=== PATIENT | female | born 1960 | race Caucasian/White ===

== ENCOUNTER → 2016-08-23 | Outpatient (CLI) | payer OTHER ==
[~2016-08-23] MED LIST: /CELE20CA OR; /LOR25TA OR; ACET65TA OR; ALPR0.25 OR; ASPI81TA83 OR; BUTR10DI2 TD; BUTR20DI2 TD; CALCTAB22 OR; CELE-19 PO; CLONI1TA PO; DULO30CA PO; EMLA2.5C TOP; FISH1000 OR; FLEXERIL PO; GLUCTAB6 PO; LIVALO PO; METO25TA2 OR; MULTIVIT PO; NORT10CA2 PO; OXYC1TAB23 PO; OXYC5CAP2 PO; PLAV75TA2 OR; PRAV40TA OR; PREG100CA OR; RANO5TAB PO; REQU0.5T PO; ST JOHN S WORT PO; ZOLO20CO PO; [UNRECOGNIZED DRUG - CODE] PO; [UNRECOGNIZED DRUG - OTHER] PO; [UNRECOGNIZED DRUG - OTHER] TOP; brilinta PO
--- NOTE | 2016-08-24 00:30 | ECWPNPC ---
PATIENT NAME: KYREE HUDSON : 1960 GENDER: FEMALE VISIT DATE: 08/23/2016 DISCHARGE DATE: 08/23/16 1011 VISIT LOCKED DATE TIME: PHYSICIAN: MIKKI RING RESOURCE: MIKKI RING REASON FOR APPOINTMENT 1. BACK HISTORY OF PRESENT ILLNESS HISTORY OF PRESENT ILLNESS: PAIN THE PATIENT DESCRIBES THE PAIN... THE PATIENT DESCRIBES THE PAIN... THE PATIENT DESCRIBES THE PAIN... THE PATIENT DESCRIBES THE PAIN... THE PATIENT DESCRIBES THE PAIN... THE PATIENT DESCRIBES THE PAIN... 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 CURRENTLY USING LYRICA 200MG DAILY,OXYCODONE 5/325 PRN,AND CELEBREX 200MG BID.FINDS CURRENT MEDICINE EFFECTIVE AT REDUCING PAIN.C/O USING AMITRIPTYLINE 25MG PRN AT HS FOR INCREASED PAIN .USES PERCOCET 5/325 PRN FOR SEVERE PAIN AND USES THIS SPARINGLY SINCE STARTED ON BUTRANS PATCH.DISCUSSED MEDICATION AND TREATMENT OPTIONS.RATING PAIN VAS 4/10.IT SHOULD BE NOTED THAT SHE ALSO USES FLEXERIL 5MG AND AMITRIPTYLINE PRN FOR SEVERE PAIN EPISODES. USING BUTRANS PATCH 10MCG AND REPORTS LESS DAYTIME FATIGUE AND LETHARGY AND IMPROVED PAIN CONTROL. FALL RISK SCREENING: SCREENING :NO FALLS IN THE PAST YEAR CURRENT MEDICATIONS TAKING NITROGLYCERIN 0.4 MG/SPRAY SOLUTION 1 SPRAY UNDER THE TONGUE TRANSLINGUAL NEEDED FOR CHEST PAIN (DR. MEYER) TAKING METOPROLOL TARTRATE 25 MG TABLET 1 TABLET ORALLY ONCE A DAY (DR. BUCK) TAKING ASPIRIN ADULT LOW STRENGTH 81 MG TABLET DELAYED RELEASE 1 TABLET ORALLY ONCE A DAY TAKING PRAVASTATIN SODIUM 40 MG TABLET 1 TABLET ORALLY ONCE A DAY TAKING FLEXERIL 5 MG TABLET 1-2 TABLETS ORALLY EVERY 8 HOURS PRN SPASM/PAIN TAKING ZOLOFT 50 MG TABLET 1 TABLET ORALLY ONCE A DAY TAKING BUTRANS 10 MCG/HR PATCH WEEKLY 1 PATCH TO SKIN TRANSDERMAL 1 PATCH Q7DAYS =MDD TAKING AMITRIPTYLINE HCL 25 MG TABLET 1 ORALLY QHS PRN TAKING LYRICA 200 MG CAPSULE 1 CAPSULE ORALLY ONCE A DAY TAKING CELEBREX 200 MG CAPSULE 1 CAPSULE ORALLY BID MDD2 TAKING PROAIR HFA 108 (90 BASE) MCG/ACT AEROSOL SOLUTION 2 PUFFS INHALATION EVERY 4-6 HRS TAKING PERCOCET 5-325 MG TABLET 1 TABLET NEEDED ORALLY EVERY 6 HRSMDD4 TAKING ZYRTEC 10 MG TABLET 1 TABLET NEEDED ORALLY ONCE A DAY TAKING MULTI VITAMIN DAILY - TABLET 1 TABLET ORALLY ONCE A DAY TAKING FISH OIL ULTRA NOT-TAKING BELSOMRA 10 MG TABLET 1 TABLET AT BEDTIME NEEDED ORALLY ONCE A DAY NOT-TAKING DOXYCYCLINE HYCLATE 100 MG CAPSULE 1 CAPSULE ORALLY BID NOT-TAKING DIFLUCAN 150 MG TABLET 1 TABLET ORALLY TAKE ONE AT ONSET OF SYMPTOMS, REPEAT IN 72 HOURS IF SYMPTOMS PERSIST NOT-TAKING OXYCODONE HCL 5 MG CAPSULE 1 TABLET NEEDED ORALLY EVERY 6 HRS NOT-TAKING CURCUMAX PRO 1 TABLET 1 TAB(S) ORALLY DAILY MEDICATION LIST REVIEWED AND RECONCILED WITH THE PATIENT PAST MEDICAL HISTORY HX OF SVT- S/P ABLATION 2005- DR MAHESH ANNE IN [facility]- Q YR- JAN CAD S/P- 2 STENT PLACED AT [facility] CHRONIC BACK PAIN- LUMBAR REGION ARTHRITIS- PAIN CLINIC- ARNULFO 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 NEW PATIENT PAIN DIARY TODAY'S VISITNOTES FROM 0-10, WHAT LEVEL IS YOUR PAIN TODAY?0 PAIN CLINIC PFS, CLERGY, PUBLIC HEALTH REFERRALS PFS REFERRAL NEEDED?NO CLERGY REFERRAL NEEDED?NO PUBLIC HEALTH REFERRAL NEEDED?NO WAS THE PROVIDER NOTIFIED OF ANY PERTINENT INFO?NO PFS REFERRAL NEEDED?NO CLERGY REFERRAL NEEDED?NO PUBLIC HEALTH REFERRAL NEEDED?NO WAS THE PROVIDER NOTIFIED OF ANY PERTINENT INFO?NO REVIEW OF SYSTEMS CONSTITUTIONAL: ANY CHANGE IN YOUR MEDICAL CONDITION? NO . RECENT ILLNESS DENIES . CHILLS NO . FEVER NO . WEIGHT LOSS DENIES . INFECTION: DO YOU HAVE NEW INFECTIONS? NO . DO YOU HAVE HISTORY OF MRSA? NO . MUSCULOSKELETAL: ANY NEW PATTERNS OF PAIN OR NUMBNESS? NO . GASTROENTEROLOGY: ANY NEW CHANGE IN BOWEL CONTROL? NO . GENITOURINARY: ANY NEW CHANGE IN BLADDER CONTROL? NO . IS THERE A CHANCE YOU COULD BE ? NO . HEMATOLOGY/LYMPH: DO YOU TAKE ANY BLOOD THINNERS? (FOR EXAMPLE- COUMADIN, PLAVIX, AGGRENOX, PLATEL, PRADAXA, OR XARELTO) NO . WHEN WAS YOUR LAST DOSE? DATE: TIME: . NEUROLOGY: HAVE YOU FALLEN IN THE PAST 6 MONTHS? NO . ANY NEW EXTREMITY NUMBNESS OR WEAKNESS? NO . CARDIOLOGY: DO YOU HAVE A PACEMAKER OR DEFIBRILLATOR? NO . CHEST PAIN DENIES . SHORTNESS OF BREATH DENIES . RESPIRATORY: HAVE YOU BEEN SICK IN THE PAST WEEK? NO . FEVER NO . FLU LIKE SYMPTOMS? NO . COUGH NO, DENIES . SHORTNESS OF BREATH DENIES . INTEGUMENTARY: DO YOU HAVE ANY RASHES OR OPEN SORES? NO . ALLERGIC/IMMUNO: ARE YOU ALLERGIC TO SHELLFISH OR IV DYE? NO . ANY NEW ALLERGIES? NO . PSYCHIATRIC: DO YOU HAVE THOUGHTS OF HURTING YOURSELF OR SOMEONE ELSE? NO . ARE YOU ABUSED, NEGLECTED, OR IN AN UNSAFE ENVIRONMENT? NO . ENDOCRINOLOGY: ARE YOU DIABETIC? NO . OTHER: DO YOU NEED ANY PRESCRIPTIONS? YES OXYCODONE . IF YES, PLEASE LIST: ____ . ANY NEW PROBLEMS WITH YOUR MEDICATIONS? NO . WHEN DID YOU LAST EAT? ____ . WHEN DID YOU LAST DRINK? ____ . WHAT DID YOU LAST DRINK? ____ . NAME OF PERSON DRIVING YOU HOME? ____ . DO YOU HAVE ANY OTHER QUESTIONS OR CONCERNS NO . REVIEWED BY: PROVIDER: MIKKI DOUGLAS . VITAL SIGNS WT 173.6 LBS, HT 68 IN, BMI 26.39 INDEX, BP 123/83 MM HG, HR 62 /MIN, RR 18 /MIN, TEMP 96.2 F, OXYGEN SAT % 95%, SAFE IN ENV? (Y/N) YES, NA INITIALS AL 09:05, REVIEWED BY: KG. EXAMINATION GENERAL EXAMINATION: LUNGS:LUNG SOUNDS ARE CLEAR. HEART:HEART RATE REGULAR. MUSCULOSKELETAL:*, MUSCLE STRENGTH TESTING 5/5 BILATERAL LOWER EXTREMITIES., PALPATION: NEGATIVE FOR PAIN OVER L/S SPINE. NEGATIVE FOR PAIN OVER L/S PARASPINALS. DIAGNOSTIC: . ASSESSMENTS CHRONIC BILATERAL LOW BACK PAIN WITHOUT SCIATICA - M54.5 (PRIMARY) CHRONIC PRESCRIPTION OPIATE USE - Z79.899 SACROILIAC DYSFUNCTION - M53.3 TREATMENT CHRONIC BILATERAL LOW BACK PAIN WITHOUT SCIATICA CONTINUE FLEXERIL TABLET, 5 MG, 1-2 TABLETS, ORALLY, EVERY 8 HOURS PRN SPASM/PAIN REFILL BUTRANS PATCH WEEKLY, 10 MCG/HR, 1 PATCH TO SKIN, TRANSDERMAL, 1 PATCH Q7DAYS =MDD, 30 DAY(S), 4, REFILLS 5 CONTINUE AMITRIPTYLINE HCL TABLET, 25 MG, 1, ORALLY, QHS PRN CONTINUE CELEBREX CAPSULE, 200 MG, 1 CAPSULE, ORALLY, BID MDD2, 30 DAY(S), 60, REFILLS 5 REFILL PERCOCET TABLET, 5-325 MG, 1 TABLET NEEDED, ORALLY, EVERY 6 HRSMDD4, 30 DAY(S), 60, REFILLS 0 NOTES: ISTOP REGISTRY REVIEWED AND DEMNOSTRATES COMPLLIANCE. BRINGS IN MEDICATIONS WHICH IS APPROPRIATE FOR WHAT WAS DISPENSED. RECENT URINE TOXICOLOGY REVIEWED. NO UNAUTHORIZED MEDICATIONS. NO ILLICIT SUBSTANCES AND PRESCRIBED MEDICATIONS WERE PRESENT. , RISKS AND BENEFITS OF NARCOTIC/OPIOD MEDICATIONS WERE REVIEWED WITH PATIENT - THIS INCLUDES BUT IS NOT LIMITED TO RISK OF DEPENDANCE/DEVELOPMENT OF ADDICTION, MOOD DISTURBANCE AND DEPRESSION, OSTEOPOROSIS, HORMONAL AND LABIDAL CHANGES, RESPIRATORY DEPRESSION AND . PATIENT IS ADVISED NOT TO DRIVE WHILE ON THESE MEDICATIONS.URINE TOX TODAY. PROCEDURES PN WORKMANS' COMP OPINION IN YOUR OPINION, WAS THE INCIDENT THAT THE PATIENT DESCRIBED THE COMPETENT MEDICAL CAUSE OF THIS INJURY/ILLNESS? YES ARE THE PATIENT'S COMPLAINTS CONSISTENT WITH HIS/HER HISTORY OF THE INJURY/ILLNESS? YES IS THE PATIENT'S HISTORY OF THE INJURY/ILLNESS CONSISTENT WITH YOUR OBJECTIVE FINDING? YES WHAT IS THE PERCENTAGE OF TEMPORARY IMPAIRMENT? MODERATE TO MARKED = 66.7% IS THE PATIENT WORKING? NO DOCTOR ON SITE: NAM BRADSHAW MD PROCEDURE CODES FA211 ESTABILISHED PATIENT [facility] CHARGE DISPOSITION & COMMUNICATION FOLLOW UP 2 MONTHS ELECTRONICALLY SIGNED BY STELLA SUNSHINE ON 08/23/2016 AT 10:25 AM EST DISCLAIMER : THIS IS A VISIT SUMMARY EXTRACTED FROM THE [employer] CHART. IT IS NOT A COPY OF THE [employer] PROGRESS NOTE. MTDD
== END ==
LOC: M PAIN 09:00
PROVIDERS: ATTEND Nurse Practitioner Family
DX: Z09 Encounter for follow-up examination after completed treatment for conditions other than malignant neoplasm (principal); G89.29 Other chronic pain; M54.5 Low back pain; M53.3 Sacrococcygeal disorders, not elsewhere classified; I25.10 Atherosclerotic heart disease of native coronary artery without angina pectoris; G90.50 Complex regional pain syndrome I, unspecified; F41.9 Anxiety disorder, unspecified; Z88.8 Allergy status to other drugs, medicaments and biological substances; Z79.82 Long term (current) use of aspirin; Z79.891 Long term (current) use of opiate analgesic; Z79.899 Other long term (current) drug therapy; Z86.79 Personal history of other diseases of the circulatory system; Z95.5 Presence of coronary angioplasty implant and graft; Z98.890 Other specified postprocedural states

== ENCOUNTER → 2016-09-10 | Outpatient (REF) | payer OTHER | LOC: M SFHCLERA 13:05 | PROVIDERS: ATTEND Physician Assistant | DX: J02.9 Acute pharyngitis, unspecified (principal) ==

== ENCOUNTER → 2016-09-20 | Outpatient (REF) | payer OTHER ==
[2016-09-20 12:46] LABS: MEAN CORPUSCULAR HEMOGLOBIN 28.2 pg (27.0-33.0); RED CELL DISTRIBUTION WIDTH 12.3 % (11.5-14.5); WHITE BLOOD COUNT 5.1 K/mm3 (4.0-10.0)
[2016-09-20 12:47] LABS: ALBUMIN 3.5 GM/DL (3.2-5.2); ALBUMIN/GLOBULIN RATIO 1.21 (1.00-1.93); ALKALINE PHOSPHATASE 82 U/L (45-117); ALT/SGPT 21 U/L (12-78); ANION GAP 6 MEQ/L (8-16); AST/SGOT 17 U/L (15-37); BILIRUBIN,TOTAL 0.4 MG/DL (0.2-1.0); BLOOD UREA NITROGEN 13 MG/DL (7-18); CALCIUM LEVEL 8.4 MG/DL (8.5-10.1); CARBON DIOXIDE LEVEL 30 MEQ/L (21-32); CHLORIDE LEVEL 105 MEQ/L (98-107); CHOLESTEROL LEVEL 162 MG/DL (<200); GLOMERULAR FILTRATION RATE > 60.0 (>51); GLUCOSE, FASTING 86 MG/DL (70-105); POTASSIUM SERUM 4.3 MEQ/L (3.5-5.1); SODIUM LEVEL 141 MEQ/L (136-145); TOTAL PROTEIN 6.4 GM/DL (6.4-8.2); TRIGLYCERIDES LEVEL 160 MG/DL (<150)
== END ==
LOC: M SFHCLERA 08:38
PROVIDERS: ATTEND Physician Assistant
DX: M25.50 Pain in unspecified joint (principal); E78.2 Mixed hyperlipidemia; R63.5 Abnormal weight gain

== ENCOUNTER → 2016-10-26 | Outpatient (CLI) | payer OTHER ==
--- NOTE | 2016-11-04 23:37 | ECWPNPC ---
PATIENT NAME: KYREE HUDSON : 1960 GENDER: FEMALE VISIT DATE: 10/26/2016 DISCHARGE DATE: 10/26/16 1136 VISIT LOCKED DATE TIME: PHYSICIAN: MIKKI RING RESOURCE: MIKKI RING REASON FOR APPOINTMENT 1. BACK HISTORY OF PRESENT ILLNESS HISTORY OF PRESENT ILLNESS: PAIN THE PATIENT DESCRIBES THE PAIN... THE PATIENT DESCRIBES THE PAIN... THE PATIENT DESCRIBES THE PAIN... THE PATIENT DESCRIBES THE PAIN... THE PATIENT DESCRIBES THE PAIN... THE PATIENT DESCRIBES THE PAIN... THE PATIENT DESCRIBES THE PAIN... 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 CURRENTLY USING LYRICA 200MG DAILY,OXYCODONE 5/325 PRN,AND CELEBREX 200MG BID.FINDS CURRENT MEDICINE EFFECTIVE AT REDUCING PAIN.C/O USING AMITRIPTYLINE 25MG PRN AT HS FOR INCREASED PAIN .USES PERCOCET 5/325 PRN FOR SEVERE PAIN AND USES THIS SPARINGLY SINCE STARTED ON BUTRANS PATCH.HAVING SEVERE INCREASE IN LOW BACK PAIN PAST THREE WEEKS.PAIN IS RADIATING DOWN RIGHT LEG WHICH IS NOT HER USUAL PAIN PATTERN.DISCUSSED MEDICATION AND TREATMENT OPTIONS.RATING PAIN VAS 4/10.IT SHOULD BE NOTED THAT SHE ALSO USES FLEXERIL 5MG AND AMITRIPTYLINE PRN FOR SEVERE PAIN EPISODES. USING BUTRANS PATCH 10MCG AND REPORTS LESS DAYTIME FATIGUE AND LETHARGY AND IMPROVED PAIN CONTROL. FALL RISK SCREENING: SCREENING :NO FALLS IN THE PAST YEAR CURRENT MEDICATIONS TAKING ZOLOFT 100 MG TABLET 1 TABLET ORALLY ONCE A DAY TAKING METOPROLOL TARTRATE 25 MG TABLET 1 TABLET ORALLY ONCE A DAY (DR. BUCK) TAKING ASPIRIN ADULT LOW STRENGTH 81 MG TABLET DELAYED RELEASE 1 TABLET ORALLY ONCE A DAY TAKING PRAVASTATIN SODIUM 40 MG TABLET 1 TABLET ORALLY ONCE A DAY TAKING ZYRTEC 10 MG TABLET 1 TABLET NEEDED ORALLY ONCE A DAY TAKING FISH OIL ULTRA TAKING BUTRANS 10 MCG/HR PATCH WEEKLY 1 PATCH TO SKIN TRANSDERMAL 1 PATCH Q7DAYS =MDD TAKING CELEBREX 200 MG CAPSULE 1 CAPSULE ORALLY BID MDD2 TAKING NITROGLYCERIN 0.4 MG/SPRAY SOLUTION 1 SPRAY UNDER THE TONGUE TRANSLINGUAL NEEDED FOR CHEST PAIN TAKING LYRICA 200 MG CAPSULE 1 CAPSULE ORALLY ONCE A DAY TAKING PERCOCET 5-325 MG TABLET 1 TABLET NEEDED ORALLY EVERY 6 HRSMDD4 NOT-TAKING PROAIR HFA 108 (90 BASE) MCG/ACT AEROSOL SOLUTION 2 PUFFS INHALATION EVERY 4-6 HRS NOT-TAKING DOXYCYCLINE 40 MG CAPSULE DELAYED RELEASE 5 CAPSULE ON AN EMPTY STOMACH IN THE MORNING ORALLY ONCE A DAY MEDICATION LIST REVIEWED AND RECONCILED WITH THE PATIENT PAST MEDICAL HISTORY HX OF SVT- S/P ABLATION 2005- DR MAHESH ANNE IN [facility]- Q YR- JAN CAD S/P- 2 STENT PLACED AT [facility] CHRONIC BACK PAIN- LUMBAR REGION ARTHRITIS- PAIN CLINIC- ARNULFO BURNHAM-WORK COMP MULTIPLE JOINT PAIN- WRIST/RIGHT HIP/RIGHT KNEE/LEFT BIG TOE ANXIETY- LEXAPRO-1 YR- STOPPED B/C FELT LIKE ENCLOSED 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 BUCK) 12/2011 COLONOSCOPY (DR. ESQUIVEL, 1 POLYP, DUE IN 2018) 08/2013 BUNION 05/2015 ARTHRITIS 07/2015 SOCIAL HISTORY GENERAL: TOBACCO USE ARE YOU A:NONSMOKER CAFFEINE CAFFEINE USE?YES HOW OFTEN AND HOW MUCH? 2-3 CUPS HIV / HEP-C SCREENING HIV TEST OFFERED TO PATIENT:YES DATE OFFERED:09/10/2016 TEST ACCEPTED:NO REASON:PATIENT DECLINED HEP-C TEST OFFERED TO PATIENT:YES DATE OFFERED:09/10/2016 TEST ACCEPTED:NO REASON:PATIENT DECLINED LEARNING BARRIERS / SPECIAL NEEDS BARRIERS TO LEARNING?NO HEARING IMPAIRED?NO VISION IMPAIRED?YES :CORRECTIVE LENSES COGNITIVELY IMPAIRED?NO READINESS TO LEARN?YES LEARNING PREFERENCES?NO LEARNING CAPABILITIES PRESENT?YES EMOTIONAL BARRIERS?NO NEW PATIENT PAIN DIARY TODAY'S VISITNOTES FROM 0-10, WHAT LEVEL IS YOUR PAIN TODAY?0 PAIN CLINIC PFS, CLERGY, PUBLIC HEALTH REFERRALS PFS REFERRAL NEEDED?NO CLERGY REFERRAL NEEDED?NO PUBLIC HEALTH REFERRAL NEEDED?NO WAS THE PROVIDER NOTIFIED OF ANY PERTINENT INFO?YES [facility]ED DIRECTIVES HEALTH CARE PROXY?YES NAME OF HCP MOHAMUD RYAN CONTACT # FOR HCP [phone] HOSPITALIZATION/MAJOR DIAGNOSTIC PROCEDURE CHILDBIRTH SEE SURGERIES REVIEW OF SYSTEMS CONSTITUTIONAL: ANY CHANGE IN YOUR MEDICAL CONDITION? NO . CHILLS NO . FEVER NO . INFECTION: DO YOU HAVE NEW INFECTIONS? NO . DO YOU HAVE HISTORY OF MRSA? NO . MUSCULOSKELETAL: ANY NEW PATTERNS OF PAIN OR NUMBNESS? NO . GASTROENTEROLOGY: ANY NEW CHANGE IN BOWEL CONTROL? NO . GENITOURINARY: ANY NEW CHANGE IN BLADDER CONTROL? NO . IS THERE A CHANCE YOU COULD BE ? NO . HEMATOLOGY/LYMPH: DO YOU TAKE ANY BLOOD THINNERS? (FOR EXAMPLE- COUMADIN, PLAVIX, AGGRENOX, PLATEL, PRADAXA, OR XARELTO) NO . WHEN WAS YOUR LAST DOSE? DATE: TIME: . NEUROLOGY: HAVE YOU FALLEN IN THE PAST 6 MONTHS? NO . ANY NEW EXTREMITY NUMBNESS OR WEAKNESS? NO . CARDIOLOGY: DO YOU HAVE A PACEMAKER OR DEFIBRILLATOR? NO . RESPIRATORY: HAVE YOU BEEN SICK IN THE PAST WEEK? NO . FEVER NO . FLU LIKE SYMPTOMS? NO . COUGH NO . INTEGUMENTARY: DO YOU HAVE ANY RASHES OR OPEN SORES? NO . ALLERGIC/IMMUNO: ARE YOU ALLERGIC TO SHELLFISH OR IV DYE? NO . ANY NEW ALLERGIES? NO . PSYCHIATRIC: DO YOU HAVE THOUGHTS OF HURTING YOURSELF OR SOMEONE ELSE? NO . ARE YOU ABUSED, NEGLECTED, OR IN AN UNSAFE ENVIRONMENT? NO . ENDOCRINOLOGY: ARE YOU DIABETIC? NO . OTHER: DO YOU NEED ANY PRESCRIPTIONS? CELEBREX, LYRICA, OXYCODONE, . IF YES, PLEASE LIST: ____ . ANY NEW PROBLEMS WITH YOUR MEDICATIONS? NO . WHEN DID YOU LAST EAT? ____ . WHEN DID YOU LAST DRINK? ____ . WHAT DID YOU LAST DRINK? ____ . NAME OF PERSON DRIVING YOU HOME? ____ . DO YOU HAVE ANY OTHER QUESTIONS OR CONCERNS PT WOULD LIKE AUTHORIZATION FOR ANOTHER INJECTION . REVIEWED BY: PROVIDER: MIKKI DOUGLAS . VITAL SIGNS WT 165 LBS, HT 68 IN, BMI 25.09 INDEX, BP 125/64 MM HG, HR 59 /MIN, RR 18 /MIN, TEMP 97.8 F, OXYGEN SAT % 96%, SAFE IN ENV? (Y/N) Y, NA INITIALS AW 1050, REVIEWED BY: NATY. EXAMINATION GENERAL EXAMINATION: LUNGS:LUNG SOUNDS ARE CLEAR. HEART:HEART RATE REGULAR. MUSCULOSKELETAL:*, MUSCLE STRENGTH TESTING 5/5 BILATERAL LOWER EXTREMITIES., PALPATION: NEGATIVE FOR PAIN OVER L/S SPINE. NEGATIVE FOR PAIN OVER L/S PARASPINALS. DIAGNOSTIC: . ASSESSMENTS CHRONIC BILATERAL LOW BACK PAIN WITHOUT SCIATICA - M54.5 (PRIMARY) CHRONIC PRESCRIPTION OPIATE USE - Z79.899 SACROILIAC DYSFUNCTION - M53.3 TREATMENT CHRONIC BILATERAL LOW BACK PAIN WITHOUT SCIATICA CONTINUE BUTRANS PATCH WEEKLY, 10 MCG/HR, 1 PATCH TO SKIN, TRANSDERMAL, 1 PATCH Q7DAYS =MDD REFILL CELEBREX CAPSULE, 200 MG, 1 CAPSULE, ORALLY, BID MDD2, 30 DAY(S), 60, REFILLS 5 REFILL LYRICA CAPSULE, 200 MG, 1 CAPSULE, ORALLY, ONCE A DAY, 30 DAY(S), 30 CAPSULE, REFILLS 2 REFILL PERCOCET TABLET, 5-325 MG, 1 TABLET NEEDED, ORALLY, EVERY 6 HRSMDD4, 30 DAY(S), 60, REFILLS 0 NOTES: ISTOP REGISTRY REVIEWED AND DEMNOSTRATES COMPLLIANCE. BRINGS IN MEDICATIONS WHICH IS APPROPRIATE FOR WHAT WAS DISPENSED. RECENT URINE TOXICOLOGY REVIEWED. NO UNAUTHORIZED MEDICATIONS. NO ILLICIT SUBSTANCES AND PRESCRIBED MEDICATIONS WERE PRESENT. , RISKS AND BENEFITS OF NARCOTIC/OPIOD MEDICATIONS WERE REVIEWED WITH PATIENT - THIS INCLUDES BUT IS NOT LIMITED TO RISK OF DEPENDANCE/DEVELOPMENT OF ADDICTION, MOOD DISTURBANCE AND DEPRESSION, OSTEOPOROSIS, HORMONAL AND LABIDAL CHANGES, RESPIRATORY DEPRESSION AND . PATIENT IS ADVISED NOT TO DRIVE WHILE ON THESE MEDICATIONS, URINE TOX TODAY. PROCEDURE CODES FA211 ESTABILISHED PATIENT [facility] CHARGE DISPOSITION & COMMUNICATION FOLLOW UP 4 WEEKS ELECTRONICALLY SIGNED BY STELLA SUNSHINE ON 11/04/2016 AT 05:45 PM EDT DISCLAIMER : THIS IS A VISIT SUMMARY EXTRACTED FROM THE [employer] CHART. IT IS NOT A COPY OF THE [employer] PROGRESS NOTE. MTDD
== END ==
LOC: M PAIN 10:20
PROVIDERS: ATTEND Nurse Practitioner Family
DX: G89.29 Other chronic pain (principal); M54.5 Low back pain; M53.3 Sacrococcygeal disorders, not elsewhere classified; F41.9 Anxiety disorder, unspecified; E78.2 Mixed hyperlipidemia; F34.1 Dysthymic disorder; Z88.8 Allergy status to other drugs, medicaments and biological substances; Z79.82 Long term (current) use of aspirin; Z79.891 Long term (current) use of opiate analgesic; Z79.899 Other long term (current) drug therapy

== ENCOUNTER → 2016-11-09 | Outpatient (REF) | payer OTHER | LOC: M SFHCWAGY 09:53 | PROVIDERS: ATTEND Nurse Practitioner Women's Health | DX: Z12.4 Encounter for screening for malignant neoplasm of cervix (principal); R87.610 Atypical squamous cells of undetermined significance on cytologic smear of cervix (ASC-US) ==

== ENCOUNTER → 2016-11-24 | Outpatient (CLI) | payer OTHER ==
--- NOTE | 2016-11-25 00:47 | ECWPNPC ---
PATIENT NAME: KYREE HUDSON : 1960 GENDER: FEMALE VISIT DATE: 11/24/2016 DISCHARGE DATE: 11/24/16 1024 VISIT LOCKED DATE TIME: PHYSICIAN: MIKKI RING RESOURCE: MIKKI RING REASON FOR APPOINTMENT 1. BACK HISTORY OF PRESENT ILLNESS HISTORY OF PRESENT ILLNESS: PAIN THE PATIENT DESCRIBES THE PAIN... THE PATIENT DESCRIBES THE PAIN... THE PATIENT DESCRIBES THE PAIN... THE PATIENT DESCRIBES THE PAIN... THE PATIENT DESCRIBES THE PAIN... THE PATIENT DESCRIBES THE PAIN... THE PATIENT DESCRIBES THE PAIN... THE PATIENT DESCRIBES THE PAIN... 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 CURRENTLY USING LYRICA 200MG DAILY,OXYCODONE 5/325 PRN,AND CELEBREX 200MG BID AND BUTRANS PATCH.FINDS CURRENT MEDICINE EFFECTIVE AT REDUCING PAIN. STOPPED BUTRANS PATCH 2 WEEKS AGO IT WAS CAUSING SEVERE RASH.HAVING SEVERE INCREASE IN LOW BACK PAIN PAST THREE WEEKS.PAIN IS RADIATING DOWN RIGHT LEG WHICH IS NOT HER USUAL PAIN PATTERN.DISCUSSED MEDICATION AND TREATMENT OPTIONS.WILL BE HAVING MRI L/S SPINE THAT WE REQUESTED IN THE NEXT FEW WEEKS. FALL RISK SCREENING: SCREENING :NO FALLS IN THE PAST YEAR CURRENT MEDICATIONS TAKING METOPROLOL TARTRATE 25 MG TABLET 1 TABLET ORALLY ONCE A DAY (DR. BUCK) TAKING ASPIRIN ADULT LOW STRENGTH 81 MG TABLET DELAYED RELEASE 1 TABLET ORALLY ONCE A DAY TAKING PRAVASTATIN SODIUM 40 MG TABLET 1 TABLET ORALLY ONCE A DAY TAKING FISH OIL ULTRA TAKING NITROGLYCERIN 0.4 MG/SPRAY SOLUTION 1 SPRAY UNDER THE TONGUE TRANSLINGUAL NEEDED FOR CHEST PAIN TAKING BUTRANS 10 MCG/HR PATCH WEEKLY 1 PATCH TO SKIN TRANSDERMAL 1 PATCH Q7DAYS =MDD TAKING CELEBREX 200 MG CAPSULE 1 CAPSULE ORALLY BID MDD2 TAKING LYRICA 200 MG CAPSULE 1 CAPSULE ORALLY ONCE A DAY TAKING PERCOCET 5-325 MG TABLET 1 TABLET NEEDED ORALLY EVERY 6 HRSMDD4 TAKING FISH OIL 1000 MG CAPSULE 1 CAPSULE ORALLY ONCE A DAY TAKING ZOLOFT 100 MG TABLET 1 TABLET ORALLY ONCE A DAY TAKING ZYRTEC 10 MG TABLET 1 TABLET NEEDED ORALLY ONCE A DAY NOT-TAKING PROAIR HFA 108 (90 BASE) MCG/ACT AEROSOL SOLUTION 2 PUFFS INHALATION EVERY 4-6 HRS NOT-TAKING DOXYCYCLINE 40 MG CAPSULE DELAYED RELEASE 5 CAPSULE ON AN EMPTY STOMACH IN THE MORNING ORALLY ONCE A DAY MEDICATION LIST REVIEWED AND RECONCILED WITH THE PATIENT PAST MEDICAL HISTORY HX OF SVT- S/P ABLATION 2006- DR MAHESH ANNE IN [facility]- Q YR- AUG CAD S/P- 2 STENT PLACED AT [facility] CHRONIC BACK PAIN- LUMBAR REGION ARTHRITIS- PAIN CLINIC- ARNULFO TEJ-WORK COMP MULTIPLE JOINT PAIN- WRIST/RIGHT HIP/RIGHT KNEE/LEFT BIG TOE ANXIETY- LEXAPRO-1 YR- STOPPED B/C FELT LIKE ENCLOSED ALLERGIES CRESTOR: MYALGIAS: SIDE EFFECTS SURGICAL HISTORY RT HAND SURGERY- ARTHRITIS- DR STANFORD- SOS TUBAL LIGATION RT LEG VARICOSE VEIN REMOVED ABLATION CARDIAC 2005 CORONARY STENTS X 2 ([facility] - DR. BUCK) 12/2011 COLONOSCOPY (DR. ESQUIVEL, 1 POLYP, DUE IN 2019) 08/2013 BUNION 05/2015 ARTHRITIS 07/2015 HOSPITALIZATION/MAJOR DIAGNOSTIC PROCEDURE CHILDBIRTH SEE SURGERIES REVIEW OF SYSTEMS CONSTITUTIONAL: ANY CHANGE IN YOUR MEDICAL CONDITION? NO . CHILLS NO . FEVER NO . INFECTION: DO YOU HAVE NEW INFECTIONS? NO . DO YOU HAVE HISTORY OF MRSA? NO . MUSCULOSKELETAL: ANY NEW PATTERNS OF PAIN OR NUMBNESS? 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 SO PT HAS STOPPED WEARING PATCH OVER PAST 2 WEEKS. PT STATES SHE NOTICES ARTHRITIC PAIN MORE NOW. . GASTROENTEROLOGY: ANY NEW CHANGE IN BOWEL CONTROL? NO . GENITOURINARY: ANY NEW CHANGE IN BLADDER CONTROL? NO . IS THERE A CHANCE YOU COULD BE ? NO . HEMATOLOGY/LYMPH: DO YOU TAKE ANY BLOOD THINNERS? (FOR EXAMPLE- COUMADIN, PLAVIX, AGGRENOX, PLATEL, PRADAXA, OR XARELTO) NO . WHEN WAS YOUR LAST DOSE? DATE: TIME: . NEUROLOGY: HAVE YOU FALLEN IN THE PAST 6 MONTHS? NO . ANY NEW EXTREMITY NUMBNESS OR WEAKNESS? NO . CARDIOLOGY: DO YOU HAVE A PACEMAKER OR DEFIBRILLATOR? NO . RESPIRATORY: HAVE YOU BEEN SICK IN THE PAST WEEK? NO . FEVER NO . FLU LIKE SYMPTOMS? NO . COUGH NO . INTEGUMENTARY: DO YOU HAVE ANY RASHES OR OPEN SORES? NO . ALLERGIC/IMMUNO: ARE YOU ALLERGIC TO SHELLFISH OR IV DYE? NO . ANY NEW ALLERGIES? NO . PSYCHIATRIC: DO YOU HAVE THOUGHTS OF HURTING YOURSELF OR SOMEONE ELSE? NO . ARE YOU ABUSED, NEGLECTED, OR IN AN UNSAFE ENVIRONMENT? NO . ENDOCRINOLOGY: ARE YOU DIABETIC? NO . OTHER: DO YOU NEED ANY PRESCRIPTIONS? YES, OXYCODONE. TO DISCUSS NEW REGIMEN SINCE NOT WEARING PATCH . IF YES, PLEASE LIST: ____ . ANY NEW PROBLEMS WITH YOUR MEDICATIONS? NO . WHEN DID YOU LAST EAT? ____ . WHEN DID YOU LAST DRINK? ____ . WHAT DID YOU LAST DRINK? ____ . NAME OF PERSON DRIVING YOU HOME? ____ . DO YOU HAVE ANY OTHER QUESTIONS OR CONCERNS NO . REVIEWED BY: PROVIDER: MIKKI DOUGLAS . VITAL SIGNS WT 168.2 LBS, HT 68 IN, BMI 25.57 INDEX, BP 115/90 MM HG, REPEAT BP 125/68 MM HG, HR 63 /MIN, RR 16 /MIN, TEMP 97.4 F, OXYGEN SAT % 99%, NA INITIALS SC 09:23, REVIEWED BY: EM. EXAMINATION GENERAL EXAMINATION: LUNGS:LUNG SOUNDS ARE CLEAR. HEART:HEART RATE REGULAR. MUSCULOSKELETAL:*, MUSCLE STRENGTH TESTING 5/5 BILATERAL LOWER EXTREMITIES., PALPATION: + FOR PAIN OVER L/S SPINE. + FOR PAIN OVER L/S PARASPINALS.SPECIFIC POINT TENDERNESS OVER BILATERAL SIJ. DIAGNOSTIC: . ASSESSMENTS CHRONIC BILATERAL LOW BACK PAIN WITHOUT SCIATICA - M54.5 (PRIMARY) CHRONIC PRESCRIPTION OPIATE USE - Z79.899 SACROILIAC DYSFUNCTION - M53.3 TREATMENT CHRONIC BILATERAL LOW BACK PAIN WITHOUT SCIATICA STOP BUTRANS PATCH WEEKLY, 10 MCG/HR, 1 PATCH TO SKIN, TRANSDERMAL, 1 PATCH Q7DAYS =MDD CONTINUE CELEBREX CAPSULE, 200 MG, 1 CAPSULE, ORALLY, BID MDD2 CONTINUE LYRICA CAPSULE, 200 MG, 1 CAPSULE, ORALLY, ONCE A DAY REFILL PERCOCET TABLET, 5-325 MG, 1 TABLET NEEDED, ORALLY, EVERY 6 HRSMDD4, 30 DAY(S), 60, REFILLS 0 START OXYCONTIN TABLET ER 12 HOUR ABUSE-DETERRENT, 10 MG, 1 TABLET, ORALLY, DAILY, 30 DAY(S), 30 TABLET, REFILLS 0 [facility] MRI SPINE, L.S. WITHOUT [id number] PROCEDURES PN WORKMANS' COMP OPINION IN YOUR OPINION, WAS THE INCIDENT THAT THE PATIENT DESCRIBED THE COMPETENT MEDICAL CAUSE OF THIS INJURY/ILLNESS? YES ARE THE PATIENT'S COMPLAINTS CONSISTENT WITH HIS/HER HISTORY OF THE INJURY/ILLNESS? YES IS THE PATIENT'S HISTORY OF THE INJURY/ILLNESS CONSISTENT WITH YOUR OBJECTIVE FINDING? YES WHAT IS THE PERCENTAGE OF TEMPORARY IMPAIRMENT? MODERATE TO MARKED = 66.7% IS THE PATIENT WORKING? YES DOCTOR ON SITE: NAM BRADSHAW MD PROCEDURE CODES FA211 ESTABILISHED PATIENT [facility] CHARGE DISPOSITION & COMMUNICATION FOLLOW UP 4 WEEKS (REASON: REVIEW MRI) ELECTRONICALLY SIGNED BY STELLA SUNSHINE ON 11/24/2016 AT 11:33 AM EDT DISCLAIMER : THIS IS A VISIT SUMMARY EXTRACTED FROM THE [facility] [employer] CHART. IT IS NOT A COPY OF THE [facility] PROGRESS NOTE. CHRISTINA
== END ==
LOC: M PAIN 09:00
PROVIDERS: ATTEND Nurse Practitioner Family
DX: M54.5 Low back pain (principal); M53.3 Sacrococcygeal disorders, not elsewhere classified; Z79.82 Long term (current) use of aspirin; Z79.891 Long term (current) use of opiate analgesic; Z79.899 Other long term (current) drug therapy; Z88.8 Allergy status to other drugs, medicaments and biological substances

== ENCOUNTER → 2016-12-22 | Outpatient (CLI) | payer OTHER ==
[~2016-12-22] MED LIST changes: -CELE-19 PO; +CELE1CAP4 PO; -REQU0.5T PO; +REQU1TAB15 PO; +ZOLO50TA PO
--- NOTE | 2017-01-03 01:47 | ECWPNPC ---
PATIENT NAME: KYREE HUDSON : 1960 GENDER: FEMALE VISIT DATE: 12/22/2016 DISCHARGE DATE: 12/22/16 0951 VISIT LOCKED DATE TIME: PHYSICIAN: MIKKI RING RESOURCE: MIKKI RING REASON FOR APPOINTMENT 1. WC, BACK HISTORY OF PRESENT ILLNESS HISTORY OF PRESENT ILLNESS: PAIN THE PATIENT DESCRIBES THE PAIN... THE PATIENT DESCRIBES THE PAIN... THE PATIENT DESCRIBES THE PAIN... THE PATIENT DESCRIBES THE PAIN... THE PATIENT DESCRIBES THE PAIN... THE PATIENT DESCRIBES THE PAIN... THE PATIENT DESCRIBES THE PAIN... THE PATIENT DESCRIBES THE PAIN... THE PATIENT DESCRIBES THE PAIN... 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 CURRENTLY USING LYRICA 200MG DAILY,OXYCODONE 5/325 PRN,AND CELEBREX 200MG BID AND BUTRANS PATCH.FINDS CURRENT MEDICINE EFFECTIVE AT REDUCING PAIN. 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 FALL RISK SCREENING: SCREENING :NO FALLS IN THE PAST YEAR CURRENT MEDICATIONS TAKING METOPROLOL TARTRATE 25 MG TABLET 1 TABLET ORALLY ONCE A DAY (DR. BUCK) TAKING ASPIRIN ADULT LOW STRENGTH 81 MG TABLET DELAYED RELEASE 1 TABLET ORALLY ONCE A DAY TAKING PRAVASTATIN SODIUM 40 MG TABLET 1 TABLET ORALLY ONCE A DAY TAKING FISH OIL ULTRA 1 TAB ORALLY 2 TIMES A DAY TAKING NITROGLYCERIN 0.4 MG/SPRAY SOLUTION 1 SPRAY UNDER THE TONGUE TRANSLINGUAL NEEDED FOR CHEST PAIN TAKING ZOLOFT 100 MG TABLET 1 TABLET ORALLY ONCE A DAY TAKING ZYRTEC 10 MG TABLET 1 TABLET NEEDED ORALLY ONCE A DAY TAKING CELEBREX 200 MG CAPSULE 1 CAPSULE ORALLY BID MDD2 TAKING LYRICA 200 MG CAPSULE 1 CAPSULE ORALLY ONCE A DAY TAKING PERCOCET 5-325 MG TABLET 1 TABLET NEEDED ORALLY EVERY 6 HRSMDD4 TAKING OXYCONTIN 10 MG TABLET ER 12 HOUR ABUSE-DETERRENT 1 TABLET ORALLY DAILY NOT-TAKING FISH OIL 1000 MG CAPSULE 1 CAPSULE ORALLY ONCE A DAY NOT-TAKING PROAIR HFA 108 (90 BASE) MCG/ACT AEROSOL SOLUTION 2 PUFFS INHALATION EVERY 4-6 HRS NOT-TAKING DOXYCYCLINE 40 MG CAPSULE DELAYED RELEASE 5 CAPSULE ON AN EMPTY STOMACH IN THE MORNING ORALLY ONCE A DAY MEDICATION LIST REVIEWED AND RECONCILED WITH THE PATIENT PAST MEDICAL HISTORY HX OF SVT- S/P ABLATION 2005- DR MAHESH ANNE IN [facility]- Q YR- JAN CAD S/P- 2 STENT PLACED AT [facility] CHRONIC BACK PAIN- LUMBAR REGION ARTHRITIS- PAIN CLINIC- ARNULFO BURNHAM-WORK COMP MULTIPLE JOINT PAIN- WRIST/RIGHT HIP/RIGHT KNEE/LEFT BIG TOE ANXIETY- LEXAPRO-1 YR- STOPPED B/C FELT LIKE ENCLOSED ALLERGIES CRESTOR: MYALGIAS: SIDE EFFECTS SOCIAL HISTORY GENERAL: TOBACCO USE ARE YOU A:NONSMOKER BMI CARE GOAL FOLLOW-UP ABOVE NORMAL BMI FOLLOW-UPDIETARY MANAGEMENT EDUCATION, GUIDANCE, AND COUNSELING, WEIGHT MONITORING CAFFEINE CAFFEINE USE?YES HOW OFTEN AND HOW MUCH? 2-3 CUPS CAFFEINE USE?YES HOW OFTEN AND HOW MUCH? 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 EXERCISE: ABS, RESISTANCE TRAINING. MARITAL STATUS: .. OTHERS AT HOME: BOYFRIEND. LANGUAGE LANGUAGES SPOKEN:INDONESIAN LEARNING BARRIERS / SPECIAL NEEDS BARRIERS TO LEARNING?NO HEARING IMPAIRED?NO VISION IMPAIRED?YES :CORRECTIVE LENSES COGNITIVELY IMPAIRED?NO READINESS TO LEARN?YES LEARNING PREFERENCES?NO LEARNING CAPABILITIES PRESENT?YES EMOTIONAL BARRIERS?NO SPECIAL DEVICES?NO WORKERS COMPENSATION CLAIMS SPECIALIST NEEDED?NO NEW PATIENT PAIN DIARY TODAY'S VISITNOTES FROM 0-10, WHAT LEVEL IS YOUR PAIN TODAY?0 PAIN CLINIC PFS, CLERGY, PUBLIC HEALTH REFERRALS PFS REFERRAL NEEDED?NO CLERGY REFERRAL NEEDED?NO PUBLIC HEALTH REFERRAL NEEDED?NO WAS THE PROVIDER NOTIFIED OF ANY PERTINENT INFO?YES HAS THE PATIENT BEEN EDUCATED REGARDING HIS/HER PLAN OF CARE?YES HAS THE PATIENT BEEN EDUCATED REGARDING PAIN, THE RISK FOR PAIN, THE IMPORTANCE OF EFFECTIVE PAIN MANAGEMENT, AND THE PAIN ASSESSMENT PROCESS?YES ADVANCE DIRECTIVES HEALTH CARE PROXY?YES NAME OF HCP MOHAMUD DAVIS CONTACT # FOR HCP [phone] HEALTH CARE PROXY?YES NAME OF HCP MOHAMUD DAVIS CONTACT # FOR HCP [phone] REVIEW OF SYSTEMS REVIEWED BY: PROVIDER: MIKKI DOUGLAS . CONSTITUTIONAL: ANY CHANGE IN YOUR MEDICAL CONDITION? NO . CHILLS NO . FEVER NO . INFECTION: DO YOU HAVE NEW INFECTIONS? NO . DO YOU HAVE HISTORY OF MRSA? NO . MUSCULOSKELETAL: ANY NEW PATTERNS OF PAIN OR NUMBNESS? YES, HANDS GOING NUMB . GASTROENTEROLOGY: ANY NEW CHANGE IN BOWEL CONTROL? NO . GENITOURINARY: ANY NEW CHANGE IN BLADDER CONTROL? NO . IS THERE A CHANCE YOU COULD BE ? NO . HEMATOLOGY/LYMPH: DO YOU TAKE ANY BLOOD THINNERS? (FOR EXAMPLE- COUMADIN, PLAVIX, AGGRENOX, PLATEL, PRADAXA, OR XARELTO) NO . WHEN WAS YOUR LAST DOSE? DATE: TIME: . NEUROLOGY: HAVE YOU FALLEN IN THE PAST 6 MONTHS? YES . ANY NEW EXTREMITY NUMBNESS OR WEAKNESS? NO . CARDIOLOGY: DO YOU HAVE A PACEMAKER OR DEFIBRILLATOR? NO . RESPIRATORY: HAVE YOU BEEN SICK IN THE PAST WEEK? NO . FEVER NO . FLU LIKE SYMPTOMS? NO . COUGH NO . INTEGUMENTARY: DO YOU HAVE ANY RASHES OR OPEN SORES? NO . ALLERGIC/IMMUNO: ARE YOU ALLERGIC TO SHELLFISH OR IV DYE? NO . ANY NEW ALLERGIES? NO . PSYCHIATRIC: DO YOU HAVE THOUGHTS OF HURTING YOURSELF OR SOMEONE ELSE? NO . ARE YOU ABUSED, NEGLECTED, OR IN AN UNSAFE ENVIRONMENT? NO . ENDOCRINOLOGY: ARE YOU DIABETIC? NO . OTHER: DO YOU NEED ANY PRESCRIPTIONS? YES . IF YES, PLEASE LIST: OXYCODONE . ANY NEW PROBLEMS WITH YOUR MEDICATIONS? NO . WHEN DID YOU LAST EAT? ____ . WHEN DID YOU LAST DRINK? ____ . WHAT DID YOU LAST DRINK? ____ . NAME OF PERSON DRIVING YOU HOME? ____ . DO YOU HAVE ANY OTHER QUESTIONS OR CONCERNS YES, MRI RESULTS . VITAL SIGNS WT 167 LBS, HT 68 IN, BMI 25.39 INDEX, BP 107/64 MM HG, HR 64 /MIN, RR 16 /MIN, TEMP 97.3 F, OXYGEN SAT % 97%, NA INITIALS SC 08:57, REVIEWED BY: CS. EXAMINATION GENERAL EXAMINATION: LUNGS:LUNG SOUNDS ARE CLEAR. HEART:HEART RATE REGULAR. MUSCULOSKELETAL:*, MUSCLE STRENGTH TESTING 5/5 BILATERAL LOWER EXTREMITIES., PALPATION: + FOR PAIN OVER L/S SPINE. + FOR PAIN OVER L/S PARASPINALS.SPECIFIC POINT TENDERNESS OVER BILATERAL SIJ AND LUMBAR FACETS.INCREASE IN PAIN WITH FACET LOADING.. DIAGNOSTIC: . 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 BRINGS IN MEDICATIONS WHICH IS APPROPRIATE FOR WHAT WAS DISPENSED. RECENT URINE TOXICOLOGY REVIEWED. NO UNAUTHORIZED MEDICATIONS. NO ILLICIT SUBSTANCES AND PRESCRIBED MEDICATIONS WERE PRESENT. , RISKS AND BENEFITS OF NARCOTIC/OPIOD MEDICATIONS WERE REVIEWED WITH PATIENT - THIS INCLUDES BUT IS NOT LIMITED TO RISK OF DEPENDANCE/DEVELOPMENT OF ADDICTION, MOOD DISTURBANCE AND DEPRESSION, OSTEOPOROSIS, HORMONAL AND LABIDAL CHANGES, RESPIRATORY DEPRESSION AND . PATIENT IS ADVISED NOT TO DRIVE WHILE ON THESE MEDICATIONS. PROCEDURES PN WORKMANS' COMP OPINION IN YOUR OPINION, WAS THE INCIDENT THAT THE PATIENT DESCRIBED THE COMPETENT MEDICAL CAUSE OF THIS INJURY/ILLNESS? YES ARE THE PATIENT'S COMPLAINTS CONSISTENT WITH HIS/HER HISTORY OF THE INJURY/ILLNESS? YES IS THE PATIENT'S HISTORY OF THE INJURY/ILLNESS CONSISTENT WITH YOUR OBJECTIVE FINDING? YES WHAT IS THE PERCENTAGE OF TEMPORARY IMPAIRMENT? MODERATE TO MARKED = 66.7% IS THE PATIENT WORKING? YES DOCTOR ON SITE: NAM BRADSHAW MD PREVENTIVE MEDICINE PAIN CLINIC TEACHING: PROCEDURE TEACHING PRE-PROCEDURE INSTRUCTIONS GIVEN. QUESTIONS ANSWERED AND PATIENT VERBALIZES UNDERSTANDING.. PROCEDURE CODES FA211 ESTABILISHED PATIENT [facility] CHARGE DISPOSITION & COMMUNICATION FOLLOW UP 2WK POST (REASON: BILATERAL L3/4-L4/5 LUMBAR THERAPEUTIC FACET-REQUEST FROM COMP) ELECTRONICALLY SIGNED BY STELLA SUNSHINE ON 01/02/2017 AT 06:54 PM EDT DISCLAIMER : THIS IS A VISIT SUMMARY EXTRACTED FROM THE [employer] CHART. IT IS NOT A COPY OF THE [email or web address] PROGRESS NOTE. CHRISTINA
== END ==
LOC: M PAIN 08:40
PROVIDERS: ATTEND Nurse Practitioner Family
DX: G89.29 Other chronic pain (principal); M12.88 Other specific arthropathies, not elsewhere classified, other specified site; M51.26 Other intervertebral disc displacement, lumbar region; Z88.8 Allergy status to other drugs, medicaments and biological substances; Z79.82 Long term (current) use of aspirin; Z79.891 Long term (current) use of opiate analgesic; Z79.899 Other long term (current) drug therapy

== ENCOUNTER → 2017-01-26 | Outpatient (CLI) | payer OTHER ==
[~2017-01-26] MED LIST changes: +BUPIVACAINE HCL 0.25% 30 ML VIAL As Ordered ONE; +ISOVUE-M 300 61% 15ML VIAL (Q9967) As Ordered ONE; +LIDOCAINE 1% SDV INJ 30 ML VIAL As Ordered ONE; +TRIAMCINOLONE ACETONIDE SUSP 40 MG/ML VIAL (J3301) As Ordered ONE; +diazePAM 5 MG TAB As Ordered ONE; +oxyCODONE 5MG TAB As Ordered ONE
--- NOTE | 2017-01-26 17:42 | REP ---
FACET BLOCK: The images were reviewed with Dr. Disla. The patient has a history of low back pain. The portable C-Arm was provided in the OR for Dr. Cade for fluoroscopic guidance. Two intraoperative fluoroscopic spot films were obtained using last image hold technology for needle placement verification for bilateral lumbar facet injection. The films are on the PACs system and are available for review. 39 seconds of fluoroscopy time was utilized for this procedure. Reviewed by YASHIRA Garvin 01/26/2017 05:47 PEdited and Signed by Kirt Disla MD 01/26/2017 06:50 P
--- NOTE | 2017-02-05 23:39 | ECWPNPC ---
PATIENT NAME: KYREE HUDSON : 1960 GENDER: FEMALE VISIT DATE: 01/26/2017 DISCHARGE DATE: 01/26/17 1200 VISIT LOCKED DATE TIME: PHYSICIAN: NAM ESCOBEDO RESOURCE: NAM ESCOBEDO REASON FOR APPOINTMENT 1. W/C LUMBAR THERAPEUTIC FACET- CURRENT MEDICATIONS TAKING METOPROLOL TARTRATE 25 MG TABLET 1 TABLET ORALLY ONCE A DAY (DR. BUCK), NOTES: 01/25/17@2200 TAKING ASPIRIN ADULT LOW STRENGTH 81 MG TABLET DELAYED RELEASE 1 TABLET ORALLY ONCE A DAY, NOTES: 0700 TAKING PRAVASTATIN SODIUM 40 MG TABLET 1 TABLET ORALLY ONCE A DAY, NOTES: 01/25/17@2200 TAKING FISH OIL ULTRA 1 TAB ORALLY 2 TIMES A DAY, NOTES: 01/25/17@0800 TAKING NITROGLYCERIN 0.4 MG/SPRAY SOLUTION 1 SPRAY UNDER THE TONGUE TRANSLINGUAL NEEDED FOR CHEST PAIN, NOTES: 2 WEEKS TAKING ZYRTEC 10 MG TABLET 1 TABLET NEEDED ORALLY ONCE A DAY, NOTES: 01/25/17@0800 TAKING CELEBREX 200 MG CAPSULE 1 CAPSULE ORALLY BID MDD2, NOTES: 0700 TAKING LYRICA 200 MG CAPSULE 1 CAPSULE ORALLY ONCE A DAY, NOTES: 01/25/17@2200 TAKING PERCOCET 5-325 MG TABLET 1 TABLET NEEDED ORALLY EVERY 6 HRSMDD4, NOTES: 01/25/17@1200 TAKING OXYCONTIN 10 MG TABLET ER 12 HOUR ABUSE-DETERRENT 1 TABLET ORALLY DAILY, NOTES: 01/25/17@1200 TAKING ZOLOFT 100 MG TABLET 1 TABLET ORALLY ONCE A DAY, NOTES: 0700 NOT-TAKING FISH OIL 1000 MG CAPSULE 1 CAPSULE ORALLY ONCE A DAY NOT-TAKING PROAIR HFA 108 (90 BASE) MCG/ACT AEROSOL SOLUTION 2 PUFFS INHALATION EVERY 4-6 HRS NOT-TAKING DOXYCYCLINE 40 MG CAPSULE DELAYED RELEASE 5 CAPSULE ON AN EMPTY STOMACH IN THE MORNING ORALLY ONCE A DAY MEDICATION LIST REVIEWED AND RECONCILED WITH THE PATIENT PAST MEDICAL HISTORY HX OF SVT- S/P ABLATION 2005- DR MAHESH ANNE IN [facility]- Q YR- JAN CAD S/P- 2 STENT PLACED AT [facility] CHRONIC BACK PAIN- LUMBAR REGION ARTHRITIS- PAIN CLINIC- ARNULFO BURNHAM-WORK COMP MULTIPLE JOINT PAIN- WRIST/RIGHT HIP/RIGHT KNEE/LEFT BIG TOE ANXIETY- LEXAPRO-1 YR- STOPPED B/C FELT LIKE ENCLOSED ALLERGIES CRESTOR: MYALGIAS: SIDE EFFECTS GARLIC: SEVERE STOMACH PAIN: ALLERGY VITAL SIGNS WT 167 LBS, HT 68 IN, BMI 25.39 INDEX, BP 115/65 MM HG, HR 59 /MIN, RR 18 /MIN, TEMP 98.4 F, OXYGEN SAT % 98, SAFE IN ENV? (Y/N) YES, NA INITIALS MP 9:11. ASSESSMENTS SPONDYLOSIS WITHOUT MYELOPATHY OR RADICULOPATHY, LUMBAR REGION - M47.816 (PRIMARY) SPONDYLOSIS WITHOUT MYELOPATHY OR RADICULOPATHY, LUMBOSACRAL REGION - M47.817 PROCEDURES PN LUMBAR FACET BLOCK THERAPEUTIC PRE PROCEDURE DIAGNOSIS LUMBAR SPONDYLOSIS, LUMBOSACRAL SPONDYLOSIS POST PROCEDURE DIAGNOSIS LUMBAR SPONDYLOSIS, LUMBOSACRAL SPONDYLOSIS PROCEDURE BILATERAL L4-L5 AND BILATERAL L5-S1 LUMBAR FACET THERAPEUTIC BLOCK SURGEON DR. NAM ESCOBEDO BRANCH OPERATIONS MANAGER NONE ANESTHESIA LOCAL PRE PROCEDURE NOTE THE PATIENT HAS A HISTORY OF CHRONIC LOW BACK PAIN. I EVALUATE THE PATIENT AND REVIEWED THE CHART. I WENT OVER THE RISKS, ALTERNATIVES, AND BENEFITS ASSOCIATED WITH THIS PROCEDURE. THE PATIENT WOULD LIKE TO PROCEED AND GIVE CONSENT TO PERFORMED THE PROCEDURE. THE PATIENT DENIES UNEXPLAINABLE WEIGHT LOSS, FEVER, CHILLS, OR NEW CHANGES IN URINARY OR BOWEL CONTROL DESCRIPTION OF PROCEDURE THE PATIENT WAS BROUGHT TO THE PROCEDURE ROOM AND PLACED IN THE PRONE POSITION. THE LUMBOSACRAL AREA WAS CLEANED WITH CHLORAPREP SOLUTION AND DRAPED ASEPTICALLY. THE PROCEDURE WAS DONE UNDER STERILE CONDITIONS. I CHECKED LATERALITY AND THE LEVEL WHERE THE PROCEDURE WAS GOING TO BE PERFORMED WITH THE PATIENT AND THE SUPPORTING STAFF AT THE MOMENT OF THE TIME OUT IN THE PROCEDURE ROOM. UNDER FLUOROSCOPIC GUIDANCE, THE TARGET POINT WAS SELECTED AT THE RIGHT AND LEFT L4-L5 AND RIGHT AND LEFT L5-S1 FACET JOINT. TARGET POINT WAS SELECTED AFTER LATERAL ROTATION AND TILT OF THE MAGNIFIER OF THE C-ARM. LIDOCAINE 0.5% WAS USED TO NUMB THE SKIN AND THE SUBCUTANEOUS TISSUE BELOW IT. SPINAL NEEDLES, 22-GAUGE, WERE ADVANCED UNDER FLUOROSCOPIC GUIDANCE AND FOLLOWING PATIENT FEEDBACK UNTIL THE TARGETS WERE TOUCHED. THE POSITION OF THE NEEDLES WAS VERIFIED WITH AP AND LATERAL VIEWS. AFTER PROPER POSITION OF THE NEEDLES WAS ACHIEVED, ISOVUE-M DYE 30% 0.1 ML WAS INJECTED SHOWING ADEQUATE SPREAD OF THE DYE. THEN A SOLUTION OF 1.9 ML OF BUPIVACAINE 0.125% OF KENALOG 10 MG WAS INJECTED AT EACH SITE. THERE WAS NO EVIDENCE OF BLOOD, PARESTHESIA OR CEREBROSPINAL FLUID DURING THE PROCEDURE. THE PATIENT WAS SENT TO THE RECOVERY ROOM. THE PATIENT WAS MOVING THE EXTREMITIES AND DOING WELL. THERE WAS NO COMPLICATION DURING THE PROCEDURE. FLUOROSCOPY TIME WAS 39 SECONDS POST PROCEDURE NOTE THE PATIENT WILL BE SEEN IN A FOLLOW UP IN THE NEXT FEW WEEKS. INSTRUCTIONS WERE GIVEN, QUESTIONS WERE ANSWERED, AND THE PATIENT EXPRESSED UNDERSTANDING AND AGREES WITH THE PLAN. I, AMANDA STEVENSON, DOCUMENTED THE ABOVE INFORMATION ACTING A SCRIBE FOR DR. ESCOBEDO. I HAVE REVIEWED THE ABOVE DOCUMENT, WRITTEN BY AMANDA OJEDAIBIvy AND I VERIFY THAT IT IS ACCURATE PN WORKMANS' COMP OPINION IN YOUR OPINION, WAS THE INCIDENT THAT THE PATIENT DESCRIBED THE COMPETENT MEDICAL CAUSE OF THIS INJURY/ILLNESS? YES ARE THE PATIENT'S COMPLAINTS CONSISTENT WITH HIS/HER HISTORY OF THE INJURY/ILLNESS? YES IS THE PATIENT'S HISTORY OF THE INJURY/ILLNESS CONSISTENT WITH YOUR OBJECTIVE FINDING? YES WHAT IS THE PERCENTAGE OF TEMPORARY IMPAIRMENT? MODERATE TO MARKED = 66.7% IS THE PATIENT WORKING? YES DOCTOR ON SITE: NAM BRADSHAW MD DOCTOR ON SITE: NAM BRADSHAW MD DOCTOR ON SITE: NAM BRADSHAW MD DIAGNOSTIC IMAGING [facility] FACET BLOCK (PAIN)[id number] PROCEDURE CODES 51336 INJ PARAVERT F JNT L/S 1 LEV 50616 INJ PARAVERT F JNT L/S 2 LEV 6045F RADXPS IN END [id number] PXD DISPOSITION & COMMUNICATION FOLLOW UP 3 WEEKS ELECTRONICALLY SIGNED BY NAM ESCOBEDO MD ON 02/05/2017 AT 07:40 AM EDT DISCLAIMER : THIS IS A VISIT SUMMARY EXTRACTED FROM THE [employer] CHART. IT IS NOT A COPY OF THE [employer] PROGRESS NOTE. MTDD
== END ==
LOC: M PAIN 09:00
PROVIDERS: ATTEND Anesthesiology
DX: G89.29 Other chronic pain (principal); M47.816 Spondylosis without myelopathy or radiculopathy, lumbar region; M47.817 Spondylosis without myelopathy or radiculopathy, lumbosacral region; E78.2 Mixed hyperlipidemia; J32.9 Chronic sinusitis, unspecified; Z91.018 Allergy to other foods; Z88.8 Allergy status to other drugs, medicaments and biological substances; Z79.82 Long term (current) use of aspirin; Z79.891 Long term (current) use of opiate analgesic; Z79.899 Other long term (current) drug therapy
CPT/HCPCS: 64493; 64494; J3301; Q9967

== ENCOUNTER 2017-02-22 17:47 | Emergency (ER) | payer OTHER ==
[~2017-02-22] VITALS: Ht 172.7 cm; Wt 70.7 kg
[~2017-02-22 17:47] MED LIST changes: -ZOLO50TA PO
[2017-02-22] MEDS ORDERED: CELE1CAP4 PO (18:01)
[2017-02-22] MEDS ORDERED: ZOLO50TA PO (18:01)
[2017-02-22] MEDS ORDERED: MORPHINE 4 MG/ML 1ML SYRINGE IV PRN (18:30)
[2017-02-22] MEDS ORDERED: ONDANSETRON 4MG/2ML VIAL (J2405) IV ONE (18:30)
[2017-02-22] MEDS ORDERED: NS 1,000 ML IV ONE (18:30)
[2017-02-22] MEDS ORDERED: GASTROGRAFIN SOLUTION 30ML PO ONE (18:45)
[2017-02-22 18:55] LABS: BASO % 0.4 % (0.0-1.0); EOS # 0.1 K/mm3 (0.0-0.50); EOS % 2.5 % (0.0-3.0); LARGE UNSTAINED CELL # 0.1 K/mm3 (0.0-0.4); LYMPH # 1.4 K/mm3 (1.5-4.5); LYMPH % 25.8 % (24.0-44.0); MEAN CORPUSCULAR HEMOGLOBIN 28.9 pg (27.0-33.0); MEAN CORPUSCULAR HGB CONC 33.7 g/dl (32.0-36.5); MEAN CORPUSCULAR VOLUME 85.7 fl (80.0-96.0); MONO # 0.3 K/mm3 (0.0-0.8); MONO % 5.1 % (0.0-5.0); NEUTROPHILS # 3.4 K/mm3 (1.8-7.7); NEUTROPHILS % 65.2 % (36.0-66.0); PLATELET COUNT, AUTOMATED 273 k/mm3 (150-450); RED CELL DISTRIBUTION WIDTH 13.2 % (11.5-14.5); WHITE BLOOD COUNT 5.2 K/mm3 (4.0-10.0)
[2017-02-22] MEDS ORDERED: GASTROGRAFIN SOLUTION 30ML (Q9963) PO ONE (19:15)
[2017-02-22 19:22] LABS: ALBUMIN/GLOBULIN RATIO 1.14 (1.00-1.93); ALKALINE PHOSPHATASE 66 U/L (45-117); ALT/SGPT 30 U/L (12-78); ANION GAP 8 MEQ/L (8-16); AST/SGOT 19 U/L (15-37); BILIRUBIN,DIRECT 0.1 MG/DL (0.0-0.2); BILIRUBIN,TOTAL 0.3 MG/DL (0.2-1.0); BLOOD UREA NITROGEN 21 MG/DL (7-18); CALCIUM LEVEL 8.7 MG/DL (8.5-10.1); CARBON DIOXIDE LEVEL 26 MEQ/L (21-32); CHLORIDE LEVEL 109 MEQ/L (98-107); CREATININE FOR GFR 0.88 MG/DL (0.55-1.02); GLOMERULAR FILTRATION RATE > 60.0 (>51); GLUCOSE, FASTING 82 MG/DL (70-105); POTASSIUM SERUM 3.9 MEQ/L (3.5-5.1); SODIUM LEVEL 143 MEQ/L (136-145); TOTAL PROTEIN 7.5 GM/DL (6.4-8.2)
[2017-02-22] MEDS ORDERED: ISOVUE-370 76% 100ML VIAL (Q9967) As Ordered ONE (19:51)
--- NOTE | 2017-02-22 20:38 | REP ---
Clinical: Right lower quadrant pain. Technique: Axial contrast enhanced images from the lung bases to the pubic symphysis using oral and 100 ml Isovue 370 intravenous contrast material with coronal and sagittal re-formations. Comparison: None. Findings: Lung bases demonstrate chronic-appearing mild fibroatelectatic changes. Visualized heart and pericardium are normal. Liver, spleen, pancreas, gallbladder, bilateral adrenal glands and kidneys are normal. There is no evidence for hydronephrosis, perinephric stranding or obstructing ureteral calculi. The enteric system is without obstruction or acute inflammatory process. Normal terminal ileum and appendix are identified in the right lower quadrant. Pelvis demonstrates normal bladder and age appropriate uterus / adnexa. Sigmoid diverticulosis noted without acute diverticulitis. No pelvic fluid or ascites. No free air. No adenopathy. Abdominal aorta and vasculature appears normal. Musculoskeletal structures demonstrate age-related degenerative changes primarily involving the thoracolumbar spine. Impression: No acute abdominopelvic pathology appreciated. Normal terminal ileum and appendix identified in the right lower quadrant. No free fluid. Signed by Roger Scherer MD 02/22/2017 08:29 P
[2017-02-22 20:56] VITALS: BP 137/77
[2017-02-25 00:06] LABS: Lyme Disease IgG/IgM Antibodie <0.91 ISR (0.00-0.90); Lyme Disease IgM Ab Quantitati <0.80 index (0.00-0.79)
== END 2017-02-22 21:13 | disposition home or self-care (01) ==
LOC: M ED 17:47
DX: R10.31 Right lower quadrant pain (principal); I25.10 Atherosclerotic heart disease of native coronary artery without angina pectoris; M51.9 Unspecified thoracic, thoracolumbar and lumbosacral intervertebral disc disorder; Z95.5 Presence of coronary angioplasty implant and graft; Z87.891 Personal history of nicotine dependence; Z79.82 Long term (current) use of aspirin; Z79.899 Other long term (current) drug therapy; Z88.5 Allergy status to narcotic agent
CPT/HCPCS: 36415; 74177; 80048; 80076; 83690; 84443; 85025; 86617; 96374; 96375; 99283; J2405; Q9963; Q9967

== ENCOUNTER → 2017-02-22 | Outpatient (REF) | payer OTHER ==
[~2017-02-22] MED LIST changes: -BUPIVACAINE HCL 0.25% 30 ML VIAL As Ordered ONE; -ISOVUE-M 300 61% 15ML VIAL (Q9967) As Ordered ONE; -LIDOCAINE 1% SDV INJ 30 ML VIAL As Ordered ONE; -TRIAMCINOLONE ACETONIDE SUSP 40 MG/ML VIAL (J3301) As Ordered ONE; -diazePAM 5 MG TAB As Ordered ONE; -oxyCODONE 5MG TAB As Ordered ONE
== END ==
LOC: M SFHCLERA 17:55
PROVIDERS: ATTEND Nurse Practitioner Family
DX: R68.89 Other general symptoms and signs (principal)

== ENCOUNTER → 2017-03-15 | Outpatient (CLI) | payer OTHER ==
[~2017-03-15] MED LIST changes: +ZOLO50TA PO
--- NOTE | 2017-03-15 23:36 | ECWPNPC ---
PATIENT NAME: KYREE HUDSON : 1960 GENDER: FEMALE VISIT DATE: 03/15/2017 DISCHARGE DATE: 03/15/17 1011 VISIT LOCKED DATE TIME: PHYSICIAN: MIKKI RING RESOURCE: MIKKI RING REASON FOR APPOINTMENT 1. W/C, POST PROCEDURE HISTORY OF PRESENT ILLNESS HISTORY OF PRESENT ILLNESS: HERE FOR POST PROCEDURE F/U .HAD BILAT. L4/5-L5/S1 LUMBAR FACET THERAPEUTIC BLOCK ON 01-26-17.REPORTS >50% IMPROVEMENT IN PAIN THAT CONTINUES TODAY.REPORTING CRAMPING IN CALVES SINCE INJECTIONS WHICH SEEMS TO HAPPEN AFTER PROCEDURES.RATING PAIN VAS 3/10.REPORTS INTERMITTENT LOW BACK PAIN WITH PROLONGED DRIVING OR INCRASE IN BENDING OR LIFTING. PAIN THE PATIENT DESCRIBES THE PAIN... FALL RISK SCREENING: SCREENING :NO FALLS IN THE PAST YEAR CURRENT MEDICATIONS TAKING METOPROLOL TARTRATE 25 MG TABLET 1 TABLET ORALLY ONCE A DAY (DR. BUCK) TAKING ASPIRIN ADULT LOW STRENGTH 81 MG TABLET DELAYED RELEASE 1 TABLET ORALLY ONCE A DAY TAKING PRAVASTATIN SODIUM 40 MG TABLET 1 TABLET ORALLY ONCE A DAY TAKING FISH OIL ULTRA 1 TAB ORALLY 2 TIMES A DAY TAKING NITROGLYCERIN 0.4 MG/SPRAY SOLUTION 1 SPRAY UNDER THE TONGUE TRANSLINGUAL NEEDED FOR CHEST PAIN TAKING CELEBREX 200 MG CAPSULE 1 CAPSULE ORALLY BID MDD2 TAKING ZOLOFT 100 MG TABLET 1 TABLET ORALLY ONCE A DAY TAKING ZYRTEC 10 MG TABLET 1 TABLET NEEDED ORALLY ONCE A DAY TAKING LYRICA 200 MG CAPSULE 1 CAPSULE ORALLY ONCE A DAY TAKING OXYCONTIN 10 MG TABLET ER 12 HOUR ABUSE-DETERRENT 1 TABLET ORALLY DAILY TAKING PERCOCET 5-325 MG TABLET 1 TABLET NEEDED ORALLY EVERY 6 HRSMDD4 TAKING MAGNESIUM 400 MG CAPSULE ORALLY DAILY NOT-TAKING FISH OIL 1000 MG CAPSULE 1 CAPSULE ORALLY ONCE A DAY NOT-TAKING PROAIR HFA 108 (90 BASE) MCG/ACT AEROSOL SOLUTION 2 PUFFS INHALATION EVERY 4-6 HRS NOT-TAKING DOXYCYCLINE 40 MG CAPSULE DELAYED RELEASE 5 CAPSULE ON AN EMPTY STOMACH IN THE MORNING ORALLY ONCE A DAY MEDICATION LIST REVIEWED AND RECONCILED WITH THE PATIENT PAST MEDICAL HISTORY HX OF SVT- S/P [facility]BLATION 2005- [facility]- JAN CAD S/P- 2 STENT PLACED AT [facility] CHRONIC BACK PAIN- LUMBAR REGION ARTHRITIS- PAIN CLINIC- 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 BMI CARE GOAL FOLLOW-UP ABOVE NORMAL BMI FOLLOW-UPDIETARY MANAGEMENT EDUCATION, GUIDANCE, AND COUNSELING, WEIGHT MONITORING CAFFEINE CAFFEINE USE?YES HOW OFTEN AND HOW MUCH? 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 EXERCISE: ABS, RESISTANCE TRAINING. MARITAL STATUS: .. OTHERS AT HOME: BOYFRIEND. [id number] LANGUAGE LANGUAGES SPOKEN:AFGHAN LEARNING BARRIERS / SPECIAL NEEDS BARRIERS TO LEARNING?NO HEARING IMPAIRED?NO VISION IMPAIRED?YES :CORRECTIVE LENSES COGNITIVELY IMPAIRED?NO READINESS TO LEARN?YES LEARNING PREFERENCES?NO LEARNING CAPABILITIES PRESENT?YES EMOTIONAL BARRIERS?NO SPECIAL DEVICES?NO FINISH PAINTER NEEDED?NO NEW PATIENT PAIN DIARY TODAY'S VISIT NOTES, FROM 0-10, WHAT LEVEL IS YOUR PAIN TODAY? 0. PAIN CLINIC PFS, CLERGY, PUBLIC HEALTH REFERRALS PFS REFERRAL NEEDED?NO CLERGY REFERRAL NEEDED?NO PUBLIC HEALTH REFERRAL NEEDED?NO WAS THE PROVIDER NOTIFIED OF ANY PERTINENT INFO?YES HAS THE PATIENT BEEN EDUCATED REGARDING HIS/HER PLAN OF CARE?YES HAS THE PATIENT BEEN EDUCATED REGARDING PAIN, THE RISK FOR PAIN, THE IMPORTANCE OF EFFECTIVE PAIN MANAGEMENT, AND THE PAIN ASSESSMENT PROCESS?YES ADVANCE DIRECTIVES HEALTH CARE PROXY?YES NAME OF HCP MOHAMUD DAVIS CONTACT # FOR HCP [phone] REVIEW OF SYSTEMS REVIEWED BY: PROVIDER: MIKKI DOUGLAS . CONSTITUTIONAL: ANY CHANGE IN YOUR MEDICAL CONDITION? NO . CHILLS NO . FEVER NO . INFECTION: DO YOU HAVE NEW INFECTIONS? NO . DO YOU HAVE HISTORY OF MRSA? NO . MUSCULOSKELETAL: ANY NEW PATTERNS OF PAIN OR NUMBNESS? NO . GASTROENTEROLOGY: ANY NEW CHANGE IN BOWEL CONTROL? NO . GENITOURINARY: ANY NEW CHANGE IN BLADDER CONTROL? NO . IS THERE A CHANCE YOU COULD BE ? NO . HEMATOLOGY/LYMPH: DO YOU TAKE ANY BLOOD THINNERS? (FOR EXAMPLE- COUMADIN, PLAVIX, AGGRENOX, PLATEL, PRADAXA, OR XARELTO) NO . WHEN WAS YOUR LAST DOSE? DATE: TIME: . NEUROLOGY: HAVE YOU FALLEN IN THE PAST 6 MONTHS? NO . ANY NEW EXTREMITY NUMBNESS OR WEAKNESS? NO . CARDIOLOGY: DO YOU HAVE A PACEMAKER OR DEFIBRILLATOR? NO . RESPIRATORY: HAVE YOU BEEN SICK IN THE PAST WEEK? NO . FEVER NO . FLU LIKE SYMPTOMS? NO . COUGH NO . INTEGUMENTARY: DO YOU HAVE ANY RASHES OR OPEN SORES? NO . ALLERGIC/IMMUNO: ARE YOU ALLERGIC TO SHELLFISH OR IV DYE? NO . ANY NEW ALLERGIES? NO . PSYCHIATRIC: DO YOU HAVE THOUGHTS OF HURTING YOURSELF OR SOMEONE ELSE? NO . ARE YOU ABUSED, NEGLECTED, OR IN AN UNSAFE ENVIRONMENT? NO . ENDOCRINOLOGY: ARE YOU DIABETIC? NO . OTHER: DO YOU NEED ANY PRESCRIPTIONS? YES . IF YES, PLEASE LIST: CELEBREX AND LYRICA . ANY NEW PROBLEMS WITH YOUR MEDICATIONS? NO . WHEN DID YOU LAST EAT? ____ . WHEN DID YOU LAST DRINK? ____ . WHAT DID YOU LAST DRINK? ____ . NAME OF PERSON DRIVING YOU HOME? ____ . DO YOU HAVE ANY OTHER QUESTIONS OR CONCERNS NO . VITAL SIGNS WT 156 LBS, HT 68 IN, BMI 23.72 INDEX, BP 111/65 MM HG, HR 59 /MIN, RR 18 /MIN, TEMP 97.7 F, OXYGEN SAT % 96%, NA INITIALS AW 0946, REVIEWED BY: CS. EXAMINATION GENERAL EXAMINATION: LUNGS:LUNG SOUNDS ARE CLEAR. HEART:HEART RATE REGULAR. MUSCULOSKELETAL:*, MUSCLE STRENGTH TESTING 5/5 BILATERAL LOWER EXTREMITIES., NEGATIVE FOR PAIN OVER L/S SPINE. NEGATIVE FOR PAIN OVER L/S PARASPINALS.. DIAGNOSTIC: . 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 BRINGS IN MEDICATIONS WHICH IS APPROPRIATE FOR WHAT WAS DISPENSED. RECENT URINE TOXICOLOGY REVIEWED. NO UNAUTHORIZED MEDICATIONS. NO ILLICIT SUBSTANCES AND PRESCRIBED MEDICATIONS WERE PRESENT. , RISKS AND BENEFITS OF NARCOTIC/OPIOD MEDICATIONS WERE REVIEWED WITH PATIENT - THIS INCLUDES BUT IS NOT LIMITED TO RISK OF DEPENDANCE/DEVELOPMENT OF ADDICTION, MOOD DISTURBANCE AND DEPRESSION, OSTEOPOROSIS, HORMONAL AND LABIDAL CHANGES, RESPIRATORY DEPRESSION AND . PATIENT IS ADVISED NOT TO DRIVE WHILE ON THESE MEDICATIONS. PROCEDURES PN WORKMANS' COMP OPINION IN YOUR OPINION, WAS THE INCIDENT THAT THE PATIENT DESCRIBED THE COMPETENT MEDICAL CAUSE OF THIS INJURY/ILLNESS? YES ARE THE PATIENT'S COMPLAINTS CONSISTENT WITH HIS/HER HISTORY OF THE INJURY/ILLNESS? YES IS THE PATIENT'S HISTORY OF THE INJURY/ILLNESS CONSISTENT WITH YOUR OBJECTIVE FINDING? YES WHAT IS THE PERCENTAGE OF TEMPORARY IMPAIRMENT? MODERATE TO MARKED = 66.7% IS THE PATIENT WORKING? YES DOCTOR ON SITE: NAM BRADSHAW MD PROCEDURE CODES FA211 ESTABILISHED PATIENT [facility] CHARGE DISPOSITION & COMMUNICATION FOLLOW UP 2 MONTHS ELECTRONICALLY SIGNED BY STELLA SUNSHINE ON 03/15/2017 AT 10:11 AM EDT DISCLAIMER : THIS IS A VISIT SUMMARY EXTRACTED FROM THE [employer] CHART. IT IS NOT A COPY OF THE [employer] PROGRESS NOTE. CHRISTINA
== END ==
LOC: M PAIN 09:30
PROVIDERS: ATTEND Nurse Practitioner Family
DX: G89.29 Other chronic pain (principal); M12.88 Other specific arthropathies, not elsewhere classified, other specified site; M51.26 Other intervertebral disc displacement, lumbar region; F41.9 Anxiety disorder, unspecified; E78.2 Mixed hyperlipidemia; Z88.8 Allergy status to other drugs, medicaments and biological substances; Z91.018 Allergy to other foods; Z79.82 Long term (current) use of aspirin; Z79.891 Long term (current) use of opiate analgesic; Z79.899 Other long term (current) drug therapy; Z86.79 Personal history of other diseases of the circulatory system

== ENCOUNTER → 2017-05-22 | Outpatient (CLI) | payer OTHER ==
--- NOTE | 2017-05-22 11:19 | REP ---
Clinical: Pain. Infection. Technique: AP, lateral, bilateral oblique views of the third digit. Findings: Arthritic degenerative changes are appreciated including subchondral sclerosis/heterogeneity, joint space narrowing, marginal spurring and small fractured osteophyte. Overlying soft tissue swelling is appreciated. No subcutaneous emphysema or destructive/erosive changes to the bony cortex. No acute fracture dislocation. Impression: Soft tissue swelling consistent with infection. No radiographic evidence to suggest acute osteomyelitis. Signed by Roger Scherer MD 05/22/2017 11:10 A
== END ==
LOC: M LRY 10:44
PROVIDERS: ATTEND Nurse Practitioner Family
DX: L08.9 Local infection of the skin and subcutaneous tissue, unspecified (principal)

== ENCOUNTER → 2017-05-30 | Outpatient (CLI) | payer OTHER | LOC: M PAIN 14:30 | PROVIDERS: ATTEND Nurse Practitioner Family | DX: M12.88 Other specific arthropathies, not elsewhere classified, other specified site (principal); M51.26 Other intervertebral disc displacement, lumbar region; G89.29 Other chronic pain; Z79.891 Long term (current) use of opiate analgesic; Z79.82 Long term (current) use of aspirin; Z79.899 Other long term (current) drug therapy; Z88.8 Allergy status to other drugs, medicaments and biological substances; Z91.018 Allergy to other foods ==

== ENCOUNTER → 2017-08-28 | Outpatient (CLI) | payer OTHER | LOC: M PAIN 10:00 | DX: Z53.29 Procedure and treatment not carried out because of patient's decision for other reasons (principal) ==

== ENCOUNTER → 2017-09-01 | Outpatient (CLI) | payer OTHER | LOC: M PAIN 10:00 | DX: M12.88 Other specific arthropathies, not elsewhere classified, other specified site (principal); F41.9 Anxiety disorder, unspecified; I25.9 Chronic ischemic heart disease, unspecified; E78.5 Hyperlipidemia, unspecified; M25.552 Pain in left hip; Z79.82 Long term (current) use of aspirin; Z79.891 Long term (current) use of opiate analgesic; Z79.899 Other long term (current) drug therapy; Z88.8 Allergy status to other drugs, medicaments and biological substances; Z91.018 Allergy to other foods; Z87.891 Personal history of nicotine dependence | CPT/HCPCS: G0463 ==

== ENCOUNTER → 2017-10-24 | Outpatient (CLI) | payer OTHER ==
[~2017-10-24] MED LIST changes: -/CELE20CA OR; -/LOR25TA OR; -ACET65TA OR; -ALPR0.25 OR; -ASPI81TA83 OR; +BUPIVACAINE HCL 0.25% 30 ML VIAL As Ordered; -BUTR10DI2 TD; -BUTR20DI2 TD; -CALCTAB22 OR; -CELE1CAP4 PO; -CLONI1TA PO; -DULO30CA PO; -EMLA2.5C TOP; -FISH1000 OR; -FLEXERIL PO; -GLUCTAB6 PO; +ISOVUE-M 300 61% 15ML VIAL (Q9967) As Ordered; +LIDOCAINE 1% SDV INJ 30 ML VIAL As Ordered; -LIVALO PO; -METO25TA2 OR; -MULTIVIT PO; -NORT10CA2 PO; -OXYC1TAB23 PO; -OXYC5CAP2 PO; -PLAV75TA2 OR; -PRAV40TA OR; -PREG100CA OR; -RANO5TAB PO; -REQU1TAB15 PO; -ST JOHN S WORT PO; +TRIAMCINOLONE ACETONIDE SUSP 40 MG/ML VIAL (J3301) As Ordered; -ZOLO20CO PO; -ZOLO50TA PO; -[UNRECOGNIZED DRUG - CODE] PO; -[UNRECOGNIZED DRUG - OTHER] PO; -[UNRECOGNIZED DRUG - OTHER] TOP; -brilinta PO; +diazePAM 5 MG TAB As Ordered; +oxyCODONE 5MG TAB As Ordered
== END ==
LOC: M PAIN 08:30
DX: G89.29 Other chronic pain (principal); M47.816 Spondylosis without myelopathy or radiculopathy, lumbar region; M47.817 Spondylosis without myelopathy or radiculopathy, lumbosacral region; I25.10 Atherosclerotic heart disease of native coronary artery without angina pectoris; M25.551 Pain in right hip; M25.561 Pain in right knee; F41.9 Anxiety disorder, unspecified; Z88.8 Allergy status to other drugs, medicaments and biological substances; Z91.018 Allergy to other foods; Z79.82 Long term (current) use of aspirin; Z95.5 Presence of coronary angioplasty implant and graft; Z79.891 Long term (current) use of opiate analgesic; Z79.899 Other long term (current) drug therapy
CPT/HCPCS: J3301

== ENCOUNTER → 2017-11-22 | Outpatient (CLI) | payer OTHER | LOC: M PAIN 08:30 | DX: G89.29 Other chronic pain (principal); M12.88 Other specific arthropathies, not elsewhere classified, other specified site; I25.10 Atherosclerotic heart disease of native coronary artery without angina pectoris; F41.9 Anxiety disorder, unspecified; M46.97 Unspecified inflammatory spondylopathy, lumbosacral region; Z79.82 Long term (current) use of aspirin; Z79.899 Other long term (current) drug therapy; Z79.891 Long term (current) use of opiate analgesic; Z88.8 Allergy status to other drugs, medicaments and biological substances; Z91.018 Allergy to other foods; Z95.5 Presence of coronary angioplasty implant and graft | CPT/HCPCS: G0463 ==

== ENCOUNTER → 2018-01-30 | Outpatient (CLI) | payer OTHER | LOC: M PAIN 11:00 | DX: M12.88 Other specific arthropathies, not elsewhere classified, other specified site (principal); I25.10 Atherosclerotic heart disease of native coronary artery without angina pectoris; F41.9 Anxiety disorder, unspecified; M46.96 Unspecified inflammatory spondylopathy, lumbar region; Z95.5 Presence of coronary angioplasty implant and graft; Z87.891 Personal history of nicotine dependence; Z79.82 Long term (current) use of aspirin; Z79.899 Other long term (current) drug therapy; Z79.891 Long term (current) use of opiate analgesic; Z88.8 Allergy status to other drugs, medicaments and biological substances; Z91.018 Allergy to other foods | CPT/HCPCS: G0463 ==

== ENCOUNTER → 2018-02-12 | Outpatient (CLI) | payer OTHER | LOC: M PAIN 08:45 | DX: M12.88 Other specific arthropathies, not elsewhere classified, other specified site (principal); F41.9 Anxiety disorder, unspecified; I25.10 Atherosclerotic heart disease of native coronary artery without angina pectoris; M25.50 Pain in unspecified joint; Z79.82 Long term (current) use of aspirin; Z79.899 Other long term (current) drug therapy; Z95.5 Presence of coronary angioplasty implant and graft; Z79.891 Long term (current) use of opiate analgesic; Z87.891 Personal history of nicotine dependence; Z88.8 Allergy status to other drugs, medicaments and biological substances; Z91.018 Allergy to other foods | CPT/HCPCS: G0463 ==

== ENCOUNTER → 2018-03-08 | Outpatient (CLI) | payer OTHER ==
[2018-03-08 17:42] LABS: ALT/SGPT 26 U/L (12-78); AST/SGOT 20 U/L (7-37); CHOLESTEROL LEVEL 253 MG/DL (<200); CHOLESTEROL RISK RATIO 3.666 (<5); CPK CREATINE PHOSPHOKINASE 100 U/L (26-192); HDL CHOLESTEROL 69 MG/DL (>40); LDL CHOLESTEROL 155 MG/DL (<100); NON-HDL-C 184 MG/DL; TRIGLYCERIDES LEVEL 147 MG/DL (<150)
== END ==
LOC: M LRY 10:39
DX: E78.00 Pure hypercholesterolemia, unspecified (principal)
CPT/HCPCS: 84460

== ENCOUNTER → 2018-03-08 | Outpatient (REF) | payer OTHER | LOC: M SFHCLERA 10:19 | DX: L23.7 Allergic contact dermatitis due to plants, except food (principal) ==

== ENCOUNTER → 2018-03-16 | Outpatient (REF) | payer OTHER ==
[2018-03-21 14:20] LABS: HPV HYBRID CAPTURE II Negative (Negative)
== END ==
LOC: M SFHCWAGY 08:25
DX: Z12.4 Encounter for screening for malignant neoplasm of cervix (principal)

== ENCOUNTER → 2018-06-14 | Outpatient (CLI) | payer OTHER ==
[~2018-06-14] MED LIST changes: +/CELE20CA OR; +/LOR25TA OR; +ACET65TA OR; +ALPR0.25 OR; +ASPI81TA83 OR; -BUPIVACAINE HCL 0.25% 30 ML VIAL As Ordered; +BUTR10DI2 TD; +BUTR20DI2 TD; +CALCTAB22 OR; +CELE1CAP4 PO; +CLONI1TA PO; +DULO30CA PO; +EMLA2.5C TOP; +FISH1000 OR; +FLEXERIL PO; +GLUCTAB6 PO; -ISOVUE-M 300 61% 15ML VIAL (Q9967) As Ordered; -LIDOCAINE 1% SDV INJ 30 ML VIAL As Ordered; +LIVALO PO; +METO25TA2 OR; +MULTIVIT PO; +NORT10CA2 PO; +OXYC1TAB23 PO; +OXYC5CAP2 PO; +PLAV75TA2 OR; +PRAV40TA OR; +PREG100CA OR; +RANO5TAB PO; +REQU0.5T PO; +ST JOHN S WORT PO; -TRIAMCINOLONE ACETONIDE SUSP 40 MG/ML VIAL (J3301) As Ordered; +ZOLO20CO PO; +ZOLO50TA PO; +[UNRECOGNIZED DRUG - CODE] PO; +[UNRECOGNIZED DRUG - OTHER] PO; +[UNRECOGNIZED DRUG - OTHER] TOP; +brilinta PO; -diazePAM 5 MG TAB As Ordered; -oxyCODONE 5MG TAB As Ordered
--- NOTE | 2018-06-28 01:04 | ECWPNPC ---
PATIENT NAME: KYREE HUDSON : 1960 GENDER: FEMALE VISIT DATE: 06/14/2018 DISCHARGE DATE: 06/14/18 1201 VISIT LOCKED DATE TIME: PHYSICIAN: MIKKI RING RESOURCE: MIKKI RING REASON FOR APPOINTMENT 1. W/C, MED MANAGEMENT HISTORY OF PRESENT ILLNESS HISTORY OF PRESENT ILLNESS: HERE FOR 2 WEEK MEDICAINE MANAGEMENT.DOES NOT LIKE LYRICA 200MG IT CAUSES TOO MUCH FATIGUE AND VISUAL CHANGES.SHE HAS BROUGHT THIS IN TODAY TO FORMALLY WASTE.REPORTING SEVERE INCREASE IN PAIN OVER THE PAST 2 WEEKS.HAVING DIFFICULTY SLEEPING AT NIGHT.HAS DIFFIULTY WITH MUSCLE RELAXANTS AND AMITRIPTYLINE.DUE TO AM FATIGUE.[place] CAUSES FATIGUE AT LOW DOSES.HAS RESPONDED WELL TO THERAPEUTIC FACET BLOCKS IN THE PAST.RATING PAIN VAS 5/10. PAIN THE PATIENT DESCRIBES THE PAIN... THE PATIENT DESCRIBES THE PAIN... FALL RISK SCREENING: SCREENING :NO FALLS IN THE PAST YEAR CURRENT MEDICATIONS TAKING METOPROLOL TARTRATE 25 MG TABLET 1 TABLET ORALLY ONCE A DAY (DR. BUCK) TAKING ASPIRIN ADULT LOW STRENGTH 81 MG TABLET DELAYED RELEASE 1 TABLET ORALLY ONCE A DAY TAKING FISH OIL ULTRA 1 TAB ORALLY 2 TIMES A DAY TAKING NITROGLYCERIN 0.4 MG/SPRAY SOLUTION 1 SPRAY UNDER THE TONGUE TRANSLINGUAL NEEDED FOR CHEST PAIN TAKING MAGNESIUM 400 MG CAPSULE ORALLY DAILY TAKING POTASSIUM 1 TAB ORAL TAKING CELEBREX 200 MG CAPSULE 1 CAPSULE ORALLY BID MDD2 TAKING GABAPENTIN 100 MG CAPSULE 1 CAPSULE ORALLY THREE TIMES A DAY TAKING ZOLOFT 100 MG TABLET 1 TABLET ORALLY ONCE A DAY, NOTES: DUPLICATE TAKING PERCOCET 5-325 MG TABLET 1 TABLET NEEDED ORALLY EVERY 6 HRSMDD4 TAKING OXYCONTIN 10 MG TABLET ER 12 HOUR ABUSE-DETERRENT 1 TABLET ORALLY DAILY TAKING PRALUENT 75 MG/ML SOLUTION PEN-INJECTOR SUBCUTANEOUS 2X/MONTH NOT-TAKING ZOLOFT 100 MG TABLET TAKE ONE TABLET BY MOUTH ONCE A DAY NOT-TAKING PREDNISONE 20 MG TABLET 1 ORALLY POISON NATHALIA 2 TABLETS BID X 7 DAYS THEN 1 TABLET BID X 7 DAYS THEN 1 TABLET DAILY X 7 DAYS NOT-TAKING ZYRTEC 10 MG TABLET 1 TABLET NEEDED ORALLY ONCE A DAY NOT-TAKING LIPITOR 40 MG TABLET 1 TABLET ORALLY ONCE A DAY NOT-TAKING PRAVASTATIN SODIUM 40 MG TABLET 1 TABLET ORALLY ONCE A DAY NOT-TAKING PROBIOTIC - CAPSULE ORALLY NOT-TAKING CLINDAMYCIN HCL 300 MG CAPSULE 1 CAPSULE ORALLY EVERY 6 HRS NOT-TAKING LYRICA 200 MG CAPSULE 1 CAPSULE ORALLY ONCE A DAY MEDICATION LIST REVIEWED AND RECONCILED WITH THE PATIENT PAST MEDICAL HISTORY HX OF SVT- S/P ABLATION 2005- DR MAHESH ANNE IN [facility]- Q YR- JAN CAD S/P- [address] [facility] CHRONIC BACK PAIN- LUMBAR REGION ARTHRITIS- PAIN CLINIC- ARNULFO BURNHAM-WORK COMP MULTIPLE JOINT PAIN- WRIST/RIGHT HIP/RIGHT KNEE/LEFT BIG TOE ANXIETY- LEXAPRO-1 YR- STOPPED B/C FELT LIKE ENCLOSED ALLERGIES CRESTOR: MYALGIAS: SIDE EFFECTS GARLIC: SEVERE STOMACH PAIN: ALLERGY LIPITOR: SEVERE MUSCLE ACHES: SIDE EFFECTS SURGICAL HISTORY RT HAND SURGERY- ARTHRITIS- DR STANFORD- SOS TUBAL LIGATION RT LEG VARICOSE VEIN REMOVED ABLATION CARDIAC 2005 CORONARY STENTS X 2 ([facility] - DR. BUCK) 12/2011 COLONOSCOPY (DR. ESQUIVEL, 1 POLYP, DUE IN 2019) 08/2013 BUNION 05/2015 ARTHRITIS 07/2015 SOCIAL HISTORY GENERAL: TOBACCO USE ARE YOU A:FORMER SMOKER HOW LONG HAS IT BEEN SINCE YOU LAST SMOKED?> 10 YEARS BMI CARE GOAL FOLLOW-UP ABOVE NORMAL BMI FOLLOW-UPDIETARY MANAGEMENT EDUCATION, GUIDANCE, AND COUNSELING, WEIGHT MONITORING CAFFEINE CAFFEINE USE?YES HOW OFTEN AND HOW MUCH? 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 EXERCISE: ABS, RESISTANCE TRAINING. MARITAL STATUS: .. OTHERS AT HOME: BOYFRIEND. NEW PATIENT PAIN DIARY TODAY'S VISIT NOTES, FROM 0-10, WHAT LEVEL IS YOUR PAIN TODAY? 0. PAIN CLINIC PFS, CLERGY, PUBLIC HEALTH REFERRALS PFS REFERRAL NEEDED?NO CLERGY REFERRAL NEEDED?NO PUBLIC HEALTH REFERRAL NEEDED?NO WAS THE PROVIDER NOTIFIED OF ANY PERTINENT INFO?YES HAS THE PATIENT BEEN EDUCATED REGARDING HIS/HER PLAN OF CARE?YES HAS THE PATIENT BEEN EDUCATED REGARDING PAIN, THE RISK FOR PAIN, THE IMPORTANCE OF EFFECTIVE PAIN MANAGEMENT, AND THE PAIN ASSESSMENT PROCESS?YES ADVANCE DIRECTIVE ADVANCE DIRECTIVE DISCUSSED WITH PATIENT:YES HCP DELROY DAVIS [phone] REVIEWED WITH PT 02/12/18 0915 LAS. HOSPITALIZATION/MAJOR DIAGNOSTIC PROCEDURE CHILDBIRTH SEE SURGERIES REVIEW OF SYSTEMS REVIEWED BY: PROVIDER: MIKKI DOUGLAS . CONSTITUTIONAL: ANY CHANGE IN YOUR MEDICAL CONDITION? NO . CHILLS NO . FEVER NO . INFECTION: DO YOU HAVE NEW INFECTIONS? NO . DO YOU HAVE HISTORY OF MRSA? NO . MUSCULOSKELETAL: ANY NEW PATTERNS OF PAIN OR NUMBNESS? NO . GASTROENTEROLOGY: ANY NEW CHANGE IN BOWEL CONTROL? NO . GENITOURINARY: ANY NEW CHANGE IN BLADDER CONTROL? NO . IS THERE A CHANCE YOU COULD BE ? NO . HEMATOLOGY/LYMPH: DO YOU TAKE ANY BLOOD THINNERS? (FOR EXAMPLE- COUMADIN, PLAVIX, AGGRENOX, PLATEL, PRADAXA, OR XARELTO) NO . WHEN WAS YOUR LAST DOSE? DATE: TIME: . NEUROLOGY: HAVE YOU FALLEN IN THE PAST 6 MONTHS? NO . ANY NEW EXTREMITY NUMBNESS OR WEAKNESS? NO . CARDIOLOGY: DO YOU HAVE A PACEMAKER OR DEFIBRILLATOR? NO . RESPIRATORY: HAVE YOU BEEN SICK IN THE PAST WEEK? NO . FEVER NO . FLU LIKE SYMPTOMS? NO . COUGH NO . INTEGUMENTARY: DO YOU HAVE ANY RASHES OR OPEN SORES? NO . ALLERGIC/IMMUNO: ARE YOU ALLERGIC TO SHELLFISH OR IV DYE? NO . ANY NEW ALLERGIES? NO . PSYCHIATRIC: DO YOU HAVE THOUGHTS OF HURTING YOURSELF OR SOMEONE ELSE? NO . ARE YOU ABUSED, NEGLECTED, OR IN AN UNSAFE ENVIRONMENT? NO . ENDOCRINOLOGY: ARE YOU DIABETIC? NO . OTHER: DO YOU NEED ANY PRESCRIPTIONS? YES, CELEBREX, OXY . IF YES, PLEASE LIST: ____ . ANY NEW PROBLEMS WITH YOUR MEDICATIONS? NO . WHEN DID YOU LAST EAT? ____ . WHEN DID YOU LAST DRINK? ____ . WHAT DID YOU LAST DRINK? ____ . NAME OF PERSON DRIVING YOU HOME? ____ . DO YOU HAVE ANY OTHER QUESTIONS OR CONCERNS NO . VITAL SIGNS WT 154 LBS, HT 68 IN, BMI 23.41 INDEX, BP 103/66 MM HG, HR 63 /MIN, RR 16 /MIN, TEMP 98.3 F, OXYGEN SAT % 100, REVIEWED BY: EDILBERTO. EXAMINATION GENERAL EXAMINATION: LUNGS:LUNG SOUNDS ARE CLEAR . HEART:HEART RATE REGULAR . MUSCULOSKELETAL:*, MUSCLE STRENGTH TESTING 5/5 BILATERAL LOWER EXTREMITIES., , PALPATION: POSITIVE FOR PAIN OVER L/S SPINE. POSITIVE FOR PAIN OVER L/S PARSPINALS.SPECIFIC POINT TENDERNESS OVER BILAT L4/5-L5/S1 LUMBR FACETS WITH FACET LOADING . DIAGNOSTIC:MRI L/S SPINE . ASSESSMENTS LUMBAR FACET ARTHROPATHY - M12.88 (PRIMARY) CHRONIC PRESCRIPTION OPIATE USE - Z79.891 TREATMENT LUMBAR FACET ARTHROPATHY REFILL CELEBREX CAPSULE, 200 MG, 1 CAPSULE, ORALLY, BID MDD2, 30 DAY(S), 60, REFILLS 2 INCREASE GABAPENTIN CAPSULE, 100 MG, 1 TO 2 CAP DIRECTED, ORALLY, 2 IN AM,1 MIDDAY,2 PM, 30 DAY(S), 150, REFILLS 2 REFILL PERCOCET TABLET, 5-325 MG, 1 TABLET NEEDED, ORALLY, EVERY 6 HRSMDD4, 30 DAY(S), 120, REFILLS 0 STOP OXYCONTIN TABLET ER 12 HOUR ABUSE-DETERRENT, 10 MG, 1 TABLET, ORALLY, DAILY NOTES: REQUEST BILAT THERAPEUTIC L4/5-L5/S1 BLOCK W/C, ISTOP REGISTRY REVIEWED AND DEMONSTRATES COMPLLIANCE. BRINGS IN MEDICATIONS WHICH IS APPROPRIATE FOR WHAT WAS DISPENSED. RECENT URINE TOXICOLOGY REVIEWED. NO UNAUTHORIZED MEDICATIONS. NO ILLICIT SUBSTANCES AND PRESCRIBED MEDICATIONS WERE PRESENT. , RISKS AND BENEFITS OF NARCOTIC/OPIOD MEDICATIONS WERE REVIEWED WITH PATIENT - THIS INCLUDES BUT IS NOT LIMITED TO RISK OF DEPENDANCE/DEVELOPMENT OF ADDICTION, MOOD DISTURBANCE AND DEPRESSION, OSTEOPOROSIS, HORMONAL AND LABIDAL CHANGES, RESPIRATORY DEPRESSION AND . PATIENT IS ADVISED NOT TO DRIVE OR DRINK ALCOHOL WHILE ON THESE MEDICATIONS. PROCEDURES PN WORKMANS' COMP OPINION IN YOUR OPINION, WAS THE INCIDENT THAT THE PATIENT DESCRIBED THE COMPETENT MEDICAL CAUSE OF THIS INJURY/ILLNESS? YES ARE THE PATIENT'S COMPLAINTS CONSISTENT WITH HIS/HER HISTORY OF THE INJURY/ILLNESS? YES IS THE PATIENT'S HISTORY OF THE INJURY/ILLNESS CONSISTENT WITH YOUR OBJECTIVE FINDING? YES WHAT IS THE PERCENTAGE OF TEMPORARY IMPAIRMENT? MODERATE TO MARKED = 66.7% IS THE PATIENT WORKING? NO DOCTOR ON SITE: NAM BRADSHAW MD PROCEDURE CODES FA211 ESTABILISHED PATIENT [facility] FACILITY CHARGE DISPOSITION & COMMUNICATION FOLLOW UP 4 MONTHS (REASON: REQUEST BILAT THERAPEUTIC L4/5-L5/S1 BLOCK W/C) ELECTRONICALLY SIGNED BY STELLA DASH ON 06/27/2018 AT 08:47 AM EST DISCLAIMER : THIS IS A VISIT SUMMARY EXTRACTED FROM THE [employer] CHART. IT IS NOT A COPY OF THE [employer] PROGRESS NOTE. HATTIED
== END ==
LOC: M PAIN 11:00
PROVIDERS: ATTEND Nurse Practitioner Family
DX: M12.88 Other specific arthropathies, not elsewhere classified, other specified site (principal); F41.9 Anxiety disorder, unspecified; Z79.891 Long term (current) use of opiate analgesic; Z79.82 Long term (current) use of aspirin; Z79.899 Other long term (current) drug therapy; Z88.8 Allergy status to other drugs, medicaments and biological substances; Z91.018 Allergy to other foods; Z86.79 Personal history of other diseases of the circulatory system; Z87.891 Personal history of nicotine dependence

== ENCOUNTER → 2018-08-29 | Outpatient (REF) | payer OTHER ==
[2018-08-29 12:15] LABS: CHOLESTEROL LEVEL 190 MG/DL (<200); CHOLESTEROL RISK RATIO 2.968 (<5); HDL CHOLESTEROL 64 MG/DL (>40); LDL CHOLESTEROL 89 MG/DL (<100); NON-HDL-C 126 MG/DL; RHEUMATOID FACTOR QUANT < 10.0 IU/ML (<15.0); TRIGLYCERIDES LEVEL 183 MG/DL (<150)
== END ==
LOC: M SFHCLERA 09:09
PROVIDERS: ATTEND Nurse Practitioner Family
DX: M15.1 Heberden's nodes (with arthropathy) (principal); E78.2 Mixed hyperlipidemia

== ENCOUNTER → 2018-09-26 | Outpatient (CLI) | payer OTHER ==
[~2018-09-26] MED LIST changes: -/CELE20CA OR; +BUPIVACAINE HCL 0.25% 30 ML VIAL As Ordered ONE; +CELE1CAP4 OR; -DULO30CA PO; +DULO30CA9 PO; +ISOVUE-M 300 61% 15ML VIAL (Q9967) As Ordered ONE; +LIDOCAINE 1% SDV INJ 30 ML VIAL As Ordered ONE; +TRIAMCINOLONE ACETONIDE SUSP 40 MG/ML VIAL (J3301) As Ordered ONE; +diazePAM 5 MG TAB As Ordered ONE; +oxyCODONE 5MG TAB As Ordered ONE
--- NOTE | 2018-09-26 14:57 | REP ---
Partial lumbar spine series: Two views . History: Injection procedure for pain. 19 seconds of fluoroscopy time is reported. Findings: A sequence of two fluoroscopically obtained last image hold procedural spot radiographs of the lumbar spine document needle position and contrast injection associated with injection procedure. Electronically Signed by Damir Cole MD 09/26/2018 02:49 P
--- NOTE | 2018-10-15 00:12 | ECWPNPC ---
PATIENT NAME: KYREE HUDSON : 1960 GENDER: FEMALE VISIT DATE: 09/26/2018 DISCHARGE DATE: 09/26/18 0000 VISIT LOCKED DATE TIME: PHYSICIAN: NAM ESCOBEDO MD RESOURCE: NAM ESCOBEDO MD REASON FOR APPOINTMENT 1. BILAT THERAPEUTIC L4/5-L5/S1 BLOCK W/C HISTORY OF PRESENT ILLNESS HISTORY OF PRESENT ILLNESS: PAIN THE PATIENT DESCRIBES THE PAIN... FALL RISK SCREENING: SCREENING :NO FALLS REPORTED IN THE LAST YEAR CURRENT MEDICATIONS TAKING METOPROLOL TARTRATE 25 MG TABLET 1 TABLET ORALLY ONCE A DAY (DR. BUCK), NOTES: 09/25 10PM TAKING FISH OIL ULTRA 1 TAB ORALLY 2 TIMES A DAY, NOTES: 09/25 10PM TAKING NITROGLYCERIN 0.4 MG/SPRAY SOLUTION 1 SPRAY UNDER THE TONGUE TRANSLINGUAL NEEDED FOR CHEST PAIN, NOTES: NONE LATELY TAKING POTASSIUM 1 TAB ORAL , NOTES: NONE LATELY TAKING PRALUENT 75 MG/ML SOLUTION PEN-INJECTOR SUBCUTANEOUS 2X/MONTH, NOTES: 1 WEEK AGO TAKING CELEBREX 200 MG CAPSULE 1 CAPSULE ORALLY BID MDD2, NOTES: 09/26 8AM TAKING GABAPENTIN 100 MG CAPSULE 1 TO 2 CAP DIRECTED ORALLY 2 IN AM,1 MIDDAY,2 PM, NOTES: 09/26 8AM TAKING PERCOCET 5-325 MG TABLET 1 TABLET NEEDED ORALLY EVERY 6 HRSMDD4, NOTES: 2 DAYS TAKING ZOLOFT 100 MG TABLET 1 TABLET ORALLY ONCE A DAY, NOTES: 3 8AM NOT-TAKING ASPIRIN ADULT LOW STRENGTH 81 MG TABLET DELAYED RELEASE 1 TABLET ORALLY ONCE A DAY NOT-TAKING MAGNESIUM 400 MG CAPSULE ORALLY DAILY NOT-TAKING AUGMENTIN 875-125 MG TABLET 1 TABLET ORALLY EVERY 12 HRS, NOTES: 2 WEEKS NOT-TAKING DIFLUCAN 150 MG TABLET 1 TABLET ORALLY DAILY NOT-TAKING ZOLOFT 100 MG TABLET TAKE ONE TABLET BY MOUTH ONCE A DAY NOT-TAKING PREDNISONE 20 MG TABLET 1 ORALLY POISON NATHALIA 2 TABLETS BID X 7 DAYS THEN 1 TABLET BID X 7 DAYS THEN 1 TABLET DAILY X 7 DAYS NOT-TAKING ZYRTEC 10 MG TABLET 1 TABLET NEEDED ORALLY ONCE A DAY NOT-TAKING LIPITOR 40 MG TABLET 1 TABLET ORALLY ONCE A DAY NOT-TAKING PRAVASTATIN SODIUM 40 MG TABLET 1 TABLET ORALLY ONCE A DAY NOT-TAKING PROBIOTIC - CAPSULE ORALLY NOT-TAKING CLINDAMYCIN HCL 300 MG CAPSULE 1 CAPSULE ORALLY EVERY 6 HRS NOT-TAKING LYRICA 200 MG CAPSULE 1 CAPSULE ORALLY ONCE A DAY MEDICATION LIST REVIEWED AND RECONCILED WITH THE PATIENT PAST MEDICAL HISTORY HX OF SVT- S/P ABLATION 2005- DR MAHESH ANNE IN [facility]- Q YR- JAN CAD S/P- 2 STENT PLACED AT [facility] CHRONIC BACK PAIN- LUMBAR REGION ARTHRITIS- PAIN CLINIC- ARNULFO BURNHAM-WORK COMP MULTIPLE JOINT PAIN- WRIST/RIGHT HIP/RIGHT KNEE/LEFT BIG TOE ANXIETY- LEXAPRO-1 YR- STOPPED B/C FELT LIKE ENCLOSED ALLERGIES CRESTOR: MYALGIAS - SIDE EFFECTS GARLIC: SEVERE STOMACH PAIN - ALLERGY LIPITOR: SEVERE MUSCLE ACHES - SIDE EFFECTS SURGICAL HISTORY RT HAND SURGERY- ARTHRITIS- DR STANFORD- SOS TUBAL LIGATION RT LEG VARICOSE VEIN REMOVED ABLATION CARDIAC 2005 CORONARY STENTS X 2 ([facility] - DR. BUCK) 12/2011 COLONOSCOPY (DR. ESQUIVEL, 1 POLYP, DUE IN 2019) 08/2013 BUNION 05/2015 ARTHRITIS 07/2015 FAMILY HISTORY FATHER: 56 YRS, DIAGNOSED WITH HEART DISEASE MOTHER: ALIVE 85 YRS, COLORECTAL CANCER AT AGE 65, HYPERTENSION, CANCER SIBLINGS: HEART DISEASE SOCIAL HISTORY GENERAL: TOBACCO USE ARE YOU A:FORMER SMOKER HOW LONG HAS IT BEEN SINCE YOU LAST SMOKED?> 10 YEARS LATEX QUESTIONNAIRE LATEX ALLERGY : HAVE YOU EVER DEVELOPED ANY TYPE OF REACTION AFTER HANDLING LATEX PRODUCTS SUCH RUBBER GLOVES, CONDOMS, DIAPHRAGMS, BALLOONS, SOCKS, OR UNDERWEAR?NO LATEX ALLERGY : HAVE YOU EVER DEVELOPED ANY TYPE OF REACTION DURING OR AFTER DENTAL APPOINTMENT, VAGINAL/RECTAL EXAMINATION, SURGICAL PROCEDURE, OR ANY OTHER EXPOSURE?NO LATEX RISK : HAVE YOU EVER HAD ANY DIFFICULTY BREATHING OR HIVES AFTER EATING OR HANDLING ANY FRUITS, OR VEGETABLES; SUCH KIWI, BANANAS, STONE FRUITS, OR CHESTNUTSNO LATEX RISK : DO YOU HAVE A PREVIOUS PERSONAL HISTORY OF MORE THAN NINE SURGERIES, SPINA BIFIDA, OR REPEATED CATHERTIZATIONS? NO LATEX RISK : ARE YOU FREQUENTLY EXPOSED TO LATEX PRODUCTS IN YOUR OCCUPATION?NO DATE ASKED : 09/26/2018 BMI CARE GOAL FOLLOW-UP ABOVE NORMAL BMI FOLLOW-UPDIETARY MANAGEMENT EDUCATION, GUIDANCE, AND COUNSELING, WEIGHT MONITORING CAFFEINE CAFFEINE USE?YES HOW OFTEN AND HOW MUCH? 2-3 CUPS SEXUAL HX HAD SEX IN THE LAST 12 MONTHS (VAGINAL, ORAL, OR ANAL)?YES WITHMEN ONLY USE PROTECTION?NO LMP:POST MENOPAUSE HAVE YOU EVER HAD AN STD?NO HIV / HEP-C SCREENING HIV TEST OFFERED TO PATIENT:YES DATE OFFERED:03/08/2018 TEST ACCEPTED:NO HEP-C TEST OFFERED TO PATIENT:YES DATE OFFERED:03/08/2018 REASON:PATIENT DECLINED TEST ACCEPTED:NO REASON:PATIENT DECLINED BROCHURE PROVIDED TO PATIENTNO RESTORATIONIST [id number] RASTAFARI LANGUAGE LANGUAGES SPOKEN:ROMANIAN LEARNING BARRIERS / SPECIAL NEEDS BARRIERS TO LEARNING?NO HEARING IMPAIRED?NO VISION IMPAIRED?YES COGNITIVELY IMPAIRED?NO :CORRECTIVE LENSES GLASSES READINESS TO LEARN?YES LEARNING PREFERENCES?NO LEARNING CAPABILITIES PRESENT?YES EMOTIONAL BARRIERS?NO SPECIAL DEVICES?NO PROCESS CONTROL SPECIALIST NEEDED?NO 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 EXERCISE: ABS, RESISTANCE TRAINING. MARITAL STATUS: .. OTHERS AT HOME: BOYFRIEND. NEW PATIENT PAIN DIARY TODAY'S VISIT NOTES, FROM 0-10, WHAT LEVEL IS YOUR PAIN TODAY? 0. PAIN CLINIC PFS, CLERGY, PUBLIC HEALTH REFERRALS PFS REFERRAL NEEDED?NO CLERGY REFERRAL NEEDED?NO PUBLIC HEALTH REFERRAL NEEDED?NO WAS THE PROVIDER NOTIFIED OF ANY PERTINENT INFO?YES HAS THE PATIENT BEEN EDUCATED REGARDING HIS/HER PLAN OF CARE?YES HAS THE PATIENT BEEN EDUCATED REGARDING PAIN, THE RISK FOR PAIN, THE IMPORTANCE OF EFFECTIVE PAIN MANAGEMENT, AND THE PAIN ASSESSMENT PROCESS?YES ADVANCE DIRECTIVE ADVANCE DIRECTIVE DISCUSSED WITH PATIENT:YES HCP DELROY DAVIS [phone] REVIEWED WITH PT 02/12/18 0915 DEVAN. HOSPITALIZATION/MAJOR DIAGNOSTIC PROCEDURE CHILDBIRTH SEE SURGERIES REVIEW OF SYSTEMS REVIEWED BY: PROVIDER: . CONSTITUTIONAL: ANY CHANGE IN YOUR MEDICAL CONDITION? NO . CHILLS NO . FEVER NO . INFECTION: DO YOU HAVE NEW INFECTIONS? NO . DO YOU HAVE HISTORY OF MRSA? NO . MUSCULOSKELETAL: ANY NEW PATTERNS OF PAIN OR NUMBNESS? YES, BILATERAL LEGS, MORE ON RIGHT, RIGHT TINGLING . GASTROENTEROLOGY: ANY NEW CHANGE IN BOWEL CONTROL? NO . GENITOURINARY: ANY NEW CHANGE IN BLADDER CONTROL? YES, INCONTINENT . IS THERE A CHANCE YOU COULD BE ? NO . HEMATOLOGY/LYMPH: DO YOU TAKE ANY BLOOD THINNERS? (FOR EXAMPLE- COUMADIN, PLAVIX, AGGRENOX, PLATEL, PRADAXA, OR XARELTO) NO . WHEN WAS YOUR LAST DOSE? DATE: TIME: . NEUROLOGY: HAVE YOU FALLEN IN THE PAST 12 MONTHS? YES, PT STATES THAT SHE FELL WHILE AT HOME, IN BATHROOM IN THE MIDDLE OF THE NIGHT, BRUISING, NO REPORT TO ED. . ANY NEW EXTREMITY NUMBNESS OR WEAKNESS? YES . CARDIOLOGY: DO YOU HAVE A PACEMAKER OR DEFIBRILLATOR? NO . RESPIRATORY: HAVE YOU BEEN SICK IN THE PAST WEEK? NO . FEVER NO . FLU LIKE SYMPTOMS? NO . COUGH NO . INTEGUMENTARY: DO YOU HAVE ANY RASHES OR OPEN SORES? NO . ALLERGIC/IMMUNO: ARE YOU ALLERGIC TO IV DYE? NO . ANY NEW ALLERGIES? NO . PSYCHIATRIC: DO YOU HAVE THOUGHTS OF HURTING YOURSELF OR SOMEONE ELSE? NO . ARE YOU ABUSED, NEGLECTED, OR IN AN UNSAFE ENVIRONMENT? NO . ENDOCRINOLOGY: ARE YOU DIABETIC? NO . OTHER: DO YOU NEED ANY PRESCRIPTIONS? YES, OXYCODONE, CELEBREX . IF YES, PLEASE LIST: ____ . ANY NEW PROBLEMS WITH YOUR MEDICATIONS? NO . WHEN DID YOU LAST EAT? 09/25 LAST NIGHT . WHEN DID YOU LAST DRINK? 09/26 9AM . WHAT DID YOU LAST DRINK? BLACK COFFEE . NAME OF PERSON DRIVING YOU HOME? ____ . DO YOU HAVE ANY OTHER QUESTIONS OR CONCERNS NO . VITAL SIGNS WT 156 LBS, HT 68 IN, BMI 23.72 INDEX, BP 113/70 MM HG, HR 92 /MIN, RR 18 /MIN, TEMP 96.9 F, OXYGEN SAT % 99%, SAFE IN ENV? (Y/N) Y, NA INITIALS AW 1244, REVIEWED BY: NATY. ASSESSMENTS SPONDYLOSIS OF LUMBAR REGION WITHOUT MYELOPATHY OR RADICULOPATHY - M47.816 (PRIMARY) SPONDYLOSIS OF LUMBOSACRAL REGION WITHOUT MYELOPATHY OR RADICULOPATHY - M47.817 PROCEDURES PN WORKMANS' COMP OPINION IN YOUR OPINION, WAS THE INCIDENT THAT THE PATIENT DESCRIBED THE COMPETENT MEDICAL CAUSE OF THIS INJURY/ILLNESS? YES ARE THE PATIENT'S COMPLAINTS CONSISTENT WITH HIS/HER HISTORY OF THE INJURY/ILLNESS? YES IS THE PATIENT'S HISTORY OF THE INJURY/ILLNESS CONSISTENT WITH YOUR OBJECTIVE FINDING? YES WHAT IS THE PERCENTAGE OF TEMPORARY IMPAIRMENT? MODERATE TO MARKED = 66.7% IS THE PATIENT WORKING? NO DOCTOR ON SITE: MD TANIA DONOVAN LUMBAR FACET BLOCK THERAPEUTIC PRE PROCEDURE DIAGNOSIS LUMBAR SPONDYLOSIS, LUMBOSACRAL SPONDYLOSIS POST PROCEDURE DIAGNOSIS LUMBAR SPONDYLOSIS, LUMBOSACRAL SPONDYLOSIS PROCEDURE BILATERAL L4-L5 AND BILATERAL L5-S1 LUMBAR FACET THERAPEUTIC BLOCK SURGEON DR. NAM ESCOBEDO OSTEOLOGIST NONE ANESTHESIA LOCAL PRE PROCEDURE NOTE THE PATIENT HAS A HISTORY OF CHRONIC LOW BACK PAIN. I EVALUATE THE PATIENT AND REVIEWED THE CHART. I WENT OVER THE RISKS, ALTERNATIVES, AND BENEFITS ASSOCIATED WITH THIS PROCEDURE. THE PATIENT WOULD LIKE TO PROCEED AND GIVE CONSENT TO PERFORMED THE PROCEDURE. THE PATIENT DENIES UNEXPLAINABLE WEIGHT LOSS, FEVER, CHILLS, OR NEW CHANGES IN URINARY OR BOWEL CONTROL DESCRIPTION OF PROCEDURE THE PATIENT WAS BROUGHT TO THE PROCEDURE ROOM AND PLACED IN THE PRONE POSITION. THE LUMBOSACRAL AREA WAS CLEANED WITH CHLORAPREP SOLUTION AND DRAPED ASEPTICALLY. THE PROCEDURE WAS DONE UNDER STERILE CONDITIONS. I CHECKED LATERALITY AND THE LEVEL WHERE THE PROCEDURE WAS GOING TO BE PERFORMED WITH THE PATIENT AND THE SUPPORTING STAFF AT THE MOMENT OF THE TIME OUT IN THE PROCEDURE ROOM. UNDER FLUOROSCOPIC GUIDANCE, THE TARGET POINT WAS SELECTED AT THE RIGHT AND LEFT L4-L5 AND RIGHT AND LEFT L5-S1 FACET JOINT. TARGET POINT WAS SELECTED AFTER LATERAL ROTATION AND TILT OF THE MAGNIFIER OF THE C-ARM. LIDOCAINE 0.5% WAS USED TO NUMB THE SKIN AND THE SUBCUTANEOUS TISSUE BELOW IT. SPINAL NEEDLES, 22-GAUGE, WERE ADVANCED UNDER FLUOROSCOPIC GUIDANCE AND FOLLOWING PATIENT FEEDBACK UNTIL THE TARGETS WERE TOUCHED. THE POSITION OF THE NEEDLES WAS VERIFIED WITH AP AND LATERAL VIEWS. AFTER PROPER POSITION OF THE NEEDLES WAS ACHIEVED, ISOVUE-M DYE 30% 0.1 ML WAS INJECTED SHOWING ADEQUATE SPREAD OF THE DYE. THEN A SOLUTION OF 1.9 ML OF BUPIVACAINE 0.125% OF KENALOG 10 MG WAS INJECTED AT EACH SITE. THERE WAS NO EVIDENCE OF BLOOD, PARESTHESIA OR CEREBROSPINAL FLUID DURING THE PROCEDURE. THE PATIENT WAS SENT TO THE RECOVERY ROOM. THE PATIENT WAS MOVING THE EXTREMITIES AND DOING WELL. THERE WAS NO COMPLICATION DURING THE PROCEDURE. FLUOROSCOPY TIME WAS 19 SECONDS POST PROCEDURE NOTE THE PATIENT WILL BE SEEN IN A FOLLOW UP IN THE NEXT FEW WEEKS. INSTRUCTIONS WERE GIVEN, QUESTIONS WERE ANSWERED, AND THE PATIENT EXPRESSED UNDERSTANDING AND AGREES WITH THE PLAN. I, JUAN GASCA, DOCUMENTED THE ABOVE INFORMATION ACTING A SCRIBE FOR DR. ESCOBEDO. I HAVE REVIEWED THE ABOVE DOCUMENT, WRITTEN BY JUAN GASCA SCRIBIvy AND I VERIFY THAT IT IS ACCURATE. DIAGNOSTIC IMAGING [facility] FACET BLOCK (PAIN)2028388 PROCEDURE CODES 6045F RADXPS IN END [id number] PXD 54138 INJ PARAVERT F JNT L/S 1 LEV, MODIFIERS: 50 09461 INJ PARAVERT F JNT L/S 2 LEV, MODIFIERS: 50 DISPOSITION & COMMUNICATION FOLLOW UP 3 WEEKS ELECTRONICALLY SIGNED BY NAM ESCOBEDO MD, ON 10/14/2018 AT 03:48 PM EDT DISCLAIMER : THIS IS A VISIT SUMMARY EXTRACTED FROM THE [employer] [facility] [facility] CHART. IT IS NOT A COPY OF THE [facility] PROGRESS NOTE. MTDD
== END ==
LOC: M PAIN 13:00
PROVIDERS: ATTEND Anesthesiology
DX: G89.29 Other chronic pain (principal); M47.816 Spondylosis without myelopathy or radiculopathy, lumbar region; M47.817 Spondylosis without myelopathy or radiculopathy, lumbosacral region; F41.9 Anxiety disorder, unspecified; Z79.899 Other long term (current) drug therapy; Z88.8 Allergy status to other drugs, medicaments and biological substances; Z91.018 Allergy to other foods; Z86.79 Personal history of other diseases of the circulatory system; Z87.891 Personal history of nicotine dependence
CPT/HCPCS: 64493; 64494; J3301; Q9967

== ENCOUNTER → 2018-10-22 | Outpatient (CLI) | payer OTHER ==
[~2018-10-22] MED LIST changes: -BUPIVACAINE HCL 0.25% 30 ML VIAL As Ordered ONE; -ISOVUE-M 300 61% 15ML VIAL (Q9967) As Ordered ONE; -LIDOCAINE 1% SDV INJ 30 ML VIAL As Ordered ONE; -TRIAMCINOLONE ACETONIDE SUSP 40 MG/ML VIAL (J3301) As Ordered ONE; -diazePAM 5 MG TAB As Ordered ONE; -oxyCODONE 5MG TAB As Ordered ONE
--- NOTE | 2018-11-07 01:29 | ECWPNPC ---
PATIENT NAME: KYREE HUDSON : 1960 GENDER: FEMALE VISIT DATE: 10/22/2018 DISCHARGE DATE: 10/22/18 1039 VISIT LOCKED DATE TIME: PHYSICIAN: MIKKI RING RESOURCE: MIKKI RING REASON FOR APPOINTMENT 1. POST BILAT THERAPEUTIC L4/5-L5/S1 BLOCK W/C HISTORY OF PRESENT ILLNESS HISTORY OF PRESENT ILLNESS: HERE FOR POST PROCEDURE F/U.HAD BILAT.L4/5-L5/S1 THERAPEUTIC BLOCK ON 09/26/18.REPORTING SIGNIFICANT IMPROVEMENT IN PAIN THAT CONTINUES TODAY.REPORTING RESOLUTION OF LEG PAIN R>L SINCE PROCEDURE.REPORTING IMPROVED ABILITY TO TOLERATE HER WORK ACTIVITIES SINCE PROCEDURE.RATING PAIN VAS 2/10. PAIN THE PATIENT DESCRIBES THE PAIN... FALL RISK SCREENING: SCREENING :NO FALLS REPORTED IN THE LAST YEAR CURRENT MEDICATIONS TAKING METOPROLOL TARTRATE 25 MG TABLET 1 TABLET ORALLY ONCE A DAY (DR. BUCK) TAKING FISH OIL ULTRA 1 TAB ORALLY 2 TIMES A DAY TAKING NITROGLYCERIN 0.4 MG/SPRAY SOLUTION 1 SPRAY UNDER THE TONGUE TRANSLINGUAL NEEDED FOR CHEST PAIN, NOTES: NONE LATELY TAKING POTASSIUM 1 TAB ORAL , NOTES: NONE LATELY TAKING PRALUENT 75 MG/ML SOLUTION PEN-INJECTOR SUBCUTANEOUS 2X/MONTH TAKING GABAPENTIN 100 MG CAPSULE 1 TO 2 CAP DIRECTED ORALLY 2 IN AM,1 MIDDAY,2 PM TAKING ZOLOFT 100 MG TABLET 1 TABLET ORALLY ONCE A DAY TAKING CELEBREX 200 MG CAPSULE 1 CAPSULE ORALLY BID MDD2 TAKING PERCOCET 5-325 MG TABLET 1 TABLET NEEDED ORALLY EVERY 6 HRSMDD4 NOT-TAKING ASPIRIN ADULT LOW STRENGTH 81 MG TABLET DELAYED RELEASE 1 TABLET ORALLY ONCE A DAY NOT-TAKING MAGNESIUM 400 MG CAPSULE ORALLY DAILY NOT-TAKING AUGMENTIN 875-125 MG TABLET 1 TABLET ORALLY EVERY 12 HRS, NOTES: 2 WEEKS NOT-TAKING DIFLUCAN 150 MG TABLET 1 TABLET ORALLY DAILY NOT-TAKING ZOLOFT 100 MG TABLET TAKE ONE TABLET BY MOUTH ONCE A DAY NOT-TAKING PREDNISONE 20 MG TABLET 1 ORALLY POISON NATHALIA 2 TABLETS BID X 7 DAYS THEN 1 TABLET BID X 7 DAYS THEN 1 TABLET DAILY X 7 DAYS NOT-TAKING ZYRTEC 10 MG TABLET 1 TABLET NEEDED ORALLY ONCE A DAY NOT-TAKING LIPITOR 40 MG TABLET 1 TABLET ORALLY ONCE A DAY NOT-TAKING PRAVASTATIN SODIUM 40 MG TABLET 1 TABLET ORALLY ONCE A DAY NOT-TAKING PROBIOTIC - CAPSULE ORALLY NOT-TAKING CLINDAMYCIN HCL 300 MG CAPSULE 1 CAPSULE ORALLY EVERY 6 HRS NOT-TAKING LYRICA 200 MG CAPSULE 1 CAPSULE ORALLY ONCE A DAY MEDICATION LIST REVIEWED AND RECONCILED WITH THE PATIENT PAST MEDICAL HISTORY HX OF SVT- S/P ABLATION 2005- DR MAHESH ANNE IN [facility]- Q YR- JAN CAD S/P- 2 STENT PLACED AT [facility] CHRONIC BACK PAIN- LUMBAR REGION ARTHRITIS- PAIN CLINIC- ARNULFO BURNHAM-WORK COMP MULTIPLE JOINT PAIN- WRIST/RIGHT HIP/RIGHT KNEE/LEFT BIG TOE ANXIETY- LEXAPRO-1 YR- STOPPED B/C FELT LIKE ENCLOSED ALLERGIES CRESTOR: MYALGIAS - SIDE EFFECTS GARLIC: SEVERE STOMACH PAIN - ALLERGY LIPITOR: SEVERE MUSCLE ACHES - SIDE EFFECTS SURGICAL HISTORY RT HAND SURGERY- ARTHRITIS- DR STANFORD- SOS TUBAL LIGATION RT LEG VARICOSE VEIN REMOVED ABLATION CARDIAC 2005 CORONARY STENTS X 2 ([facility] - DR. BUCK) 12/2011 COLONOSCOPY (DR. ESQUIVEL, 1 POLYP, DUE IN 2018) 08/2013 BUNION 05/2015 ARTHRITIS 07/2015 FAMILY HISTORY FATHER: 56 YRS, DIAGNOSED WITH HEART DISEASE MOTHER: ALIVE 85 YRS, COLORECTAL CANCER AT AGE 65, HYPERTENSION, CANCER SIBLINGS: HEART DISEASE SOCIAL HISTORY GENERAL: TOBACCO USE ARE YOU A:FORMER SMOKER HOW LONG HAS IT BEEN SINCE YOU LAST SMOKED?> 10 YEARS HIV / HEP-C SCREENING HIV TEST OFFERED TO PATIENT:YES DATE OFFERED:03/08/2018 TEST ACCEPTED:NO HEP-C TEST OFFERED TO PATIENT:YES DATE OFFERED:03/08/2018 REASON:PATIENT DECLINED TEST ACCEPTED:NO REASON:PATIENT DECLINED BROCHURE PROVIDED TO PATIENTNO OTHERS AT HOME: BOYFRIEND. 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 LANGUAGE LANGUAGES SPOKEN:BELARUSIAN NEW PATIENT PAIN DIARY TODAY'S VISIT NOTES, FROM 0-10, WHAT LEVEL IS YOUR PAIN TODAY? 0. BMI CARE GOAL FOLLOW-UP ABOVE NORMAL BMI FOLLOW-UPDIETARY MANAGEMENT EDUCATION, GUIDANCE, AND COUNSELING, WEIGHT MONITORING RECREATIONAL DRUG USE DRUG USE?NO EXERCISE: ABS, RESISTANCE TRAINING. LEARNING BARRIERS / SPECIAL NEEDS BARRIERS TO LEARNING?NO HEARING IMPAIRED?NO VISION IMPAIRED?YES COGNITIVELY IMPAIRED?NO :CORRECTIVE LENSES GLASSES READINESS TO LEARN?YES LEARNING PREFERENCES?NO LEARNING CAPABILITIES PRESENT?YES EMOTIONAL BARRIERS?NO SPECIAL DEVICES?NO UTILIZATION REVIEWER NEEDED?NO PAIN CLINIC PFS, CLERGY, PUBLIC HEALTH REFERRALS PFS REFERRAL NEEDED?NO CLERGY REFERRAL NEEDED?NO PUBLIC HEALTH REFERRAL NEEDED?NO WAS THE PROVIDER NOTIFIED OF ANY PERTINENT INFO?YES HAS THE PATIENT BEEN EDUCATED REGARDING HIS/HER PLAN OF CARE?YES HAS THE PATIENT BEEN EDUCATED REGARDING PAIN, THE RISK FOR PAIN, THE IMPORTANCE OF EFFECTIVE PAIN MANAGEMENT, AND THE PAIN ASSESSMENT PROCESS?YES LATEX QUESTIONNAIRE LATEX ALLERGY : HAVE YOU EVER DEVELOPED ANY TYPE OF REACTION AFTER HANDLING LATEX PRODUCTS SUCH RUBBER GLOVES, CONDOMS, DIAPHRAGMS, BALLOONS, SOCKS, OR UNDERWEAR?NO LATEX ALLERGY : HAVE YOU EVER DEVELOPED ANY TYPE OF REACTION DURING OR AFTER DENTAL APPOINTMENT, VAGINAL/RECTAL EXAMINATION, SURGICAL PROCEDURE, OR ANY OTHER EXPOSURE?NO DATE ASKED : 09/26/2018 LATEX RISK : HAVE YOU EVER HAD ANY DIFFICULTY BREATHING OR HIVES AFTER EATING OR HANDLING ANY FRUITS, OR VEGETABLES; SUCH KIWI, BANANAS, STONE FRUITS, OR CHESTNUTSNO LATEX RISK : DO YOU HAVE A PREVIOUS PERSONAL HISTORY OF MORE THAN NINE SURGERIES, SPINA BIFIDA, OR REPEATED CATHERTIZATIONS? NO LATEX RISK : ARE YOU FREQUENTLY EXPOSED TO LATEX PRODUCTS IN YOUR OCCUPATION?NO CAFFEINE CAFFEINE USE?YES HOW OFTEN AND HOW MUCH? 2-3 CUPS ADVANCE DIRECTIVE ADVANCE DIRECTIVE DISCUSSED WITH PATIENT:YES HCP DELROY DAVIS [phone] TAOIST [id number] SABIANISM MARITAL STATUS: .. 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 SEXUAL HX HAD SEX IN THE LAST 12 MONTHS (VAGINAL, ORAL, OR ANAL)?YES WITHMEN ONLY USE PROTECTION?NO LMP:POST MENOPAUSE HAVE YOU EVER HAD AN STD?NO REVIEWED WITH PT 02/12/18 0915 LASREVIEWED WITH PATIENT 10/22/18 0989 JS. HOSPITALIZATION/MAJOR DIAGNOSTIC PROCEDURE CHILDBIRTH SEE SURGERIES REVIEW OF SYSTEMS REVIEWED BY: PROVIDER: MIKKI DOUGLAS . CONSTITUTIONAL: ANY CHANGE IN YOUR MEDICAL CONDITION? NO . CHILLS NO . FEVER NO . INFECTION: DO YOU HAVE NEW INFECTIONS? NO . DO YOU HAVE HISTORY OF MRSA? NO . MUSCULOSKELETAL: ANY NEW PATTERNS OF PAIN OR NUMBNESS? YES, STATES NO NUMBNESS IN HER LEG ANYMORE SINCE THE INJECTION AT THE BEGINNING OF SEPTEMBER . GASTROENTEROLOGY: ANY NEW CHANGE IN BOWEL CONTROL? NO . GENITOURINARY: ANY NEW CHANGE IN BLADDER CONTROL? YES, STATES URINARY URGENCY AND SOME INCONTINENCE DUE TO THE URGENCY . IS THERE A CHANCE YOU COULD BE ? NO . HEMATOLOGY/LYMPH: DO YOU TAKE ANY BLOOD THINNERS? (FOR EXAMPLE- COUMADIN, PLAVIX, AGGRENOX, PLATEL, PRADAXA, OR XARELTO) NO . WHEN WAS YOUR LAST DOSE? DATE: TIME: . NEUROLOGY: HAVE YOU FALLEN IN THE PAST 12 MONTHS? YES, STATES PRIOR TO LAST VISIT, DISCUSSED AT PREVIOUS VISIT . ANY NEW EXTREMITY NUMBNESS OR WEAKNESS? NO . CARDIOLOGY: DO YOU HAVE A PACEMAKER OR DEFIBRILLATOR? NO . RESPIRATORY: HAVE YOU BEEN SICK IN THE PAST WEEK? YES, STATES A COLD FOR THE PASTWEEK, STATES SHE HAS BEEN TAKING MUCINEX . FEVER YES, STATES POSSIBLY LAST WEEK BUT DID NOT TAKE HER TEMPERATURE . FLU LIKE SYMPTOMS? NO . COUGH YES . INTEGUMENTARY: DO YOU HAVE ANY RASHES OR OPEN SORES? NO . ALLERGIC/IMMUNO: ARE YOU ALLERGIC TO IV DYE? NO . ANY NEW ALLERGIES? NO . PSYCHIATRIC: DO YOU HAVE THOUGHTS OF HURTING YOURSELF OR SOMEONE ELSE? NO . ARE YOU ABUSED, NEGLECTED, OR IN AN UNSAFE ENVIRONMENT? NO . ENDOCRINOLOGY: ARE YOU DIABETIC? NO . OTHER: DO YOU NEED ANY PRESCRIPTIONS? NO . IF YES, PLEASE LIST: ____ . ANY NEW PROBLEMS WITH YOUR MEDICATIONS? NO . WHEN DID YOU LAST EAT? ____ . WHEN DID YOU LAST DRINK? ____ . WHAT DID YOU LAST DRINK? ____ . NAME OF PERSON DRIVING YOU HOME? ____ . DO YOU HAVE ANY OTHER QUESTIONS OR CONCERNS NO . VITAL SIGNS WT 156.8 LBS, HT 68 IN, BMI 23.84 INDEX, BP 140/70 MM HG, HR 63 /MIN, RR 18 /MIN, TEMP 97.2 F, OXYGEN SAT % 99%, SAFE IN ENV? (Y/N) YES, NA INITIALS [place] 09:50, REVIEWED BY: GREGORY. EXAMINATION GENERAL EXAMINATION: GENERAL APPEARANCE:AWAKE,ALERT ,PLEAASANT . PSYCHAFFECT NORMAL . LUNGS:LUNG LOPES ARE CLEAR TO AUSCULTATION BILATERALLY. GOOD MOVEMENT OF AIR . HEART:S1, S2 IN A REGULAR RATE AND RHYTHM. NO SIGNIFICANT MURMURS, RUBS OR GALLOPS NOTED . ASSESSMENTS LUMBAR FACET ARTHROPATHY - M12.88 (PRIMARY) CHRONIC PRESCRIPTION OPIATE USE - Z79.891 TREATMENT LUMBAR FACET ARTHROPATHY CONTINUE GABAPENTIN CAPSULE, 100 MG, 1 TO 2 CAP DIRECTED, ORALLY, 2 IN AM,1 MIDDAY,2 PM CONTINUE CELEBREX CAPSULE, 200 MG, 1 CAPSULE, ORALLY, BID MDD2 CONTINUE PERCOCET TABLET, 5-325 MG, 1 TABLET NEEDED, ORALLY, EVERY 6 HRSMDD4 NOTES: ISTOP REGISTRY REVIEWED AND DEMONSTRATES COMPLLIANCE. (REF # [id number] IN MEDICATIONS WHICH IS APPROPRIATE FOR WHAT WAS DISPENSED. RECENT URINE TOXICOLOGY REVIEWED. NO UNAUTHORIZED MEDICATIONS. NO ILLICIT SUBSTANCES AND PRESCRIBED MEDICATIONS WERE PRESENT. , RISKS AND BENEFITS OF NARCOTIC/OPIOD MEDICATIONS WERE REVIEWED WITH PATIENT - THIS INCLUDES BUT IS NOT LIMITED TO RISK OF DEPENDANCE/DEVELOPMENT OF ADDICTION, MOOD DISTURBANCE AND DEPRESSION, OSTEOPOROSIS, HORMONAL AND LABIDAL CHANGES, RESPIRATORY DEPRESSION AND . PATIENT IS ADVISED NOT TO DRIVE OR DRINK ALCOHOL WHILE ON THESE MEDICATIONS. PROCEDURES PN WORKMANS' COMP OPINION IN YOUR OPINION, WAS THE INCIDENT THAT THE PATIENT DESCRIBED THE COMPETENT MEDICAL CAUSE OF THIS INJURY/ILLNESS? YES ARE THE PATIENT'S COMPLAINTS CONSISTENT WITH HIS/HER HISTORY OF THE INJURY/ILLNESS? YES IS THE PATIENT'S HISTORY OF THE INJURY/ILLNESS CONSISTENT WITH YOUR OBJECTIVE FINDING? YES WHAT IS THE PERCENTAGE OF TEMPORARY IMPAIRMENT? MODERATE TO MARKED = 66.7% IS THE PATIENT WORKING? YES DOCTOR ON SITE: NAM BRADSHAW MD PROCEDURE CODES FA211 ESTABILISHED PATIENT [facility] FACILITY CHARGE DISPOSITION & COMMUNICATION FOLLOW UP 2 MONTHS ELECTRONICALLY SIGNED BY STELLA DASH ON 11/05/2018 AT 06:10 PM EDT DISCLAIMER : THIS IS A VISIT SUMMARY EXTRACTED FROM THE [employer] CHART. IT IS NOT A COPY OF THE [employer] PROGRESS NOTE. CHRISTINA
== END ==
LOC: M PAIN 09:45
PROVIDERS: ATTEND Nurse Practitioner Family
DX: M12.88 Other specific arthropathies, not elsewhere classified, other specified site (principal); Z95.5 Presence of coronary angioplasty implant and graft; Z86.59 Personal history of other mental and behavioral disorders; Z87.891 Personal history of nicotine dependence; Z88.8 Allergy status to other drugs, medicaments and biological substances; Z91.09 Other allergy status, other than to drugs and biological substances; Z79.899 Other long term (current) drug therapy

== ENCOUNTER 2018-12-11 07:04 | Day surgery (SDC) | payer OTHER ==
[~2018-12-11] VITALS: Ht 172.7 cm; Wt 66.7 kg
[~2018-12-11 07:04] MED LIST changes: +ASPI81TA85 PO; +FISH1000 PO; +GABA-1171 PO; +METO1TAB32 PO; +PRAL1INJ SC
[2018-12-11] MEDS ORDERED: PROPOFOL 200 MG/20 ML VIAL As Ordered ONE (07:10)
[2018-12-11] MEDS ORDERED: LIDOCAINE 2% INJ 100 MG/5 ML SDV (FOR ANES.) As Ordered ONE (07:10)
[2018-12-11] MEDS ORDERED: NS 1,000 ML IV ONE (07:30)
[2018-12-11] MEDS ORDERED: ePHEDrine SULFATE 25 MG/5 ML(5MG/ML) SYRINGE As Ordered ONE (08:17)
--- NOTE | 2018-12-11 08:33 | ROOR ---
Patient Name: Abena Gonzalez Procedure Date: 12/11/2018 8:11 AM Date of : 1960 Age: 58 Room: [facility] Gender: Female Note Status: Finalized Procedure: Colonoscopy Indications: High risk colon cancer surveillance: Personal history of colonic polyps, Last colonoscopy: August 2013 Providers: Mendoza ESQUIVEL MD Referring MD: Michelle FAIRBANKS Requesting Provider: Medicines: Monitored Anesthesia Care Complications: No immediate complications. Procedure: Pre-Anesthesia Assessment: - The heart rate, respiratory rate, oxygen saturations, blood pressure, adequacy of pulmonary ventilation, and response to care were monitored throughout the procedure. The Colonoscope was introduced through the anus and advanced to the terminal ileum, with identification of the appendiceal orifice and IC valve. The colonoscopy was performed without difficulty. The patient tolerated the procedure well. The quality of the bowel preparation was fair. Findings: The perianal and digital rectal examinations were normal. (EXAM: Complete, PREP: Suboptimal) The entire examined colon appeared normal on direct and retroflexion views. Impression: - (EXAM: Complete, PREP: Suboptimal) - The entire examined colon is normal on direct and retroflexion views. - No specimens collected. Recommendation: - Repeat colonoscopy in 2 years because the bowel preparation was suboptimal. - (You will need alternate colon prep for next colonoscopy) Mendoza Esquivel MD Mendoza ESQUIVEL MD 12/11/2018 8:32:34 AM Electronically signed by Mendoza ESQUIVEL MD Number of Addenda: 0 Note Initiated On: 12/11/2018 8:11 AM Estimated Blood Loss: Estimated blood loss: none.
[2018-12-11 09:00] VITALS: BP 127/75
== END 2018-12-11 09:00 | disposition home or self-care (01) ==
LOC: M OPP 07:04
PROVIDERS: ATTEND Internal Medicine Gastroenterology
DX: Z86.010 Personal history of colon polyps (principal)

== ENCOUNTER → 2019-02-12 | Outpatient (CLI) | payer OTHER ==
[~2019-02-12] MED LIST changes: +RANO500T7 PO; -RANO5TAB PO
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
== END ==
LOC: M PAIN 09:30
PROVIDERS: ATTEND Nurse Practitioner Family
DX: M12.88 Other specific arthropathies, not elsewhere classified, other specified site (principal); G89.29 Other chronic pain; Z86.59 Personal history of other mental and behavioral disorders; Z95.5 Presence of coronary angioplasty implant and graft; Z87.891 Personal history of nicotine dependence; Z88.8 Allergy status to other drugs, medicaments and biological substances; Z91.018 Allergy to other foods; Z79.82 Long term (current) use of aspirin; Z79.899 Other long term (current) drug therapy

== ENCOUNTER → 2019-02-19 | Outpatient (REF) | payer OTHER ==
[2019-02-19 16:49] LABS: BASO % 0.7 % (0.0-1.0); EOS # 0.2 10^3/uL (0.0-0.50); EOS % 3.9 % (0.0-3.0); HEMOGLOBIN 13.3 g/dl (12.0-15.5); LYMPH # 1.6 10^3/uL (1.5-4.5); LYMPH % 29.6 % (24.0-44.0); MEAN CORPUSCULAR HEMOGLOBIN 29.7 pg (27.0-33.0); MEAN CORPUSCULAR HGB CONC 33.3 g/dl (32.0-36.5); MEAN CORPUSCULAR VOLUME 89.3 fl (80.0-96.0); MONO # 0.5 10^3/uL (0.0-0.8); MONO % 9.1 % (0.0-5.0); NEUTROPHILS % 56.5 % (36.0-66.0); PLATELET COUNT, AUTOMATED 305 10^3/uL (150-450); RED BLOOD COUNT 4.48 10^6/uL (4.00-5.40); WHITE BLOOD COUNT 5.4 10^3/uL (4.0-10.0)
[2019-02-19 17:04] LABS: ALBUMIN 3.7 GM/DL (3.2-5.2); ALT/SGPT 22 U/L (12-78); BILIRUBIN,TOTAL 0.5 MG/DL (0.2-1.0); BLOOD UREA NITROGEN 20 MG/DL (7-18); CALCIUM LEVEL 8.9 MG/DL (8.5-10.1); CARBON DIOXIDE LEVEL 29 MEQ/L (21-32); CHLORIDE LEVEL 108 MEQ/L (98-107); CHOLESTEROL LEVEL 168 MG/DL (<200); CREATININE FOR GFR 0.85 MG/DL (0.55-1.30); GLOMERULAR FILTRATION RATE > 60.0 (>51); GLUCOSE, FASTING 78 MG/DL (70-100); HDL CHOLESTEROL 70 MG/DL (>40); LDL CHOLESTEROL 82 MG/DL (<100); NON-HDL-C 98 MG/DL; POTASSIUM SERUM 4.3 MEQ/L (3.5-5.1); SODIUM LEVEL 141 MEQ/L (136-145); TOTAL PROTEIN 6.7 GM/DL (6.4-8.2); TRIGLYCERIDES LEVEL 78 MG/DL (<150)
== END ==
LOC: M SFHCLERA 10:54
PROVIDERS: ATTEND Nurse Practitioner Family
DX: R25.2 Cramp and spasm (principal); Z13.220 Encounter for screening for lipoid disorders; R23.8 Other skin changes

== ENCOUNTER → 2019-03-07 | Outpatient (CLI) | payer OTHER ==
--- NOTE | 2019-03-07 23:57 | ECWPNPC ---
PATIENT NAME: KYREE HUDSON : 1960 GENDER: FEMALE VISIT DATE: 03/07/2019 DISCHARGE DATE: 03/07/19 1056 VISIT LOCKED DATE TIME: PHYSICIAN: MIKKI RING RESOURCE: MIKKI RING REASON FOR APPOINTMENT 1. W/C LOW BACK HISTORY OF PRESENT ILLNESS HISTORY OF PRESENT ILLNESS: PAIN THE PATIENT DESCRIBES THE PAIN... THE PATIENT DESCRIBES THE PAIN... THE PATIENT DESCRIBES THE PAIN... THE PATIENT DESCRIBES THE PAIN... 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 THIS BEGAN 2 WEEKS AGO.CURRENTLY USING GABAPENTIN 200MG IN AM,100MG MIDDAY,200MG AT HS,OXYCODONE 5/325 PRN,AND CELEBREX 200MG BID.FINDS CURRENT MEDICINE EFFECTIVE AT REDUCING PAIN.LATELY HAS BEEN HAVING AN INCREASE IN LBP AND BILAT. FOOT PINS/NEEDLES PAIN.DENIES SIDE EFFECTS. BUTRANS PATCH CAUSED A RASH.RATING PAIN VAS 3/10. DISCUSSED TREATMENT OPTIONS. MRI L/S SPINE 11-28-16 REVIEWED.SHOWING MULTI LEVEL FACET ARTHROPATHY. FALL RISK SCREENING: SCREENING :NO FALLS REPORTED IN THE LAST YEAR CURRENT MEDICATIONS TAKING GABAPENTIN 300 MG CAPSULE 1 ORALLY Q8H TID TAKING CELEBREX 200 MG CAPSULE 1 CAPSULE ORALLY BID MDD2 TAKING PERCOCET 5-325 MG TABLET 1 TABLET NEEDED ORALLY EVERY 6 HRSMDD4 TAKING METOPROLOL TARTRATE 25 MG TABLET 1 TABLET ORALLY ONCE A DAY (DR. BUCK) TAKING FISH OIL ULTRA 1 TAB ORALLY 2 TIMES A DAY TAKING NITROGLYCERIN 0.4 MG/SPRAY SOLUTION 1 SPRAY UNDER THE TONGUE TRANSLINGUAL NEEDED FOR CHEST PAIN, NOTES: NONE LATELY TAKING PRALUENT 75 MG/ML SOLUTION PEN-INJECTOR SUBCUTANEOUS 2X/MONTH TAKING ASPIRIN ADULT LOW STRENGTH 81 MG TABLET DELAYED RELEASE 1 TABLET ORALLY ONCE A DAY TAKING ZOLOFT 100 MG TABLET TAKE ONE TABLET BY MOUTH ONCE A DAY ORALLY ONCE A DAY NOT-TAKING POTASSIUM 1 TAB ORAL NOT-TAKING TRIAMCINOLONE ACETONIDE 0.1 % CREAM 1 APPLICATION TO AFFECTED AREA EXTERNALLY TWICE A DAY NOT-TAKING ZOLOFT 100 MG TABLET 1 TABLET ORALLY ONCE A DAY, NOTES: DUPLICATE NOT-TAKING MAGNESIUM 400 MG CAPSULE ORALLY DAILY NOT-TAKING AUGMENTIN 875-125 MG TABLET 1 TABLET ORALLY EVERY 12 HRS, NOTES: 2 WEEKS NOT-TAKING DIFLUCAN 150 MG TABLET 1 TABLET ORALLY DAILY NOT-TAKING PREDNISONE 20 MG TABLET 1 ORALLY POISON NATHALIA 2 TABLETS BID X 7 DAYS THEN 1 TABLET BID X 7 DAYS THEN 1 TABLET DAILY X 7 DAYS NOT-TAKING ZYRTEC 10 MG TABLET 1 TABLET NEEDED ORALLY ONCE A DAY NOT-TAKING LIPITOR 40 MG TABLET 1 TABLET ORALLY ONCE A DAY NOT-TAKING PRAVASTATIN SODIUM 40 MG TABLET 1 TABLET ORALLY ONCE A DAY NOT-TAKING PROBIOTIC - CAPSULE ORALLY NOT-TAKING CLINDAMYCIN HCL 300 MG CAPSULE 1 CAPSULE ORALLY EVERY 6 HRS NOT-TAKING LYRICA 200 MG CAPSULE 1 CAPSULE ORALLY ONCE A DAY MEDICATION LIST REVIEWED AND RECONCILED WITH THE PATIENT PAST MEDICAL HISTORY HX OF SVT- S/P ABLATION 2005- [facility] MAHESH ANNE IN [facility]- Q YR- JAN CAD S/P- [address] [facility] CHRONIC BACK PAIN- LUMBAR REGION ARTHRITIS- PAIN CLINIC- ARNULFO BURNHAM-WORK COMP MULTIPLE JOINT PAIN- WRIST/RIGHT HIP/RIGHT KNEE/LEFT BIG TOE ANXIETY- LEXAPRO-1 YR- STOPPED B/C FELT LIKE ENCLOSED ALLERGIES CRESTOR: MYALGIAS - SIDE EFFECTS GARLIC: SEVERE STOMACH PAIN - ALLERGY LIPITOR: SEVERE MUSCLE ACHES - SIDE EFFECTS SURGICAL HISTORY RT HAND SURGERY- ARTHRITIS- DR STANFORD- SOS TUBAL LIGATION RT LEG VARICOSE VEIN REMOVED ABLATION CARDIAC 2005 CORONARY STENTS X 2 ([facility] - DR. BUCK) 12/2011 COLONOSCOPY (DR. ESQUIVEL, 1 POLYP, DUE IN 2019) 08/2013 BUNION 05/2015 ARTHRITIS 07/2015 FAMILY HISTORY FATHER: 56 YRS, DIAGNOSED WITH UNSPECIFIED HEART DISEASE MOTHER: ALIVE 85 YRS, COLORECTAL CANCER AT AGE 65, HYPERTENSION, OTHER MALIGNANT NEOPLASM OF UNSPECIFIED SITE SIBLINGS: UNSPECIFIED HEART DISEASE SOCIAL HISTORY GENERAL: TOBACCO USE ARE YOU A:FORMER SMOKER HOW LONG HAS IT BEEN SINCE YOU LAST SMOKED?> 10 YEARS HIV / HEP-C SCREENING HIV TEST OFFERED TO PATIENT:YES DATE OFFERED:03/08/2018 TEST ACCEPTED:NO HEP-C TEST OFFERED TO PATIENT:YES DATE OFFERED:03/08/2018 REASON:PATIENT DECLINED TEST ACCEPTED:NO REASON:PATIENT DECLINED BROCHURE PROVIDED TO PATIENTNO OTHERS AT HOME: BOYFRIEND. 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 LANGUAGE LANGUAGES SPOKEN:KAZAKH NEW PATIENT PAIN DIARY TODAY'S VISIT NOTES, FROM 0-10, WHAT LEVEL IS YOUR PAIN TODAY? 0. BMI CARE GOAL FOLLOW-UP ABOVE NORMAL BMI FOLLOW-UPDIETARY MANAGEMENT EDUCATION, GUIDANCE, AND COUNSELING, WEIGHT MONITORING RECREATIONAL DRUG USE DRUG USE?NO EXERCISE: ABS, RESISTANCE TRAINING. LEARNING BARRIERS / SPECIAL NEEDS BARRIERS TO LEARNING?NO HEARING IMPAIRED?NO VISION IMPAIRED?YES COGNITIVELY IMPAIRED?NO :CORRECTIVE LENSES GLASSES READINESS TO LEARN?YES LEARNING PREFERENCES?NO LEARNING CAPABILITIES PRESENT?YES EMOTIONAL BARRIERS?NO SPECIAL DEVICES?NO RACE CAR MECHANIC NEEDED?NO PAIN CLINIC PFS, CLERGY, PUBLIC HEALTH REFERRALS PFS REFERRAL NEEDED?NO CLERGY REFERRAL NEEDED?NO PUBLIC HEALTH REFERRAL NEEDED?NO WAS THE PROVIDER NOTIFIED OF ANY PERTINENT INFO?YES HAS THE PATIENT BEEN EDUCATED REGARDING HIS/HER PLAN OF CARE?YES HAS THE PATIENT BEEN EDUCATED REGARDING PAIN, THE RISK FOR PAIN, THE IMPORTANCE OF EFFECTIVE PAIN MANAGEMENT, AND THE PAIN ASSESSMENT PROCESS?YES LATEX QUESTIONNAIRE LATEX ALLERGY : HAVE YOU EVER DEVELOPED ANY TYPE OF REACTION AFTER HANDLING LATEX PRODUCTS SUCH RUBBER GLOVES, CONDOMS, DIAPHRAGMS, BALLOONS, SOCKS, OR UNDERWEAR?NO LATEX ALLERGY : HAVE YOU EVER DEVELOPED ANY TYPE OF REACTION DURING OR AFTER DENTAL APPOINTMENT, VAGINAL/RECTAL EXAMINATION, SURGICAL PROCEDURE, OR ANY OTHER EXPOSURE?NO DATE ASKED : 09/26/2018 LATEX RISK : HAVE YOU EVER HAD ANY DIFFICULTY BREATHING OR HIVES AFTER EATING OR HANDLING ANY FRUITS, OR VEGETABLES; SUCH KIWI, BANANAS, STONE FRUITS, OR CHESTNUTSNO LATEX RISK : DO YOU HAVE A PREVIOUS PERSONAL HISTORY OF MORE THAN NINE SURGERIES, SPINA BIFIDA, OR REPEATED CATHERIZATIONS? NO LATEX RISK : ARE YOU FREQUENTLY EXPOSED TO LATEX PRODUCTS IN YOUR OCCUPATION?NO CAFFEINE CAFFEINE USE?YES HOW OFTEN AND HOW MUCH? 2-3 CUPS ADVANCE DIRECTIVE ADVANCE DIRECTIVE DISCUSSED WITH PATIENT:YES HCP DELROY DAVIS [phone] MANDAEN [id number] SHINTO MARITAL STATUS: .. 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 SEXUAL HX HAD SEX IN THE LAST 12 MONTHS (VAGINAL, ORAL, OR ANAL)?YES WITHMEN ONLY USE PROTECTION?NO LMP:POST MENOPAUSE HAVE YOU EVER HAD AN STD?NO REVIEWED WITH PT 02/12/18 0915 LASREVIEWED WITH PATIENT 10/22/18 0959 JSREVIEWED WITH PATIENT 02/12/19 0956 NLJREVIEWED WITH PATIENT 03/07/19 1014 NLJ. HOSPITALIZATION/MAJOR DIAGNOSTIC PROCEDURE CHILDBIRTH SEE SURGERIES REVIEW OF SYSTEMS REVIEWED BY: PROVIDER: MIKKI DOUGLAS . CONSTITUTIONAL: ANY CHANGE IN YOUR MEDICAL CONDITION? NO . CHILLS NO . FEVER NO . INFECTION: DO YOU HAVE NEW INFECTIONS? NO . DO YOU HAVE HISTORY OF MRSA? NO . MUSCULOSKELETAL: ANY NEW PATTERNS OF PAIN OR NUMBNESS? YES-INCREASED LOWER BACK PAIN, STATES SHE HAS HAD TINGLING NAD/OR NUMBNESS IN BLE, STATES IT FEELS LIKE A SHOOTING PAIN OUT HER TOES . GASTROENTEROLOGY: ANY NEW CHANGE IN BOWEL CONTROL? NO . GENITOURINARY: ANY NEW CHANGE IN BLADDER CONTROL? YES- STATES SHE HAS URGENCY . IS THERE A CHANCE YOU COULD BE ? NO . HEMATOLOGY/LYMPH: DO YOU TAKE ANY BLOOD THINNERS? (FOR EXAMPLE- COUMADIN, PLAVIX, AGGRENOX, PLATEL, PRADAXA, OR XARELTO) NO . WHEN WAS YOUR LAST DOSE? DATE: TIME: . NEUROLOGY: HAVE YOU FALLEN IN THE PAST 12 MONTHS? YES- NO FALLS SINCE LAST VISIT . ANY NEW EXTREMITY NUMBNESS OR WEAKNESS? YES- STATES SHE HAS HAD INCREASED WEAKNESS IN BLE . CARDIOLOGY: DO YOU HAVE A PACEMAKER OR DEFIBRILLATOR? NO . RESPIRATORY: HAVE YOU BEEN SICK IN THE PAST WEEK? NO . FEVER NO . FLU LIKE SYMPTOMS? NO . COUGH NO . INTEGUMENTARY: DO YOU HAVE ANY RASHES OR OPEN SORES? NO . ALLERGIC/IMMUNO: ARE YOU ALLERGIC TO IV DYE? NO . ANY NEW ALLERGIES? NO . PSYCHIATRIC: DO YOU HAVE THOUGHTS OF HURTING YOURSELF OR SOMEONE ELSE? NO . ARE YOU ABUSED, NEGLECTED, OR IN AN UNSAFE ENVIRONMENT? NO . ENDOCRINOLOGY: ARE YOU DIABETIC? NO . OTHER: DO YOU NEED ANY PRESCRIPTIONS? NO . IF YES, PLEASE LIST: ____ . ANY NEW PROBLEMS WITH YOUR MEDICATIONS? NO . WHEN DID YOU LAST EAT? ____ . WHEN DID YOU LAST DRINK? ____ . WHAT DID YOU LAST DRINK? ____ . NAME OF PERSON DRIVING YOU HOME? ____ . DO YOU HAVE ANY OTHER QUESTIONS OR CONCERNS YES- NEED SOMETHING FOR PAIN RELIEF . VITAL SIGNS WT 151.2 LBS, HT 68 IN, BMI 22.99 INDEX, BP 109/74 MM HG, HR 52 /MIN, RR 18 /MIN, TEMP 97.3 F, OXYGEN SAT % 100, SAFE IN ENV? (Y/N) YES, NA INITIALS AW 1023, REVIEWED BY: FLO. EXAMINATION GENERAL EXAMINATION: LUNGS:LUNG SOUNDS ARE CLEAR . HEART:HEART RATE REGULAR . MUSCULOSKELETAL:*, MUSCLE STRENGTH TESTING 5/5 BILATERAL LOWER EXTREMITIES., , PALPATION: POSITIVE FOR PAIN OVER L/S SPINE. POSITIVE FOR PAIN OVER L/S PARSPINALS.SPECIFIC POINT TENDERNESS OVER BILAT L4/5-L5/S1 LUMBR FACETS WITH FACET LOADING . DIAGNOSTIC:MRI L/S SPINE . ASSESSMENTS SPONDYLOSIS OF LUMBAR REGION WITHOUT MYELOPATHY OR RADICULOPATHY - M47.816 (PRIMARY) TREATMENT SPONDYLOSIS OF LUMBAR REGION WITHOUT MYELOPATHY OR RADICULOPATHY NOTES: L4/5-L5/S1 LFB DX BILAT W/C. PREVENTIVE MEDICINE PAIN CLINIC TEACHING: PROCEDURE TEACHING DIAGNOSTIC FACET BLOCK TEACHING PRINTED AND REVIEWED WITH PATIENT 03/07/19 FLO. PROCEDURE CODES FA211 ESTABILISHED PATIENT [facility] FACILITY CHARGE DISPOSITION & COMMUNICATION FOLLOW UP POST (REASON: L4/5-L5/S1 LFB DX BILAT W/C) ELECTRONICALLY SIGNED BY STELLA DASH ON 03/07/2019 AT 02:31 PM EDT DISCLAIMER : THIS IS A VISIT SUMMARY EXTRACTED FROM THE [employer] CHART. IT IS NOT A COPY OF THE [employer] PROGRESS NOTE. CHRISTINA
== END ==
LOC: M PAIN 09:45
PROVIDERS: ATTEND Nurse Practitioner Family
DX: M47.816 Spondylosis without myelopathy or radiculopathy, lumbar region (principal); G89.29 Other chronic pain; Z86.59 Personal history of other mental and behavioral disorders; Z87.891 Personal history of nicotine dependence; Z88.8 Allergy status to other drugs, medicaments and biological substances; Z91.018 Allergy to other foods; Z79.82 Long term (current) use of aspirin; Z79.899 Other long term (current) drug therapy

== ENCOUNTER → 2019-03-18 | Outpatient (CLI) | payer OTHER ==
--- NOTE | 2019-03-18 11:24 | REPMRS ---
Patient History The patient states she had a clinical breast exam in 02/2019. Patient is postmenopausal. Family history of colorectal cancer at age 50 or over in mother. 3D TOMOSYNTHESIS WAS PERFORMED. [facility] lifetime risk for breast cancer is 7.6%. Digital Woman Screen Mammo: March 18, 2019 - Exam #: [id number] Bilateral CC and MLO view(s) were taken. Technologist: Cari Grossman, Technologist FINDINGS: The breast tissue is heterogeneously dense. This may lower the sensitivity of mammography. There has been no change in the appearance of the mammogram from the prior studies. There is a moderate amount of residual fibroglandular tissue which is fairly symmetric. There is no interval development of dominant mass, areas of architectural distortion, or clustered microcalcification typical of malignancy. Assessment: BI-RADS/ACR category 1 mammogram. Negative Mammogram. Recommendation Routine screening mammogram in 1 year (for women over age 40). This mammogram was interpreted with the aid of an FDA-approved computer-aided dectection system. Electronically Signed By: Lex Montoya MD 03/18/19 112
== END ==
LOC: M WHC 08:51
PROVIDERS: ATTEND Nurse Practitioner Women's Health
DX: Z12.31 Encounter for screening mammogram for malignant neoplasm of breast (principal)

== ENCOUNTER → 2019-04-05 | Outpatient (CLI) | payer OTHER ==
--- NOTE | 2019-04-05 11:24 | REP ---
Left elbow five views: There is soft tissue edema posterior to the olecranon. This may represent olecranon bursitis. Mineralization and joint spaces are normal. There is no fracture or dislocation. There are no calcifications or foreign bodies. Impression: Soft tissue swelling posteriorly, possibly olecranon bursitis. Electronically Signed by Lex Garcia MD 04/05/2019 11:15 A
== END ==
LOC: M LRY 10:48
PROVIDERS: ATTEND Nurse Practitioner Family
DX: M70.22 Olecranon bursitis, left elbow (principal); S59.902A Unspecified injury of left elbow, initial encounter; X58.XXXA Exposure to other specified factors, initial encounter; Y92.89 Other specified places as the place of occurrence of the external cause; Y93.9 Activity, unspecified

== ENCOUNTER → 2019-04-23 | Outpatient (CLI) | payer OTHER | LOC: M PAIN 10:30 | PROVIDERS: ATTEND Anesthesiology | DX: M47.816 Spondylosis without myelopathy or radiculopathy, lumbar region (principal); Z53.8 Procedure and treatment not carried out for other reasons ==

== ENCOUNTER → 2019-04-26 | Outpatient (REF) | payer OTHER | LOC: M SFHCLERA 09:55 | PROVIDERS: ATTEND Family Medicine | DX: Z53.9 Procedure and treatment not carried out, unspecified reason (principal) ==

== ENCOUNTER → 2019-06-05 | Outpatient (CLI) | payer OTHER ==
--- NOTE | 2019-06-21 03:22 | ECWPNPC ---
PATIENT NAME: KYREE HUDSON : 1960 GENDER: FEMALE VISIT DATE: 06/05/2019 DISCHARGE DATE: 06/05/19 1200 VISIT LOCKED DATE TIME: PHYSICIAN: MIKKI RING RESOURCE: MIKKI RING REASON FOR APPOINTMENT 1. W/C LBP HISTORY OF PRESENT ILLNESS HISTORY OF PRESENT ILLNESS: PAIN THE PATIENT DESCRIBES THE PAIN... 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 CURRENTLY USING GABAPENTIN 200MG IN AM,100MG MIDDAY,200MG AT HS,CELEBREX 200MG BID AND PERCOCET 5/325 PRN FOR SEVERE PAIN.FINDS CURRENT MEDICINE EFFECTIVE AT REDUCING PAIN.LATELY HAS BEEN HAVING AN INCREASE IN LBP AND BILAT. FOOT PINS/NEEDLES PAIN.DENIES SIDE EFFECTS. BUTRANS PATCH CAUSED A RASH.RATING PAIN VAS 3/10. DISCUSSED TREATMENT OPTIONS. MRI L/S SPINE 11-28-16 REVIEWED.SHOWING MULTI LEVEL FACET ARTHROPATHY. FALL RISK SCREENING: SCREENING :NO FALLS REPORTED IN THE LAST YEAR CURRENT MEDICATIONS TAKING GABAPENTIN 300 MG CAPSULE 1 ORALLY Q8H TID TAKING METOPROLOL TARTRATE 25 MG TABLET 1 TABLET ORALLY ONCE A DAY (DR. BUCK) TAKING FISH OIL ULTRA 1 TAB ORALLY 2 TIMES A DAY TAKING NITROGLYCERIN 0.4 MG/SPRAY SOLUTION 1 SPRAY UNDER THE TONGUE TRANSLINGUAL NEEDED FOR CHEST PAIN TAKING PRALUENT 75 MG/ML SOLUTION PEN-INJECTOR SUBCUTANEOUS 2X/MONTH TAKING ASPIRIN ADULT LOW STRENGTH 81 MG TABLET DELAYED RELEASE 1 TABLET ORALLY ONCE A DAY TAKING ZOLOFT 100 MG TABLET TAKE ONE TABLET BY MOUTH ONCE A DAY ORALLY ONCE A DAY TAKING GABAPENTIN 300 MG CAPSULE TAKE ONE CAPSULE BY MOUTH EVERY 8 HOURS THREE TIMES A DAY ORAL TAKING PERCOCET 5-325 MG TABLET 1 TABLET NEEDED ORALLY EVERY 6 HRSMDD4 TAKING CELEBREX 200 MG CAPSULE 1 CAPSULE ORALLY BID MDD2 MEDICATION LIST REVIEWED AND RECONCILED WITH THE PATIENT PAST MEDICAL HISTORY HX OF SVT- S/P ABLATION 2005- DR MAHESH ANNE IN [facility]- Q YR- JAN CAD S/P- 2 STENT PLACED AT [facility] CHRONIC BACK PAIN- LUMBAR REGION ARTHRITIS- PAIN CLINIC- ARNULFO 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 - DR. BUCK) 12/2011 COLONOSCOPY (DR. ESQUIVEL, 1 POLYP, DUE IN 2018) 08/2013 BUNION 05/2015 ARTHRITIS 07/2015 LEFT HAND BASAL JOINT REPAIR, CARPAL TUNNEL 04/29/19 FAMILY HISTORY FATHER: 56 YRS, DIAGNOSED WITH UNSPECIFIED HEART DISEASE MOTHER: ALIVE 85 YRS, COLORECTAL CANCER AT AGE 65, HYPERTENSION, OTHER MALIGNANT NEOPLASM OF UNSPECIFIED SITE SIBLINGS: UNSPECIFIED HEART DISEASE SOCIAL HISTORY GENERAL: TOBACCO USE ARE YOU A:FORMER SMOKER HOW LONG HAS IT BEEN SINCE YOU LAST SMOKED?> 10 YEARS HIV / HEP-C SCREENING HIV TEST OFFERED TO PATIENT:YES DATE OFFERED:03/18/2019 TEST ACCEPTED:NO HEP-C TEST OFFERED TO PATIENT:YES DATE OFFERED:03/08/2018 REASON:PATIENT DECLINED TEST ACCEPTED:NO REASON:PATIENT DECLINED BROCHURE PROVIDED TO PATIENTNO OTHERS AT HOME: SPOUSE. 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 LANGUAGE LANGUAGES SPOKEN:[place] NEW PATIENT PAIN DIARY TODAY'S VISIT NOTES, FROM 0-10, WHAT LEVEL IS YOUR PAIN TODAY? 0. BMI CARE GOAL FOLLOW-UP ABOVE NORMAL BMI FOLLOW-UPDIETARY MANAGEMENT EDUCATION, GUIDANCE, AND COUNSELING, WEIGHT MONITORING RECREATIONAL DRUG USE DRUG USE?NO EXERCISE: ABS, RESISTANCE TRAINING. LEARNING BARRIERS / SPECIAL NEEDS CHANGE FROM LAST VISIT?NO BARRIERS TO LEARNING?NO HEARING IMPAIRED?NO VISION IMPAIRED?YES COGNITIVELY IMPAIRED?NO :CORRECTIVE LENSES GLASSES READINESS TO LEARN?YES LEARNING PREFERENCES?NO LEARNING CAPABILITIES PRESENT?YES EMOTIONAL BARRIERS?NO SPECIAL DEVICES?NO JAVA DEVELOPER CONSULTANT NEEDED?NO PAIN CLINIC PFS, CLERGY, PUBLIC HEALTH REFERRALS PFS REFERRAL NEEDED?NO CLERGY REFERRAL NEEDED?NO PUBLIC HEALTH REFERRAL NEEDED?NO WAS THE PROVIDER NOTIFIED OF ANY PERTINENT INFO?YES HAS THE PATIENT BEEN EDUCATED REGARDING HIS/HER PLAN OF CARE?YES HAS THE PATIENT BEEN EDUCATED REGARDING PAIN, THE RISK FOR PAIN, THE IMPORTANCE OF EFFECTIVE PAIN MANAGEMENT, AND THE PAIN ASSESSMENT PROCESS?YES LATEX QUESTIONNAIRE LATEX ALLERGY : HAVE YOU EVER DEVELOPED ANY TYPE OF REACTION AFTER HANDLING LATEX PRODUCTS SUCH RUBBER GLOVES, CONDOMS, DIAPHRAGMS, BALLOONS, SOCKS, OR UNDERWEAR?NO LATEX ALLERGY : HAVE YOU EVER DEVELOPED ANY TYPE OF REACTION DURING OR AFTER DENTAL APPOINTMENT, VAGINAL/RECTAL EXAMINATION, SURGICAL PROCEDURE, OR ANY OTHER EXPOSURE?NO LATEX RISK : HAVE YOU EVER HAD ANY DIFFICULTY BREATHING OR HIVES AFTER EATING OR HANDLING ANY FRUITS, OR VEGETABLES; SUCH KIWI, BANANAS, STONE FRUITS, OR CHESTNUTSNO LATEX RISK : DO YOU HAVE A PREVIOUS PERSONAL HISTORY OF MORE THAN NINE SURGERIES, SPINA BIFIDA, OR REPEATED CATHERIZATIONS? NO LATEX RISK : ARE YOU FREQUENTLY EXPOSED TO LATEX PRODUCTS IN YOUR OCCUPATION?NO DATE ASKED : 06/05/2019 CAFFEINE CAFFEINE USE?YES HOW OFTEN AND HOW MUCH? 2-3 CUPS ADVANCE DIRECTIVE ADVANCE DIRECTIVE DISCUSSED WITH PATIENT:YES HCP DELROY DAVIS [phone] [employer] [employer] [id number] SPIRITISM MARITAL STATUS: . 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 SEXUAL HX HAD SEX IN THE LAST 12 MONTHS (VAGINAL, ORAL, OR ANAL)?YES WITHMEN ONLY USE PROTECTION?NO LMP:POST MENOPAUSE HAVE YOU EVER HAD AN STD?NO REVIEWED WITH PT 02/12/18 0915 LASREVIEWED WITH PATIENT 10/22/18 0959 JSREVIEWED WITH PATIENT 02/12/19 0956 NLJREVIEWED WITH PATIENT 03/07/19 1014 NLJREVIEWED WITH PATIENT 06-05-19 DS. HOSPITALIZATION/MAJOR DIAGNOSTIC PROCEDURE CHILDBIRTH SEE SURGERIES REVIEW OF SYSTEMS REVIEWED BY: PROVIDER: MIKKI DOUGLAS . CONSTITUTIONAL: ANY CHANGE IN YOUR MEDICAL CONDITION? NO . CHILLS NO . FEVER NO . INFECTION: DO YOU HAVE NEW INFECTIONS? NO . DO YOU HAVE HISTORY OF MRSA? NO . MUSCULOSKELETAL: ANY NEW PATTERNS OF PAIN OR NUMBNESS? NO . GASTROENTEROLOGY: ANY NEW CHANGE IN BOWEL CONTROL? NO . GENITOURINARY: ANY NEW CHANGE IN BLADDER CONTROL? YES, INTERMITTENTLY INCONTINENT, DOES NOT BELIEVE IT IS SPINAL RELATED . IS THERE A CHANCE YOU COULD BE ? NO . HEMATOLOGY/LYMPH: DO YOU TAKE ANY BLOOD THINNERS? (FOR EXAMPLE- COUMADIN, PLAVIX, AGGRENOX, PLATEL, PRADAXA, OR XARELTO) NO . WHEN WAS YOUR LAST DOSE? DATE: TIME: . NEUROLOGY: HAVE YOU FALLEN IN THE PAST 12 MONTHS? YES, PT STATES THAT SHE WAS AT WORK, SCRAPED UP, NO MEDICAL ATTENTION GIVEN. NO REPORT TO ED . ANY NEW EXTREMITY NUMBNESS OR WEAKNESS? YES, PT STATES THAT LEGS HAVE CHANGED IN SENSATION, SLIGHT WEAKNESS NOTED WHEN PT STANDS TO AMBULATE OR WALK, SENSATION RESOLVES IF PT SITS . CARDIOLOGY: DO YOU HAVE A PACEMAKER OR DEFIBRILLATOR? NO . RESPIRATORY: HAVE YOU BEEN SICK IN THE PAST WEEK? NO . FEVER NO . FLU LIKE SYMPTOMS? NO . COUGH NO . INTEGUMENTARY: DO YOU HAVE ANY RASHES OR OPEN SORES? NO . ALLERGIC/IMMUNO: ARE YOU ALLERGIC TO IV DYE? NO . ANY NEW ALLERGIES? NO . PSYCHIATRIC: DO YOU HAVE THOUGHTS OF HURTING YOURSELF OR SOMEONE ELSE? NO . ARE YOU ABUSED, NEGLECTED, OR IN AN UNSAFE ENVIRONMENT? NO . ENDOCRINOLOGY: ARE YOU DIABETIC? NO . OTHER: DO YOU NEED ANY PRESCRIPTIONS? YES, OXYCODONE . IF YES, PLEASE LIST: ____ . ANY NEW PROBLEMS WITH YOUR MEDICATIONS? NO . WHEN DID YOU LAST EAT? ____ . WHEN DID YOU LAST DRINK? ____ . WHAT DID YOU LAST DRINK? ____ . NAME OF PERSON DRIVING YOU HOME? ____ . DO YOU HAVE ANY OTHER QUESTIONS OR CONCERNS NO . VITAL SIGNS WT 155.8 LBS, HT 68 IN, BMI 23.69 INDEX, BP 132/65 MM HG, HR 71 /MIN, RR 18 /MIN, TEMP 97.8 F, OXYGEN SAT % 95%, SAFE IN ENV? (Y/N) Y, NA INITIALS AW 1116, REVIEWED BY: NATY. EXAMINATION GENERAL EXAMINATION: LUNGS:LUNG SOUNDS ARE CLEAR . HEART:HEART RATE REGULAR . MUSCULOSKELETAL:*, MUSCLE STRENGTH TESTING 5/5 BILATERAL LOWER EXTREMITIES., , PALPATION: POSITIVE FOR PAIN OVER L/S SPINE. POSITIVE FOR PAIN OVER L/S PARSPINALS.SPECIFIC POINT TENDERNESS OVER BILAT L4/5-L5/S1 LUMBR FACETS WITH FACET LOADING . DIAGNOSTIC:MRI L/S SPINE . ASSESSMENTS LUMBAR FACET ARTHROPATHY - M12.88 (PRIMARY) TREATMENT LUMBAR FACET ARTHROPATHY CONTINUE CELEBREX CAPSULE, 200 MG, 1 CAPSULE, ORALLY, BID MDD2 REFILL PERCOCET TABLET, 5-325 MG, 1 TABLET NEEDED, ORALLY, EVERY 6 HRSMDD4, 30 DAYS, 120, REFILLS 0 CONTINUE GABAPENTIN CAPSULE, 300 MG, TAKE ONE CAPSULE BY MOUTH EVERY 8 HOURS THREE TIMES A DAY, ORAL NOTES: ISTOP REGISTRY REVIEWED AND DEMONSTRATES COMPLLIANCE. BRINGS IN MEDICATIONS WHICH IS APPROPRIATE FOR WHAT WAS DISPENSED. PROCEDURES PN WORKMANS' COMP OPINION IN YOUR OPINION, WAS THE INCIDENT THAT THE PATIENT DESCRIBED THE COMPETENT MEDICAL CAUSE OF THIS INJURY/ILLNESS? YES ARE THE PATIENT'S COMPLAINTS CONSISTENT WITH HIS/HER HISTORY OF THE INJURY/ILLNESS? YES IS THE PATIENT'S HISTORY OF THE INJURY/ILLNESS CONSISTENT WITH YOUR OBJECTIVE FINDING? YES WHAT IS THE PERCENTAGE OF TEMPORARY IMPAIRMENT? MODERATE TO MARKED = 66.7% IS THE PATIENT WORKING? YES DOCTOR ON SITE: NAM BRADSHAW MD PROCEDURE CODES FA211 ESTABILISHED PATIENT [facility] CHARGE DISPOSITION & COMMUNICATION FOLLOW UP PT WILL CALL WHEN RETURNING FROM [place] ELECTRONICALLY SIGNED BY STELLA DASH ON 06/20/2019 AT 09:45 AM EST DISCLAIMER : THIS IS A VISIT SUMMARY EXTRACTED FROM THE [employer] CHART. IT IS NOT A COPY OF THE [employer] PROGRESS NOTE. CHRISTINA
== END ==
LOC: M PAIN 11:00
PROVIDERS: ATTEND Nurse Practitioner Family
DX: M12.88 Other specific arthropathies, not elsewhere classified, other specified site (principal); G89.29 Other chronic pain; Z86.59 Personal history of other mental and behavioral disorders; Z87.891 Personal history of nicotine dependence; Z88.8 Allergy status to other drugs, medicaments and biological substances; Z91.018 Allergy to other foods; Z79.82 Long term (current) use of aspirin; Z79.899 Other long term (current) drug therapy

== ENCOUNTER → 2019-08-26 | Outpatient (CLI) | payer BC, OTHER ==
[2019-08-26 12:21] LABS: CHOLESTEROL RISK RATIO 4.612 (<5)
== END ==
LOC: M LRY 08:23
PROVIDERS: ATTEND Nurse Practitioner Adult Health
DX: I25.10 Atherosclerotic heart disease of native coronary artery without angina pectoris (principal); E78.00 Pure hypercholesterolemia, unspecified

== ENCOUNTER → 2019-10-09 | Outpatient (CLI) | payer BC, OTHER ==
--- NOTE | 2019-10-10 03:36 | ECWPNPC ---
PATIENT NAME: KYREE DAVIS : 1960 GENDER: FEMALE VISIT DATE: 10/09/2019 DISCHARGE DATE: 10/09/19 1643 VISIT LOCKED DATE TIME: PHYSICIAN: MIKKI RING RESOURCE: MIKKI RING REASON FOR APPOINTMENT 1. W/C LBP- HISTORY OF PRESENT ILLNESS HISTORY OF PRESENT ILLNESS: PAIN THE PATIENT DESCRIBES THE PAIN... 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 LATELY HAS BEEN HAVING INTERMITTENT EPISODES OF SEVERE INSOMNIA. THIS HAS BEEN GOING ON FOR THE PAST 6 MONTHS. REPORTS LOW BACK PAIN AND RESTLESS LEG AWAKENS HER FROM SLEEP. PATIENT STOPPED GABAPENTIN SHE THOUGHT MAYBE THIS WAS CAUSING INSOMNIA. WILL BE STARTING MAGNESIUM 400 MG PER RECOMMENDATIONS OF NUTRITIONAL SPECIALIST. RATING PAIN LEVEL A 4/10 VAS. DISCUSSED MEDICATION AND TREATMENT OPTIONS. FALL RISK SCREENING: SCREENING :NO FALLS REPORTED IN THE LAST YEAR CURRENT MEDICATIONS TAKING METOPROLOL TARTRATE 25 MG TABLET 1 TABLET ORALLY ONCE A DAY (DR. BUCK) TAKING FISH OIL ULTRA 1 TAB ORALLY 2 TIMES A DAY TAKING NITROGLYCERIN 0.4 MG/SPRAY SOLUTION 1 SPRAY UNDER THE TONGUE TRANSLINGUAL NEEDED FOR CHEST PAIN TAKING ASPIRIN ADULT LOW STRENGTH 81 MG TABLET DELAYED RELEASE 1 TABLET ORALLY ONCE A DAY TAKING CELEBREX 200 MG CAPSULE 1 CAPSULE ORALLY BID MDD2 TAKING GABAPENTIN 300 MG CAPSULE TAKE ONE CAPSULE BY MOUTH EVERY 8 HOURS THREE TIMES A DAY ORAL TAKING ZOLOFT 100 MG TABLET TAKE ONE TABLET BY MOUTH ONCE A DAY ORALLY ONCE A DAY TAKING GABAPENTIN 300 MG CAPSULE 1 ORALLY Q8H TID, NOTES: STOPPED TAKING 1 WEEK AGO TAKING PERCOCET 5-325 MG TABLET 1 TABLET NEEDED ORALLY EVERY 6 HRSMDD4 TAKING MAGNESIUM 100 MG TABLET 2 TABLETS WITH A MEAL ORALLY BID TAKING MAY USE FO-TI 360 MG ORALLY BID NOT-TAKING PRALUENT 75 MG/ML SOLUTION PEN-INJECTOR SUBCUTANEOUS 2X/MONTH, NOTES: CURRENTLY NOT TAKING DUE TO INSURANCE MEDICATION LIST REVIEWED AND RECONCILED WITH THE PATIENT PAST MEDICAL HISTORY HX OF SVT- S/P ABLATION 2005- DR MAHESH ANNE IN [facility]- Q - JAN CAD S/P- [address] [facility] CHRONIC BACK PAIN- LUMBAR REGION ARTHRITIS- PAIN CLINIC- ARNULFO 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 - DR. BUCK) 12/2011 COLONOSCOPY (DR. ESQUIVEL, 1 POLYP, DUE IN 2019) 08/2013 BUNION 05/2015 ARTHRITIS 07/2015 LEFT HAND BASAL JOINT REPAIR, CARPAL TUNNEL 04/29/19 FAMILY HISTORY FATHER: 56 YRS, DIAGNOSED WITH UNSPECIFIED HEART DISEASE MOTHER: ALIVE 86 YRS, COLORECTAL CANCER AT AGE 65, HYPERTENSION, OTHER MALIGNANT NEOPLASM OF UNSPECIFIED SITE SIBLINGS: UNSPECIFIED HEART DISEASE SOCIAL HISTORY GENERAL: TOBACCO USE ARE YOU A:FORMER SMOKER HOW LONG HAS IT BEEN SINCE YOU LAST SMOKED?> 10 YEARS HIV / HEP-C SCREENING HIV TEST OFFERED TO PATIENT:YES DATE OFFERED:03/18/2019 TEST ACCEPTED:NO HEP-C TEST OFFERED TO PATIENT:YES DATE OFFERED:03/08/2018 REASON:PATIENT DECLINED TEST ACCEPTED:NO REASON:PATIENT DECLINED BROCHURE PROVIDED TO PATIENTNO OTHERS AT HOME: SPOUSE. 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 LANGUAGE LANGUAGES SPOKEN:[place] NEW PATIENT PAIN DIARY TODAY'S VISITNOTES 10/09/2019 PATIENT DESCRIBES PAIN :ACHING, IT COMES AND GOES, SHOOTING FROM 0-10, WHAT LEVEL IS YOUR PAIN TODAY?4 BMI CARE GOAL FOLLOW-UP ABOVE NORMAL BMI FOLLOW-UPDIETARY MANAGEMENT EDUCATION, GUIDANCE, AND COUNSELING, WEIGHT MONITORING RECREATIONAL DRUG USE DRUG USE?NO EXERCISE: ABS, RESISTANCE TRAINING. LEARNING BARRIERS / SPECIAL NEEDS CHANGE FROM LAST VISIT?NO BARRIERS TO LEARNING?NO HEARING IMPAIRED?NO VISION IMPAIRED?YES COGNITIVELY IMPAIRED?NO :CORRECTIVE LENSES GLASSES READINESS TO LEARN?YES LEARNING PREFERENCES?NO LEARNING CAPABILITIES PRESENT?YES EMOTIONAL BARRIERS?NO SPECIAL DEVICES?NO CIVIL RIGHTS INVESTIGATOR NEEDED?NO PAIN CLINIC PFS, CLERGY, PUBLIC HEALTH REFERRALS PFS REFERRAL NEEDED?NO CLERGY REFERRAL NEEDED?NO PUBLIC HEALTH REFERRAL NEEDED?NO WAS THE PROVIDER NOTIFIED OF ANY PERTINENT INFO?YES HAS THE PATIENT BEEN EDUCATED REGARDING HIS/HER PLAN OF CARE?YES HAS THE PATIENT BEEN EDUCATED REGARDING PAIN, THE RISK FOR PAIN, THE IMPORTANCE OF EFFECTIVE PAIN MANAGEMENT, AND THE PAIN ASSESSMENT PROCESS?YES LATEX QUESTIONNAIRE LATEX ALLERGY : HAVE YOU EVER DEVELOPED ANY TYPE OF REACTION AFTER HANDLING LATEX PRODUCTS SUCH RUBBER GLOVES, CONDOMS, DIAPHRAGMS, BALLOONS, SOCKS, OR UNDERWEAR?NO LATEX ALLERGY : HAVE YOU EVER DEVELOPED ANY TYPE OF REACTION DURING OR AFTER DENTAL APPOINTMENT, VAGINAL/RECTAL EXAMINATION, SURGICAL PROCEDURE, OR ANY OTHER EXPOSURE?NO LATEX RISK : HAVE YOU EVER HAD ANY DIFFICULTY BREATHING OR HIVES AFTER EATING OR HANDLING ANY FRUITS, OR VEGETABLES; SUCH KIWI, BANANAS, STONE FRUITS, OR CHESTNUTSNO LATEX RISK : DO YOU HAVE A PREVIOUS PERSONAL HISTORY OF MORE THAN NINE SURGERIES, SPINA BIFIDA, OR REPEATED CATHERIZATIONS? NO LATEX RISK : ARE YOU FREQUENTLY EXPOSED TO LATEX PRODUCTS IN YOUR OCCUPATION?NO DATE ASKED : 10/09/2019 CAFFEINE CAFFEINE USE?YES HOW OFTEN AND HOW MUCH? 2-3 CUPS ADVANCE DIRECTIVE ADVANCE DIRECTIVE DISCUSSED WITH PATIENT:YES HCP DELROY AGUIRREKAYLYN [phone] [employer] [id number] ORTHODOX MARITAL STATUS: . 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 SEXUAL HX HAD SEX IN THE LAST 12 MONTHS (VAGINAL, ORAL, OR ANAL)?YES WITHMEN ONLY USE PROTECTION?NO LMP:POST MENOPAUSE HAVE YOU EVER HAD AN STD?NO HOSPITALIZATION/MAJOR DIAGNOSTIC PROCEDURE CHILDBIRTH SEE SURGERIES REVIEW OF SYSTEMS REVIEWED BY: PROVIDER: MIKKI DOUGLAS . CONSTITUTIONAL: ANY CHANGE IN YOUR MEDICAL CONDITION? NO . CHILLS NO . FEVER NO . INFECTION: DO YOU HAVE NEW INFECTIONS? NO . DO YOU HAVE HISTORY OF MRSA? NO . MUSCULOSKELETAL: ANY NEW PATTERNS OF PAIN OR NUMBNESS? NO . GASTROENTEROLOGY: ANY NEW CHANGE IN BOWEL CONTROL? NO . GENITOURINARY: ANY NEW CHANGE IN BLADDER CONTROL? NO . IS THERE A CHANCE YOU COULD BE ? NO . HEMATOLOGY/LYMPH: DO YOU TAKE ANY BLOOD THINNERS? (FOR EXAMPLE- COUMADIN, PLAVIX, AGGRENOX, PLATEL, PRADAXA, OR XARELTO) NO . WHEN WAS YOUR LAST DOSE? DATE: TIME: . NEUROLOGY: HAVE YOU FALLEN IN THE PAST 12 MONTHS? YES, STATES PRIOR TO LAST VISIT, DISCUSSED AT PREVIOUS VISIT . ANY NEW EXTREMITY NUMBNESS OR WEAKNESS? NO . CARDIOLOGY: DO YOU HAVE A PACEMAKER OR DEFIBRILLATOR? NO . RESPIRATORY: HAVE YOU BEEN SICK IN THE PAST WEEK? NO . FEVER NO . FLU LIKE SYMPTOMS? NO . COUGH NO . INTEGUMENTARY: DO YOU HAVE ANY RASHES OR OPEN SORES? NO . ALLERGIC/IMMUNO: ARE YOU ALLERGIC TO IV DYE? NO . ANY NEW ALLERGIES? NO . PSYCHIATRIC: DO YOU HAVE THOUGHTS OF HURTING YOURSELF OR SOMEONE ELSE? NO . ARE YOU ABUSED, NEGLECTED, OR IN AN UNSAFE ENVIRONMENT? NO . ENDOCRINOLOGY: ARE YOU DIABETIC? NO . OTHER: DO YOU NEED ANY PRESCRIPTIONS? NO . IF YES, PLEASE LIST: ____ . ANY NEW PROBLEMS WITH YOUR MEDICATIONS? YES, STOPPED TAKING HER GABAPENTIN ABOUT 1 WEEK AGO DUE TO DIFFICULTY SLEEPING - WAS TRYING TO DETERMINE IF IT WAS CAUSED BY THE GABAPENTIN . WHEN DID YOU LAST EAT? ____ . WHEN DID YOU LAST DRINK? ____ . WHAT DID YOU LAST DRINK? ____ . NAME OF PERSON DRIVING YOU HOME? ____ . DO YOU HAVE ANY OTHER QUESTIONS OR CONCERNS YES, HAVING A VERY DIFFICULT TIME SLEEPING LATELY, HAS TRIED MULTIPLE THINGS TO HELP WITH NO SUCCESS YET. JUST STARTED MAGNESIUM RECENTLY TO SEE IF THAT WOULD HELP . EXAMINATION GENERAL EXAMINATION: GENERALNO ACUTE DISTRESS, WELL NOURISHED AND HYDRATED. PSYCHAPPROPRIATE MOOD AND AFFECT . FACE:UNREMARKABLE. ASSESSMENTS LUMBAR FACET ARTHROPATHY - M12.88 (PRIMARY) TREATMENT LUMBAR FACET ARTHROPATHY CONTINUE CELEBREX CAPSULE, 200 MG, 1 CAPSULE, ORALLY, BID MDD2 DECREASE GABAPENTIN CAPSULE, 300 MG, 2 CAP, ORAL, BEFORE BEDTIME, 30 DAYS, 60, REFILLS 2 CONTINUE PERCOCET TABLET, 5-325 MG, 1 TABLET NEEDED, ORALLY, EVERY 6 HRSMDD4 NOTES: ADVISED TO RESTART GABAPENTIN 300 MG WITH INSTRUCTIONS TO TAKE 2 CAPSULES AT NIGHTTIME. CONTINUE ALL OTHER CHRONIC PAIN MEDICATIONS DIRECTED. FOLLOW-UP IS SCHEDULED IN 6 WEEKS. URINE TOXICOLOGY AT FOLLOW-UP. OVERALL TIME SPENT DURING TELEMED ZOOM VISIT WAS APPROXIMATELY 11 MINUTES. OTHERS NOTES: NO VITALS OBTAINED DUE TO VIRTUAL VISIT. PROCEDURES PN WORKMANS' COMP OPINION IN YOUR OPINION, WAS THE INCIDENT THAT THE PATIENT DESCRIBED THE COMPETENT MEDICAL CAUSE OF THIS INJURY/ILLNESS? YES ARE THE PATIENT'S COMPLAINTS CONSISTENT WITH HIS/HER HISTORY OF THE INJURY/ILLNESS? YES IS THE PATIENT'S HISTORY OF THE INJURY/ILLNESS CONSISTENT WITH YOUR OBJECTIVE FINDING? YES WHAT IS THE PERCENTAGE OF TEMPORARY IMPAIRMENT? MODERATE TO MARKED = 66.7% IS THE PATIENT WORKING? YES DOCTOR ON SITE: NAM BRADSHAW MD DISPOSITION & COMMUNICATION FOLLOW UP 6 WEEKS (REASON: MED MGMNT/URINE TOX) ELECTRONICALLY SIGNED BY STELLA DASH ON 10/09/2019 AT 01:09 PM EDT DISCLAIMER : THIS IS A VISIT SUMMARY EXTRACTED FROM THE [employer] CHART. IT IS NOT A COPY OF THE [employer] PROGRESS NOTE. CHRISTINA
== END ==
LOC: M TMPAIN 11:00 → M PAIN 11:00
PROVIDERS: ATTEND Nurse Practitioner Family
DX: M12.88 Other specific arthropathies, not elsewhere classified, other specified site (principal); Z79.82 Long term (current) use of aspirin; Z79.891 Long term (current) use of opiate analgesic; Z79.899 Other long term (current) drug therapy; Z87.891 Personal history of nicotine dependence; Z88.8 Allergy status to other drugs, medicaments and biological substances; Z91.018 Allergy to other foods

== ENCOUNTER → 2019-10-24 | Outpatient (REF) | payer BC ==
[2019-10-24 15:35] LABS: APPEARANCE, URINE CLEAR (CLEAR); BACTERIA, URINE AUTO NEGATIVE (NEGATIVE); BILIRUBIN, URINE AUTO NEGATIVE (NEGATIVE); BLOOD, URINE BLOOD NEGATIVE (NEGATIVE); COLOR, URINE STRAW (YELLOW); GLUCOSE, URINE (UA) AUTO NEGATIVE (NEGATIVE); KETONE, URINE AUTO NEGATIVE (NEGATIVE); LEUKOCYTE ESTERASE, URINE AUTO NEGATIVE (NEGATIVE); NITRITE, URINE AUTO NEGATIVE (NEGATIVE); PROTEIN, URINE AUTO NEGATIVE (NEGATIVE); RBC, URINE AUTO 0 /HPF (0-3); SPECIFIC GRAVITY URINE AUTO 1.004 (1.002-1.035); SQUAMOUS EPITHELIAL CELL UR AU 0 /HPF (0-6); UROBILINOGEN, URINE AUTO 0.2 mg/dL (0.0-2.0); WBC, URINE AUTO 0 /HPF (0-3)
[2019-10-24 15:41] LABS: BASO % 0.6 % (0.0-1.0); EOS # 0.1 10^3/uL (0.0-0.5); EOS % 2.6 % (0.0-3.0); HEMATOCRIT 40.4 % (36.0-47.0); HEMOGLOBIN 13.1 g/dl (12.0-15.5); LYMPH # 2.1 10^3/uL (1.5-5.0); MEAN CORPUSCULAR HGB CONC 32.4 g/dl (32.0-36.5); MEAN CORPUSCULAR VOLUME 89.6 fl (80.0-96.0); MONO # 0.4 10^3/uL (0.0-0.8); NEUTROPHILS # 2.7 10^3/uL (1.5-8.5); NEUTROPHILS % 50.6 % (36.0-66.0); PLATELET COUNT, AUTOMATED 322 10^3/uL (150-450); RED BLOOD COUNT 4.51 10^6/uL (4.00-5.40); WHITE BLOOD COUNT 5.4 10^3/uL (4.0-10.0)
[2019-10-24 15:52] LABS: ALBUMIN 4.1 GM/DL (3.2-5.2); ALT/SGPT 29 U/L (12-78); BILIRUBIN,TOTAL 0.6 MG/DL (0.2-1.0); BLOOD UREA NITROGEN 11 MG/DL (7-18); CARBON DIOXIDE LEVEL 29 MEQ/L (21-32); CHLORIDE LEVEL 106 MEQ/L (98-107); CREATININE FOR GFR 0.84 MG/DL (0.55-1.30); GLOMERULAR FILTRATION RATE > 60.0 (>45); GLUCOSE, FASTING 87 MG/DL (70-100); POTASSIUM SERUM 4.7 MEQ/L (3.5-5.1); SODIUM LEVEL 141 MEQ/L (136-145); THYROID STIMULATING HORMONE 0.943 uIU/ML (0.358-3.740); TOTAL PROTEIN 7.4 GM/DL (6.4-8.2)
== END ==
LOC: M SFHCLERA 13:38
PROVIDERS: ATTEND Family Medicine
DX: R23.8 Other skin changes (principal)

== ENCOUNTER → 2019-11-26 | Outpatient (CLI) | payer OTHER ==
--- NOTE | 2019-11-27 23:55 | ECWPNPC ---
PATIENT NAME: KYREE DAVIS : 1960 GENDER: FEMALE VISIT DATE: 11/26/2019 DISCHARGE DATE: 11/26/19 0000 VISIT LOCKED DATE TIME: PHYSICIAN: MIKKI RING RESOURCE: MIKKI RING REASON FOR APPOINTMENT 1. NECK/LOW BACK PAIN/PAT COMPLETED-LATE D/T ACCIDENT HISTORY OF PRESENT ILLNESS GENERAL: -. PAIN SCREENING: PATIENT HAS A COMPLAINT OF ACUTE OR CHRONIC PAIN :YES LOCATION OF PAIN:LOW BACK INTENSITY OF PAIN (SCALE OF 1 TO 10):4 WHAT DOES YOUR PAIN FEEL LIKE:ACHING, SHARP, STABBING, TENDER, SORE, SHOOTING DURATION:ONLY WITH SPECIFIC ACTIVITIES, INTERMITTENT PAIN IS INCREASED BY:ACTIVITIES, PROLONGED STANDING PAIN IS DECREASED BY:USE OF PAIN MEDICATIONS STRETCHES AND EXERCISES PLAN/GOALS/TREATMENT/INTERVENTION/FOLLOW UP:SEE PLAN FALL RISK SCREENING: SCREENING :ONE FALL WITHOUT INJURY IN THE PAST YEAR DEPRESSION SCREENING: PHQ-2 (2015 EDITION) LITTLE INTEREST OR PLEASURE IN DOING THINGS?NOT AT ALL FEELING DOWN, DEPRESSED, OR HOPELESS?NOT AT ALL TOTAL SCORE0 PAIN CENTER INTAKE QUESTIONS: DO YOU HAVE A HISTORY OF MRSA? :NO DO YOU TAKE A BLOOD THINNERS? :NO DO YOU HAVE ANY BLEEDING DISORDERS? :NO ANY NEW NUMBNESS OR WEAKNESS IN YOUR LEGS OR ARMS? :NO ANY PACEMAKER,DEFIBRILLATOR, OR DORSAL COLUMN STIMULATOR? :NO DO YOU HAVE ANY RASHES OR OPEN SORES? :NO ARE YOU ALLERGIC TO IV DYE? :NO ARE YOU DIABETIC? :NO ANY NEW PROBLEMS WITH YOUR MEDICATIONS? :NO HAVE YOU RECEIVED A VACCINE IN THE PAST 30 DAYS? :NO DO YOU PLAN TO RECEIVE A VACCINE IN THE NEXT 21 DAYS? :NO DO YOU NEED ANY PRESCRIPTION? :YES CELEBREX, PERCOCET DO YOU TAKE ANY IMMUNOSUPPRESSIVE MEDICATIONS? :NO NURSING NOTE: PT. WANTS TO DISCUSS INCREASE DOSAGE OF PERCOCET-. HISTORY OF PRESENT ILLNESS: PAIN THE PATIENT DESCRIBES THE PAIN... HERE FOR F/U OF CHRONIC LBP DOI-JUL 1999.EMPLOYED AT [employer] Cued ANIAK.REPORTS SIGNIFICANT INCREASE IN LOW BACK PAIN OVER THE PAST 2 MONTHS. PAIN IS AGGRAVATED BY LIFTING AND BENDING. HAS RESPONDED WELL TO THERAPEUTIC LUMBAR FACET BLOCKS IN THE PAST. FINDING CURRENT CHRONIC PAIN MEDICATION EFFECTIVE AT REDUCING PAIN AND ALLOWING HER TO CONTINUE WORKING [employer]. DISCUSSED MEDICATION AND TREATMENT OPTIONS. CURRENT MEDICATIONS TAKING METOPROLOL TARTRATE 25 MG TABLET 1 TABLET ORALLY ONCE A DAY (DR. BUCK) TAKING FISH OIL ULTRA 1 TAB ORALLY 2 TIMES A DAY TAKING NITROGLYCERIN 0.4 MG/SPRAY SOLUTION 1 SPRAY UNDER THE TONGUE TRANSLINGUAL NEEDED FOR CHEST PAIN TAKING ASPIRIN ADULT LOW STRENGTH 81 MG TABLET DELAYED RELEASE 1 TABLET ORALLY ONCE A DAY TAKING GABAPENTIN 300 MG CAPSULE 1 ORALLY Q8H TID, NOTES: STOPPED TAKING 1 WEEK AGO TAKING MAGNESIUM 100 MG TABLET 2 TABLETS WITH A MEAL ORALLY BID TAKING MAY USE FO-TI 360 MG ORALLY BID TAKING CELEBREX 200 MG CAPSULE 1 CAPSULE ORALLY BID MDD2 TAKING GABAPENTIN 300 MG CAPSULE 2 CAP ORAL BEFORE BEDTIME TAKING PERCOCET 5-325 MG TABLET 1 TABLET NEEDED ORALLY EVERY 6 HRSMDD4 TAKING ZOLOFT 100 MG TABLET TAKE ONE TABLET BY MOUTH ONCE A DAY ORALLY ONCE A DAY NOT-TAKING PRALUENT 75 MG/ML SOLUTION PEN-INJECTOR SUBCUTANEOUS 2X/MONTH, NOTES: CURRENTLY NOT TAKING DUE TO INSURANCE MEDICATION LIST REVIEWED AND RECONCILED WITH THE PATIENT PAST MEDICAL HISTORY HX OF SVT- S/P ABLATION 2005- DR MAHESH ANNE IN [facility]- Q YR- JAN CAD S/P- 2 STENT PLACED AT [facility] CHRONIC BACK PAIN- LUMBAR REGION ARTHRITIS- PAIN CLINIC- ARNULFO BURNHAM-WORK COMP MULTIPLE JOINT PAIN- WRIST/RIGHT HIP/RIGHT KNEE/LEFT BIG TOE ANXIETY- LEXAPRO-1 YR- STOPPED B/C FELT LIKE ENCLOSED ALLERGIES CRESTOR: MYALGIAS - SIDE EFFECTS GARLIC: SEVERE STOMACH PAIN - ALLERGY LIPITOR: SEVERE MUSCLE ACHES - SIDE EFFECTS SURGICAL HISTORY RT HAND SURGERY- ARTHRITIS- DR STANFORD- SOS TUBAL LIGATION RT LEG VARICOSE VEIN REMOVED ABLATION CARDIAC 2005 CORONARY STENTS X 2 ([facility] - DR. BUCK) 12/2011 COLONOSCOPY (DR. ESQUIVEL, 1 POLYP, DUE IN 2019) 08/2013 BUNION 05/2015 ARTHRITIS 07/2015 LEFT HAND BASAL JOINT REPAIR, CARPAL TUNNEL 04/29/19 FAMILY HISTORY FATHER: 56 YRS, DIAGNOSED WITH UNSPECIFIED HEART DISEASE MOTHER: ALIVE 86 YRS, COLORECTAL CANCER AT AGE 65, HYPERTENSION, OTHER MALIGNANT NEOPLASM OF UNSPECIFIED SITE SIBLINGS: UNSPECIFIED HEART DISEASE SOCIAL HISTORY GENERAL: TOBACCO USE ARE YOU A:FORMER SMOKER HOW LONG HAS IT BEEN SINCE YOU LAST SMOKED?> 10 YEARS LATEX QUESTIONNAIRE LATEX ALLERGY : HAVE YOU EVER DEVELOPED ANY TYPE OF REACTION AFTER HANDLING LATEX PRODUCTS SUCH RUBBER GLOVES, CONDOMS, DIAPHRAGMS, BALLOONS, SOCKS, OR UNDERWEAR?NO LATEX ALLERGY : HAVE YOU EVER DEVELOPED ANY TYPE OF REACTION DURING OR AFTER DENTAL APPOINTMENT, VAGINAL/RECTAL EXAMINATION, SURGICAL PROCEDURE, OR ANY OTHER EXPOSURE?NO LATEX RISK : HAVE YOU EVER HAD ANY DIFFICULTY BREATHING OR HIVES AFTER EATING OR HANDLING ANY FRUITS, OR VEGETABLES; SUCH KIWI, BANANAS, STONE FRUITS, OR CHESTNUTSNO LATEX RISK : DO YOU HAVE A PREVIOUS PERSONAL HISTORY OF MORE THAN NINE SURGERIES, SPINA BIFIDA, OR REPEATED CATHERIZATIONS? NO LATEX RISK : ARE YOU FREQUENTLY EXPOSED TO LATEX PRODUCTS IN YOUR OCCUPATION?NO DATE ASKED : 11/26/2019 BMI CARE GOAL FOLLOW-UP ABOVE NORMAL BMI FOLLOW-UPDIETARY MANAGEMENT EDUCATION, GUIDANCE, AND COUNSELING, WEIGHT MONITORING RECREATIONAL DRUG USE DRUG USE?NO CAFFEINE CAFFEINE USE?YES HOW OFTEN AND HOW MUCH? 2-3 CUPS SEXUAL HX HAD SEX IN THE LAST 12 MONTHS (VAGINAL, ORAL, OR ANAL)?YES WITHMEN ONLY USE PROTECTION?NO LMP:POST MENOPAUSE HAVE YOU EVER HAD AN STD?NO HIV / HEP-C SCREENING HIV TEST OFFERED TO PATIENT:YES DATE OFFERED:03/18/2019 TEST ACCEPTED:NO HEP-C TEST OFFERED TO PATIENT:YES DATE OFFERED:03/08/2018 REASON:PATIENT DECLINED TEST ACCEPTED:NO REASON:PATIENT DECLINED BROCHURE PROVIDED TO PATIENTNO ISLAM [id number] SCIENTOLOGY LANGUAGE LANGUAGES SPOKEN:AZERI LEARNING BARRIERS / SPECIAL NEEDS CHANGE FROM LAST VISIT?NO BARRIERS TO LEARNING?NO HEARING IMPAIRED?NO VISION IMPAIRED?YES COGNITIVELY IMPAIRED?NO :CORRECTIVE LENSES GLASSES READINESS TO LEARN?YES LEARNING PREFERENCES?NO LEARNING CAPABILITIES PRESENT?YES EMOTIONAL BARRIERS?NO SPECIAL DEVICES?NO STUNT DOUBLE NEEDED?NO 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 EXERCISE: ABS, RESISTANCE TRAINING. MARITAL STATUS: . OTHERS AT HOME: SPOUSE. NEW PATIENT PAIN DIARY TODAY'S VISITNOTES PATIENT DESCRIBES PAIN :ACHING, IT COMES AND GOES, SHOOTING FROM 0-10, WHAT LEVEL IS YOUR PAIN TODAY?4 PAIN CLINIC PFS, CLERGY, PUBLIC HEALTH REFERRALS PFS REFERRAL NEEDED?NO CLERGY REFERRAL NEEDED?NO PUBLIC HEALTH REFERRAL NEEDED?NO WAS THE PROVIDER NOTIFIED OF ANY PERTINENT INFO?YES HAS THE PATIENT BEEN EDUCATED REGARDING HIS/HER PLAN OF CARE?YES HAS THE PATIENT BEEN EDUCATED REGARDING PAIN, THE RISK FOR PAIN, THE IMPORTANCE OF EFFECTIVE PAIN MANAGEMENT, AND THE PAIN ASSESSMENT PROCESS?YES ADVANCE DIRECTIVE ADVANCE DIRECTIVE DISCUSSED WITH PATIENT:YES HCP DELROY DAVIS [phone] HOSPITALIZATION/MAJOR DIAGNOSTIC PROCEDURE CHILDBIRTH SEE SURGERIES REVIEW OF SYSTEMS CONSTITUTIONAL: ANY RECENT FEVER OR ILLNESS NO . CHILLS NO . GASTROENTEROLOGY: BOWEL INCONTINENCE NO . ANY NEW CHANGE IN BOWEL CONTROL? NO . ABDOMINAL PAIN NO . CONSTIPATION NO . GENITOURINARY: ANY NEW CHANGE IN BLADDER CONTROL? NO . IS THERE A CHANCE YOU COULD BE ? NO . URINARY INCONTINENCE NO . CARDIOLOGY: CHEST PRESSURE NO . CHEST PAIN NO . RESPIRATORY: COUGH NO . SHORTNESS OF BREATH NO . VITAL SIGNS WT 199.6 LBS, HT 68 IN, BMI 30.35 INDEX, BP 132/63 MM HG, HR 64 /MIN, RR 18 /MIN, TEMP 97.8 F, OXYGEN SAT % 97%, NA INITIALS AW 0914. EXAMINATION GENERAL EXAMINATION: LUNGS:LUNG SOUNDS ARE CLEAR . HEART:HEART RATE REGULAR . MUSCULOSKELETAL:*, MUSCLE STRENGTH TESTING 5/5 BILATERAL LOWER EXTREMITIES., , PALPATION: POSITIVE FOR PAIN OVER L/S SPINE. POSITIVE FOR PAIN OVER L/S PARSPINALS.SPECIFIC POINT TENDERNESS OVER BILAT L4/5-L5/S1 LUMBR FACETS WITH FACET LOADING . DIAGNOSTIC:MRI L/S SPINE . ASSESSMENTS LUMBAR FACET ARTHROPATHY - M12.88 (PRIMARY) TREATMENT LUMBAR FACET ARTHROPATHY CONTINUE CELEBREX CAPSULE, 200 MG, 1 CAPSULE, ORALLY, BID MDD2 CONTINUE GABAPENTIN CAPSULE, 300 MG, 2 CAP, ORAL, BEFORE BEDTIME INCREASE PERCOCET TABLET, 10-325 MG, 1 TABLET NEEDED, ORALLY, Q8H PRN MDD3, 30 DAYS, 90, REFILLS 0 NOTES: WORKMEN'S COMP REQUEST BILATERAL L4-5, L5-S1 THERAPEUTIC LUMBAR FACET BLOCK DUE TO AGGRAVATION IN PAIN OVER THE PAST FEW MONTHS I WILL INCREASE OXYCODONE TO 10/325. SHE IS ADVISED TO USE THIS SPORADICALLY FOR SEVERE PAIN EPISODES. INSTRUCTED TO TAKE 1 TABLET EVERY 6 HOURS WHEN NECESSARY FOR SEVERE PAIN EPISODES WITH MAX DAILY DOSE OF 3 AND DISPENSED #90 TABLETS FOR 30 DAY SUPPLY. , ISTOP REGISTRY REVIEWED AND DEMONSTRATES COMPLLIANCE. URINE TOXICOLOGY AT FOLLOW-UP. PROCEDURES PN WORKMANS' COMP OPINION IN YOUR OPINION, WAS THE INCIDENT THAT THE PATIENT DESCRIBED THE COMPETENT MEDICAL CAUSE OF THIS INJURY/ILLNESS? YES ARE THE PATIENT'S COMPLAINTS CONSISTENT WITH HIS/HER HISTORY OF THE INJURY/ILLNESS? YES IS THE PATIENT'S HISTORY OF THE INJURY/ILLNESS CONSISTENT WITH YOUR OBJECTIVE FINDING? YES WHAT IS THE PERCENTAGE OF TEMPORARY IMPAIRMENT? MODERATE TO MARKED = 66.7% IS THE PATIENT WORKING? YES DOCTOR ON SITE: NAM BRADSHAW MD PROCEDURE CODES FA211 ESTABILISHED PATIENT [facility] CHARGE DISPOSITION & COMMUNICATION FOLLOW UP POSTPROCEDURE/URINE TOXICOLOGY (REASON: WORKMEN'S COMP REQUEST BILATERAL L4-5, L5-S1 THERAPEUTIC LUMBAR FACET BLOCK) ELECTRONICALLY SIGNED BY STELLA DASH ON 11/27/2019 AT 02:30 PM EDT DISCLAIMER : THIS IS A VISIT SUMMARY EXTRACTED FROM THE [employer] CHART. IT IS NOT A COPY OF THE [employer] PROGRESS NOTE. CHRISTINA
== END ==
LOC: M PAIN 09:00
PROVIDERS: ATTEND Nurse Practitioner Family
DX: M12.88 Other specific arthropathies, not elsewhere classified, other specified site (principal); Z79.82 Long term (current) use of aspirin; Z79.891 Long term (current) use of opiate analgesic; Z79.899 Other long term (current) drug therapy; Z87.891 Personal history of nicotine dependence; Z88.8 Allergy status to other drugs, medicaments and biological substances; Z91.018 Allergy to other foods

== ENCOUNTER → 2020-03-31 | Outpatient (REF) | payer SELFPAY ==
[~2020-03-31] MED LIST changes: -ASPI81TA85 PO; +ASPI81TA86 PO
== END ==
LOC: M SFHCLERA 11:15
PROVIDERS: ATTEND Nurse Practitioner Family
DX: R19.7 Diarrhea, unspecified (principal)

== ENCOUNTER → 2020-06-16 | Outpatient (CLI) | payer OTHER ==
[2020-06-16 11:21] LABS: CHOLESTEROL RISK RATIO 3.807 (<5)
== END ==
LOC: M LAB 10:09
PROVIDERS: ATTEND Internal Medicine Cardiovascular Disease
DX: E78.5 Hyperlipidemia, unspecified (principal); E78.00 Pure hypercholesterolemia, unspecified

== ENCOUNTER → 2020-06-24 | Outpatient (CLI) | payer OTHER, MEDICAID ==
--- NOTE | 2020-06-28 23:01 | ECWPNPC ---
PATIENT NAME: KYREE HUDSON : 1960 GENDER: FEMALE VISIT DATE: 06/24/2020 DISCHARGE DATE: 06/24/20 1249 VISIT LOCKED DATE TIME: PHYSICIAN: MIKKI RING PHYSICIAN PAGER NO: ACTIVE RESOURCE: MIKKI RING REASON FOR APPOINTMENT 1. MEDICATION MGMT HISTORY OF PRESENT ILLNESS DEPRESSION SCREENING: PHQ-9 LITTLE INTEREST OR PLEASURE IN DOING THINGSNOT AT ALL FEELING DOWN, DEPRESSED, OR HOPELESSMORE THAN HALF THE DAYS TROUBLE FALLING OR STAYING ASLEEP, OR SLEEPING TOO MUCHNOT AT ALL FEELING TIRED OR HAVING LITTLE ENERGYMORE THAN HALF THE DAYS POOR APPETITE OR OVEREATING NOT AT ALL FEELING BAD ABOUT YOURSELF-OR THAT YOU ARE A FAILURE OR HAVE LET YOURSELF OR YOUR FAMILY DOWN NOT AT ALL TROUBLE CONCENTRATING ON THINGS, SUCH READING THE NEWSPAPER OR WATCHING TELEVISION NOT AT ALL MOVING OR SPEAKING SO SLOWLY THAT OTHER PEOPLE COULD HAVE NOTICED. OR THE OPPOSITE- BEING SO FIDGETY OR RESTLESS THAT YOU HAVE BEEN MOVING AROUND A LOT MORE THAN USUALNOT AT ALL THOUGHTS THAT YOU WOULD BE BETTER OFF , OR OF HURTING YOURSELF IN SOME WAY?NOT AT ALL TOTAL SCORE:4 INTERPRETATIONMINIMAL DEPRESSION PHQ-2 (2015 EDITION) LITTLE INTEREST OR PLEASURE IN DOING THINGS?NOT AT ALL FEELING DOWN, DEPRESSED, OR HOPELESS?MORE THAN HALF THE DAYS TOTAL SCORE2 GENERAL: HERE FOR FOLLOW-UP OF CHRONIC LOW BACK PAIN. REPORTING NEW ONSET OF BILATERAL LOWER EXTREMITY NUMBNESS AND WEAKNESS WHEN ELEVATING ON A LADDER OR WITH PROLONGED STANDING. THIS IS INTERMITTENT. DENIES ONSET OF BOWEL OR BLADDER INCONTINENCE. REPORTING POOR SLEEP DUE TO PAIN. REVIEWED MEDICATIONS AND TREATMENT PLAN. THIS IS A WORK RELATED INJURY.REVIEWED URINE TOXICOLOGY AND PATIENT REPORTS THAT SHE USES MARIJUANA OCCASIONALLY AT NIGHT FOR SLEEP I WILL BE DISCONTINUING NARCOTIC PAIN MEDICATIONS. SHE WILL NEED AN MRI OF THE LS-SPINE TO EVALUATE NEW ONSET OF LOWER EXTREMITY RADICULAR VERSUS NEUROLOGIC PATHOLOGY. DISCUSSED NONNARCOTIC PAIN MEDICATIONS THAT MAY BE HELPFUL. - -. FALL RISK SCREENING: SCREENING :TWO OR MORE FALLS WITH INJURY IN THE PAST YEAR BRUISING NOT EVALUATED IN EMERGENCY ROOM. PAIN SCREENING: PATIENT HAS A COMPLAINT OF ACUTE OR CHRONIC PAIN :YES LOCATION OF PAIN:LOW BACK, LEFT HIP, RIGHT HIP PAIN IN EITHER RIGHT OR LEFT HIP AT DIFFERENT TIMES. INTENSITY OF PAIN (SCALE OF 1 TO 10):4 AVERAGE 4-6 WHAT DOES YOUR PAIN FEEL LIKE:ACHING, INTERMITTENT, SHARP, STABBING, SHOOTING, OTHER NUMBNESS AND FEELS LIKE ELECTRIC SHOCKS. DURATION:INTERMITTENT, AWAKENS FROM SLEEP PAIN IS INCREASED BY:ACTIVITIES, PROLONGED STANDING LIFTING, REACHING PAIN IS DECREASED BY:USE OF PAIN MEDICATIONS, OTHERS MACKENZI EXERCISES, ICE PACKS NURSING NOTE: - -. PAIN CENTER INTAKE QUESTIONS: DO YOU HAVE A HISTORY OF MRSA? :NO DO YOU TAKE A BLOOD THINNERS? :NO DO YOU HAVE ANY BLEEDING DISORDERS? :NO ANY NEW NUMBNESS OR WEAKNESS IN YOUR LEGS OR ARMS? :YES INCREASED IN NUMBNESS AND WEAKNESS IN LEGS OVER THE PAST MONTH. ANY PACEMAKER,DEFIBRILLATOR, OR DORSAL COLUMN STIMULATOR? :NO DO YOU HAVE ANY RASHES OR OPEN SORES? :NO ARE YOU ALLERGIC TO IV DYE? :NO ARE YOU DIABETIC? :NO ANY NEW PROBLEMS WITH YOUR MEDICATIONS? :NO HAVE YOU RECEIVED A VACCINE IN THE PAST 30 DAYS? :NO DO YOU PLAN TO RECEIVE A VACCINE IN THE NEXT 21 DAYS? :NO UNCERTAIN DO YOU NEED ANY PRESCRIPTION? :YES NEEDS REFILLS ON CELEBREX, GABAPENTIN, AND HYDROCODONE DO YOU TAKE ANY IMMUNOSUPPRESSIVE MEDICATIONS? :YES HYDROXYCHLOROQUINE STARTED IN NOVEMBER OR DECEMBER OF 2019. IS THERE A CHANCE YOU COULD BE ? :NO ARE YOU BREAST FEEDING? :NO CURRENT MEDICATIONS TAKING METOPROLOL TARTRATE 25 MG TABLET 1 TABLET ORALLY ONCE A DAY (DR. BUCK) TAKING FISH OIL ULTRA 1 TAB ORALLY 2 TIMES A DAY TAKING NITROGLYCERIN 0.4 MG/SPRAY SOLUTION 1 SPRAY UNDER THE TONGUE TRANSLINGUAL NEEDED FOR CHEST PAIN TAKING ASPIRIN ADULT LOW STRENGTH 81 MG TABLET DELAYED RELEASE 1 TABLET ORALLY ONCE A DAY TAKING PERCOCET 10-325 MG TABLET 1 TABLET NEEDED ORALLY Q8H PRN MDD3 TAKING ZOLOFT 100 MG TABLET TAKE ONE TABLET BY MOUTH ONCE A DAY ORALLY ONCE A DAY TAKING HYDROXYCHLOROQUINE SULFATE 200 MG TABLET TAKE ONE TABLET BY MOUTH TWICE A DAY ORAL TAKING CELEBREX 200 MG CAPSULE 1 CAPSULE ORALLY BID MDD2 TAKING GABAPENTIN 300 MG CAPSULE 2 CAP ORAL BEFORE BEDTIME TAKING VITAMIN C 500 MG TABLET CHEWABLE 1 TABLET ORALLY ONCE A DAY TAKING VITAMIN D-3 25 MCG (1000 UT) CAPSULE 1 CAPSULE ORALLY ONCE A DAY TAKING APPLE CIDER VINEGAR 500 MG TABLET DIRECTED ORALLY DAILY NOT-TAKING DICYCLOMINE HCL 20 MG TABLET 1 TABLET ORALLY THREE TIMES A DAY NOT-TAKING GABAPENTIN 300 MG CAPSULE 1 ORALLY Q8H TID, NOTES: STOPPED TAKING 1 WEEK AGO NOT-TAKING MAGNESIUM 100 MG TABLET 2 TABLETS WITH A MEAL ORALLY BID NOT-TAKING MAY USE FO-TI 360 MG ORALLY BID NOT-TAKING PRALUENT 75 MG/ML SOLUTION PEN-INJECTOR SUBCUTANEOUS 2X/MONTH, NOTES: CURRENTLY NOT TAKING DUE TO INSURANCE MEDICATION LIST REVIEWED AND RECONCILED WITH THE PATIENT PAST MEDICAL HISTORY HX OF SVT- S/P ABLATION 2005- DR MAHESH ANNE IN [facility]- Q YR- JAN CAD S/P- 2 STENT PLACED AT [facility] CHRONIC BACK PAIN- LUMBAR REGION ARTHRITIS- PAIN CLINIC- ARNULFO [facility]URNH[facility]-WORK COMP MULTIPLE JOINT PAIN- WRIST/RIGHT HIP/RIGHT KNEE/LEFT BIG TOE ANXIETY- LEXAPRO-1 YR- STOPPED B/C FELT LIKE ENCLOSED ARTHRITIS ALLERGIES CRESTOR: MYALGIAS,SWELLING - SIDE EFFECTS GARLIC: SEVERE STOMACH PAIN - ALLERGY LIPITOR: SEVERE MUSCLE ACHES - SIDE EFFECTS SURGICAL HISTORY RT HAND SURGERY- ARTHRITIS- DR STANFORD- SOS TUBAL LIGATION RT LEG VARICOSE VEIN REMOVED ABLATION CARDIAC 2005 [facility] 12/2011 COLONOSCOPY (DR. ESQUIVEL, 1 POLYP, DUE IN 2018) 08/2013 BUNION 05/2015 ARTHRITIS 07/2015 LEFT HAND BASAL JOINT REPAIR, CARPAL TUNNEL 04/29/19 FAMILY HISTORY FATHER: 56 YRS, DIAGNOSED WITH UNSPECIFIED HEART DISEASE MOTHER: ALIVE 86 YRS, COLORECTAL CANCER AT AGE 65, HYPERTENSION, OTHER MALIGNANT NEOPLASM OF UNSPECIFIED SITE SIBLINGS: UNSPECIFIED HEART DISEASE SOCIAL HISTORY GENERAL: TOBACCO USE ARE YOU A:FORMER SMOKER HOW LONG HAS IT BEEN SINCE YOU LAST SMOKED?> 10 YEARS LATEX QUESTIONNAIRE LATEX ALLERGY : HAVE YOU EVER DEVELOPED ANY TYPE OF REACTION AFTER HANDLING LATEX PRODUCTS SUCH RUBBER GLOVES, CONDOMS, DIAPHRAGMS, BALLOONS, SOCKS, OR UNDERWEAR?NO LATEX ALLERGY : HAVE YOU EVER DEVELOPED ANY TYPE OF REACTION DURING OR AFTER DENTAL APPOINTMENT, VAGINAL/RECTAL EXAMINATION, SURGICAL PROCEDURE, OR ANY OTHER EXPOSURE?NO LATEX RISK : HAVE YOU EVER HAD ANY DIFFICULTY BREATHING OR HIVES AFTER EATING OR HANDLING ANY FRUITS, OR VEGETABLES; SUCH KIWI, BANANAS, STONE FRUITS, OR CHESTNUTSNO LATEX RISK : DO YOU HAVE A PREVIOUS PERSONAL HISTORY OF MORE THAN NINE SURGERIES, SPINA BIFIDA, OR REPEATED CATHERIZATIONS? NO LATEX RISK : ARE YOU FREQUENTLY EXPOSED TO LATEX PRODUCTS IN YOUR OCCUPATION?NO DATE ASKED : 06/24/2020 LUNG CANCER SCREENING SMOKING STATUS:FORMER SMOKER BMI CARE GOAL FOLLOW-UP ABOVE NORMAL BMI FOLLOW-UPDIETARY MANAGEMENT EDUCATION, GUIDANCE, AND COUNSELING, WEIGHT MONITORING ALCOHOL SCREENING DID YOU HAVE A DRINK CONTAINING ALCOHOL IN THE PAST YEAR?YES HOW OFTEN DID YOU HAVE A DRINK CONTAINING ALCOHOL IN THE PAST YEAR?TWO TO THREE TIMES PER WEEK (3 POINTS) HOW MANY DRINKS DID YOU HAVE ON A TYPICAL DAY WHEN YOU WERE DRINKING IN THE PAST YEAR?1 OR 2 (0 POINTS) HOW OFTEN DID YOU HAVE SIX OR MORE DRINKS ON ONE OCCASION IN THE PAST YEAR?NEVER (0 POINTS) POINTS3 INTERPRETATIONPOSITIVE RECREATIONAL DRUG USE DRUG USE?YES SMOKES MARIJUANA FOR SLEEP ON OCCASION. HOW OFTEN AND HOW MUCH? STATES SHE USUALLY USES IT ON OCCASION TO HELP HER SLEEP. CAFFEINE CAFFEINE USE?YES SEXUAL HX HAD SEX IN THE LAST 12 MONTHS (VAGINAL, ORAL, OR ANAL)?YES WITHMEN ONLY USE PROTECTION?NO LMP:POST MENOPAUSE HAVE YOU EVER HAD AN STD?NO HIV / HEP-C SCREENING HIV TEST OFFERED TO PATIENT:YES DATE OFFERED:03/18/2019 TEST ACCEPTED:NO HEP-C TEST OFFERED TO PATIENT:YES DATE OFFERED:03/08/2018 REASON:PATIENT DECLINED TEST ACCEPTED:NO REASON:PATIENT DECLINED BROCHURE PROVIDED TO PATIENTNO GNOSTICISM [id number] TAOIST LANGUAGE LANGUAGES SPOKEN:WOLOF LEARNING BARRIERS / SPECIAL NEEDS CHANGE FROM LAST VISIT?NO BARRIERS TO LEARNING?NO HEARING IMPAIRED?NO VISION IMPAIRED?YES :CORRECTIVE LENSES GLASSES COGNITIVELY IMPAIRED?NO READINESS TO LEARN?YES LEARNING PREFERENCES?NO LEARNING CAPABILITIES PRESENT?YES EMOTIONAL BARRIERS?NO SPECIAL DEVICES?NO TRACK BROOM OPERATOR NEEDED?NO 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 EXERCISE: ABS, RESISTANCE TRAINING. MARITAL STATUS: . OTHERS AT HOME: SPOUSE. PAIN CLINIC PFS, CLERGY, PUBLIC HEALTH REFERRALS PFS REFERRAL NEEDED?NO CLERGY REFERRAL NEEDED?NO PUBLIC HEALTH REFERRAL NEEDED?NO HAS THE PATIENT BEEN EDUCATED REGARDING HIS/HER PLAN OF CARE?YES HAS THE PATIENT BEEN EDUCATED REGARDING PAIN, THE RISK FOR PAIN, THE IMPORTANCE OF EFFECTIVE PAIN MANAGEMENT, AND THE PAIN ASSESSMENT PROCESS?YES ADVANCE DIRECTIVE ADVANCE DIRECTIVE DISCUSSED WITH PATIENT:YES HCP DELROY DAVIS [phone] HOSPITALIZATION/MAJOR DIAGNOSTIC PROCEDURE CHILDBIRTH SEE SURGERIES REVIEW OF SYSTEMS CONSTITUTIONAL: ANY RECENT FEVER NO . CHILLS NO . WEIGHT CHANGE OF UNKNOWN REASONS NO . GASTROENTEROLOGY: NEW UNEXPLAINABLE CHANGES IN BOWEL CONTROL NO . CONSTIPATION NO . GENITOURINARY: ANY NEW CHANGE IN BLADDER CONTROL? NO . NEUROLOGY: NEW ONSET DIZZINESS OR NEUROLOGICAL CHANGES NOT MENTIONED NO . NEW NUMBNESS OR PAIN PATTERNS NOT MENTIONED AND PERTINENT TO TODAY'S VISIT NO . CARDIOLOGY: NEW CHEST PRESSURE NO . NEW CHEST PAIN NO . RESPIRATORY: UNEXPLAINABLE COUGH NO . NEW SHORTNESS OF BREATH NO . VITAL SIGNS WT 142 LBS, HT 68 IN, BMI 21.59 INDEX, BP 121/70 MM HG, HR 68 /MIN, RR 16 /MIN, TEMP 97.3 F, OXYGEN SAT % 97%, SAFE IN ENV? (Y/N) Y, NA INITIALS DE 11:24, REVIEWED BY: SUSANA AVILA. EXAMINATION GENERAL EXAMINATION: GENERALNO ACUTE DISTRESS, WELL NOURISHED AND HYDRATED. PSYCHAPPROPRIATE MOOD AND AFFECT . LUNGS:CLEAR TO AUSCULTATION BILATERALLY, NO WHEEZES, RHONCHI, RALES. HEART:NO MURMURS, REGULAR RATE AND RHYTHM. LUMBAR:TENDERNESS NOTED OVER BILATERAL SACROILIAC JOINT REGION LEFT GREATER THAN RIGHT . PATIENT DENIES SUICIDAL OR HOMICIDAL IDEATIONS. THESE QUESTIONS WERE ASKED AFTER REVIEWING PHQ2. ASSESSMENTS SACROILIITIS, NOT ELSEWHERE CLASSIFIED - M46.1 (PRIMARY) CHRONIC PRESCRIPTION OPIATE USE - Z79.891 TREATMENT SACROILIITIS, NOT ELSEWHERE CLASSIFIED STOP PERCOCET TABLET, 10-325 MG, 1 TABLET NEEDED, ORALLY, Q8H PRN MDD3 REFILL CELEBREX CAPSULE, 200 MG, 1 CAPSULE, ORALLY, BID MDD2, 30 DAYS, 60, REFILLS 2 REFILL GABAPENTIN CAPSULE, 300 MG, 2 CAP, ORAL, BEFORE BEDTIME, 30 DAYS, 60, REFILLS 2 START AMITRIPTYLINE HCL TABLET, 25 MG, 1 TABLET AT BEDTIME, ORALLY, ONCE A DAY, 30 DAY(S), 30, REFILLS 2 [facility] SPINE, L.S. WITHOUT [id number] NOTES: DUE TO NEW ONSET OF LOWER EXTREMITY RADICULOPATHY VERSUS NEUROPATHY I'M ORDERING AN MRI OF THE LUMBOSACRAL SPINE/WORKMEN'S COMP REQUEST. I WILL REVIEW THIS IN 2 MONTHS TO ESTABLISH TREATMENT PLAN. RECOMMEND TRIAL OF AMITRIPTYLINE 25 MG 1 TABLET AT NIGHTTIME FOR REPORTS OF NIGHTTIME AWAKENINGS DUE TO PAIN. OXYCODONE WILL BE DISCONTINUED TODAY. ADVISED PATIENT TO TALK TO PRIMARY CARE ABOUT MEDICAL MARIJUANA. CONTINUE GABAPENTIN AND CELEBREX. PATIENT IS ADVISED TO FOLLOW-UP ON A SCHEDULED BASIS EVERY 2 MONTHS IN ORDER TO CONTINUE TO RECEIVE SERVICES AT OUR CLINIC. CLINICAL NOTES: GAVE PT PRINTED MATERIAL ON AMITRIPTYLINE WELL PRINTED MATERIAL FOR PALLIATIVE CARE. PROCEDURES PN WORKMANS' COMP OPINION IN YOUR OPINION, WAS THE INCIDENT THAT THE PATIENT DESCRIBED THE COMPETENT MEDICAL CAUSE OF THIS INJURY/ILLNESS? YES ARE THE PATIENT'S COMPLAINTS CONSISTENT WITH HIS/HER HISTORY OF THE INJURY/ILLNESS? YES IS THE PATIENT'S HISTORY OF THE INJURY/ILLNESS CONSISTENT WITH YOUR OBJECTIVE FINDING? YES WHAT IS THE PERCENTAGE OF TEMPORARY IMPAIRMENT? MODERATE TO MARKED = 66.7% IS THE PATIENT WORKING? NO DOCTOR ON SITE: NAM BRADSHAW MD PREVENTIVE MEDICINE PAIN CLINIC TEACHING: MEDICATIONS PRINTED MATERIAL GIVEN TO PT ON NEW MEDICATION. PROCEDURE CODES FA211 ESTABILISHED PATIENT [facility] CHARGE DISPOSITION & COMMUNICATION FOLLOW UP 2 MONTHS (REASON: REVIEW MRI L/S SPINE/REVIEW AMITRIPTYLINE) ELECTRONICALLY SIGNED BY STELLA DASH ON 06/28/2020 AT 03:51 PM EST DISCLAIMER : THIS IS A VISIT SUMMARY EXTRACTED FROM THE Audience CHART. IT IS NOT A COPY OF THE [employer] PROGRESS NOTE. CHRISTINA
== END ==
LOC: M PAIN 11:15
PROVIDERS: ATTEND Nurse Practitioner Family
DX: M46.1 Sacroiliitis, not elsewhere classified (principal); G89.29 Other chronic pain; Z95.5 Presence of coronary angioplasty implant and graft; Z86.59 Personal history of other mental and behavioral disorders; Z87.891 Personal history of nicotine dependence; Z88.8 Allergy status to other drugs, medicaments and biological substances; Z91.018 Allergy to other foods; Z79.82 Long term (current) use of aspirin; Z79.899 Other long term (current) drug therapy

== ENCOUNTER → 2020-07-31 | Outpatient (REF) | payer OTHER, MEDICARE | LOC: M SFHCWAGY 13:34 | PROVIDERS: ATTEND Nurse Practitioner Women's Health | DX: Z12.4 Encounter for screening for malignant neoplasm of cervix (principal) ==

== ENCOUNTER → 2020-07-31 | Outpatient (CLI) | payer MEDICARE, OTHER ==
--- NOTE | 2020-07-31 14:10 | REPMRS ---
Patient History The patient states she had a clinical breast exam in 2020. Family history of colorectal cancer at age 50 or over in mother. Digital Woman Screen Mammo: July 31, 2020 - Exam #: [id number] Bilateral CC and MLO view(s) were taken. Technologist: Sidra Ashraf, Technologist Prior study comparison: March 18, 2019, bilateral digital woman screen mammo performed at [facility]. March 30, 2018, bilateral digital mammo screening bilat, performed at [facility]. October 11, 2016, bilateral digital mammo screening bilat, performed at [facility]. FINDINGS: There are scattered fibroglandular densities. The Volpara volumetric breast density category is: B. There are multiple stable nodular opacities again noted bilaterally. There is a moderate amount of residual fibroglandular tissue which is fairly symmetric. There is no interval development of dominant mass, architectural distortion, or grouped microcalcification typical of malignancy. There has been no change in the appearance of the mammogram from the prior studies. 3-D tomosynthesis shows no additional findings. Assessment: BI-RADS/ACR category 2 mammogram. Benign Findings. Recommendation Routine screening mammogram of both breasts in 1 year (for women over age 40). This patient's [facility] Lifetime Breast Cancer RIsk is estimated at 7.3 %. This mammogram was interpreted with the aid of an FDA-approved computer-aided dectection system. Electronically Signed By: Jackson Cole MD 07/31/20 [id number]
== END ==
LOC: M WHC 11:35
PROVIDERS: ATTEND Nurse Practitioner Women's Health
DX: Z12.31 Encounter for screening mammogram for malignant neoplasm of breast (principal); Z80.0 Family history of malignant neoplasm of digestive organs

== ENCOUNTER → 2020-08-21 | Outpatient (CLI) | payer OTHER ==
--- NOTE | 2020-08-29 04:47 | ECWPNPC ---
PATIENT NAME: KYREE HUDSON : 1960 GENDER: FEMALE VISIT DATE: 08/21/2020 DISCHARGE DATE: 08/21/20 0000 VISIT LOCKED DATE TIME: PHYSICIAN: MIKKI RING PHYSICIAN PAGER NO: ACTIVE RESOURCE: MIKKI RING REASON FOR APPOINTMENT 1. REVIEW MRI L/S SPINE/REVIEW AMITRIPTYLINE HISTORY OF PRESENT ILLNESS GENERAL: KYREE IS HERE TODAY TO FOLLOW-UP ON SIGNIFICANT INCREASE IN LOW BACK PAIN AND TO REVIEW MRI OF THE LUMBOSACRAL SPINE THAT WAS DONE PER OUR ORDER ON 07/24/2020. THIS IS REVIEWED WITH PATIENT. 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 DUE TO REPORTS OF SIGNIFICANT INCREASE IN HER CHRONIC LOW BACK PAIN AN MRI OF THE LUMBOSACRAL SPINE WAS ORDERED. CONTINUES WITH RADICULOPATHY AND WEAKNESS IN THE LOWER EXTREMITIES. ALSO REPORTS BOWEL INCONTINENCE AND WEIGHT LOSS ASSOCIATED WITH DIARRHEA FOR 3 MONTHS THIS PAST FALL. THIS HAS SINCE DISSIPATED AND SHE HAS REGAINED SOME WEIGHT. DENIES SADDLE PARESTHESIAS. MRI OF THE LUMBOSACRAL SPINE IS SHOWING SEVERAL SACRAL CYSTS OF UNCERTAIN CLINICAL SIGNIFICANCE. SHOWING MULTILEVEL DEGENERATIVE CHANGES SHOWING VARIABLE DEGREES OF SPINAL CANAL AND NEURAL FORAMINAL NARROWING. STATES AMITRIPTYLINE THAT WE STARTED AT HER LAST VISIT IS HELPFUL AT NIGHT TIME ALTHOUGH SHE REPORTS 2 EPISODES OF SEVERE PAIN AT NIGHT AFTER WORKING DURING THE DAY. STATES AMITRIPTYLINE WAS NOT EFFECTIVE ON THOSE EPISODES. TODAY WE DISCUSSED INCREASING AMITRIPTYLINE 25 MG TAB TO 1-3 TABLETS AT NIGHTTIME FOR SEVERE PAIN EPISODES.-. FALL RISK SCREENING: SCREENING :NO FALLS REPORTED IN THE LAST YEAR PAIN SCREENING: PATIENT HAS A COMPLAINT OF ACUTE OR CHRONIC PAIN :YES LOCATION OF PAIN:LOW BACK INTENSITY OF PAIN (SCALE OF 1 TO 10):3 WHAT DOES YOUR PAIN FEEL LIKE:SHARP DURATION:INTERMITTENT PAIN IS INCREASED BY:ACTIVITIES, PROLONGED STANDING PAIN IS DECREASED BY:OTHERS ICE NURSING NOTE: -. PAIN CENTER INTAKE QUESTIONS: DO YOU HAVE A HISTORY OF MRSA? :NO DO YOU TAKE A BLOOD THINNERS? :NO DO YOU HAVE ANY BLEEDING DISORDERS? :NO ANY NEW NUMBNESS OR WEAKNESS IN YOUR LEGS OR ARMS? :NO ANY PACEMAKER,DEFIBRILLATOR, OR DORSAL COLUMN STIMULATOR? :NO DO YOU HAVE ANY RASHES OR OPEN SORES? :NO ARE YOU ALLERGIC TO IV DYE? :NO ARE YOU DIABETIC? :NO ANY NEW PROBLEMS WITH YOUR MEDICATIONS? :NO HAVE YOU RECEIVED A VACCINE IN THE PAST 30 DAYS? :NO DO YOU PLAN TO RECEIVE A VACCINE IN THE NEXT 21 DAYS? :NO DO YOU NEED ANY PRESCRIPTION? :YES NEEDS REFILLS ON CELEBREX, GABAPENTIN, AND HYDROCODONE DO YOU TAKE ANY IMMUNOSUPPRESSIVE MEDICATIONS? :YES HYDROXYCHLOROQUINE STARTED IN NOVEMBER OR DECEMBER OF 2019. IS THERE A CHANCE YOU COULD BE ? :NO ARE YOU BREAST FEEDING? :NO CURRENT MEDICATIONS TAKING METOPROLOL TARTRATE 25 MG TABLET 1 TABLET ORALLY ONCE A DAY (DR. BUCK) TAKING FISH OIL ULTRA 1 TAB ORALLY 2 TIMES A DAY TAKING NITROGLYCERIN 0.4 MG/SPRAY SOLUTION 1 SPRAY UNDER THE TONGUE TRANSLINGUAL NEEDED FOR CHEST PAIN TAKING ASPIRIN ADULT LOW STRENGTH 81 MG TABLET DELAYED RELEASE 1 TABLET ORALLY ONCE A DAY TAKING HYDROXYCHLOROQUINE SULFATE 200 MG TABLET TAKE ONE TABLET BY MOUTH TWICE A DAY ORAL TAKING VITAMIN C 500 MG TABLET CHEWABLE 1 TABLET ORALLY ONCE A DAY TAKING VITAMIN D-3 25 MCG (1000 UT) CAPSULE 1 CAPSULE ORALLY ONCE A DAY TAKING APPLE CIDER VINEGAR 500 MG TABLET DIRECTED ORALLY DAILY TAKING CELEBREX 200 MG CAPSULE 1 CAPSULE ORALLY BID MDD2 TAKING GABAPENTIN 300 MG CAPSULE 2 CAP ORAL BEFORE BEDTIME TAKING AMITRIPTYLINE HCL 25 MG TABLET 1 TABLET AT BEDTIME ORALLY ONCE A DAY TAKING ZOLOFT 100 MG TABLET 1 TABLET ORALLY ONCE A DAY NOT-TAKING DICYCLOMINE HCL 20 MG TABLET 1 TABLET ORALLY THREE TIMES A DAY NOT-TAKING GABAPENTIN 300 MG CAPSULE 1 ORALLY Q8H TID, NOTES: STOPPED TAKING 1 WEEK AGO NOT-TAKING MAGNESIUM 100 MG TABLET 2 TABLETS WITH A MEAL ORALLY BID NOT-TAKING MAY USE FO-TI 360 MG ORALLY BID NOT-TAKING PRALUENT 75 MG/ML SOLUTION PEN-INJECTOR SUBCUTANEOUS 2X/MONTH, NOTES: CURRENTLY NOT TAKING DUE TO INSURANCE MEDICATION LIST REVIEWED AND RECONCILED WITH THE PATIENT PAST MEDICAL HISTORY HX OF SVT- S/P ABLATION 2005- DR MAHESH ANNE IN [facility]- Q YR- JAN CAD S/P- 2 STENT PLACED AT [facility] CHRONIC BACK PAIN- LUMBAR REGION ARTHRITIS- PAIN CLINIC- [facility]-WORK COMP MULTIPLE JOINT PAIN- WRIST/RIGHT HIP/RIGHT KNEE/LEFT BIG TOE ANXIETY- LEXAPRO-1 YR- STOPPED B/C FELT LIKE ENCLOSED ARTHRITIS ALLERGIES CRESTOR: MYALGIAS,SWELLING - SIDE EFFECTS GARLIC: SEVERE STOMACH PAIN - ALLERGY LIPITOR: SEVERE MUSCLE ACHES - SIDE EFFECTS SOCIAL HISTORY GENERAL: TOBACCO USE ARE YOU A:FORMER SMOKER HOW LONG HAS IT BEEN SINCE YOU LAST SMOKED?> 10 YEARS LATEX QUESTIONNAIRE LATEX ALLERGY : HAVE YOU EVER DEVELOPED ANY TYPE OF REACTION AFTER HANDLING LATEX PRODUCTS SUCH RUBBER GLOVES, CONDOMS, DIAPHRAGMS, BALLOONS, SOCKS, OR UNDERWEAR?NO LATEX ALLERGY : HAVE YOU EVER DEVELOPED ANY TYPE OF REACTION DURING OR AFTER DENTAL APPOINTMENT, VAGINAL/RECTAL EXAMINATION, SURGICAL PROCEDURE, OR ANY OTHER EXPOSURE?NO LATEX RISK : HAVE YOU EVER HAD ANY DIFFICULTY BREATHING OR HIVES AFTER EATING OR HANDLING ANY FRUITS, OR VEGETABLES; SUCH KIWI, BANANAS, STONE FRUITS, OR CHESTNUTSNO LATEX RISK : DO YOU HAVE A PREVIOUS PERSONAL HISTORY OF MORE THAN NINE SURGERIES, SPINA BIFIDA, OR REPEATED CATHERIZATIONS? NO LATEX RISK : ARE YOU FREQUENTLY EXPOSED TO LATEX PRODUCTS IN YOUR OCCUPATION?NO DATE ASKED : 08/21/2020 ALCOHOL USE: YES. LUNG CANCER SCREENING SMOKING STATUS:FORMER SMOKER BMI CARE GOAL FOLLOW-UP ABOVE NORMAL BMI FOLLOW-UPDIETARY MANAGEMENT EDUCATION, GUIDANCE, AND COUNSELING, WEIGHT MONITORING ALCOHOL SCREENING DID YOU HAVE A DRINK CONTAINING ALCOHOL IN THE PAST YEAR?YES HOW OFTEN DID YOU HAVE SIX OR MORE DRINKS ON ONE OCCASION IN THE PAST YEAR?NEVER (0 POINTS) HOW MANY DRINKS DID YOU HAVE ON A TYPICAL DAY WHEN YOU WERE DRINKING IN THE PAST YEAR?1 OR 2 (0 POINTS) HOW OFTEN DID YOU HAVE A DRINK CONTAINING ALCOHOL IN THE PAST YEAR?TWO TO THREE TIMES PER WEEK (3 POINTS) POINTS3 INTERPRETATIONPOSITIVE RECREATIONAL DRUG USE DRUG USE?YES SMOKES MARIJUANA FOR SLEEP ON OCCASION. HOW OFTEN AND HOW MUCH? STATES SHE USUALLY USES IT ON OCCASION TO HELP HER SLEEP. CAFFEINE CAFFEINE USE?YES SEXUAL HX HAD SEX IN THE LAST 12 MONTHS (VAGINAL, ORAL, OR ANAL)?YES WITHMEN ONLY USE PROTECTION?NO LMP:POST MENOPAUSE HAVE YOU EVER HAD AN STD?NO HIV / HEP-C SCREENING HIV TEST OFFERED TO PATIENT:YES DATE OFFERED:03/18/2019 TEST ACCEPTED:NO HEP-C TEST OFFERED TO PATIENT:YES DATE OFFERED:03/08/2018 REASON:PATIENT DECLINED TEST ACCEPTED:NO REASON:PATIENT DECLINED BROCHURE PROVIDED TO PATIENTNO MORAVIAN [id number] VOODOO LANGUAGE LANGUAGES SPOKEN:FRISIAN LEARNING BARRIERS / SPECIAL NEEDS CHANGE FROM LAST VISIT?NO BARRIERS TO LEARNING?NO HEARING IMPAIRED?NO VISION IMPAIRED?YES :CORRECTIVE LENSES GLASSES COGNITIVELY IMPAIRED?NO READINESS TO LEARN?YES LEARNING PREFERENCES?NO LEARNING CAPABILITIES PRESENT?YES EMOTIONAL BARRIERS?NO SPECIAL DEVICES?NO FAN INSTALLER NEEDED?NO 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 EXERCISE: ABS, RESISTANCE TRAINING. MARITAL STATUS: . OTHERS AT HOME: SPOUSE. - PFS REFERRAL NEEDED?NO CLERGY REFERRAL NEEDED?NO PUBLIC HEALTH REFERRAL NEEDED?NO HAS THE PATIENT BEEN EDUCATED REGARDING HIS/HER PLAN OF CARE?YES HAS THE PATIENT BEEN EDUCATED REGARDING PAIN, THE RISK FOR PAIN, THE IMPORTANCE OF EFFECTIVE PAIN MANAGEMENT, AND THE PAIN ASSESSMENT PROCESS?YES ADVANCE DIRECTIVE ADVANCE DIRECTIVE DISCUSSED WITH PATIENT:YES HCP DELROY DAVIS [phone] REVIEW OF SYSTEMS CONSTITUTIONAL: ANY RECENT FEVER NO . CHILLS NO . WEIGHT CHANGE OF UNKNOWN REASONS NO . GASTROENTEROLOGY: NEW UNEXPLAINABLE CHANGES IN BOWEL CONTROL NO . CONSTIPATION NO . GENITOURINARY: ANY NEW CHANGE IN BLADDER CONTROL? NO . NEUROLOGY: NEW ONSET DIZZINESS OR NEUROLOGICAL CHANGES NOT MENTIONED NO . NEW NUMBNESS OR PAIN PATTERNS NOT MENTIONED AND PERTINENT TO TODAY'S VISIT NO . CARDIOLOGY: NEW CHEST PRESSURE NO . PATIENT DENIES NO . RESPIRATORY: UNEXPLAINABLE COUGH NO . NEW SHORTNESS OF BREATH NO . VITAL SIGNS WT 154 LBS, HT 68 IN, BMI 23.41 INDEX, BP 127/59 MM HG, HR 62 /MIN, RR 16 /MIN, TEMP 96.8 F, OXYGEN SAT % 100%, SAFE IN ENV? (Y/N) YEST.DAVIS MEZA. EXAMINATION GENERAL EXAMINATION: GENERALNO ACUTE DISTRESS, WELL NOURISHED AND HYDRATED. PSYCHAPPROPRIATE MOOD AND AFFECT . NECK:NO LYMPHADENOPATHY, SUPPLE. LUNGS:CLEAR TO AUSCULTATION BILATERALLY, NO WHEEZES, RHONCHI, RALES. HEART:NO MURMURS, REGULAR RATE AND RHYTHM. MUSCULOSKELETAL: MUSCLE STRENGTH TESTING 5/5 BILATERAL LOWER EXTREMITIES. NEUROLOGIC EXAM: DTRS 1-2+ IN ALL 4 EXTREMITIES. DIAGNOSTIC TESTS REVIEWEDMRI L/S SPINE 07/24/2020. ASSESSMENTS LUMBAR FACET ARTHROPATHY - M12.88 (PRIMARY) TREATMENT LUMBAR FACET ARTHROPATHY INCREASE AMITRIPTYLINE HCL TABLET, 25 MG, 1 TO 3 TAB, ORALLY, ONCE A DAY, 30 DAY(S), 90, REFILLS 2 REFERRAL TO[facility] REASON:REVIEW ABNORMAL MRI ATTN:SEVERAL SACRAL CYSTS.RECENT HISTORY OF INCREASED LBP/EPISODES OF BOWEL INCONTINENCE/WEIGHT LOSS 01/2021 X 3 MONTHS.OK NOW/WEIGHT HAS RETURNED TO BASELINE PROCEDURES PN WORKMANS' COMP OPINION IN YOUR OPINION, WAS THE INCIDENT THAT THE PATIENT DESCRIBED THE COMPETENT MEDICAL CAUSE OF THIS INJURY/ILLNESS? YES ARE THE PATIENT'S COMPLAINTS CONSISTENT WITH HIS/HER HISTORY OF THE INJURY/ILLNESS? YES IS THE PATIENT'S HISTORY OF THE INJURY/ILLNESS CONSISTENT WITH YOUR OBJECTIVE FINDING? YES WHAT IS THE PERCENTAGE OF TEMPORARY IMPAIRMENT? MODERATE TO MARKED = 66.7% IS THE PATIENT WORKING? YES DOCTOR ON SITE: NAM BRADSHAW MD PROCEDURE CODES FA211 ESTABILISHED PATIENT [facility] CHARGE DISPOSITION & COMMUNICATION FOLLOW UP 2 MONTHS (REASON: W/C F/U AFTER SHE SEE'S MICHELLE JENNINGS) ELECTRONICALLY SIGNED BY STELLA DASH ON 08/28/2020 AT 09:24 AM EST DISCLAIMER : THIS IS A VISIT SUMMARY EXTRACTED FROM THE [employer] CHART. IT IS NOT A COPY OF THE [employer] PROGRESS NOTE. CHRISTINA
== END ==
LOC: M PAIN 10:00
PROVIDERS: ATTEND Nurse Practitioner Family
DX: M12.88 Other specific arthropathies, not elsewhere classified, other specified site (principal); Z86.59 Personal history of other mental and behavioral disorders; Z87.891 Personal history of nicotine dependence; Z88.8 Allergy status to other drugs, medicaments and biological substances; Z91.018 Allergy to other foods; Z79.82 Long term (current) use of aspirin; Z79.899 Other long term (current) drug therapy

== ENCOUNTER → 2020-09-30 | Outpatient (CLI) | payer OTHER ==
--- NOTE | 2020-10-01 00:06 | ECWPNPC ---
PATIENT NAME: KYREE HUDSON : 1960 GENDER: FEMALE VISIT DATE: 09/30/2020 DISCHARGE DATE: 09/30/20 1010 VISIT LOCKED DATE TIME: PHYSICIAN: MIKKI RING PHYSICIAN PAGER NO: ACTIVE RESOURCE: MIKKI RING REASON FOR APPOINTMENT 1. W/C F/U AFTER SHE SEE'S MICHELLE JENNINGS HISTORY OF PRESENT ILLNESS GENERAL: HERE FOR FOLLOW-UP OF CHRONIC LOW BACK PAIN. SHE DID SEE JOSE DICKERSON DUE TO MY CONCERNS WITH ABNORMAL MRI OF THE LUMBAR SPINE. HE HAS REQUESTED LUMBAR IMAGING WITH [facility]. SHE IS WAITING TO HEAR ON APPROVAL FOR THIS. PATIENT IS DOING MUCH BETTER IN REGARDS TO WEIGHT LOSS. SHE HAS GAINED 10 POUNDS SINCE HER LAST VISIT. SHE HAS NOT HAD EPISODES OF BOWEL INCONTINENCE. CONTINUES WITH SIGNIFICANT INCREASE IN LOW BACK PAIN OVER THE PAST FEW MONTHS. REVIEWED MRI OF THE LS SPINE AND DISCUSSED TREATMENT PLAN TO INCLUDE DIAGNOSTIC VERSUS THERAPEUTIC LUMBAR BLOCK. THIS IS A FOLLOW-UP FOR CHRONIC LOW BACK PAIN SECONDARY TO A WORK RELATED INJURY. SHE CONTINUES TO WORK. -. FALL RISK SCREENING: SCREENING : NO FALLS REPORTED IN THE LAST YEAR. PAIN SCREENING: PATIENT HAS A COMPLAINT OF ACUTE OR CHRONIC PAIN :YES LOCATION OF PAIN:LOW BACK INTENSITY OF PAIN (SCALE OF 1 TO 10):7 WHAT DOES YOUR PAIN FEEL LIKE:ACHING, BURNING, SHARP, STABBING, TENDER, THROBBING, SORE, SHOOTING DURATION:CONTINOUS, CONSTANT, ALL DAY PAIN IS INCREASED BY:ACTIVITIES PAIN IS DECREASED BY:OTHERS ICE PACK NURSING NOTE: -. PAIN CENTER INTAKE QUESTIONS: DO YOU HAVE A HISTORY OF MRSA? :NO DO YOU TAKE A BLOOD THINNERS? :NO DO YOU HAVE ANY BLEEDING DISORDERS? :NO ANY NEW NUMBNESS OR WEAKNESS IN YOUR LEGS OR ARMS? :NO ANY PACEMAKER,DEFIBRILLATOR, OR DORSAL COLUMN STIMULATOR? :NO DO YOU HAVE ANY RASHES OR OPEN SORES? :NO ARE YOU ALLERGIC TO IV DYE? :NO ARE YOU DIABETIC? :NO ANY NEW PROBLEMS WITH YOUR MEDICATIONS? :NO HAVE YOU RECEIVED A VACCINE IN THE PAST 30 DAYS? :YES 1ST COVID 09/14/2020 DO YOU PLAN TO RECEIVE A VACCINE IN THE NEXT 21 DAYS? :YES IF SO WHAT VACCINE AND WHEN? 2ND COVID 10/05/2020 DO YOU NEED ANY PRESCRIPTION? :YES NEEDS REFILLS ON CELEBREX, GABAPENTIN DO YOU TAKE ANY IMMUNOSUPPRESSIVE MEDICATIONS? :YES HYDROXYCHLOROQUINE STARTED IN NOVEMBER OR DECEMBER OF 2019. IS THERE A CHANCE YOU COULD BE ? :NO ARE YOU BREAST FEEDING? :NO CURRENT MEDICATIONS TAKING METOPROLOL TARTRATE 25 MG TABLET 1 TABLET ORALLY ONCE A DAY (DR. BUCK) TAKING FISH OIL ULTRA 1 TAB ORALLY 2 TIMES A DAY TAKING NITROGLYCERIN 0.4 MG/SPRAY SOLUTION 1 SPRAY UNDER THE TONGUE TRANSLINGUAL NEEDED FOR CHEST PAIN TAKING ASPIRIN ADULT LOW STRENGTH 81 MG TABLET DELAYED RELEASE 1 TABLET ORALLY ONCE A DAY TAKING HYDROXYCHLOROQUINE SULFATE 200 MG TABLET TAKE ONE TABLET BY MOUTH TWICE A DAY ORAL TAKING VITAMIN C 500 MG TABLET CHEWABLE 1 TABLET ORALLY ONCE A DAY TAKING VITAMIN D-3 25 MCG (1000 UT) CAPSULE 1 CAPSULE ORALLY ONCE A DAY TAKING APPLE CIDER VINEGAR 500 MG TABLET DIRECTED ORALLY DAILY TAKING CELEBREX 200 MG CAPSULE 1 CAPSULE ORALLY BID MDD2 TAKING GABAPENTIN 300 MG CAPSULE 2 CAP ORAL BEFORE BEDTIME TAKING ZOLOFT 100 MG TABLET 1 TABLET ORALLY ONCE A DAY TAKING AMITRIPTYLINE HCL 25 MG TABLET 1 TO 3 TAB ORALLY ONCE A DAY TAKING REPATHA 140MG/ML INJECTION TWICE A MONTH NOT-TAKING DICYCLOMINE HCL 20 MG TABLET 1 TABLET ORALLY THREE TIMES A DAY NOT-TAKING GABAPENTIN 300 MG CAPSULE 1 ORALLY Q8H TID, NOTES: STOPPED TAKING 1 WEEK AGO NOT-TAKING MAGNESIUM 100 MG TABLET 2 TABLETS WITH A MEAL ORALLY BID NOT-TAKING MAY USE FO-TI 360 MG ORALLY BID NOT-TAKING PRALUENT 75 MG/ML SOLUTION PEN-INJECTOR SUBCUTANEOUS 2X/MONTH, NOTES: CURRENTLY NOT TAKING DUE TO INSURANCE MEDICATION LIST REVIEWED AND RECONCILED WITH THE PATIENT PAST MEDICAL HISTORY HX OF SVT- S/P ABLATION 2005- DR MAHESH ANNE IN [facility]- Q YR- JAN CAD S/P- [address] [facility] CHRONIC BACK PAIN- LUMBAR REGION ARTHRITIS- PAIN CLINIC- ARNULFO [facility]-WORK COMP MULTIPLE JOINT PAIN- WRIST/RIGHT HIP/RIGHT KNEE/LEFT BIG TOE ANXIETY- LEXAPRO-1 YR- STOPPED B/C FELT LIKE ENCLOSED ARTHRITIS ALLERGIES CRESTOR: MYALGIAS,SWELLING - SIDE EFFECTS GARLIC: SEVERE STOMACH PAIN - ALLERGY LIPITOR: SEVERE MUSCLE ACHES - SIDE EFFECTS SOCIAL HISTORY GENERAL: TOBACCO USE ARE YOU A:FORMER SMOKER HOW LONG HAS IT BEEN SINCE YOU LAST SMOKED?> 10 YEARS LATEX QUESTIONNAIRE LATEX ALLERGY : HAVE YOU EVER DEVELOPED ANY TYPE OF REACTION AFTER HANDLING LATEX PRODUCTS SUCH RUBBER GLOVES, CONDOMS, DIAPHRAGMS, BALLOONS, SOCKS, OR UNDERWEAR?NO LATEX ALLERGY : HAVE YOU EVER DEVELOPED ANY TYPE OF REACTION DURING OR AFTER DENTAL APPOINTMENT, VAGINAL/RECTAL EXAMINATION, SURGICAL PROCEDURE, OR ANY OTHER EXPOSURE?NO LATEX RISK : HAVE YOU EVER HAD ANY DIFFICULTY BREATHING OR HIVES AFTER EATING OR HANDLING ANY FRUITS, OR VEGETABLES; SUCH KIWI, BANANAS, STONE FRUITS, OR CHESTNUTSNO LATEX RISK : DO YOU HAVE A PREVIOUS PERSONAL HISTORY OF MORE THAN NINE SURGERIES, SPINA BIFIDA, OR REPEATED CATHERIZATIONS? NO LATEX RISK : ARE YOU FREQUENTLY EXPOSED TO LATEX PRODUCTS IN YOUR OCCUPATION?NO DATE ASKED : 09/30/2020 ALCOHOL USE: YES. LUNG CANCER SCREENING SMOKING STATUS:FORMER SMOKER BMI CARE GOAL FOLLOW-UP ABOVE NORMAL BMI FOLLOW-UPDIETARY MANAGEMENT EDUCATION, GUIDANCE, AND COUNSELING, WEIGHT MONITORING ALCOHOL SCREENING DID YOU HAVE A DRINK CONTAINING ALCOHOL IN THE PAST YEAR?YES HOW OFTEN DID YOU HAVE SIX OR MORE DRINKS ON ONE OCCASION IN THE PAST YEAR?NEVER (0 POINTS) HOW MANY DRINKS DID YOU HAVE ON A TYPICAL DAY WHEN YOU WERE DRINKING IN THE PAST YEAR?1 OR 2 (0 POINTS) HOW OFTEN DID YOU HAVE A DRINK CONTAINING ALCOHOL IN THE PAST YEAR?TWO TO THREE TIMES PER WEEK (3 POINTS) POINTS3 INTERPRETATIONPOSITIVE RECREATIONAL DRUG USE DRUG USE?YES SMOKES MARIJUANA FOR SLEEP ON OCCASION. HOW OFTEN AND HOW MUCH? STATES SHE USUALLY USES IT ON OCCASION TO HELP HER SLEEP. CAFFEINE CAFFEINE USE?YES SEXUAL HX HAD SEX IN THE LAST 12 MONTHS (VAGINAL, ORAL, OR ANAL)?YES WITHMEN ONLY USE PROTECTION?NO LMP:POST MENOPAUSE HAVE YOU EVER HAD AN STD?NO HIV / HEP-C SCREENING HIV TEST OFFERED TO PATIENT:YES DATE OFFERED:03/18/2019 TEST ACCEPTED:NO HEP-C TEST OFFERED TO PATIENT:YES DATE OFFERED:03/08/2018 REASON:PATIENT DECLINED TEST ACCEPTED:NO REASON:PATIENT DECLINED BROCHURE PROVIDED TO PATIENTNO CONGREGATIONAL [id number] BAHAI LANGUAGE LANGUAGES SPOKEN:FILIPINO LEARNING BARRIERS / SPECIAL NEEDS CHANGE FROM LAST VISIT?NO BARRIERS TO LEARNING?NO HEARING IMPAIRED?NO VISION IMPAIRED?YES :CORRECTIVE LENSES GLASSES COGNITIVELY IMPAIRED?NO READINESS TO LEARN?YES LEARNING PREFERENCES?NO LEARNING CAPABILITIES PRESENT?YES EMOTIONAL BARRIERS?NO SPECIAL DEVICES?NO COMMUNITY EDUCATOR NEEDED?NO 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 EXERCISE: ABS, RESISTANCE TRAINING. MARITAL STATUS: . OTHERS AT HOME: SPOUSE. - PFS REFERRAL NEEDED?NO CLERGY REFERRAL NEEDED?NO PUBLIC HEALTH REFERRAL NEEDED?NO HAS THE PATIENT BEEN EDUCATED REGARDING HIS/HER PLAN OF CARE?YES HAS THE PATIENT BEEN EDUCATED REGARDING PAIN, THE RISK FOR PAIN, THE IMPORTANCE OF EFFECTIVE PAIN MANAGEMENT, AND THE PAIN ASSESSMENT PROCESS?YES ADVANCE DIRECTIVE ADVANCE DIRECTIVE DISCUSSED WITH PATIENT:YES HCP DELORY DAVIS [phone] REVIEW OF SYSTEMS CONSTITUTIONAL: ANY RECENT FEVER NO . CHILLS NO . WEIGHT CHANGE OF UNKNOWN REASONS NO . GASTROENTEROLOGY: NEW UNEXPLAINABLE CHANGES IN BOWEL CONTROL NO . CONSTIPATION NO . GENITOURINARY: ANY NEW CHANGE IN BLADDER CONTROL? NO . NEUROLOGY: NEW ONSET DIZZINESS OR NEUROLOGICAL CHANGES NOT MENTIONED NO . NEW NUMBNESS OR PAIN PATTERNS NOT MENTIONED AND PERTINENT TO TODAY'S VISIT NO . CARDIOLOGY: NEW CHEST PRESSURE NO . PATIENT DENIES NO . RESPIRATORY: UNEXPLAINABLE COUGH NO . NEW SHORTNESS OF BREATH NO . VITAL SIGNS WT 156.8 LBS, HT 68 IN, BMI 23.84 INDEX, BP 108/57 MM HG, HR 70 /MIN, RR 16 /MIN, TEMP 97.6 F, OXYGEN SAT % 99%, SAFE IN ENV? (Y/N) YES, NA INITIALS MN 09:31T.DAVIS MEZA. EXAMINATION GENERAL EXAMINATION: LUNGS:LUNG SOUNDS ARE CLEAR . HEART:HEART RATE REGULAR . MUSCULOSKELETAL:*, MUSCLE STRENGTH TESTING 5/5 BILATERAL LOWER EXTREMITIES., , PALPATION: POSITIVE FOR PAIN OVER L/S SPINE. POSITIVE FOR PAIN OVER L/S PARSPINALS.SPECIFIC POINT TENDERNESS OVER BILAT L4/5-L5/S1 LUMBAR FACETS WITH FACET LOADING . DIAGNOSTIC:MRI L/S SPINE . ASSESSMENTS LUMBAR FACET ARTHROPATHY - M12.88 (PRIMARY) TREATMENT LUMBAR FACET ARTHROPATHY REFILL CELEBREX CAPSULE, 200 MG, 1 CAPSULE, ORALLY, BID MDD2, 30 DAYS, 60, REFILLS 2 REFILL GABAPENTIN CAPSULE, 300 MG, 2 CAP, ORAL, BEFORE BEDTIME, 30 DAYS, 60, REFILLS 2 REFILL AMITRIPTYLINE HCL TABLET, 25 MG, 1 TO 3 TAB, ORALLY, ONCE A DAY, 30 DAY(S), 90, REFILLS 2 NOTES: BILATERAL DIAGNOSTIC LUMBAR FACET BLOCK L4-5,L5-S1. PROCEDURES PN WORKMANS' COMP OPINION IN YOUR OPINION, WAS THE INCIDENT THAT THE PATIENT DESCRIBED THE COMPETENT MEDICAL CAUSE OF THIS INJURY/ILLNESS? YES ARE THE PATIENT'S COMPLAINTS CONSISTENT WITH HIS/HER HISTORY OF THE INJURY/ILLNESS? YES IS THE PATIENT'S HISTORY OF THE INJURY/ILLNESS CONSISTENT WITH YOUR OBJECTIVE FINDING? YES WHAT IS THE PERCENTAGE OF TEMPORARY IMPAIRMENT? MODERATE TO MARKED = 66.7% IS THE PATIENT WORKING? YES DOCTOR ON SITE: NAM BRADSHAW MD PROCEDURE CODES FA211 ESTABILISHED PATIENT [facility] CHARGE DISPOSITION & COMMUNICATION FOLLOW UP POST PROCEDURE (REASON: BILATERAL LUMBAR DIAGNOSTIC FACT BLOCK L4-5/L5-S1/WORKMANS COMP REQUEST) ELECTRONICALLY SIGNED BY STELLA DASH ON 09/30/2020 AT 02:02 PM EDT DISCLAIMER : THIS IS A VISIT SUMMARY EXTRACTED FROM THE [employer] CHART. IT IS NOT A COPY OF THE [employer] PROGRESS NOTE. CHRISTINA
== END ==
LOC: M PAIN 09:15
PROVIDERS: ATTEND Nurse Practitioner Family
DX: M12.88 Other specific arthropathies, not elsewhere classified, other specified site (principal); G89.29 Other chronic pain; Z86.59 Personal history of other mental and behavioral disorders; Z87.891 Personal history of nicotine dependence; Z88.8 Allergy status to other drugs, medicaments and biological substances; Z91.018 Allergy to other foods; Z79.82 Long term (current) use of aspirin; Z79.899 Other long term (current) drug therapy

== ENCOUNTER → 2020-10-24 | Outpatient (CLI) | payer OTHER | LOC: M LABSMTC 10:37 | PROVIDERS: ATTEND Anesthesiology | DX: Z01.812 Encounter for preprocedural laboratory examination (principal); Z11.52 Encounter for screening for COVID-19 ==

== ENCOUNTER → 2020-10-28 | Outpatient (CLI) | payer OTHER ==
[~2020-10-28] MED LIST changes: +AMIT25TA17; +HYDR200T3; +REPA140I2
--- NOTE | 2020-10-29 06:28 | REP ---
INDICATION: PAIN COMPARISON: CT dated 03/12/2015 TECHNIQUE: AP, lateral, flexion/extension, bilateral oblique, and open-mouth views. FINDINGS: A linear heart is onto all lucency runs through the C5 vertebral body best identified on lateral radiographs and is concerning for nondisplaced vertebral body fracture. Advanced degenerative change at C5-6 includes endplate sclerosis with osteophytosis. Moderate degenerative changes noted throughout the remainder of the examination. IMPRESSION: Findings suspicious for nondisplaced transverse fracture through the C5 vertebral body. <Electronically signed by Roger Scherer > 10/29/20 0613
== END ==
LOC: M WUC 14:00
PROVIDERS: ATTEND Nurse Practitioner Family
DX: S19.9XXA Unspecified injury of neck, initial encounter (principal); X58.XXXA Exposure to other specified factors, initial encounter; Y92.9 Unspecified place or not applicable

== ENCOUNTER 2020-10-29 10:55 | Emergency (ER) | payer OTHER ==
[~2020-10-29] VITALS: Ht 172.7 cm; Wt 70.5 kg
[2020-10-29 10:55] VITALS: BP 160/66
[~2020-10-29 10:55] MED LIST changes: -AMIT25TA17; -HYDR200T3; -REPA140I2
[2020-10-29] MEDS ORDERED: AMIT25TA17 (11:07)
[2020-10-29] MEDS ORDERED: REPA140I2 (11:07)
[2020-10-29] MEDS ORDERED: HYDR200T3 (11:07)
--- NOTE | 2020-10-29 11:33 | REP ---
INDICATION: trauma COMPARISON: None. TECHNIQUE: Axial noncontrast images from the skull base to the thoracic inlet with coronal and sagittal re-formations This CT examination was performed using the following dose reduction techniques: Automated exposure control, adjustment of mA and/or kv according to the patient's size, and use of iterative reconstruction technique. FINDINGS: Normal alignment and lordosis is maintained. The suspicious lucency running through the C5 vertebral body on recent x-rays does not correspond to fracture. There is no evidence for acute fracture/compression injury or subluxation. Moderate/early advanced multilevel degenerative changes include endplate sclerosis, osteophytosis, disc space narrowing centered at C5-6 and to a lesser extent involving C4-5 and C6-7. Posterior elements and spinous processes are intact. Surrounding soft tissues are unremarkable. IMPRESSION: 1. No evidence for C5 fracture as suggested by recent x-rays. 2. No acute fracture/compression injury or subluxation. 3. Degenerative spondylosis involving C4-5 through C6-7. <Electronically signed by Roger Scherer > 10/29/20 1127
== END 2020-10-29 11:57 | disposition home or self-care (01) ==
LOC: M ED 10:55
DX: S10.93XA Contusion of unspecified part of neck, initial encounter (principal); W22.8XXA Striking against or struck by other objects, initial encounter; Y92.094 Garage of other non-institutional residence as the place of occurrence of the external cause; Y93.89 Activity, other specified; Y99.8 Other external cause status; I51.9 Heart disease, unspecified; Z95.5 Presence of coronary angioplasty implant and graft; Z98.890 Other specified postprocedural states; Z88.8 Allergy status to other drugs, medicaments and biological substances; Z88.5 Allergy status to narcotic agent; Z91.018 Allergy to other foods; Z79.899 Other long term (current) drug therapy; Z79.82 Long term (current) use of aspirin

== ENCOUNTER → 2020-10-29 | Outpatient (CLI) | payer OTHER ==
--- NOTE | 2020-11-04 01:45 | ECWPNPC ---
PATIENT NAME: KYREE HUDSON : 1960 GENDER: FEMALE VISIT DATE: 10/29/2020 DISCHARGE DATE: 10/29/20 1043 VISIT LOCKED DATE TIME: PHYSICIAN: NAM ESCOBEDO MD PHYSICIAN PAGER NO: ACTIVE RESOURCE: NAM ESCOBEDO MD REASON FOR APPOINTMENT 1. BILATERAL LUMBAR DIAGNOSTIC FACET BLOCK L4-L5, L5-S1 HISTORY OF PRESENT ILLNESS GENERAL: -. 60-YEAR-OLD FEMALE PATIENT WITH A HISTORY OF CHRONIC LOW BACK PAIN. THE PATIENT DESCRIBES THE PAIN ACHING, BURNING AND SHARP WITH A PAIN SCORE RANGING FROM 4-10/10. THE PAIN INCREASING WITH ACTIVITIES. SHE HAS BEEN USING MEDICATIONS BUT THE PAIN PERSIST. THE PATIENT EXPLAINED THAT SHE HAD A TRAUMA OVER HER NECK A FEW DAYS AGO WHEN A GARAGE DOOR FELL ONTO HER NECK. SHE DID SOME X-RAYS AFTER THE ACCIDENT THAT WERE ORDERED BY HER PRIMARY CARE PHYSICIAN. FALL RISK SCREENING: SCREENING : NO FALLS REPORTED IN THE LAST YEAR. PAIN SCREENING: PATIENT HAS A COMPLAINT OF ACUTE OR CHRONIC PAIN :YES LOCATION OF PAIN:LOW BACK INTENSITY OF PAIN (SCALE OF 1 TO 10):5 WHAT DOES YOUR PAIN FEEL LIKE:ACHING, BURNING, SHARP, STABBING, TENDER, SORE, SHOOTING, OTHER "JOLT" "I FEEL LIKE I'M GOING TO JUMP OUT OF MY SKIN." DURATION:INTERMITTENT, AWAKENS FROM SLEEP "I HAVE GOOD DAYS AND I HAVE BAD DAYS." PAIN IS INCREASED BY:ACTIVITIES, PROLONGED STANDING PAIN IS DECREASED BY:OTHERS COLD COMPRESS, HOME EXERCISES PLAN/GOALS/TREATMENT/INTERVENTION/FOLLOW UP:SEE PLAN NURSING NOTE: -. PAIN CENTER INTAKE QUESTIONS: DO YOU HAVE A HISTORY OF MRSA? :NO DO YOU TAKE A BLOOD THINNERS? :NO DO YOU HAVE ANY BLEEDING DISORDERS? :NO ANY NEW NUMBNESS OR WEAKNESS IN YOUR LEGS OR ARMS? :NO ANY PACEMAKER,DEFIBRILLATOR, OR DORSAL COLUMN STIMULATOR? :NO DO YOU HAVE ANY RASHES OR OPEN SORES? :NO ARE YOU ALLERGIC TO IV DYE? :NO ARE YOU DIABETIC? :NO ANY NEW PROBLEMS WITH YOUR MEDICATIONS? :NO HAVE YOU RECEIVED A VACCINE IN THE PAST 30 DAYS? :YES IF SO WHAT VACCINE AND WHEN? 2ND COVID 10/05/2020 DO YOU PLAN TO RECEIVE A VACCINE IN THE NEXT 21 DAYS? :NO DO YOU TAKE ANY IMMUNOSUPPRESSIVE MEDICATIONS? :YES HYDROXYCHLOROQUINE (LAST DOSE 5/3/21). ANY HISTORY OF SEIZURES? :NO ANY HISTORY OF CARDIAC ISSUES OR EVENTS? :YES SVT S/P ABLATION 2005, CAD WITH 2 STENTS (2016). DO YOU HAVE ANY KIDNEY OR LIVER DISEASE? :NO DO YOU HAVE SLEEP APNEA? :NO ANY RECENT HEAD INJURY? :YES GARAGE DOOR FELL ACROSS NECK (10/26/20). LOWER PART OF NECK. ONLY REPORTS, SORENESS. PATIENT ENCOURAGED TO CONTACT PCP AND MAKE SURE EVERYTHING IS OKAY. PATIENT ASKED TO CALL US IF ANY POSITIVE FINDINGS. DO YOU HAVE ANY NEW INFECTIONS? :NO IS THERE A CHANCE YOU COULD BE ? :N/A ARE YOU BREAST FEEDING? :N/A WHEN DID YOU LAST EAT? : --- WHEN DID YOU LAST DRINK? : ---- WHAT DID YOU LAST DRINK? : ----- NAME OF PERSON DRIVING YOU HOME? : (DELROY) DO YOU HAVE ANY OTHER QUESTIONS OR CONCERNS? : NO CURRENT MEDICATIONS TAKING METOPROLOL TARTRATE 25 MG TABLET 1 TABLET ORALLY ONCE A DAY (DR. BUCK) TAKING FISH OIL ULTRA 1 TAB ORALLY 2 TIMES A DAY TAKING NITROGLYCERIN 0.4 MG/SPRAY SOLUTION 1 SPRAY UNDER THE TONGUE TRANSLINGUAL NEEDED FOR CHEST PAIN, NOTES: NOT RECENTLY TAKING ASPIRIN ADULT LOW STRENGTH 81 MG TABLET DELAYED RELEASE 1 TABLET ORALLY ONCE A DAY TAKING HYDROXYCHLOROQUINE SULFATE 200 MG TABLET TAKE ONE TABLET BY MOUTH TWICE A DAY ORAL TAKING VITAMIN C 500 MG TABLET CHEWABLE 1 TABLET ORALLY ONCE A DAY TAKING VITAMIN D-3 25 MCG (1000 UT) CAPSULE 1 CAPSULE ORALLY ONCE A DAY TAKING APPLE CIDER VINEGAR 500 MG TABLET DIRECTED ORALLY DAILY TAKING ZOLOFT 100 MG TABLET 1 TABLET ORALLY ONCE A DAY TAKING REPATHA 140MG/ML INJECTION TWICE A MONTH, NOTES: 10/18/20 TAKING CELEBREX 200 MG CAPSULE 1 CAPSULE ORALLY BID MDD2 TAKING GABAPENTIN 300 MG CAPSULE 2 CAP ORAL BEFORE BEDTIME TAKING AMITRIPTYLINE HCL 25 MG TABLET 1 TO 3 TAB ORALLY ONCE A DAY NOT-TAKING DICYCLOMINE HCL 20 MG TABLET 1 TABLET ORALLY THREE TIMES A DAY NOT-TAKING GABAPENTIN 300 MG CAPSULE 1 ORALLY Q8H TID, NOTES: STOPPED TAKING 1 WEEK AGO NOT-TAKING MAGNESIUM 100 MG TABLET 2 TABLETS WITH A MEAL ORALLY BID NOT-TAKING MAY USE FO-TI 360 MG ORALLY BID NOT-TAKING PRALUENT 75 MG/ML SOLUTION PEN-INJECTOR SUBCUTANEOUS 2X/MONTH, NOTES: CURRENTLY NOT TAKING DUE TO INSURANCE PAST MEDICAL HISTORY HX OF SVT- S/P ABLATION 2005- DR MAHESH ANNE IN [facility]- Q YR- JAN CAD S/P- 2 STENT PLACED AT [facility] (2015) CHRONIC BACK PAIN- LUMBAR REGION ARTHRITIS- PAIN CLINIC- ARNULFO TEJ-WORK COMP MULTIPLE JOINT PAIN- WRIST/RIGHT HIP/RIGHT KNEE/LEFT BIG TOE ANXIETY- LEXAPRO-1 YR- STOPPED B/C FELT LIKE ENCLOSED ARTHRITIS ALLERGIES CRESTOR: MYALGIAS,SWELLING - SIDE EFFECTS GARLIC: SEVERE STOMACH PAIN - ALLERGY LIPITOR: SEVERE MUSCLE ACHES - SIDE EFFECTS SOCIAL HISTORY GENERAL: TOBACCO USE ARE YOU A:FORMER SMOKER HOW LONG HAS IT BEEN SINCE YOU LAST SMOKED?> 10 YEARS LATEX QUESTIONNAIRE LATEX ALLERGY : HAVE YOU EVER DEVELOPED ANY TYPE OF REACTION AFTER HANDLING LATEX PRODUCTS SUCH RUBBER GLOVES, CONDOMS, DIAPHRAGMS, BALLOONS, SOCKS, OR UNDERWEAR?NO LATEX ALLERGY : HAVE YOU EVER DEVELOPED ANY TYPE OF REACTION DURING OR AFTER DENTAL APPOINTMENT, VAGINAL/RECTAL EXAMINATION, SURGICAL PROCEDURE, OR ANY OTHER EXPOSURE?NO LATEX RISK : HAVE YOU EVER HAD ANY DIFFICULTY BREATHING OR HIVES AFTER EATING OR HANDLING ANY FRUITS, OR VEGETABLES; SUCH KIWI, BANANAS, STONE FRUITS, OR CHESTNUTSNO LATEX RISK : DO YOU HAVE A PREVIOUS PERSONAL HISTORY OF MORE THAN NINE SURGERIES, SPINA BIFIDA, OR REPEATED CATHERIZATIONS? NO LATEX RISK : ARE YOU FREQUENTLY EXPOSED TO LATEX PRODUCTS IN YOUR OCCUPATION?NO DATE ASKED : 10/27/2020 ALCOHOL USE: YES. LUNG CANCER SCREENING SMOKING STATUS:FORMER SMOKER BMI CARE GOAL FOLLOW-UP ABOVE NORMAL BMI FOLLOW-UPDIETARY MANAGEMENT EDUCATION, GUIDANCE, AND COUNSELING, WEIGHT MONITORING ALCOHOL SCREENING DID YOU HAVE A DRINK CONTAINING ALCOHOL IN THE PAST YEAR?YES HOW OFTEN DID YOU HAVE SIX OR MORE DRINKS ON ONE OCCASION IN THE PAST YEAR?NEVER (0 POINTS) HOW MANY DRINKS DID YOU HAVE ON A TYPICAL DAY WHEN YOU WERE DRINKING IN THE PAST YEAR?1 OR 2 (0 POINTS) HOW OFTEN DID YOU HAVE A DRINK CONTAINING ALCOHOL IN THE PAST YEAR?TWO TO THREE TIMES PER WEEK (3 POINTS) POINTS3 INTERPRETATIONPOSITIVE RECREATIONAL DRUG USE DRUG USE?YES SMOKES MARIJUANA FOR SLEEP ON OCCASION. HOW OFTEN AND HOW MUCH? STATES SHE USUALLY USES IT ON OCCASION TO HELP HER SLEEP. CAFFEINE CAFFEINE USE?YES SEXUAL HX HAD SEX IN THE LAST 12 MONTHS (VAGINAL, ORAL, OR ANAL)?YES WITHMEN ONLY USE PROTECTION?NO LMP:POST MENOPAUSE HAVE YOU EVER HAD AN STD?NO HIV / HEP-C SCREENING HIV TEST OFFERED TO PATIENT:YES DATE OFFERED:03/18/2019 TEST ACCEPTED:NO HEP-C TEST OFFERED TO PATIENT:YES DATE OFFERED:03/08/2018 REASON:PATIENT DECLINED TEST ACCEPTED:NO REASON:PATIENT DECLINED BROCHURE PROVIDED TO PATIENTNO SABIANISM [id number] LUTHERAN LANGUAGE LANGUAGES SPOKEN:NIGERIEN LEARNING BARRIERS / SPECIAL NEEDS CHANGE FROM LAST VISIT?NO BARRIERS TO LEARNING?NO HEARING IMPAIRED?NO VISION IMPAIRED?YES :CORRECTIVE LENSES GLASSES COGNITIVELY IMPAIRED?NO READINESS TO LEARN?YES LEARNING PREFERENCES?NO LEARNING CAPABILITIES PRESENT?YES EMOTIONAL BARRIERS?NO SPECIAL DEVICES?NO DIESEL POWERPLANT MECHANIC NEEDED?NO 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 EXERCISE: ABS, RESISTANCE TRAINING. MARITAL STATUS: . OTHERS AT HOME: SPOUSE. - PFS REFERRAL NEEDED?NO CLERGY REFERRAL NEEDED?NO PUBLIC HEALTH REFERRAL NEEDED?NO HAS THE PATIENT BEEN EDUCATED REGARDING HIS/HER PLAN OF CARE?YES HAS THE PATIENT BEEN EDUCATED REGARDING PAIN, THE RISK FOR PAIN, THE IMPORTANCE OF EFFECTIVE PAIN MANAGEMENT, AND THE PAIN ASSESSMENT PROCESS?YES ADVANCE DIRECTIVE ADVANCE DIRECTIVE DISCUSSED WITH PATIENT:YES HCP DELROY DAVIS [phone] REVIEW OF SYSTEMS CONSTITUTIONAL: ANY RECENT FEVER NO . CHILLS NO . WEIGHT CHANGE OF UNKNOWN REASONS NO . GASTROENTEROLOGY: NEW UNEXPLAINABLE CHANGES IN BOWEL CONTROL NO . CONSTIPATION NO . GENITOURINARY: ANY NEW CHANGE IN BLADDER CONTROL? NO . NEUROLOGY: NEW ONSET DIZZINESS OR NEUROLOGICAL CHANGES NOT MENTIONED NO . NEW NUMBNESS OR PAIN PATTERNS NOT MENTIONED AND PERTINENT TO TODAY'S VISIT NO . CARDIOLOGY: NEW CHEST PRESSURE NO . PATIENT DENIES NO . RESPIRATORY: UNEXPLAINABLE COUGH NO . NEW SHORTNESS OF BREATH NO . VITAL SIGNS WT 156.0 LBS, HT 68 IN, BMI 23.72 INDEX, BP 139/71 MM HG, HR 74 /MIN, RR 18 /MIN, TEMP 97.4 F, OXYGEN SAT % 99%, NA INITIALS AW 0844SIZE MEDIUM RIGID CERVICAL COLLAR APPLIED AND PT TRANSPORTED TO ED VIA WHEELCHAIR BY Kim MCBRIDE FOR EVALUATION AT APPROXIMATELY 1010. Yesenia DOHERTY EN 10/29/20 1051. EXAMINATION GENERAL: THE PATIENT IS ALERT, ORIENTED TIMES THREE AND COOPERATIVE. LUNGS ARE CLEAR TO AUSCULTATION. HEART SHOWS REGULAR RHYTHM, NO MURMURS AND NO GALLOPS. CERVICAL X-RAY DATED 10/28/2020 SHOWS A SUSPICIOUS NONDISPLACED TRANSVERSE FRACTURE THROUGH THE C5 VERTEBRAL BODY. ASSESSMENTS SPONDYLOSIS WITHOUT MYELOPATHY OR RADICULOPATHY, LUMBAR REGION - M47.816 (PRIMARY) SPONDYLOSIS WITHOUT MYELOPATHY OR RADICULOPATHY, LUMBOSACRAL REGION - M47.817 LUMBAR FACET ARTHROPATHY - M47.816 RECENT CERVICAL TRAUMA. TREATMENT SPONDYLOSIS WITHOUT MYELOPATHY OR RADICULOPATHY, LUMBAR REGION START CERVICAL COLLAR MISCELLANEOUS, -, DIRECTED CLINICAL NOTES: I CALLED MS. HUDSON'S PRIMARY CARE PROVIDE MS. CARMELLA FAIRBANKS AND ALSO DISCUSSED ALTERNATIVES WITH MS. HUDSON. MS. FAIRBANKS IS GOING TO TRY TO REACH DR. BLAND TODAY TO SEE IF THE PATIENT CAN BE EVALUATED. SHE ADVISED NOT TO MOVE FORWARD WITH THE INTERVENTION UNTIL WE KNOW WHAT IS GOING ON WITH THE NECK. I THINK SHE WILL NEED A CT TO FURTHER ASSESS HER CONDITION. I DISCUSSED WITH MS. HUDSON ABOUT SENDING HER HOME OR TRANSFERRING HER TO THE EMERGENCY ROOM. WE DECIDED TO TRANSFER HER TO THE EMERGENCY ROOM. AFTER THIS ISSUE IS ASSESSED, THE PATIENT WILL CONTACT OUR OFFICE FOR THE PROCEDURE. THE PATIENT REPORTS UNDERSTANDING AND AGREES WITH THE PLAN. I, MARTIN FUENTES, DOCUMENTED THE ABOVE INFORMATION ACTING A SCRIBE FOR DR. ESCOBEDO. I HAVE REVIEWED THE ABOVE DOCUMENT, WRITTEN BY MARTIN FUENTES, GLUE REEL OPERATOR, AND I VERIFY THAT IT IS ACCURATE. PROCEDURES PN WORKMANS' COMP OPINION IN YOUR OPINION, WAS THE INCIDENT THAT THE PATIENT DESCRIBED THE COMPETENT MEDICAL CAUSE OF THIS INJURY/ILLNESS? YES ARE THE PATIENT'S COMPLAINTS CONSISTENT WITH HIS/HER HISTORY OF THE INJURY/ILLNESS? YES IS THE PATIENT'S HISTORY OF THE INJURY/ILLNESS CONSISTENT WITH YOUR OBJECTIVE FINDING? YES WHAT IS THE PERCENTAGE OF TEMPORARY IMPAIRMENT? MODERATE TO MARKED = 66.7% IS THE PATIENT WORKING? YES DOCTOR ON SITE: NAM BRADSHAW MD PROCEDURE CODES 55927 OFFICE/OUTPATIENT VISIT EST FA211 ESTABILISHED PATIENT [facility] FACILITY CHARGE DISPOSITION & COMMUNICATION FOLLOW UP PATIENT WILL CALL TO RESCHEDULE (REASON: BILATERAL DIAGNOSTIC FACET BLOCK L4-L5, L5-S1) ELECTRONICALLY SIGNED BY NAM ESCOBEDO MD, MD ON 11/03/2020 AT 01:26 PM EDT DISCLAIMER : THIS IS A VISIT SUMMARY EXTRACTED FROM THE [facility] CHART. IT IS NOT A COPY OF THE [facility] PROGRESS NOTE. CHRISTINA
== END ==
LOC: M PAIN 08:30
PROVIDERS: ATTEND Anesthesiology
DX: M47.816 Spondylosis without myelopathy or radiculopathy, lumbar region (principal); M47.817 Spondylosis without myelopathy or radiculopathy, lumbosacral region; G89.29 Other chronic pain; Z86.59 Personal history of other mental and behavioral disorders; Z87.891 Personal history of nicotine dependence; Z88.8 Allergy status to other drugs, medicaments and biological substances; Z91.018 Allergy to other foods; Z79.82 Long term (current) use of aspirin; Z79.899 Other long term (current) drug therapy

== ENCOUNTER → 2020-11-04 | Outpatient (CLI) | payer OTHER ==
[~2020-11-04] MED LIST changes: +AMIT25TA17; +HYDR200T3; +REPA140I2
== END ==
LOC: M LABSMTC 09:41
PROVIDERS: ATTEND Anesthesiology
DX: Z20.828 Contact with and (suspected) exposure to other viral communicable diseases (principal); Z11.59 Encounter for screening for other viral diseases

== ENCOUNTER → 2020-11-18 | Outpatient (CLI) | payer OTHER ==
--- NOTE | 2020-11-18 23:13 | ECWPNPC ---
PATIENT NAME: KYREE HUDSON : 1960 GENDER: FEMALE VISIT DATE: 11/18/2020 DISCHARGE DATE: 11/18/20 1107 VISIT LOCKED DATE TIME: PHYSICIAN: MIKKI RING PHYSICIAN PAGER NO: ACTIVE RESOURCE: MIKKI RING REASON FOR APPOINTMENT 1. DISCUSS MEDICATIONS HISTORY OF PRESENT ILLNESS DEPRESSION SCREENING: PHQ-2 (2015 EDITION) LITTLE INTEREST OR PLEASURE IN DOING THINGS?NOT AT ALL FEELING DOWN, DEPRESSED, OR HOPELESS?NOT AT ALL TOTAL SCORE0 GENERAL: HERE FOR FOLLOW-UP OF CHRONIC LOW BACK PAIN. SHE DID SEE JOSE DICKERSON DUE TO MY CONCERNS WITH ABNORMAL MRI OF THE LUMBAR SPINE. CONTINUES WITH SIGNIFICANT INCREASE IN LOW BACK PAIN OVER THE PAST FEW MONTHS. REVIEWED MRI OF THE LS SPINE AND DISCUSSED TREATMENT PLAN TO INCLUDE DIAGNOSTIC VERSUS THERAPEUTIC LUMBAR BLOCK. THIS IS A FOLLOW-UP FOR CHRONIC LOW BACK PAIN SECONDARY TO A WORK RELATED INJURY. SHE CONTINUES TO WORK. - -. FALL RISK SCREENING: SCREENING : NO FALLS REPORTED IN THE LAST YEAR. PAIN SCREENING: PATIENT HAS A COMPLAINT OF ACUTE OR CHRONIC PAIN :YES LOCATION OF PAIN:MID BACK, LOW BACK INTENSITY OF PAIN (SCALE OF 1 TO 10):4 WHAT DOES YOUR PAIN FEEL LIKE:SHARP, STABBING, SORE, SHOOTING DURATION:CONTINOUS, CONSTANT, ALL DAY PAIN IS INCREASED BY:ACTIVITIES, PROLONGED STANDING PAIN IS DECREASED BY:OTHERS HEAT AND ICE NURSING NOTE: -. PAIN CENTER INTAKE QUESTIONS: DO YOU HAVE A HISTORY OF MRSA? :NO DO YOU TAKE A BLOOD THINNERS? :NO DO YOU HAVE ANY BLEEDING DISORDERS? :NO ANY NEW NUMBNESS OR WEAKNESS IN YOUR LEGS OR ARMS? :YES PAIN IN LEFT FOOT, BIG TOE IS GOING NUMB ANY PACEMAKER,DEFIBRILLATOR, OR DORSAL COLUMN STIMULATOR? :NO DO YOU HAVE ANY RASHES OR OPEN SORES? :NO ARE YOU ALLERGIC TO IV DYE? :NO ARE YOU DIABETIC? :NO ANY NEW PROBLEMS WITH YOUR MEDICATIONS? :NO HAVE YOU RECEIVED A VACCINE IN THE PAST 30 DAYS? :YES 1ST COVID 09/14/2020 DO YOU PLAN TO RECEIVE A VACCINE IN THE NEXT 21 DAYS? :YES IF SO WHAT VACCINE AND WHEN? 2ND COVID 10/05/2020 DO YOU NEED ANY PRESCRIPTION? :NO NEEDS REFILLS ON CELEBREX, GABAPENTIN DO YOU TAKE ANY IMMUNOSUPPRESSIVE MEDICATIONS? :YES HYDROXYCHLOROQUINE STARTED IN NOVEMBER OR DECEMBER OF 2019. IS THERE A CHANCE YOU COULD BE ? :NO ARE YOU BREAST FEEDING? :NO CURRENT MEDICATIONS TAKING METOPROLOL TARTRATE 25 MG TABLET 1 TABLET ORALLY ONCE A DAY (DR. BUCK) TAKING FISH OIL ULTRA 1 TAB ORALLY 2 TIMES A DAY TAKING NITROGLYCERIN 0.4 MG/SPRAY SOLUTION 1 SPRAY UNDER THE TONGUE TRANSLINGUAL NEEDED FOR CHEST PAIN, NOTES: NOT RECENTLY TAKING ASPIRIN ADULT LOW STRENGTH 81 MG TABLET DELAYED RELEASE 1 TABLET ORALLY ONCE A DAY TAKING HYDROXYCHLOROQUINE SULFATE 200 MG TABLET TAKE ONE TABLET BY MOUTH TWICE A DAY ORAL TAKING VITAMIN C 500 MG TABLET CHEWABLE 1 TABLET ORALLY ONCE A DAY TAKING VITAMIN D-3 25 MCG (1000 UT) CAPSULE 1 CAPSULE ORALLY ONCE A DAY TAKING APPLE CIDER VINEGAR 500 MG TABLET DIRECTED ORALLY DAILY TAKING REPATHA 140MG/ML INJECTION TWICE A MONTH TAKING GABAPENTIN 300 MG CAPSULE 2 CAP ORAL BEFORE BEDTIME TAKING AMITRIPTYLINE HCL 25 MG TABLET 1 TO 3 TAB ORALLY ONCE A DAY TAKING CERVICAL COLLAR - MISCELLANEOUS DIRECTED TAKING ZOLOFT 100 MG TABLET 1 TABLET ORALLY ONCE A DAY TAKING CELEBREX 200 MG CAPSULE 1 CAPSULE ORALLY BID MDD2 NOT-TAKING DOXYCYCLINE MONOHYDRATE 100 MG CAPSULE 1 CAPSULE ORALLY TWICE A DAY NOT-TAKING DIFLUCAN 150 MG TABLET 1 TABLET ORALLY 1 DOSE, REPEAT IN 72 HOURS IF NEEDED NOT-TAKING DICYCLOMINE HCL 20 MG TABLET 1 TABLET ORALLY THREE TIMES A DAY NOT-TAKING GABAPENTIN 300 MG CAPSULE 1 ORALLY Q8H TID, NOTES: STOPPED TAKING 1 WEEK AGO NOT-TAKING MAGNESIUM 100 MG TABLET 2 TABLETS WITH A MEAL ORALLY BID NOT-TAKING MAY USE FO-TI 360 MG ORALLY BID NOT-TAKING PRALUENT 75 MG/ML SOLUTION PEN-INJECTOR SUBCUTANEOUS 2X/MONTH, NOTES: CURRENTLY NOT TAKING DUE TO INSURANCE MEDICATION LIST REVIEWED AND RECONCILED WITH THE PATIENT PAST MEDICAL HISTORY HX OF SVT- S/P ABLATION 2005- DR MAHESH ANNE IN [facility]- Q YR- JAN CAD S/P- [address] [facility]' (2015) CHRONIC BACK PAIN- LUMBAR REGION ARTHRITIS- PAIN CLINIC- ARNULFO BURNHAM-WORK COMP MULTIPLE JOINT PAIN- WRIST/RIGHT HIP/RIGHT KNEE/LEFT BIG TOE ANXIETY- LEXAPRO-1 YR- STOPPED B/C FELT LIKE ENCLOSED ARTHRITIS ALLERGIES CRESTOR: MYALGIAS,SWELLING - SIDE EFFECTS GARLIC: SEVERE STOMACH PAIN - ALLERGY LIPITOR: SEVERE MUSCLE ACHES - SIDE EFFECTS SOCIAL HISTORY GENERAL: TOBACCO USE ARE YOU A:FORMER SMOKER HOW LONG HAS IT BEEN SINCE YOU LAST SMOKED?> 10 YEARS LATEX QUESTIONNAIRE LATEX ALLERGY : HAVE YOU EVER DEVELOPED ANY TYPE OF REACTION AFTER HANDLING LATEX PRODUCTS SUCH RUBBER GLOVES, CONDOMS, DIAPHRAGMS, BALLOONS, SOCKS, OR UNDERWEAR?NO LATEX ALLERGY : HAVE YOU EVER DEVELOPED ANY TYPE OF REACTION DURING OR AFTER DENTAL APPOINTMENT, VAGINAL/RECTAL EXAMINATION, SURGICAL PROCEDURE, OR ANY OTHER EXPOSURE?NO LATEX RISK : HAVE YOU EVER HAD ANY DIFFICULTY BREATHING OR HIVES AFTER EATING OR HANDLING ANY FRUITS, OR VEGETABLES; SUCH KIWI, BANANAS, STONE FRUITS, OR CHESTNUTSNO LATEX RISK : DO YOU HAVE A PREVIOUS PERSONAL HISTORY OF MORE THAN NINE SURGERIES, SPINA BIFIDA, OR REPEATED CATHERIZATIONS? NO LATEX RISK : ARE YOU FREQUENTLY EXPOSED TO LATEX PRODUCTS IN YOUR OCCUPATION?NO DATE ASKED : 11/18/2020 ALCOHOL USE: YES. LUNG CANCER SCREENING SMOKING STATUS:FORMER SMOKER BMI CARE GOAL FOLLOW-UP ABOVE NORMAL BMI FOLLOW-UPDIETARY MANAGEMENT EDUCATION, GUIDANCE, AND COUNSELING, WEIGHT MONITORING ALCOHOL SCREENING DID YOU HAVE A DRINK CONTAINING ALCOHOL IN THE PAST YEAR?YES HOW OFTEN DID YOU HAVE SIX OR MORE DRINKS ON ONE OCCASION IN THE PAST YEAR?NEVER (0 POINTS) HOW MANY DRINKS DID YOU HAVE ON A TYPICAL DAY WHEN YOU WERE DRINKING IN THE PAST YEAR?1 OR 2 (0 POINTS) HOW OFTEN DID YOU HAVE A DRINK CONTAINING ALCOHOL IN THE PAST YEAR?TWO TO THREE TIMES PER WEEK (3 POINTS) POINTS3 INTERPRETATIONPOSITIVE RECREATIONAL DRUG USE DRUG USE?YES SMOKES MARIJUANA FOR SLEEP ON OCCASION. HOW OFTEN AND HOW MUCH? STATES SHE USUALLY USES IT ON OCCASION TO HELP HER SLEEP. CAFFEINE CAFFEINE USE?YES SEXUAL HX HAD SEX IN THE LAST 12 MONTHS (VAGINAL, ORAL, OR ANAL)?YES WITHMEN ONLY USE PROTECTION?NO LMP:POST MENOPAUSE HAVE YOU EVER HAD AN STD?NO HIV / HEP-C SCREENING HIV TEST OFFERED TO PATIENT:YES DATE OFFERED:11/03/2020 TEST ACCEPTED:NO HEP-C TEST OFFERED TO PATIENT:YES DATE OFFERED:11/03/2020 REASON:PATIENT DECLINED TEST ACCEPTED:NO REASON:PATIENT DECLINED BROCHURE PROVIDED TO PATIENTNO ZOROASTRIANISM [id number] CATHOLIC LANGUAGE LANGUAGES SPOKEN:BARBADIAN LEARNING BARRIERS / SPECIAL NEEDS CHANGE FROM LAST VISIT?NO BARRIERS TO LEARNING?NO HEARING IMPAIRED?NO VISION IMPAIRED?YES :CORRECTIVE LENSES COGNITIVELY IMPAIRED?NO READINESS TO LEARN?YES LEARNING PREFERENCES?NO LEARNING CAPABILITIES PRESENT?YES EMOTIONAL BARRIERS?NO SPECIAL DEVICES?YES :CANE NEEDED ADMINISTRATIVE LIBRARY ASSISTANT NEEDED?NO 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 EXERCISE: ABS, RESISTANCE TRAINING. MARITAL STATUS: . OTHERS AT HOME: SPOUSE. - PFS REFERRAL NEEDED?NO CLERGY REFERRAL NEEDED?NO PUBLIC HEALTH REFERRAL NEEDED?NO HAS THE PATIENT BEEN EDUCATED REGARDING HIS/HER PLAN OF CARE?YES HAS THE PATIENT BEEN EDUCATED REGARDING PAIN, THE RISK FOR PAIN, THE IMPORTANCE OF EFFECTIVE PAIN MANAGEMENT, AND THE PAIN ASSESSMENT PROCESS?YES ADVANCE DIRECTIVE ADVANCE DIRECTIVE DISCUSSED WITH PATIENT:YES HCP DELROY AGUIRRENAYLA [phone] REVIEW OF SYSTEMS CONSTITUTIONAL: ANY RECENT FEVER NO . CHILLS NO . WEIGHT CHANGE OF UNKNOWN REASONS NO . GASTROENTEROLOGY: NEW UNEXPLAINABLE CHANGES IN BOWEL CONTROL NO . CONSTIPATION NO . GENITOURINARY: ANY NEW CHANGE IN BLADDER CONTROL? NO . NEUROLOGY: NEW ONSET DIZZINESS OR NEUROLOGICAL CHANGES NOT MENTIONED NO . NEW NUMBNESS OR PAIN PATTERNS NOT MENTIONED AND PERTINENT TO TODAY'S VISIT NO . CARDIOLOGY: NEW CHEST PRESSURE NO . PATIENT DENIES NO . RESPIRATORY: UNEXPLAINABLE COUGH NO . NEW SHORTNESS OF BREATH NO . VITAL SIGNS WT 151.2 LBS, HT 68 IN, BMI 22.99 INDEX, BP 122/68 MM HG, HR 80 /MIN, RR 18 /MIN, TEMP 96.5 F, OXYGEN SAT % 99%, SAFE IN ENV? (Y/N) YES, NA INITIALS SC 10:30T.DAVIS MEZA. EXAMINATION GENERAL EXAMINATION: LUNGS:LUNG SOUNDS ARE CLEAR . HEART:HEART RATE REGULAR . MUSCULOSKELETAL:*, MUSCLE STRENGTH TESTING 5/5 BILATERAL LOWER EXTREMITIES., , PALPATION: POSITIVE FOR PAIN OVER L/S SPINE. POSITIVE FOR PAIN OVER L/S PARSPINALS.SPECIFIC POINT TENDERNESS OVER BILAT L4/5-L5/S1 LUMBAR FACETS WITH FACET LOADING . DIAGNOSTIC:MRI L/S SPINE . ASSESSMENTS LUMBAR FACET ARTHROPATHY - M12.88 (PRIMARY) TREATMENT LUMBAR FACET ARTHROPATHY START OXYCODONE HCL TABLET, 5 MG, 1 TABLET NEEDED, ORALLY, Q8H PRN MDD3 #45 TAB SHOULD LAST 30 DAYS, 30 DAYS, 45, REFILLS 0 REFILL GABAPENTIN CAPSULE, 300 MG, 2 CAP, ORAL, BEFORE BEDTIME, 30 DAYS, 60, REFILLS 2 NOTES: BILATERAL DIAGNOSTIC LUMBAR FACET BLOCK L4-5,L5-S1/HAS APPROVAL DONE IN September REVIEWED PRE PROCEDURE INFORMATION, PATIENT VERBALIZED UNDERSTADING, ALSO PATIENT IS TAKING PLAQUENIL WHICH DOES NOT NEED A MED HOLD FROM DR KARRIE ALCAZAR MA. PROCEDURES PN WORKMANS' COMP OPINION IN YOUR OPINION, WAS THE INCIDENT THAT THE PATIENT DESCRIBED THE COMPETENT MEDICAL CAUSE OF THIS INJURY/ILLNESS? YES ARE THE PATIENT'S COMPLAINTS CONSISTENT WITH HIS/HER HISTORY OF THE INJURY/ILLNESS? YES IS THE PATIENT'S HISTORY OF THE INJURY/ILLNESS CONSISTENT WITH YOUR OBJECTIVE FINDING? YES WHAT IS THE PERCENTAGE OF TEMPORARY IMPAIRMENT? MODERATE TO MARKED = 66.7% IS THE PATIENT WORKING? YES DOCTOR ON SITE: NAM BRADSHAW MD PROCEDURE CODES FA211 ESTABILISHED PATIENT [facility] FACILITY CHARGE DISPOSITION & COMMUNICATION FOLLOW UP POST (REASON: BILATERAL DIAGNOSTIC LUMBAR FACET BLOCK L4-5,L5-S1/HAS APPROVAL DONE IN September/) ELECTRONICALLY SIGNED BY STELLA DASH ON 11/18/2020 AT 04:03 PM EDT DISCLAIMER : THIS IS A VISIT SUMMARY EXTRACTED FROM THE [employer] [facility] [employer] CHART. IT IS NOT A COPY OF THE [employer] PROGRESS NOTE. CHRISTINA
== END ==
LOC: M PAIN 10:30
PROVIDERS: ATTEND Nurse Practitioner Family
DX: M12.88 Other specific arthropathies, not elsewhere classified, other specified site (principal); G89.29 Other chronic pain; Z86.59 Personal history of other mental and behavioral disorders; Z87.891 Personal history of nicotine dependence; Z88.8 Allergy status to other drugs, medicaments and biological substances; Z91.018 Allergy to other foods; Z79.82 Long term (current) use of aspirin; Z79.899 Other long term (current) drug therapy

== ENCOUNTER → 2020-12-16 | Outpatient (CLI) | payer OTHER | LOC: M LABSMTC 09:59 | PROVIDERS: ATTEND Anesthesiology | DX: Z01.812 Encounter for preprocedural laboratory examination (principal) ==

== ENCOUNTER → 2020-12-21 | Outpatient (CLI) | payer OTHER ==
[~2020-12-21] MED LIST changes: +BUPIVACAINE HCL 0.25% 30ML VIAL As Ordered ONE; +ISOVUE-M 300 61% 15ML VIAL As Ordered ONE; +LIDOCAINE 1% SDV 30ML VIAL As Ordered ONE
--- NOTE | 2020-12-21 10:24 | REP ---
INDICATION: BILATERAL DIAGNOSTIC LUMBAR FACET. COMPARISON: None. TECHNIQUE: Eight views. Forty-one seconds of fluoroscopy time is reported. FINDINGS: A sequence of 8 last image hold fluoroscopically obtained spot radiograph(s) of the lumbar spine document(s) needle position(s) and contrast injection associated with injection procedure. IMPRESSION: Procedural imaging. <Electronically signed by Jackson Cole > 12/21/20 5067
--- NOTE | 2020-12-22 02:28 | ECWPNPC ---
PATIENT NAME: KYREE HUDSON : 1960 GENDER: FEMALE VISIT DATE: 12/21/2020 DISCHARGE DATE: 12/21/20 1017 VISIT LOCKED DATE TIME: PHYSICIAN: NAM ESCOBEDO MD PHYSICIAN PAGER NO: ACTIVE RESOURCE: NAM ESCOBEDO MD REASON FOR APPOINTMENT 1. BILATERAL DIAGNOSTIC LUMBAR FACET BLOCK L4-L5, L5-S1 HISTORY OF PRESENT ILLNESS GENERAL: -. FALL RISK SCREENING: SCREENING : ONE FALL REPORTED IN THE LAST YEAR WITH INJURY, CT SCAN DONE @ ER. PAIN SCREENING: PATIENT HAS A COMPLAINT OF ACUTE OR CHRONIC PAIN :YES LOCATION OF PAIN:LOW BACK, LEG(S) INTENSITY OF PAIN (SCALE OF 1 TO 10):4 WHAT DOES YOUR PAIN FEEL LIKE:ACHING, STABBING DURATION:INTERMITTENT PAIN IS INCREASED BY:ACTIVITIES PAIN IS DECREASED BY:USE OF PAIN MEDICATIONS HEAT/COLD, SALINAS EXCERCISE NURSING NOTE: -. PAIN CENTER INTAKE QUESTIONS: DO YOU HAVE A HISTORY OF MRSA? :NO DO YOU TAKE A BLOOD THINNERS? :NO DO YOU HAVE ANY BLEEDING DISORDERS? :NO ANY NEW NUMBNESS OR WEAKNESS IN YOUR LEGS OR ARMS? :NO ANY PACEMAKER,DEFIBRILLATOR, OR DORSAL COLUMN STIMULATOR? :NO DO YOU HAVE ANY RASHES OR OPEN SORES? :NO ARE YOU ALLERGIC TO IV DYE? :NO ARE YOU DIABETIC? :NO ANY NEW PROBLEMS WITH YOUR MEDICATIONS? :NO HAVE YOU RECEIVED A VACCINE IN THE PAST 30 DAYS? :NO DO YOU PLAN TO RECEIVE A VACCINE IN THE NEXT 21 DAYS? :NO DO YOU TAKE ANY IMMUNOSUPPRESSIVE MEDICATIONS? :NO ANY HISTORY OF SEIZURES? :NO ANY HISTORY OF CARDIAC ISSUES OR EVENTS? :YES HEART DISEASE, 2 STENTS PLACED AND HAD AN ABLATION DO YOU HAVE ANY KIDNEY OR LIVER DISEASE? :NO DO YOU HAVE SLEEP APNEA? :NO ANY RECENT HEAD INJURY? :NO DO YOU HAVE ANY NEW INFECTIONS? :NO IS THERE A CHANCE YOU COULD BE ? :NO ARE YOU BREAST FEEDING? :NO WHEN DID YOU LAST EAT? : -LAST NIGHT AT 8 PM WHEN DID YOU LAST DRINK? : -LAST NIGHT WHAT DID YOU LAST DRINK? : - NAME OF PERSON DRIVING YOU HOME? : DELROY DO YOU HAVE ANY OTHER QUESTIONS OR CONCERNS? : - CURRENT MEDICATIONS TAKING METOPROLOL TARTRATE 25 MG TABLET 1 TABLET ORALLY ONCE A DAY (DR. BUCK), NOTES: 12-20-2020 TAKING FISH OIL ULTRA 1 TAB ORALLY 2 TIMES A DAY TAKING NITROGLYCERIN 0.4 MG/SPRAY SOLUTION 1 SPRAY UNDER THE TONGUE TRANSLINGUAL NEEDED FOR CHEST PAIN, NOTES: NOT RECENTLY TAKING ASPIRIN ADULT LOW STRENGTH 81 MG TABLET DELAYED RELEASE 1 TABLET ORALLY ONCE A DAY TAKING HYDROXYCHLOROQUINE SULFATE 200 MG TABLET TAKE ONE TABLET BY MOUTH TWICE A DAY ORAL TAKING VITAMIN C 500 MG TABLET CHEWABLE 1 TABLET ORALLY ONCE A DAY TAKING VITAMIN D-3 25 MCG (1000 UT) CAPSULE 1 CAPSULE ORALLY ONCE A DAY TAKING APPLE CIDER VINEGAR 500 MG TABLET DIRECTED ORALLY DAILY TAKING REPATHA 140MG/ML INJECTION TWICE A MONTH TAKING AMITRIPTYLINE HCL 25 MG TABLET 1 TO 3 TAB ORALLY ONCE A DAY TAKING CERVICAL COLLAR - MISCELLANEOUS DIRECTED TAKING ZOLOFT 100 MG TABLET 1 TABLET ORALLY ONCE A DAY TAKING CELEBREX 200 MG CAPSULE 1 CAPSULE ORALLY BID MDD2 TAKING GABAPENTIN 300 MG CAPSULE 2 CAP ORAL BEFORE BEDTIME, NOTES: 12-20-2020 TAKING OXYCODONE HCL 5 MG TABLET 1 TABLET NEEDED ORALLY Q8H PRN MDD3 #45 TAB SHOULD LAST 30 DAYS, NOTES: NOT-TAKING DOXYCYCLINE MONOHYDRATE 100 MG CAPSULE 1 CAPSULE ORALLY TWICE A DAY NOT-TAKING DIFLUCAN 150 MG TABLET 1 TABLET ORALLY 1 DOSE, REPEAT IN 72 HOURS IF NEEDED NOT-TAKING DICYCLOMINE HCL 20 MG TABLET 1 TABLET ORALLY THREE TIMES A DAY NOT-TAKING GABAPENTIN 300 MG CAPSULE 1 ORALLY Q8H TID, NOTES: STOPPED TAKING 1 WEEK AGO NOT-TAKING MAGNESIUM 100 MG TABLET 2 TABLETS WITH A MEAL ORALLY BID NOT-TAKING MAY USE FO-TI 360 MG ORALLY BID NOT-TAKING PRALUENT 75 MG/ML SOLUTION PEN-INJECTOR SUBCUTANEOUS 2X/MONTH, NOTES: CURRENTLY NOT TAKING DUE TO INSURANCE MEDICATION LIST REVIEWED AND RECONCILED WITH THE PATIENT PAST MEDICAL HISTORY HX OF SVT- S/P ABLATION 2005- DR MAHESH ANNE IN [facility]- Q YR- JAN CAD S/P- 2 STENT PLACED AT [facility]' (2015) CHRONIC BACK PAIN- LUMBAR REGION ARTHRITIS- PAIN CLINIC- ARNULFO BURNHAM-WORK COMP MULTIPLE JOINT PAIN- WRIST/RIGHT HIP/RIGHT KNEE/LEFT BIG TOE ANXIETY- LEXAPRO-1 YR- STOPPED B/C FELT LIKE ENCLOSED ARTHRITIS ONE FALL REPORTED IN THE LAST YEAR WITH INJURY, CT SCAN DONE @ ER ALLERGIES CRESTOR: MYALGIAS,SWELLING - SIDE EFFECTS GARLIC: SEVERE STOMACH PAIN - ALLERGY LIPITOR: SEVERE MUSCLE ACHES - SIDE EFFECTS SOCIAL HISTORY GENERAL: TOBACCO USE ARE YOU A:FORMER SMOKER HOW LONG HAS IT BEEN SINCE YOU LAST SMOKED?> 10 YEARS LATEX QUESTIONNAIRE LATEX ALLERGY : HAVE YOU EVER DEVELOPED ANY TYPE OF REACTION AFTER HANDLING LATEX PRODUCTS SUCH RUBBER GLOVES, CONDOMS, DIAPHRAGMS, BALLOONS, SOCKS, OR UNDERWEAR?NO LATEX ALLERGY : HAVE YOU EVER DEVELOPED ANY TYPE OF REACTION DURING OR AFTER DENTAL APPOINTMENT, VAGINAL/RECTAL EXAMINATION, SURGICAL PROCEDURE, OR ANY OTHER EXPOSURE?NO DATE ASKED : 11/18/2020 LATEX RISK : HAVE YOU EVER HAD ANY DIFFICULTY BREATHING OR HIVES AFTER EATING OR HANDLING ANY FRUITS, OR VEGETABLES; SUCH KIWI, BANANAS, STONE FRUITS, OR CHESTNUTSNO LATEX RISK : DO YOU HAVE A PREVIOUS PERSONAL HISTORY OF MORE THAN NINE SURGERIES, SPINA BIFIDA, OR REPEATED CATHERIZATIONS? NO LATEX RISK : ARE YOU FREQUENTLY EXPOSED TO LATEX PRODUCTS IN YOUR OCCUPATION?NO ALCOHOL USE: YES. LUNG CANCER SCREENING SMOKING STATUS:FORMER SMOKER BMI CARE GOAL FOLLOW-UP ABOVE NORMAL BMI FOLLOW-UPDIETARY MANAGEMENT EDUCATION, GUIDANCE, AND COUNSELING, WEIGHT MONITORING ALCOHOL SCREENING DID YOU HAVE A DRINK CONTAINING ALCOHOL IN THE PAST YEAR?YES HOW OFTEN DID YOU HAVE SIX OR MORE DRINKS ON ONE OCCASION IN THE PAST YEAR?NEVER (0 POINTS) HOW MANY DRINKS DID YOU HAVE ON A TYPICAL DAY WHEN YOU WERE DRINKING IN THE PAST YEAR?1 OR 2 (0 POINTS) HOW OFTEN DID YOU HAVE A DRINK CONTAINING ALCOHOL IN THE PAST YEAR?TWO TO THREE TIMES PER WEEK (3 POINTS) POINTS3 INTERPRETATIONPOSITIVE RECREATIONAL DRUG USE DRUG USE?NO CAFFEINE CAFFEINE USE?YES SEXUAL HX HAD SEX IN THE LAST 12 MONTHS (VAGINAL, ORAL, OR ANAL)?YES WITHMEN ONLY USE PROTECTION?NO LMP:POST MENOPAUSE HAVE YOU EVER HAD AN STD?NO HIV / HEP-C SCREENING HIV TEST OFFERED TO PATIENT:YES DATE OFFERED:11/03/2020 TEST ACCEPTED:NO HEP-C TEST OFFERED TO PATIENT:YES DATE OFFERED:11/03/2020 REASON:PATIENT DECLINED TEST ACCEPTED:NO REASON:PATIENT DECLINED BROCHURE PROVIDED TO PATIENTNO MOSQUE [id number] DENOMINATIONAL LANGUAGE LANGUAGES SPOKEN:PERUVIAN LEARNING BARRIERS / SPECIAL NEEDS CHANGE FROM LAST VISIT?NO BARRIERS TO LEARNING?NO HEARING IMPAIRED?NO VISION IMPAIRED?YES COGNITIVELY IMPAIRED?NO :CORRECTIVE LENSES READINESS TO LEARN?YES LEARNING PREFERENCES?NO LEARNING CAPABILITIES PRESENT?YES EMOTIONAL BARRIERS?NO SPECIAL DEVICES?YES :CANE NEEDED LOOPING MACHINE OPERATOR NEEDED?NO 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 EXERCISE: ABS, RESISTANCE TRAINING. MARITAL STATUS: . OTHERS AT HOME: SPOUSE. - PFS REFERRAL NEEDED?NO CLERGY REFERRAL NEEDED?NO PUBLIC HEALTH REFERRAL NEEDED?NO HAS THE PATIENT BEEN EDUCATED REGARDING HIS/HER PLAN OF CARE?YES HAS THE PATIENT BEEN EDUCATED REGARDING PAIN, THE RISK FOR PAIN, THE IMPORTANCE OF EFFECTIVE PAIN MANAGEMENT, AND THE PAIN ASSESSMENT PROCESS?YES ADVANCE DIRECTIVE ADVANCE DIRECTIVE DISCUSSED WITH PATIENT:YES HCP DELROY DAVIS [phone] VITAL SIGNS WT 148.8 LBS, HT 68 IN, BMI 22.62 INDEX, BP 143/68 MM HG, HR 91 /MIN, RR 18 /MIN, TEMP 98.4 F, OXYGEN SAT % 100%, SAFE IN ENV? (Y/N) YES, NA INITIALS KEG. EXAMINATION GENERAL: THE PATIENT IS ALERT, ORIENTED TIMES THREE AND COOPERATIVE. LUNGS ARE CLEAR TO AUSCULTATION. HEART SHOWS REGULAR RHYTHM, NO MURMURS AND NO GALLOPS. ASSESSMENTS SPONDYLOSIS WITHOUT MYELOPATHY OR RADICULOPATHY, LUMBAR REGION - M47.816 (PRIMARY) SPONDYLOSIS WITHOUT MYELOPATHY OR RADICULOPATHY, LUMBOSACRAL REGION - M47.817 TREATMENT SPONDYLOSIS WITHOUT MYELOPATHY OR RADICULOPATHY, LUMBAR REGION SMC FACET BLOCK (PAIN)[id number] COMPLETION OF PROCEDURAL VISIT WHEN MEETS CRITERIA SPONDYLOSIS WITHOUT MYELOPATHY OR RADICULOPATHY, LUMBOSACRAL REGION SMC FACET BLOCK (PAIN)[id number] OTHERS NOTES: PAT DONE 12/15/20 EM. PROCEDURES PAIN NURSING RECORD PROCEDURE IN ROOM 0928, PHYSICIAN IN ROOM 0941, START 0946, FINISH 0956, PHYSICIAN OUT OF ROOM 0958, OUT OF ROOM 1005, ECG NORMAL SINUS, PATIENT SHIELDED YES, SAFETY STRAP YES, PREP CHLOROPREP, DRESSING TEGADERM DR. ESCOBEDO LOC: 1. ALERT, ORIENTED HAMMAD,MEIR 12/21/2020 9:35:42 AM > RESP: 1. REGULAR, NO DYSPNEA COLOR: 1. PINK HAMMAD,MEIR 12/21/2020 9:35:52 AM > SKIN: 1. WARM, DRY HAMMADMEIR HERNANDEZ 12/21/2020 9:35:59 AM > POSITION: 1. PRONE MEIR CUEVA 12/21/2020 9:36:31 AM > VITALS: 0940 142/81 94 HR 100% ON RA 18 RESPIRATIONS GENARO AUGUSTIN 142/83 95 HR 100% ON RA 18 RESPIRATIONS MEIR CUEVA 12/21/2020 9:48:59 AM > 142/81 93 HR 100% ON RA 18 RESPIRTATIONS MEIR CUEVA 12/21/2020 9:54:36 AM > NOTES Natalie CUEVA RN COMPLETION OF PROCEDURE APPOINTMENT: POST PAIN 4 "ACHY", DRESSING SITE DRY AND INTACT, IV N/A, GAIT STEADY, TEACHING COMPLETED, PATIENT ACKNOWLEDGES UNDERSTANDING YES, PROCEDURE APPOINTMENT COMPLETED AT 1022 PN WORKMANS' COMP OPINION IN YOUR OPINION, WAS THE INCIDENT THAT THE PATIENT DESCRIBED THE COMPETENT MEDICAL CAUSE OF THIS INJURY/ILLNESS? YES ARE THE PATIENT'S COMPLAINTS CONSISTENT WITH HIS/HER HISTORY OF THE INJURY/ILLNESS? YES IS THE PATIENT'S HISTORY OF THE INJURY/ILLNESS CONSISTENT WITH YOUR OBJECTIVE FINDING? YES WHAT IS THE PERCENTAGE OF TEMPORARY IMPAIRMENT? MODERATE TO MARKED = 66.7% IS THE PATIENT WORKING? YES DOCTOR ON SITE: NAM BRADSHAW MD PN LUMBAR FACET BLOCK DIAGNOSTIC PRE PROCEDURE DIAGNOSIS LUMBAR SPONDYLOSIS, LUMBOSACRAL SPONDYLOSIS POST PROCEDURE DIAGNOSIS LUMBAR SPONDYLOSIS, LUMBOSACRAL SPONDYLOSIS PROCEDURE BILATERAL L4-L5 AND BILATERAL L5-S1 FACET BLOCK DIAGNOSTIC NUMBER [address] NAM ESCOBEDO SUSPECT ARTIST NONE ANESTHESIA LOCAL PRE PROCEDURE NOTE THE PATIENT WITH HISTORY OF CHRONIC LOW BACK PAIN. I EVALUATED THE PATIENT AND REVIEWED THE CHART. I WENT OVER THE RISKS, ALTERNATIVES, AND BENEFITS ASSOCIATED WITH THIS PROCEDURE. THE PATIENT WOULD LIKE TO PROCEED AND GAVE CONSENT TO PERFORM THE PROCEDURE. AGREED WITH THE PATIENT, WE ARE DOING THIS PROCEDURE TO DETERMINE IF THE PATIENT IS A CANDIDATE FOR A RADIOFREQUENCY ABLATION OF THE FACETS JOINTS. THE PATIENT DENIES UNEXPLAINABLE WEIGHT LOSS, FEVER, CHILLS, OR NEW CHANGES IN URINARY OR BOWEL CONTROL. THE PATIENT IS COVID-19 NEGATIVE DESCRIPTION OF PROCEDURE THE PATIENT WAS BROUGHT TO THE PROCEDURE ROOM AND PLACED IN THE PRONE POSITION. THE LUMBOSACRAL AREA WAS CLEANED WITH CHLORAPREP SOLUTION AND DRAPED ASEPTICALLY. THE PROCEDURE WAS DONE UNDER STERILE CONDITIONS. A TIMEOUT WAS PERFORMED WHERE THE CONSENTED SITE WAS VERIFIED WITH EVERYONE IN THE ROOM. UNDER FLUOROSCOPIC GUIDANCE, TARGETS WERE SELECTED AT THE INTERSECTION OF THE RIGHT AND LEFT TRANSVERSE PROCESS OF L4, L5 AND ALA OF S1 WITH ITS RESPECTIVE SUPERIOR ARTICULAR PROCESS WITH A TARGET OF THE MEDIAN BRANCHES OF L3, L4 AND THE DORSAL RAMI OF L5. I CONFIRMED AGAIN THE SITE OF TARGET. LIDOCAINE WAS USED TO NUMB THE SKIN AND THE SUBCUTANEOUS TISSUE BELOW IT. SPINAL NEEDLE, 22-GAUGE, WAS ADVANCED UNDER FLUOROSCOPIC GUIDANCE AND FOLLOWING PATIENT FEEDBACK UNTIL THE TARGETS WERE REACHED. POSITION OF THE NEEDLES WAS VERIFIED WITH AP AND LATERAL VIEWS. AFTER PROPER POSITION OF THE NEEDLES WAS ACHIEVED, ISOVUE-M DYE 30%, 0.1 ML, WAS INJECTED AT EACH SITE SHOWING ADEQUATE SPREAD OF THE DYE. THEN, A SOLUTION OF 0.4 ML OF BUPIVACAINE 0.25% WAS INJECTED AT EACH SITE. THE MEDICATIONS WERE VERIFIED WITH THE NURSE. THERE WAS NO EVIDENCE OF BLOOD, PARESTHESIA OR CEREBROSPINAL FLUID DURING THE PROCEDURE. THE PATIENT WAS SENT TO THE RECOVERY ROOM. THE PATIENT WAS MOVING THE EXTREMITIES AND DOING WELL. THERE WERE NO COMPLICATIONS DURING THE PROCEDURE. ESTIMATED BLOOD LOSS WAS LESS THAN 5 ML. FLUOROSCOPY TIME WAS 41 SECONDS POST PROCEDURE NOTE THE PATIENT WILL DOCUMENT THE PAIN LEVEL AND RESPONSE TO THIS PROCEDURE PER PAIN DIARY. THE PATIENT WILL BE SEEN IN A FOLLOW UP IN THE NEXT FEW WEEKS. FURTHER DETERMINATION FOR THE PATIENT'S CASE WILL BE DONE AT THE NEXT VISIT. INSTRUCTIONS WERE GIVEN, QUESTIONS WERE ANSWERED, AND THE PATIENT EXPRESSED UNDERSTANDING AND AGREED WITH THE PLAN. I, MARTIN FUENTES, DOCUMENTED THE ABOVE INFORMATION ACTING A SCRIBE FOR DR. ESCOBEDO. I HAVE REVIEWED THE ABOVE DOCUMENT, WRITTEN BY MARTIN FUENTES, WATER MECHANIC, AND I VERIFY THAT IT IS ACCURATE PROCEDURE CODES [id number] INJ PARAVERT F JNT L/S 1 LEV, MODIFIERS: 50 [id number] INJ PARAVERT F JNT L/S 2 LEV, MODIFIERS: 50 DISPOSITION & COMMUNICATION FOLLOW UP FOLLOW UP WITH ENTRY LEVEL LAB TECHNICIAN (REASON: POST BILATERAL DIGANOSTIC LUMBAR FACET BLOCK L4-L5, L5-S1 #1) ELECTRONICALLY SIGNED BY NAM ESCOBEDO MD, MD ON 12/21/2020 AT 03:36 PM EDT DISCLAIMER : THIS IS A VISIT SUMMARY EXTRACTED FROM THE [employer] CHART. IT IS NOT A COPY OF THE [employer] PROGRESS NOTE. HATTIED
== END ==
LOC: M PAIN 08:30
PROVIDERS: ATTEND Anesthesiology
DX: M47.816 Spondylosis without myelopathy or radiculopathy, lumbar region (principal); M47.817 Spondylosis without myelopathy or radiculopathy, lumbosacral region; I25.10 Atherosclerotic heart disease of native coronary artery without angina pectoris; F41.9 Anxiety disorder, unspecified; Z95.5 Presence of coronary angioplasty implant and graft; M25.50 Pain in unspecified joint; Z79.891 Long term (current) use of opiate analgesic; Z79.82 Long term (current) use of aspirin; Z79.899 Other long term (current) drug therapy; Z87.891 Personal history of nicotine dependence; Z88.8 Allergy status to other drugs, medicaments and biological substances; Z91.018 Allergy to other foods
CPT/HCPCS: 64493; 64494; Q9967

== ENCOUNTER → 2020-12-23 | Outpatient (CLI) | payer OTHER ==
[~2020-12-23] MED LIST changes: -BUPIVACAINE HCL 0.25% 30ML VIAL As Ordered ONE; -ISOVUE-M 300 61% 15ML VIAL As Ordered ONE; -LIDOCAINE 1% SDV 30ML VIAL As Ordered ONE
--- NOTE | 2020-12-24 02:59 | ECWPNPC ---
PATIENT NAME: KYREE HUDSON : 1960 GENDER: FEMALE VISIT DATE: 12/23/2020 DISCHARGE DATE: 12/23/20 1016 VISIT LOCKED DATE TIME: PHYSICIAN: MIKKI RING PHYSICIAN PAGER NO: ACTIVE RESOURCE: MIKKI RING REASON FOR APPOINTMENT 1. POST BILATERAL DIAGNOSTIC LUMBAR FACET BLOCK L4-5,L5-S1 HISTORY OF PRESENT ILLNESS GENERAL: HERE FOR POSTPROCEDURE FOLLOW-UP. HAD BILATERAL L4-5, L5-S1 DIAGNOSTIC LUMBAR FACET BLOCK ON 12/21/2020. PAIN WENT FROM AN 8 PREPROCEDURE TO A 0/10 VAS 24 HOURS LATER. SHE HAD GREATER THAN 80% REDUCTION IN PAIN FOR 30 MINUTES POST PROCEDURE. CONTINUES TO BENEFIT FROM DIAGNOSTIC BLOCK TODAY. INFORMED PATIENT THAT WE WOULD HAVE TO CHECK ON HER IN 1 MONTH AND SEE HOW SHE IS DOING. INFORMED HER THAT WE WOULD NEED HER TO HAVE HER PAIN RETURN IN ORDER TO DO DIAGNOSTIC LUMBAR FACET BLOCK #2. THIS IS A WORK-RELATED INJURY. -. FALL RISK SCREENING: SCREENING : NO FALLS REPORTED IN THE LAST YEAR. PAIN SCREENING: PATIENT HAS A COMPLAINT OF ACUTE OR CHRONIC PAIN :YES LOCATION OF PAIN:LOW BACK INTENSITY OF PAIN (SCALE OF 1 TO 10):0 WHAT DOES YOUR PAIN FEEL LIKE:OTHER NOT IN ANY PAIN TODAY DURATION:ONLY WITH SPECIFIC ACTIVITIES PAIN IS INCREASED BY:ACTIVITIES PAIN IS DECREASED BY:USE OF PAIN MEDICATIONS NURSING NOTE: -. PAIN CENTER INTAKE QUESTIONS: DO YOU HAVE A HISTORY OF MRSA? :NO DO YOU TAKE A BLOOD THINNERS? :NO DO YOU HAVE ANY BLEEDING DISORDERS? :NO ANY NEW NUMBNESS OR WEAKNESS IN YOUR LEGS OR ARMS? :YES PAIN IN LEFT FOOT, BIG TOE IS GOING NUMB ANY PACEMAKER,DEFIBRILLATOR, OR DORSAL COLUMN STIMULATOR? :NO DO YOU HAVE ANY RASHES OR OPEN SORES? :NO ARE YOU ALLERGIC TO IV DYE? :NO ARE YOU DIABETIC? :NO ANY NEW PROBLEMS WITH YOUR MEDICATIONS? :NO HAVE YOU RECEIVED A VACCINE IN THE PAST 30 DAYS? :YES 1ST COVID 09/14/2020 DO YOU PLAN TO RECEIVE A VACCINE IN THE NEXT 21 DAYS? :YES IF SO WHAT VACCINE AND WHEN? 2ND COVID 10/05/2020 DO YOU NEED ANY PRESCRIPTION? :NO NEEDS REFILLS ON CELEBREX, GABAPENTIN DO YOU TAKE ANY IMMUNOSUPPRESSIVE MEDICATIONS? :YES HYDROXYCHLOROQUINE STARTED IN NOVEMBER OR DECEMBER OF 2019. IS THERE A CHANCE YOU COULD BE ? :NO ARE YOU BREAST FEEDING? :NO CURRENT MEDICATIONS TAKING METOPROLOL TARTRATE 25 MG TABLET 1 TABLET ORALLY ONCE A DAY (DR. BUCK) TAKING FISH OIL ULTRA 1 TAB ORALLY 2 TIMES A DAY TAKING NITROGLYCERIN 0.4 MG/SPRAY SOLUTION 1 SPRAY UNDER THE TONGUE TRANSLINGUAL NEEDED FOR CHEST PAIN, NOTES: NOT RECENTLY TAKING ASPIRIN ADULT LOW STRENGTH 81 MG TABLET DELAYED RELEASE 1 TABLET ORALLY ONCE A DAY TAKING HYDROXYCHLOROQUINE SULFATE 200 MG TABLET TAKE ONE TABLET BY MOUTH TWICE A DAY ORAL TAKING VITAMIN C 500 MG TABLET CHEWABLE 1 TABLET ORALLY ONCE A DAY TAKING VITAMIN D-3 25 MCG (1000 UT) CAPSULE 1 CAPSULE ORALLY ONCE A DAY TAKING APPLE CIDER VINEGAR 500 MG TABLET DIRECTED ORALLY DAILY TAKING REPATHA 140MG/ML INJECTION TWICE A MONTH TAKING AMITRIPTYLINE HCL 25 MG TABLET 1 TO 3 TAB ORALLY ONCE A DAY TAKING CERVICAL COLLAR - MISCELLANEOUS DIRECTED TAKING ZOLOFT 100 MG TABLET 1 TABLET ORALLY ONCE A DAY TAKING CELEBREX 200 MG CAPSULE 1 CAPSULE ORALLY BID MDD2 TAKING GABAPENTIN 300 MG CAPSULE 2 CAP ORAL BEFORE BEDTIME TAKING OXYCODONE HCL 5 MG TABLET 1 TABLET NEEDED ORALLY Q8H PRN MDD3 #45 TAB SHOULD LAST 30 DAYS NOT-TAKING DOXYCYCLINE MONOHYDRATE 100 MG CAPSULE 1 CAPSULE ORALLY TWICE A DAY NOT-TAKING DIFLUCAN 150 MG TABLET 1 TABLET ORALLY 1 DOSE, REPEAT IN 72 HOURS IF NEEDED NOT-TAKING DICYCLOMINE HCL 20 MG TABLET 1 TABLET ORALLY THREE TIMES A DAY NOT-TAKING GABAPENTIN 300 MG CAPSULE 1 ORALLY Q8H TID, NOTES: STOPPED TAKING 1 WEEK AGO NOT-TAKING MAGNESIUM 100 MG TABLET 2 TABLETS WITH A MEAL ORALLY BID NOT-TAKING MAY USE FO-TI 360 MG ORALLY BID NOT-TAKING PRALUENT 75 MG/ML SOLUTION PEN-INJECTOR SUBCUTANEOUS 2X/MONTH, NOTES: CURRENTLY NOT TAKING DUE TO INSURANCE MEDICATION LIST REVIEWED AND RECONCILED WITH THE PATIENT PAST MEDICAL HISTORY HX OF SVT- S/P ABLATION 2005- DR MHAESH ANNE IN [facility]- Q YR- AUG CAD S/P- [address] [facility]' (2015) CHRONIC BACK PAIN- LUMBAR REGION ARTHRITIS- PAIN CLINIC- ARNULFO BURNHAM-WORK COMP MULTIPLE JOINT PAIN- WRIST/RIGHT HIP/RIGHT KNEE/LEFT BIG TOE ANXIETY- LEXAPRO-1 YR- STOPPED B/C FELT LIKE ENCLOSED ARTHRITIS ONE FALL REPORTED IN THE LAST YEAR WITH INJURY, CT SCAN DONE @ ER ALLERGIES CRESTOR: MYALGIAS,SWELLING - SIDE EFFECTS GARLIC: SEVERE STOMACH PAIN - ALLERGY LIPITOR: SEVERE MUSCLE ACHES - SIDE EFFECTS SOCIAL HISTORY GENERAL: TOBACCO USE ARE YOU A:FORMER SMOKER HOW LONG HAS IT BEEN SINCE YOU LAST SMOKED?> 10 YEARS LATEX QUESTIONNAIRE LATEX ALLERGY : HAVE YOU EVER DEVELOPED ANY TYPE OF REACTION AFTER HANDLING LATEX PRODUCTS SUCH RUBBER GLOVES, CONDOMS, DIAPHRAGMS, BALLOONS, SOCKS, OR UNDERWEAR?NO LATEX ALLERGY : HAVE YOU EVER DEVELOPED ANY TYPE OF REACTION DURING OR AFTER DENTAL APPOINTMENT, VAGINAL/RECTAL EXAMINATION, SURGICAL PROCEDURE, OR ANY OTHER EXPOSURE?NO LATEX RISK : HAVE YOU EVER HAD ANY DIFFICULTY BREATHING OR HIVES AFTER EATING OR HANDLING ANY FRUITS, OR VEGETABLES; SUCH KIWI, BANANAS, STONE FRUITS, OR CHESTNUTSNO LATEX RISK : DO YOU HAVE A PREVIOUS PERSONAL HISTORY OF MORE THAN NINE SURGERIES, SPINA BIFIDA, OR REPEATED CATHERIZATIONS? NO LATEX RISK : ARE YOU FREQUENTLY EXPOSED TO LATEX PRODUCTS IN YOUR OCCUPATION?NO DATE ASKED : 12/23/2020 ALCOHOL USE: YES. LUNG CANCER SCREENING SMOKING STATUS:FORMER SMOKER BMI CARE GOAL FOLLOW-UP ABOVE NORMAL BMI FOLLOW-UPDIETARY MANAGEMENT EDUCATION, GUIDANCE, AND COUNSELING, WEIGHT MONITORING ALCOHOL SCREENING DID YOU HAVE A DRINK CONTAINING ALCOHOL IN THE PAST YEAR?YES HOW OFTEN DID YOU HAVE SIX OR MORE DRINKS ON ONE OCCASION IN THE PAST YEAR?NEVER (0 POINTS) HOW MANY DRINKS DID YOU HAVE ON A TYPICAL DAY WHEN YOU WERE DRINKING IN THE PAST YEAR?1 OR 2 (0 POINTS) HOW OFTEN DID YOU HAVE A DRINK CONTAINING ALCOHOL IN THE PAST YEAR?TWO TO THREE TIMES PER WEEK (3 POINTS) POINTS3 INTERPRETATIONPOSITIVE RECREATIONAL DRUG USE DRUG USE?NO CAFFEINE CAFFEINE USE?YES SEXUAL HX HAD SEX IN THE LAST 12 MONTHS (VAGINAL, ORAL, OR ANAL)?YES WITHMEN ONLY USE PROTECTION?NO LMP:POST MENOPAUSE HAVE YOU EVER HAD AN STD?NO HIV / HEP-C SCREENING HIV TEST OFFERED TO PATIENT:YES DATE OFFERED:11/03/2020 TEST ACCEPTED:NO HEP-C TEST OFFERED TO PATIENT:YES DATE OFFERED:11/03/2020 REASON:PATIENT DECLINED TEST ACCEPTED:NO REASON:PATIENT DECLINED BROCHURE PROVIDED TO PATIENTNO TENRIISM [id number] LUTHERAN LANGUAGE LANGUAGES SPOKEN:[place]HAL[place] LEARNING BARRIERS / SPECIAL NEEDS CHANGE FROM LAST VISIT?NO BARRIERS TO LEARNING?NO HEARING IMPAIRED?YES : A LITTLE BIT VISION IMPAIRED?YES :CORRECTIVE LENSES COGNITIVELY IMPAIRED?NO READINESS TO LEARN?YES LEARNING PREFERENCES?NO LEARNING CAPABILITIES PRESENT?YES EMOTIONAL BARRIERS?NO SPECIAL DEVICES?YES :CANE NEEDED TOURIST ESCORT NEEDED?NO 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 EXERCISE: ABS, RESISTANCE TRAINING. MARITAL STATUS: . OTHERS AT HOME: SPOUSE. - PFS REFERRAL NEEDED?NO CLERGY REFERRAL NEEDED?NO PUBLIC HEALTH REFERRAL NEEDED?NO HAS THE PATIENT BEEN EDUCATED REGARDING HIS/HER PLAN OF CARE?YES HAS THE PATIENT BEEN EDUCATED REGARDING PAIN, THE RISK FOR PAIN, THE IMPORTANCE OF EFFECTIVE PAIN MANAGEMENT, AND THE PAIN ASSESSMENT PROCESS?YES ADVANCE DIRECTIVE ADVANCE DIRECTIVE DISCUSSED WITH PATIENT:YES HCP DELROY AGUIRREKAYLYN [phone] REVIEW OF SYSTEMS CONSTITUTIONAL: ANY RECENT FEVER NO . CHILLS NO . WEIGHT CHANGE OF UNKNOWN REASONS NO . GASTROENTEROLOGY: NEW UNEXPLAINABLE CHANGES IN BOWEL CONTROL NO . CONSTIPATION NO . GENITOURINARY: ANY NEW CHANGE IN BLADDER CONTROL? NO . NEUROLOGY: NEW ONSET DIZZINESS OR NEUROLOGICAL CHANGES NOT MENTIONED NO . NEW NUMBNESS OR PAIN PATTERNS NOT MENTIONED AND PERTINENT TO TODAY'S VISIT NO . CARDIOLOGY: NEW CHEST PRESSURE NO . PATIENT DENIES NO . RESPIRATORY: UNEXPLAINABLE COUGH NO . NEW SHORTNESS OF BREATH NO . VITAL SIGNS WT 149.4 LBS, HT 68 IN, BMI 22.71 INDEX, BP 131/76 MM HG, HR 83 /MIN, RR 18 /MIN, TEMP 97.9 F, OXYGEN SAT % 100%, SAFE IN ENV? (Y/N) YES, NA INITIALS BILLYT.DAVIS MEZA. EXAMINATION GENERAL EXAMINATION: GENERALAWAKE,ALERT ,PLEASANT . PSYCHAFFECT NORMAL . LUNGS:LUNG LOPES ARE CLEAR TO AUSCULTATION BILATERALLY. GOOD MOVEMENT OF AIR . HEART:S1, S2 IN A REGULAR RATE AND RHYTHM. NO SIGNIFICANT MURMURS, RUBS OR GALLOPS NOTED . ASSESSMENTS OTHER CHRONIC PAIN - G89.29 (PRIMARY) SPONDYLOSIS WITHOUT MYELOPATHY OR RADICULOPATHY, LUMBAR REGION - M47.816 TREATMENT OTHER CHRONIC PAIN PAIN PROCEDURE LOGDATE OF PROCEDURE1PROCEDURE:BILATERAL DIAGNOSTIC LUMBAR L4-L5,L5-S1 #1AMOUNT OF PRE SEDATE0/0RESULT:GREATER THAN 80% REDUCTION IN PAIN CONTINUES TODAY NOTES: FOLLOW-UP IS SCHEDULED IN 1 MONTH. PATIENT MAY CALL SOONER IF PAIN RETURNS. PROCEDURES PN WORKMANS' COMP OPINION IN YOUR OPINION, WAS THE INCIDENT THAT THE PATIENT DESCRIBED THE COMPETENT MEDICAL CAUSE OF THIS INJURY/ILLNESS? YES ARE THE PATIENT'S COMPLAINTS CONSISTENT WITH HIS/HER HISTORY OF THE INJURY/ILLNESS? YES IS THE PATIENT'S HISTORY OF THE INJURY/ILLNESS CONSISTENT WITH YOUR OBJECTIVE FINDING? YES WHAT IS THE PERCENTAGE OF TEMPORARY IMPAIRMENT? MODERATE TO MARKED = 66.7% IS THE PATIENT WORKING? YES DOCTOR ON SITE: NAM BRADSHAW MD PROCEDURE CODES FA211 [facility] COMMUNICATION FOLLOW UP 4 WEEKS (REASON: FOLLOW-UP THERAPEUTIC RESPONSE TO DIAGNOSTIC LUMBAR FACET BLOCK) ELECTRONICALLY SIGNED BY STELLA DASH ON 12/23/2020 AT 03:24 PM EDT DISCLAIMER : THIS IS A VISIT SUMMARY EXTRACTED FROM THE Float[facility] CHART. IT IS NOT A COPY OF THE Float: [facility] PROGRESS NOTE. CHRISTINA
== END ==
LOC: M PAIN 09:15
PROVIDERS: ATTEND Nurse Practitioner Family
DX: G89.29 Other chronic pain (principal); M47.816 Spondylosis without myelopathy or radiculopathy, lumbar region; Z86.59 Personal history of other mental and behavioral disorders; Z87.891 Personal history of nicotine dependence; Z88.8 Allergy status to other drugs, medicaments and biological substances; Z91.018 Allergy to other foods; Z79.82 Long term (current) use of aspirin; Z79.899 Other long term (current) drug therapy

== ENCOUNTER → 2021-03-04 | Outpatient (CLI) | payer OTHER ==
[~2021-03-04] MED LIST changes: +ALIR75PE3 SC; -PRAL1INJ SC
== END ==
LOC: M PAIN 09:00
PROVIDERS: ATTEND Anesthesiology
DX: Z79.891 Long term (current) use of opiate analgesic (principal)

== ENCOUNTER → 2021-03-09 | Outpatient (REF) | payer OTHER | LOC: M SFHCLERA 14:58 | PROVIDERS: ATTEND Nurse Practitioner Family | DX: Z53.9 Procedure and treatment not carried out, unspecified reason (principal); R19.7 Diarrhea, unspecified ==

== ENCOUNTER → 2021-03-10 | Outpatient (REF) | payer OTHER | LOC: M SFHCLERA 11:56 | PROVIDERS: ATTEND Nurse Practitioner Family | DX: R19.7 Diarrhea, unspecified (principal) ==

== ENCOUNTER → 2021-03-15 | Outpatient (CLI) | payer OTHER ==
[2021-03-15 12:34] LABS: HEMATOCRIT 44.7 % (36.0-47.0); HEMOGLOBIN 14.8 g/dl (12.0-15.5); MEAN CORPUSCULAR HEMOGLOBIN 29.7 pg (27.0-33.0); MEAN CORPUSCULAR HGB CONC 33.1 g/dl (32.0-36.5); MEAN CORPUSCULAR VOLUME 89.6 fl (80.0-96.0); PLATELET COUNT, AUTOMATED 353 10^3/uL (150-450); RED BLOOD COUNT 4.99 10^6/uL (4.00-5.40); WHITE BLOOD COUNT 6.2 10^3/uL (4.0-10.0)
--- NOTE | 2021-03-15 12:36 | REP ---
INDICATION: DIARRHEA. COMPARISON: None. TECHNIQUE: Three views FINDINGS: Supine and upright views of the abdomen show the intestinal gas pattern to be nonspecific. Gas and stool is seen throughout the colon within the rectosigmoid region. The organ silhouettes insofar as delineated appear unremarkable. No abdominal calcific densities are seen within the abdomen or pelvis. The accompanying single frontal view of the chest shows no free subdiaphragmatic air, cardiomegaly, infiltrates or effusions. IMPRESSION: Nonspecific intestinal gas pattern. There is no evidence of an acute abnormality. <Electronically signed by Edward Manrique > 03/15/21 1601
[2021-03-15 13:09] LABS: ALT/SGPT 28 U/L (12-78); BILIRUBIN,TOTAL 0.3 MG/DL (0.2-1.0); BLOOD UREA NITROGEN 15 MG/DL (7-18); CALCIUM LEVEL 9.2 MG/DL (8.8-10.2); CARBON DIOXIDE LEVEL 29 MEQ/L (21-32); CHLORIDE LEVEL 107 MEQ/L (98-107); CREATININE FOR GFR 0.92 MG/DL (0.55-1.30); GLOMERULAR FILTRATION RATE > 60.0 (>45); GLUCOSE, FASTING 77 MG/DL (70-100); POTASSIUM SERUM 4.9 MEQ/L (3.5-5.1); SODIUM LEVEL 140 MEQ/L (136-145); TOTAL PROTEIN 7.4 GM/DL (6.4-8.2)
== END ==
LOC: M LAB 11:29
PROVIDERS: ATTEND Physician Assistant Medical
DX: R19.7 Diarrhea, unspecified (principal)

== ENCOUNTER → 2021-03-18 | Outpatient (CLI) | payer OTHER ==
[~2021-03-18] MED LIST changes: +GLUCAGON INJ 1MG VIAL As Ordered ONE; +ISOVUE-370 76% 100ML VIAL As Ordered ONE; +NEULUMEX 0.1% SUSPENSION 450ML BOTTLE (FORMERLY VOLUMEN) As Ordered ONE
--- NOTE | 2021-03-18 12:07 | REP ---
INDICATION: DIARRHEA, WT LOSS. Patient is a history of cervical carcinoma. COMPARISON: CT study February 22, 2017. TECHNIQUE: The patient ingested oral Volumen for PO contrast per protocol. 0.6 mg of intravenous glucagon is administered. 100 ml of Isovue 370 is given intravenously for intravenous contrast. Helical scanning is acquired. Arterial phase and delayed phase imaging was acquired. Thick slab coronal and sagittal MIP images are generated. In addition coronal and sagittal multiplanar re-formation images are generated and reviewed along with axial images. FINDINGS: The digital preliminary tiler radiograph shows an unremarkable bowel gas pattern. The lung bases are clear. There is no evidence of pleural effusion or upper abdominal ascites. The liver and the spleen are normal in size homogeneous in texture. There is a 1.5 cm splenule anterior to the spleen. This is unchanged. Five normal adrenal glands are seen bilaterally. No pancreatic abnormality is observed. No abnormality is noted in the gallbladder. No retroperitoneal mass or adenopathy is observed. Urinary bladder is unremarkable. No uterine or ovarian abnormality is seen. No abdominal wall defect is observed. There is good luminal labeling of the gastrointestinal tract with oral volume in. No bowel wall mass is seen. No obstructive lesion is observed. MPR and MIP images show no additional abnormality. IMPRESSION: Negative CT enterography. No acute abnormality noted. <Electronically signed by Jackson Cole > 03/18/21 [id number]
== END ==
LOC: M RAD 09:58
PROVIDERS: ATTEND Physician Assistant Medical
DX: R19.7 Diarrhea, unspecified (principal)
CPT/HCPCS: 74177; J1610; Q9967

== ENCOUNTER → 2021-04-07 | Outpatient (CLI) | payer OTHER ==
[~2021-04-07] MED LIST changes: -AMIT25TA17; +AMIT25TA17 PO; +ASPI81TA26 PO; -GLUCAGON INJ 1MG VIAL As Ordered ONE; -HYDR200T3; +HYDR200T3 PO; -ISOVUE-370 76% 100ML VIAL As Ordered ONE; -NEULUMEX 0.1% SUSPENSION 450ML BOTTLE (FORMERLY VOLUMEN) As Ordered ONE
== END ==
LOC: M LABSMTC 09:36
PROVIDERS: ATTEND Anesthesiology
DX: Z20.828 Contact with and (suspected) exposure to other viral communicable diseases (principal); Z11.52 Encounter for screening for COVID-19

== ENCOUNTER 2021-04-12 09:28 | Day surgery (SDC) | payer OTHER ==
[~2021-04-12] VITALS: Ht 170.2 cm; Wt 62.1 kg
[~2021-04-12 09:28] MED LIST changes: +NS 1,000 ML IV ONE
--- OUTSIDE RECORDS SUMMARY | 2021-04-12 09:33 | CCD | Continuity of Care Document ---
Author Author Abena RODRIGUES [facility] Organization Unknown Address [address], [address] [place] [address] Phone [phone] Care Team Providers Care Scaler Packer Name Role Phone Michelle DuenasM Problems Description No Active Problems Social History Type Date Description Comments Sex Unknown ETOH Use 3-6 A Week Tobacco Use Start: Unknown Non Smoker Allergies, Adverse Reactions, Alerts Active Allergies Criticality Reaction | Severity Comments Date Crestor Unable to assess criticality 10/11/2018 Inactive Allergies NKDA Unable to assess criticality 07/24/2012 Medications Active Medications SIG Qnty Indications Ordering Provide r Date Metoprolol Succinate ER 25mg Tablets ER 24HR Daily Unknown Fish Oil 1000mg Capsules 2 gm q day Unknown Multivitamins Capsules Unknown Zoloft 50mg Tablets 1 po qd 90tabs Unknown Gabapentin 100mg Capsules 2 by mouth twice a day Unknown Celebrex 100mg Capsules 1 by mouth twice a day Unknown Praluent 75mg/ml Solution Pen-Inje ct 1 injection every 2 weeks Unknown 00 Oxycodone HCL 5mg Tablets 1 tablet every 6 hours for pain, as needed Unknown Hydroxychloroquine Sulfate 200mg T ablets bid Unknown Imodium A-D 2mg Tablets At least 4 daily Unknown Dicyclomine HCL 20mg Tablets take 1 tablet by mouth 3 times a day as needed Unknown Immunizations Description No Information Available Vital Signs Date Vital Result Comment 03/15/2021 10:10am BP Systolic 98 mmHg BP Diastolic 62 mmHg Height 67 inches 5'7" Weight 141.00 lb BMI (Body Mass Index) 22.1 kg/m2 [place] Body Weight 135 lb Weight 63.958 kg BSA (Body Surface Area) 1.74 m2 10/11/2018 11:39am BP Systolic 132 mmHg BP Diastolic 74 mmHg Heart Rate 64 /min Height 67 inches 5'7" Weight 155.00 lb BMI (Body Mass Index) 24.3 kg/m2 [place] Body Weight 135 lb Weight 70.308 kg BSA (Body Surface Area) 1.81 m2 Procedures Description No Information Available Medical Devices Description No Information Available Encounters Description No Information Available Assessments Date Code Description Provider 03/15/2021 R19.7 Diarrhea, unspecified JEFFERSON Herzog 03/15/2021 Z86.010 Personal history of colonic poly ps JEFFERSON Herzog 03/15/2021 Z80.0 Family history of malignant neop lasm of digestive organs JEFFERSON Herzog Plan of Treatment 03/15/2021 - JEFFERSON Herzog* R19.7 Diarrhea, unspecified * Z86.010 Personal history of colonic polyps * Z80.0 Family history of malignant neoplasm of digestive organs * * New Labs:* Tissue Transglutaminase Iga, Ordered: 03/15/21 * Immunoglobulin A, Ordered: 03/15/21 * FT4&TSH Panel, Ordered: 03/15/21 * Complete Blood Count, Ordered: 03/15/21 * Comprehensive Metabolic Profil, Ordered: 03/15/21 * Calprotectin Stool Sendout, Ordered: 03/15/21 * Fat Fecal Total Stool Sendout, Ordered: 03/15/21 * Pancreatic Elastase Stool Sendout, Ordered: 03/15/21 * New Xrays:* CT Enterography, Ordered: 03/15/21 * XR Abdomen Complete Acute Series With 1 View Chest, Ordered: 03/15/21 * New Orders:* Endoscopy, Ordered: 03/15/21 * Colonoscopy, Ordered: 03/15/21 * Comments:* Will arrange for colonoscopy. Reviewed risks and benefits of the procedure, as well as other options, with the patient. Bowel prep procedure was discussed with patient, as well as risks and side effects associated with the bowel prep. Patient verbalized understanding of all of the above and is in agreement to proceed. Patient will seek medical attention for any acute changes. Will monitor. * Follow up:* 2 weeks after procedures, sooner if needed. Functional Status Description No Information Available Mental Status Description No Information Available Referrals Refer to Reason for Referral Status Appt Date Mendoza Brown M.D. R19.7-DIARRHEA, UNSPECIFIED Scheduled 01/27/2021 [facility] [place], Gastroenterology [address], [address] [place] [address] [phone]
--- OUTSIDE RECORDS SUMMARY | 2021-04-12 09:33 | CCD ---
Author Author [facility] [facility] Organization [facility] Address Unknown Phone Unavailable Care Team Providers Care Mgmt Specialist Name Role Phone Garcia Villarreal Unavailable PROBLEMS Type Condition ICD9-CM Code VTS30-SV Code Onset Dates Condition S tatus W/U Status Risk SNOMED Code Notes Problem Mixed hyperlipidemia E78.2 Active confirmed 901852758 Problem History of supraventricular tachycardia Z86.79 Active confirmed 295648764752487 Problem Dysthymia F34.1 Active confirmed 60579337 Problem Atherosclerosis of [place] ronary artery of [place] heart without angina pectoris I25.10 Active confirmed 1805655634055 Problem Lumbar facet arthropathy M12.88 Active confirmed 078204367 Problem Disc displacement, lumbar M51.26 Active confirmed 952202929321114 Problem Spondylosis of lumbosacral region without myelop athy or radiculopathy M47.817 Active confirmed 05254409 Problem Sacroiliac dysfunction M53.3 Active confirmed 995927934 Problem Chronic prescription opiate use Z79.891 Active confirmed 912373483 Problem Sacroiliitis, not elsewhere classified M46.1 A ctive confirmed 113355164 Problem Primary osteoarthritis, right hand M19.041 Activ e confirmed 21063018 Problem 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 Active co nfirmed 91086211408370508 Problem Meniere''s disease of right ear H81.01 Active confi rmed 66633558 Problem Spondylosis without myelopathy or radiculopathy, lumbar region M47.816 Active confirmed 656839480 Problem Primary osteoarthritis of left hand M19.042 Acti ve confirmed 81424064 Problem Chronic prescription opiate use Z79.899 Active confirmed 583140470 Problem Other chronic pain G89.29 Active confirmed 8 5061247 Problem Spondylosis of lumbar region without myelopathy or radiculopathy M47.816 Active confirmed 48015998 Problem Chronic bilateral low back pain without sciatica M 54.5 Active confirmed 354385910 Problem Sinusitis, unspecified chronicity, unspecified location J32.9 Active confirmed 33304116 Problem Insomnia, unspecified type G47.00 Active confirmed 993530981 Problem Bilateral hearing loss, unspecified hearing loss type H91.93 Active confirmed 45078083 Problem Lumbar Facet arthropathy M47.816 Active confirmed 928781449 Problem Spondylosis without myelopathy or radiculopathy, lumbosacral region M47.817 Active confirmed 06316400 ALLERGIES Allergen (clinical drug ingredient) Drug/Non Drug Allergy do cumented on EMR Reaction Allergy Type Onset Date Status rosuvastatin Crestor(NDC Code:[address]-87) myalgias,swelling Drug A llergy Active atorvastatin Lipitor(NDC Code:[address]-42) severe muscle aches Drug Allergy Active Garlic garlic severe stomach pain Non Drug Allergy Active ENCOUNTERS from 1959 to 2021-03-07 Encounter Location Date Provider Diagnosis [facility] [address] Floor [phone] [place] [address] 09 Feb, 2021 Garcia Villarreal Chronic prescription opiate use Z79.891 IMMUNIZATIONS Vaccine Route Administration Date Status Influenza 18 yrs & older Flublok IM Intramuscular Apr 10, 2018 Administered TDAP 0.5mL (Boostrix) IM Intramuscular September 20, 2016 Administe red Influenza 6mo & up Fluzone IM Intramuscular Jun 08, 2017 Admi nistered Influenza 6mo & up Fluzone IM Intramuscular May 08, 2015 Admi nistered Influenza 6mo & up Fluzone IM Intramuscular Jul 03, 2014 Admi nistered Influenza 6mo & up Fluzone IM Intramuscular Jul 03, 2012 Admi nistered SOCIAL HISTORY Tobacco Use: Social History Observation Description Date Details (start date - stop date) Former Smoker Sex Assigned At : Social History Observation Description Sex Assigned At Unknown Audit Question Answer Notes Total Score: 1 Interpretation: Alcohol Education Language: Question Answer Notes Languages spoken: Uruguayan Caodaism: Question Answer Notes Caodaism 21 Temple Sexual Hx: Question Answer Notes Had sex in the last 12 months (vaginal, oral, or anal)? Yes LMP: post menopause Have you ever had an STD? No with Men only Use protection? No Drug and Alcohol Question Answer Notes Total Score: 0 Interpretation: No problems reported Alcohol Screening: Question Answer Notes Did you have a drink containing alcohol in the past year? Ye s Points 3 Interpretation Positive How often did you have six or more drinks on one occas ion in the past year? Never (0 points) How many drinks did you have on a typica l day when you were drinking in the past year? 1 or 2 (0 points) How often did you have a drink containing alcohol in t he past year? Two to three times per week (3 points) BMI Care Goal Follow-Up Question Answer Notes Above Normal BMI Follow-Up Dietary management educatio n, guidance, and counseling, Weight monitoring Tobacco Use: Question Answer Notes Are you a: former smoker How long has it been since you last smoked? > 10 years REASON FOR REFERRAL No Information VITAL SIGNS Weight 149 lbs Feb, Weight-kg 67.59 kg Feb, Height 68 in Feb, BMI 22.65 kg/m2 Feb, Temperature 97.2 degrees Fahrenheit Feb, MEDICATIONS Medication SIG (Take, Route, Frequency, Duration) Notes Start Da te End Date Status Fish Oil Ultra 1 tab orally 2 times a day Active Zoloft 100 MG 1 tablet Orally Once a day for 90 days Active Aspirin Adult Low Strength 81 MG 1 tablet Orally Once a day Active Apple Cider Vinegar 500 MG as directed Orally Daily Active Nitroglycerin 0.4 MG/SPRAY 1 spray under the tongue Tr anslingual As needed for chest pain for 30 days NOT RECENTLY Active Gabapentin 300 MG 2 cap Oral before bedtime for 30 Days Active Hydroxychloroquine Sulfate 200 MG TAKE ONE TABLET BY M OUTH TWICE A DAY Oral for 30 Active Magnesium 100 MG 2 tablets with a meal Orally bid Not-Taking oxyCODONE HCl 5 MG 1 tablet as needed Orally Q8 H PRN MDD3 #45 TAB SHOULD LAST 30 DAYS for 30 Days Jan, Active Repatha 140mg/ml TWICE A MONTH Acti ve May Use Fo-Ti 360 mg orally bid N ot-Taking Amitriptyline HCl 25 MG 1 to 3 tab Orally Once a day for 30 day( s) 30 Dec, 2020 Active CeleBREX 200 MG 1 capsule Orally bid mdd2 for 30 Days Active Praluent 75 MG/ML Subcutaneous 2x/month currently not taking du e to insurance Not-Taking Vitamin C 500 MG 1 tablet Orally Once a day for 30 day(s) Active Dicyclomine HCl 20 MG 1 tablet Orally Three times a day for 30 d ay(s) Mar, Not-Taking Cervical Collar - as directed October, Acti ve Doxycycline Monohydrate 100 MG 1 capsule Orally Twice a day for 5 day(s) October, Not-Taking Diflucan 150 MG 1 tablet Orally 1 dose, repeat in 72 chilo rs if needed for 4 days October, Not-Taking Gabapentin 300 MG 1 Orally q8h TID for 30 day(s) stopped taking 1 week ago Jan, Not-Taking Vitamin D-3 25 MCG (1000 UT) 1 capsule Orally Once a day for 30 day(s ) Active Metoprolol Tartrate 25 MG 1 tablet Orally Once a day (Dr. Martinez) Active PROCEDURES No Information RESULTS No Results REASON FOR VISIT UTOX MEDICAL (GENERAL) HISTORY Type Description Date Medical History hx of SVT- s/p ablation 2005 - Dr Mirna Leblanc in [facility]- q yr- jan Medical History CAD s/p- 2 stent placed at [facility] (201 6) Medical History Chronic back pain- Lumbar re gion arthritis- Pain clinic- [facility] Medical History Multiple joint pain- wrist/right hip/rig ht knee/left big toe Medical History Anxiety- lexapro-1 yr- stopped b/c felt like enclosed Medical History Arthritis Medical History one fall reported in the las t year with injury, ct scan done @ [facility] Surgical History Rt hand surgery- arthritis- Dr Guy Siegel [facility] Surgical History Tubal ligation Surgical History Rt leg varicose vein removed Surgical History Ablation cardiac 2005 Surgical History coronary stents x 2 ([facility] - Dr. Martinez) 12/2011 Surgical History Colonoscopy (Dr. Brown, 1 polyp, due in 2018) 08/2013 Surgical History bunion 05/2015 Surgical History arthritis 07/2015 Surgical History LEFT HAND BASAL JOINT REPAIR, CARPAL NEGRITA TR 04/29/19 Hospitalization History childbirth Hospitalization History see surgeries Goals Section No Information Health Concerns No Information MEDICAL EQUIPMENT No Information MENTAL STATUS No Information FUNCTIONAL STATUS No Information ASSESSMENTS Encounter Date Diagnosis Assessment Notes Treatment Notes Treatm ent Clinical Notes Feb, Chronic prescription opiate use (ICD-10 - Z79.89 1) PLAN OF TREATMENT Medication Medication Name Sig Start Date Stop Date Gabapentin 300 MG 2 cap Oral before bedtime for 30 Days oxyCODONE HCl 5 MG 1 tablet as needed Orally Q8 H PRN MDD3 #45 TAB SHOULD LAST 30 DAYS for 30 Days Jan, CeleBREX 200 MG 1 capsule Orally bid mdd2 for 30 Days Treatment Notes Test Name Order Date Urine Test Group 2021-03-04 Next Appt Details Provider Name:Garcia Villarreal, 2021-05-28 09:30:00 AM, [address], , [place], [address], Insurance Providers Payer Name Payer Address Payer Phone Insured Name Patient Relati onship to Insured Coverage Start Date Coverage End Date [employer] [address] [facility] [address] [facility] [id number] KYREE HUDSON 2000
--- OUTSIDE RECORDS SUMMARY | 2021-04-12 09:33 | CCD | Continuity of Care Document ---
Author Author Abena ESQUIVEL MD Organization Unknown Address [address] [place] [address] Phone [phone] Care Team Providers Care Quality Control Lead Name Role Phone HenriqueMichelle AUTM Problems Description No Active Problems Social History [...] lb BMI (Body Mass Index) 22.1 kg/m2 [place] Body Weight 135 lb Weight 63.958 kg BSA (Body Surface Area) 1.74 m2 10/11/2018 11:39am BP Systolic 132 mmHg BP Diastolic 74 mmHg Heart Rate 64 /min Height 67 inches 5'7" Weight 155.00 lb BMI (Body Mass Index) 24.3 kg/m2 [place] Body Weight 135 lb Weight 70.308 kg BSA (Body Surface Area) 1.81 m2 Results Test Acquired Date Facility Test Result H/L Range Note Laboratory test finding 03/15/2021 [facility] Main Lab [address] [place] [address] [phone] Calprotectin Stool 684 ug/g High 0-120 1, 2 Pancreatic Elastase Stool 139 Low >200 3, 4 Fat Fecal Qualitative 03/15/2021 [facility] Main Lab [address] [place] [address] [phone] Fats Neutral Normal Normal . 5 Fats Total Normal Normal . 6, 7 Laboratory test finding 03/15/2021 [facility] Main Lab [address] [place] [address] [phone] Tissue Transglutaminase IgA <2 U/mL Normal 0-3 8 Immunoglobulin A 360.0 mg/dL Normal 70-400 9, 10 FT4&TSH Panel 03/15/2021 [facility] Main Lab [address] [place] [address] [phone] Thyroid Stimulating Hormone 1.520 uIU/ML Normal 0. 358-3.740 Free T4 0.80 ng/dL Normal 0.76-1.46 11 Complete Blood Count 03/15/2021 [facility] Main Lab [address] [place] [address] [phone] White Blood Count 6.2 10 Normal 4.0-10.0 Red Blood Count 4.99 10 Normal 4.00-5.40 Hemoglobin 14.8 g/dL Normal 12.0-15.5 Hematocrit 44.7 % Normal 36.0-47.0 Mean Corpuscular Volume 89.6 fl Normal 80.0-96.0 Mean Corpuscular Hemoglobin 29.7 pg Normal 27.0-33.0 Mean Corpuscular HGB Conc 33.1 g/dL Normal 32.0-36.5 Red Cell Distribution Width 11.9 % Normal 11.5-14.5 Platelet Count, Automated 353 10 Normal 150-450 Nucleated Red Blood Cell % 0.0 % Normal 0-0 1 2 Comprehensive Metabolic Profil 03/15/2021 [facility] Main Lab [address] [place] [address] [phone] Glucose, Fasting 77 mg/dL Normal 70-100 Blood Urea Nitrogen 15 mg/dL Normal 7-18 Creatinine For GFR 0.92 mg/dL Normal 0.55-1.30 Glomerular Filtration Rate > 60.0 Normal >45 1 3 Sodium Level 140 mEq/L Normal 136-145 Potassium Serum 4.9 mEq/L Normal 3.5-5.1 Chloride Level 107 mEq/L Normal 98-107 Carbon Dioxide Level 29 mEq/L Normal 21-32 Anion Gap 4 mEq/L Low 8-16 Calcium Level 9.2 mg/dL Normal 8.8-10.2 Ast/Sgot 20 U/L Normal 7-37 Alt/SGPT 28 U/L Normal 12-78 Alkaline Phosphatase 71 U/L Normal 45-117 Bilirubin,Total 0.3 mg/dL Normal 0.2-1.0 Total Protein 7.4 GM/DL Normal 6.4-8.2 Albumin 4.0 GM/DL Normal 3.2-5.2 Albumin/Globulin Ratio 1.2 Normal 1.2-2.2 14 1 Concentration Interpreta tion Follow-Up <16 - 50 ug/g Normal None >50 -120 ug/g Borderline Re-evaluate in 4-6 weeks >120 ug/g Abnormal Repeat as clinically indicated Performed at: RN - [facility] [address] [id number] Hims Clerk: Anayeli Sherwood MD, Phone: [phone] Performed at: - [facility] [address] [id number] Hims Clerk: Rama Turner MD, Phone: [phone] 2 03/22/21 (MonMar 22) 02:29 PM YAMILETH RODRIGUES Elevated. Will inform patient. See triage. 3 Result Units: ug Elast./g Severe Pancreatic Insufficiency: <100 Moderate Pancreatic Insufficiency: 100 - 200 Normal: >200 4 03/22/21 (MonMar 22) 02:30 PM YAMILETH CHARLEBOIS Decreased. Will inform patient. See triage. 5 Normal (<60 Droplets/HPF) This test was developed and its performance characteristics determined by [facility]. It has not been cleared or approved by the Food and Drug Administration. 6 Normal (<100 Droplets/HPF) This test was developed and its performance characteristics determined by [facility]. It has not been cleared or approved by the Food and Drug Administration. 7 03/22/21 (MonMar 22) 02:29 PM YAMILETH CHARLEBOIS Fecal fats normal. 8 Negative 0 - 3 Weak Positive 4 - 10 Positive >10 . Tissue Transglutaminase (tTG) has been identified as the endomysial antigen. Studies have demonstr- ated that endomysial IgA antibodies have over 99% specificity for gluten sensitive enteropathy. Performed at: [facility] [id number] Hims Clerk: Anayeli Sherwood MD, Phone: [phone] note:<nlbl:[email or web address]_chang ed> 10 03/22/21 (MonMar 22) 02:26 PM YAMILETH CHARLEBOIS Celiac marker negative. 11 03/22/21 (MonMar 22) 02:26 PM YAMILETH CHARLEBOIS Thyroid function normal. 12 03/22/21 (MonMar 22) 02:27 PM YAMILETH CHARLEBOIS Normal. 13 Units are mL/min/1.73 m2 Chronic Kidney Disease Staging per NKF: Stage I & II GFR >=60 Normal to Mildly Decreased Stage III GFR 30-59 Moderately Decreased Stage IV GFR 15-29 Severely Decreased Stage V GFR <15 Very Little GFR Left ESRD GFR <15 on LATHMAKER 14 03/22/21 (MonMar 22) 02:28 PM YAMILETH CHARLEBOIS No significant abnormalities. Procedures Description No Information Available Medical Devices Description No Information Available Encounters Description No Information Available Assessments Date Code Description Provider 03/15/2021 R19.7 Diarrhea, unspecified Yamileth RodriguesJEFFERSON 03/15/2021 Z86.010 Personal history of colonic poly ps Yamileth HoweJEFFERSON leung 03/15/2021 Z80.0 Family history of malignant neop lasm of digestive organs JEFFERSON Herzog 03/15/2021 R63.4 Abnormal weight loss JEFFERSON Miller Plan of Treatment 03/15/2021 - JEFFERSON Herzog* R19.7 Diarrhea, unspecified * Z86.010 Personal history of colonic polyps * Z80.0 Family history of malignant neoplasm of digestive organs * R63.4 Abnormal weight loss * * New Orders:* Endoscopy, Ordered: 03/15/21 * Colonoscopy, Ordered: 03/15/21 * Comments:* Will arrange for upper endoscopy and colonoscopy. Reviewed risks and benefits of the procedures, as well as other options, with the patient. Prep for this procedure was discussed with patient, including risks and side effects associated with the prep. Patient verbalized understanding of all of the above and is in agreement to proceed. Patient will seek medical attention for any acute changes. Will monitor. * Follow up:* 2 weeks after procedures, sooner if needed. Functional Status Description No Information Available Mental Status Description No Information Available Referrals Refer to Reason for Referral Status Appt Date Mendoza Esquivel M.D. R19.7-DIARRHEA, UNSPECIFIED Scheduled 01/27/2021 [facility], Gastroenterology [address], [address] [place] [address] [phone]
--- OUTSIDE RECORDS SUMMARY | 2021-04-12 09:33 | CCD ---
Author Author [facility] [email or web address] Organization [facility] [employer] Address Unknown Phone Unavailable Care Team Providers Care Airport Tower Controller Name Role Phone Dilia Song Unavailable PROBLEMS Type Condition ICD9-CM Code FUW88-BO Code Onset Dates Condition S tatus W/U Status Risk SNOMED Code Notes Problem Mixed hyperlipidemia E78.2 Active confirmed 206314983 Problem History of supraventricular tachycardia Z86.79 Active confirmed 709296608450925 Problem Dysthymia F34.1 Active confirmed 66457228 Problem Atherosclerosis of [place] co ronary artery of [place] heart without angina pectoris I25.10 Active confirmed 5485981414969 Problem Lumbar facet arthropathy M12.88 Active confirmed 918758619 Problem Disc displacement, lumbar M51.26 Active confirmed 815121944879924 Problem Spondylosis of lumbosacral region without myelop athy or radiculopathy M47.817 Active confirmed 39126019 Problem Sacroiliac dysfunction M53.3 Active confirmed 526406769 Problem Chronic prescription opiate use Z79.891 Active confirmed 698958192 Problem Sacroiliitis, not elsewhere classified M46.1 A ctive confirmed 101333416 Problem Primary osteoarthritis, right hand M19.041 Activ e confirmed 50289886 Problem 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 Active co nfirmed 86249985568960664 Problem Meniere''s disease of right ear H81.01 Active confi rmed 35653090 Problem Spondylosis without myelopathy or radiculopathy, lumbar region M47.816 Active confirmed 942353746 Problem Primary osteoarthritis of left hand M19.042 Acti ve confirmed 36498739 Problem Chronic prescription opiate use Z79.899 Active confirmed 597781619 Problem Other chronic pain G89.29 Active confirmed 8 7730284 Problem Spondylosis of lumbar region without myelopathy or radiculopathy M47.816 Active confirmed 11631800 Problem Chronic bilateral low back pain without sciatica M 54.5 Active confirmed 876706611 Problem Sinusitis, unspecified chronicity, unspecified location J32.9 Active confirmed 78508940 Problem Insomnia, unspecified type G47.00 Active confirmed 309721552 Problem Bilateral hearing loss, unspecified hearing loss type H91.93 Active confirmed 19075258 Problem Lumbar Facet arthropathy M47.816 Active confirmed 410218415 Problem Spondylosis without myelopathy or radiculopathy, lumbosacral region M47.817 Active confirmed 79060818 ALLERGIES Allergen (clinical drug ingredient) Drug/Non Drug Allergy do cumented on EMR Reaction Allergy Type Onset Date Status rosuvastatin Crestor(NDC Code:[address]-50) myalgias,swelling Drug A llergy Active atorvastatin Lipitor(NDC Code:[address]-08) severe muscle aches Drug Allergy Active Garlic garlic severe stomach pain Non Drug Allergy Active ENCOUNTERS from 1960 to 2021-03-10 Encounter Location Date Provider Diagnosis [address] [phone] [place] [address] 14 Feb, 2021 Dilia Duncan Diarrhea, unspecified type R 19.7 IMMUNIZATIONS Vaccine Route Administration Date Status Influenza [...] Education Language: Question Answer Notes Languages spoken: Belarusian Zoroastrianism: Question Answer Notes Zoroastrianism 21 Muslim Sexual Hx: Question Answer Notes Had sex [...] FOR REFERRAL No Information VITAL SIGNS Weight 142.6 lbs Feb, Weight-kg 64.68 kg Feb, Height 68 in Feb, BMI 21.68 kg/m2 Feb, Heart Rate 69 /min Feb, Respiratory Rate 17 /min Feb, Temperature 97.9 degrees Fahrenheit Feb, Oximetry 97 Feb, Blood pressure systolic 118 mm Hg Feb, Blood pressure diastolic 71 mm Hg Feb, MEDICATIONS Medication SIG (Take, Route, Frequency, Duration) Notes Start Da te End Date Status Praluent 75 MG/ML Subcutaneous 2x/month currently not taking du e to insurance Not-Taking Cervical Collar - as directed October, Acti ve oxyCODONE HCl 5 MG 1 tablet as needed Orally Q8 H PRN MDD3 #45 TAB SHOULD LAST 30 DAYS for 30 Days Jan, Active Gabapentin 300 MG 2 cap Oral before bedtime for 30 Days Active May Use Fo-Ti 360 mg orally bid N ot-Taking Nitroglycerin 0.4 MG/SPRAY 1 spray under the tongue Tr anslingual As needed for chest pain for 30 days NOT RECENTLY Active Gabapentin 300 MG 1 Orally q8h TID for 30 day(s) stopped taking 1 week ago Jan, Not-Taking Fish Oil Ultra 1 tab orally 2 times a day Active Doxycycline Monohydrate 100 MG 1 capsule Orally Twice a day for 5 day(s) October, Not-Taking Apple Cider Vinegar 500 MG as directed Orally Daily Active Diflucan 150 MG 1 tablet Orally 1 dose, repeat in 72 chilo rs if needed for 4 days October, Not-Taking Magnesium 100 MG 2 tablets with a meal Orally bid Not-Taking Repatha 140mg/ml TWICE A MONTH Acti ve Vitamin D-3 25 MCG (1000 UT) 1 capsule Orally Once a day for 30 day(s ) Not-Taking Zoloft 100 MG 1 tablet Orally Once a day for 90 days Active Hydroxychloroquine Sulfate 200 MG TAKE ONE TABLET BY M OUTH TWICE A DAY Oral for 30 Active Amitriptyline HCl 25 MG 1 to 3 tab Orally Once a day for 30 day( s) May, Active Metoprolol Tartrate 25 MG 1 tablet Orally Once a day (Dr. Martinez) Active CeleBREX 200 MG 1 capsule Orally bid mdd2 for 30 Days Active Aspirin Adult Low Strength 81 MG 1 tablet Orally Once a day Active Vitamin C 500 MG 1 tablet Orally Once a day for 30 day(s) Not-Taking Dicyclomine HCl 20 MG 1 tablet Orally Three times a day for 30 d ay(s) Mar, Not-Taking Famotidine 10 MG 1 tablet as needed Orally Twice a day Active PROCEDURES No Information RESULTS Component Value Reference Range GASTROINTESTINAL GI PANEL (GIPANEL) Reviewed date:03/10/2021 15:52:32 Interpretation:Negative Performing Lab:[facility], [facility] [address] [address] , ,[place] [address] GASTROINTESTINAL (GI) PANEL This Gastrointestinal PCR Panel detects the following bacteria, GASTROINTESTINAL (GI) PANEL parasites and viruses: Cam pylobacter (jejuni, coli and upsaliensis), GASTROINTESTINAL (GI) PANEL Clostridium difficile (tox in A/B), Plesiomonas shigelloides, GASTROINTESTINAL (GI) PANEL Salmonella, Yersinia enter ocolitica, Vibrio (parahaemolyticus, GASTROINTESTINAL (GI) PANEL vulnificus and cholerae), Vibrio clolerae, Enteroaggregative GASTROINTESTINAL (GI) PANEL E. coli (EAEC), Enteropath ogenis E. coli (EPEC), Enterotoxigenic GASTROINTESTINAL (GI) PANEL E. coli (ETEC) it/st, Shig a-like producing E. coli (STEC) stx1/stc2, GASTROINTESTINAL (GI) PANEL E.coli O157, Shigella/Ente roinvasive E. coli (EIEC), Cryptosporidium, GASTROINTESTINAL (GI) PANEL Cyclospora cayetanensis, E ntamoeba histolytica, Giardia lamblia, GASTROINTESTINAL (GI) PANEL Adenovirus F 40/41, Astrov irus, Norovirus GI/GII, Rotavirus A and GASTROINTESTINAL (GI) PANEL Sapovirus (I, II, IV, V). GASTROINTESTINAL (GI) PANEL One negative specimen does not rule out the possibility of a GASTROINTESTINAL (GI) PANEL parasitic infection. GASTROINTESTINAL (GI) PANEL GASTROINTESTINAL (GI) PANEL NEGATIVE by MULTIPLEXED NUCLEIC ACID PCR GASTROINTESTINAL (GI) PANEL REASON FOR VISIT diarrhea MEDICAL (GENERAL) HISTORY Type Description Date Medical History hx of SVT- s/p ablation 2005 - Dr Mirna Leblanc in [facility]- q yr- jan Medical History CAD s/p- 2 stent placed at [facility] (201 6) Medical History Chronic back pain- [...] 2005 Surgical History coronary stents x 2 ([facility] - Dr. Martinez) 12/2011 Surgical History Colonoscopy (Dr. Brown, 1 polyp, due in 2019) 08/2013 Surgical History bunion 05/2015 Surgical History arthritis 07/2015 Surgical History LEFT HAND BASAL JOINT REPAIR, CARPAL NEGRITA TR 04/29/19 Hospitalization History childbirth Hospitalization History see surgeries Goals Section No Information Health Concerns No Information MEDICAL EQUIPMENT No Information MENTAL STATUS No Information FUNCTIONAL STATUS No Information ASSESSMENTS Encounter Date Diagnosis Assessment Notes Treatment Notes Treatm ent Clinical Notes Feb, Diarrhea, unspecified type (ICD-10 - R19.7) Patient with diarrhea x 3 weeks. Likely r/t IBS-D. Will get GI panel to further eval. Discussed supportive care with BRAT diet, adequate hydration. Contact GI for f/u. ER for new or worsening sxs. Consider rx'ing Bentyl if GI panel neg. Patient educated on diagnosis, medications, treatments, and expected outcomes. Patient educated on risks, SE/AE, benefits, alternatives of regimen. Discussed emergent signs and symptoms and to seek emergency medical attention if they occur. Patient voiced understanding and had all questions answered. PLAN OF TREATMENT Treatment Notes Assessment Notes Clinical Notes Diarrhea, unspecified type Patient with diarrhea x 3 w eeks. Likely r/t IBS-D. Will get GI panel to further eval. Discussed supportive care with BRAT diet, adequate hydration. Contact GI for f/u. ER for new or worsening sxs. Consider rx'ing Bentyl if GI panel neg. Patient educated on diagnosis, medicatio ns, treatments, and expected outcomes. Patient educated on risks, SE/AE, benefits, alternatives of regimen. Discussed emergent signs and symptoms and to [facility] if they occur. Patient voiced understanding and had all questions answered. Next Appt Details Provider Name:Garcia Villarreal, 2021-05-28 09:30:00 AM, [address], , [place], [address], Insurance Providers Payer Name Payer Address Payer Phone Insured Name Patient Relati onship to Insured Coverage Start Date Coverage End Date [facility] [employer] [facility] [address] [facility] [phone] KYREE HUDSON
--- OUTSIDE RECORDS SUMMARY | 2021-04-12 09:33 | CCD ---
Author Author [facility] [employer] Organization [facility] [employer] Address Unknown Phone Unavailable Care Team Providers Care Brusher Name Role Phone Dilia Song Unavailable PROBLEMS Type Condition ICD9-CM Code GFW43-EP Code Onset Dates Condition S tatus W/U Status Risk SNOMED Code Notes Problem Mixed hyperlipidemia E78.2 Active confirmed 213853688 Problem History of supraventricular tachycardia Z86.79 Active confirmed 272909692005238 Problem Dysthymia F34.1 Active confirmed 03006082 Problem Atherosclerosis of [place] co ronary artery of [place] heart without angina pectoris I25.10 Active confirmed 7464573644958 Problem Lumbar facet arthropathy M12.88 Active confirmed 433705588 Problem Disc displacement, lumbar M51.26 Active confirmed 826935416643183 Problem Spondylosis of lumbosacral region without myelop athy or radiculopathy M47.817 Active confirmed 34093643 Problem Sacroiliac dysfunction M53.3 Active confirmed 249967364 Problem Chronic prescription opiate use Z79.891 Active confirmed 143959708 Problem Sacroiliitis, not elsewhere classified M46.1 A ctive confirmed 032435490 Problem Primary osteoarthritis, right hand M19.041 Activ e confirmed 19382252 Problem 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 Active co nfirmed 37862416637920243 Problem Meniere''s disease of right ear H81.01 Active confi rmed 84592447 Problem Spondylosis without myelopathy or radiculopathy, lumbar region M47.816 Active confirmed 910374313 Problem Primary osteoarthritis of left hand M19.042 Acti ve confirmed 84117557 Problem Chronic prescription opiate use Z79.899 Active confirmed 704637639 Problem Other chronic pain G89.29 Active confirmed 8 0409004 Problem Spondylosis of lumbar region without myelopathy or radiculopathy M47.816 Active confirmed 81876170 Problem Chronic bilateral low back pain without sciatica M 54.5 Active confirmed 885964409 Problem Sinusitis, unspecified chronicity, unspecified location J32.9 Active confirmed 61227282 Problem Insomnia, unspecified type G47.00 Active confirmed 202805930 Problem Bilateral hearing loss, unspecified hearing loss type H91.93 Active confirmed 69290857 Problem Lumbar Facet arthropathy M47.816 Active confirmed 508049244 Problem Spondylosis without myelopathy or radiculopathy, lumbosacral region M47.817 Active confirmed 59484858 ALLERGIES Allergen (clinical drug ingredient) Drug/Non Drug Allergy do cumented on EMR Reaction Allergy Type Onset Date Status rosuvastatin Crestor(NDC Code:[address]-42) myalgias,swelling Drug A llergy Active atorvastatin Lipitor(NDC Code:[address]-47) severe muscle aches Drug Allergy Active Garlic garlic severe stomach pain Non Drug Allergy Active ENCOUNTERS from 1960 to 2021-03-10 Encounter Location Date Provider Diagnosis [address] [phone] [place] [address] Feb, Dilia Ruedallister IMMUNIZATIONS Vaccine Route Administration Date Status Influenza [...] Education Language: Question Answer Notes Languages spoken: Finnish Orthodox: Question Answer Notes Orthodox 21 Gnosticism Sexual Hx: Question Answer Notes Had sex [...] REASON FOR REFERRAL No Information VITAL SIGNS No information MEDICATIONS Medication SIG (Take, Route, Frequency, Duration) [...] a day Active PROCEDURES No Information RESULTS No Results REASON FOR VISIT GI panel results MEDICAL (GENERAL) HISTORY Type Description Date Medical History hx of SVT- s/p ablation 2005 - Dr Mirna Leblanc in [facility]- q yr- jan Medical History CAD s/p- 2 stent placed at [facility] (201 6) Medical History Chronic back pain- [...] Surgical History Rt hand surgery- arthritis- Dr Swanson- [facility] Surgical History Tubal ligation Surgical History Rt leg varicose vein removed Surgical History Ablation cardiac 2005 Surgical History coronary stents x 2 ([facility] - Dr. Martinez) 12/2011 Surgical History Colonoscopy (Dr. Brown, 1 polyp, due in 2019) 08/2013 Surgical History bunion 05/2015 Surgical History arthritis 07/2015 Surgical History LEFT HAND BASAL JOINT REPAIR, CARPAL NEGRITA TR 04/29/19 Hospitalization History childbirth Hospitalization History see surgeries Goals Section No Information Health Concerns No Information MEDICAL EQUIPMENT No Information MENTAL STATUS No Information FUNCTIONAL STATUS No Information ASSESSMENTS No Information PLAN OF TREATMENT Next Appt Details Provider Name:Garcia Chairezalvo, 2021-05-28 09:30:00 AM, [address], , [place], [address], Insurance Providers Payer Name Payer Address Payer Phone Insured Name Patient Relati onship to Insured Coverage Start Date Coverage End Date [facility] [employer] [facility] [address] [facility] [phone] KYREE HUDSON
--- OUTSIDE RECORDS SUMMARY | 2021-04-12 09:33 | CCD ---
Author Author [facility] [employer] Organization [facility] [employer] Address Unknown Phone Unavailable Care Team Providers Care Social Research Assistant Name Role Phone Garcia Villarreal Unavailable PROBLEMS Type Condition ICD9-CM Code LCK97-QA Code Onset Dates Condition S tatus W/U Status Risk SNOMED Code Notes Problem Mixed hyperlipidemia E78.2 Active confirmed 697801853 Problem History of supraventricular tachycardia Z86.79 Active confirmed 080996104250786 Problem Dysthymia F34.1 Active confirmed 22179509 Problem Atherosclerosis of [place] co ronary artery of [place] heart without angina pectoris I25.10 Active confirmed 9196469266436 Problem Lumbar facet arthropathy M12.88 Active confirmed 820805339 Problem Disc displacement, lumbar M51.26 Active confirmed 824269161983174 Problem Spondylosis of lumbosacral region without myelop athy or radiculopathy M47.817 Active confirmed 22757903 Problem Sacroiliac dysfunction M53.3 Active confirmed 426886901 Problem Chronic prescription opiate use Z79.891 Active confirmed 463527563 Problem Sacroiliitis, not elsewhere classified M46.1 A ctive confirmed 938268207 Problem Primary osteoarthritis, right hand M19.041 Activ e confirmed 84999772 Problem 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 Active co nfirmed 20252798185534116 Problem Meniere''s disease of right ear H81.01 Active confi rmed 85973377 Problem Spondylosis without myelopathy or radiculopathy, lumbar region M47.816 Active confirmed 772839072 Problem Primary osteoarthritis of left hand M19.042 Acti ve confirmed 10336746 Problem Chronic prescription opiate use Z79.899 Active confirmed 147676912 Problem Other chronic pain G89.29 Active confirmed 8 7667889 Problem Spondylosis of lumbar region without myelopathy or radiculopathy M47.816 Active confirmed 17198171 Problem Chronic bilateral low back pain without sciatica M 54.5 Active confirmed 807240664 Problem Sinusitis, unspecified chronicity, unspecified location J32.9 Active confirmed 86360894 Problem Insomnia, unspecified type G47.00 Active confirmed 885244166 Problem Bilateral hearing loss, unspecified hearing loss type H91.93 Active confirmed 41455544 Problem Lumbar Facet arthropathy M47.816 Active confirmed 218854969 Problem Spondylosis without myelopathy or radiculopathy, lumbosacral region M47.817 Active confirmed 14278539 ALLERGIES Allergen (clinical drug ingredient) Drug/Non Drug Allergy do cumented on EMR Reaction Allergy Type Onset Date Status rosuvastatin Crestor(NDC Code:[address]-69) myalgias,swelling Drug A llergy Active atorvastatin Lipitor(NDC Code:[address]-74) severe muscle aches Drug Allergy Active Garlic garlic severe stomach pain Non Drug Allergy Active ENCOUNTERS from 1960 to 2021-02-18 Encounter Location Date Provider Diagnosis [facility] [address] Floor [phone] [place] [address] Jan, Garcia Villarreal IMMUNIZATIONS Vaccine Route Administration Date Status Influenza [...] Education Language: Question Answer Notes Languages spoken: Ivorian Tenriism: Question Answer Notes Tenriism 21 Hindu Sexual Hx: Question Answer Notes Had sex [...] day for 30 day( s) May, Active CeleBREX 200 MG 1 capsule Orally [...] Information RESULTS No Results REASON FOR VISIT P/A CELECOXIB 200 MG MEDICAL (GENERAL) HISTORY Type Description Date Medical History hx of SVT- s/p ablation 2005 - [address] Mirna Leblanc in [facility]- q yr- jan Medical History CAD s/p- 2 stent placed at [facility] (201 6) Medical History Chronic [...] 2005 Surgical History coronary stents x 2 ([facility] - Dr. Martinez) 12/2011 Surgical History [...] Information ASSESSMENTS No Information PLAN OF TREATMENT Medication Medication Name Sig Start Date Stop Date Gabapentin 300 MG 2 cap Oral before bedtime for 30 Days oxyCODONE HCl 5 MG 1 tablet as needed Orally Q8 H PRN MDD3 #45 TAB SHOULD LAST 30 DAYS for 30 Days Jan, CeleBREX 200 MG 1 capsule Orally bid mdd2 for 30 Days Next Appt Details Provider Name:Garcia Villarreal, 2021-03-04 09:00:00 AM, [address], , [place], [address], Provider Name:Garcia Villarreal, 2021-05-28 09:30:00 AM, [address], , [place], [address], Insurance Providers Payer Name Payer Address Payer Phone Insured Name Patient Relati onship to Insured Coverage Start Date Coverage End Date [employer] [address] [facility] [address] [facility] [id number] KYREE HUDSON [address]
--- OUTSIDE RECORDS SUMMARY | 2021-04-12 09:33 | CCD ---
Author Author [facility] Organization [facility] Syst ems Address Unknown Phone Unavailable Care Team Providers Care Rn Digestive Name Role Phone Garcia Villarreal Unavailable PROBLEMS Type Condition ICD9-CM Code [id number] Code Onset Dates Condition S tatus W/U Status Risk SNOMED Code Notes Problem Mixed hyperlipidemia E78.2 Active confirmed 002613526 Problem History of supraventricular tachycardia Z86.79 Active confirmed 996404773088562 Problem Dysthymia F34.1 Active confirmed 75996495 Problem Atherosclerosis of [place] co ronary artery of [place] heart without angina pectoris I25.10 Active confirmed 1257118828913 Problem Lumbar facet arthropathy M12.88 Active confirmed 409452858 Problem Disc displacement, lumbar M51.26 Active confirmed 784713736154142 Problem Spondylosis of lumbosacral region without myelop athy or radiculopathy M47.817 Active confirmed 20415076 Problem Sacroiliac dysfunction M53.3 Active confirmed 041238332 Problem Chronic prescription opiate use Z79.891 Active confirmed 064707721 Problem Sacroiliitis, not elsewhere classified M46.1 A ctive confirmed 677480331 Problem Primary osteoarthritis, right hand M19.041 Activ e confirmed 16715779 Problem 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 Active co nfirmed 00899947099812388 Problem Meniere''s disease of right ear H81.01 Active confi rmed 15216216 Problem Spondylosis without myelopathy or radiculopathy, lumbar region M47.816 Active confirmed 898407417 Problem Primary osteoarthritis of left hand M19.042 Acti ve confirmed 73909635 Problem Chronic prescription opiate use Z79.899 Active confirmed 266974385 Problem Other chronic pain G89.29 Active confirmed 8 5868245 Problem Spondylosis of lumbar region without myelopathy or radiculopathy M47.816 Active confirmed 30984447 Problem Chronic bilateral low back pain without sciatica M 54.5 Active confirmed 775208565 Problem Sinusitis, unspecified chronicity, unspecified location J32.9 Active confirmed 60136510 Problem Insomnia, unspecified type G47.00 Active confirmed 252786800 Problem Bilateral hearing loss, unspecified hearing loss type H91.93 Active confirmed 09581654 Problem Lumbar Facet arthropathy M47.816 Active confirmed 009181767 Problem Spondylosis without myelopathy or radiculopathy, lumbosacral region M47.817 Active confirmed 35041329 ALLERGIES Allergen (clinical drug ingredient) Drug/Non Drug Allergy do cumented on EMR Reaction Allergy Type Onset Date Status rosuvastatin Crestor(NDC Code:[address]-77) myalgias,swelling Drug A llergy Active atorvastatin Lipitor(NDC Code:[address]-41) severe muscle aches Drug Allergy Active Garlic garlic severe stomach pain Non Drug Allergy Active ENCOUNTERS from 1959 to 2021-04-02 Encounter Location Date Provider Diagnosis [facility] [address] Floor [phone] [place] [address] 07 Mar, 2021 Garcia Villarreal IMMUNIZATIONS Vaccine Route Administration Date [...] Education Language: Question Answer Notes Languages spoken: Italian Jewish: Question Answer Notes Jewish 21 Anabaptism Sexual Hx: Question Answer Notes Had sex [...] Notes Start Da te End Date Status Dicyclomine HCl 20 MG 1 tablet Orally Three times a day for 30 d ay(s) Mar, Not-Taking Hydroxychloroquine Sulfate 200 MG TAKE ONE TABLET BY M OUTH TWICE A DAY Oral for 30 Active Gabapentin 300 MG 1 Orally q8h TID for 30 day(s) stopped taking 1 week ago Jan, Not-Taking Fish Oil Ultra 1 tab orally 2 times a day Active Magnesium 100 MG 2 tablets with a meal Orally bid Not-Taking May Use Fo-Ti 360 mg orally bid N ot-Taking Aspirin Adult Low Strength 81 MG 1 tablet Orally Once a day Active Metoprolol Tartrate 25 MG 1 tablet Orally Once a day (Dr. Martinez) Active CeleBREX 200 MG 1 capsule Orally bid mdd2 for 30 Days Active Gabapentin 300 MG 2 cap Oral before bedtime for 30 Days Active Repatha 140mg/ml TWICE A MONTH Acti ve Diflucan 150 MG 1 tablet Orally 1 dose, repeat in 72 chilo rs if needed for 4 days October, Not-Taking Praluent 75 MG/ML Subcutaneous 2x/month currently not taking du e to insurance Not-Taking Zoloft 100 MG 1 tablet Orally Once a day for 90 days Active oxyCODONE HCl 5 MG 1 tablet as needed Orally Q8 H PRN MDD3 #45 TAB SHOULD LAST 30 DAYS for 30 Days Jan, Active Famotidine 10 MG 1 tablet as needed Orally Twice a day Active Nitroglycerin 0.4 MG/SPRAY 1 spray under the tongue Tr anslingual As needed for chest pain for 30 days NOT RECENTLY Active Triamcinolone Acetonide 0.1 % 1 application to right a rm, trunk Externally Twice a day for 10 day(s) Feb, Active Doxycycline Monohydrate 100 MG 1 capsule Orally Twice a day for 5 day(s) October, Not-Taking Cervical Collar - as directed October, Acti ve methylPREDNISolone 4 MG as directed Orally per pack instructions for 6 days Feb, Active Vitamin D-3 25 MCG (1000 UT) 1 capsule Orally Once a day for 30 day(s ) Not-Taking Amitriptyline HCl 25 MG 1 to 3 tab Orally Once a day for 30 day( s) May, Active Apple Cider Vinegar 500 MG as directed Orally Daily Active Vitamin C 500 MG 1 tablet Orally Once a day for 30 day(s) Not-Taking PROCEDURES No Information RESULTS No Results REASON FOR VISIT JOSE MALONEY MEDICAL (GENERAL) HISTORY Type Description Date Medical History hx of SVT- s/p ablation 2005 - Dr Mirna Leblanc in [facility]- q yr- jan Medical History CAD s/p- 2 stent placed at [facility] (201 6) Medical History Chronic back pain- Lumbar re gion arthritis- Pain clinic- [facility]-WORK COMP Medical History Multiple joint pain- wrist/right hip/rig ht knee/left big toe Medical History Anxiety- lexapro-1 yr- stopped b/c felt like enclosed Medical History Arthritis Medical History one fall reported in the t year with injury, ct scan done @ [facility] Surgical History Rt hand surgery- arthritis- Dr Guy Siegel [facility] Surgical History Tubal ligation Surgical History Rt leg varicose vein removed Surgical History Ablation cardiac 2005 Surgical History coronary stents x 2 ([facility] - Dr. Martinez) 12/2011 Surgical History [...] Medication Name Sig Start Date Stop Date Triamcinolone Acetonide 0.1 % 1 application to right a rm, trunk Externally Twice a day for 10 day(s) Feb, methylPREDNISolone 4 MG as directed Orally per pack instruct ions for 6 days Feb, Next Appt Details Provider Name:Garcia Villarreal, 2021-05-28 09:30:00 AM, [address], , [place], [address], Insurance Providers Payer Name Payer Address Payer Phone Insured Name Patient Relati onship to Insured Coverage Start Date Coverage End Date [facility] [facility] [address] [facility] [address] KYREE HUDSON
--- OUTSIDE RECORDS SUMMARY | 2021-04-12 09:33 | CCD ---
Author Author [facility] [facility] [facility] Organization [facility] [facility] [facility] Address Unknown Phone Unavailable Care Team Providers Care Anchor Operator Name Role Phone Garcia Villarreal Unavailable PROBLEMS Type Condition ICD9-CM Code TFL73-YC Code Onset Dates Condition S tatus W/U Status Risk SNOMED Code Notes Problem Mixed hyperlipidemia E78.2 Active confirmed 519194398 Problem History of supraventricular tachycardia Z86.79 Active confirmed 890155344747170 Problem Dysthymia F34.1 Active confirmed 40802726 Problem Atherosclerosis of [place] co ronary artery of [place] heart without angina pectoris I25.10 Active confirmed 4828831179698 Problem Lumbar facet arthropathy M12.88 Active confirmed 712576979 Problem Disc displacement, lumbar M51.26 Active confirmed 833531129220628 Problem Spondylosis of lumbosacral region without myelop athy or radiculopathy M47.817 Active confirmed 97335996 Problem Sacroiliac dysfunction M53.3 Active confirmed 072297235 Problem Chronic prescription opiate use Z79.891 Active confirmed 636794353 Problem Sacroiliitis, not elsewhere classified M46.1 A ctive confirmed 209233780 Problem Primary osteoarthritis, right hand M19.041 Activ e confirmed 05828935 Problem 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 Active co nfirmed 18912231650981623 Problem Meniere''s disease of right ear H81.01 Active confi rmed 86206863 Problem Spondylosis without myelopathy or radiculopathy, lumbar region M47.816 Active confirmed 502444257 Problem Primary osteoarthritis of left hand M19.042 Acti ve confirmed 07172590 Problem Chronic prescription opiate use Z79.899 Active confirmed 081551211 Problem Other chronic pain G89.29 Active confirmed 8 9197319 Problem Spondylosis of lumbar region without myelopathy or radiculopathy M47.816 Active confirmed 49580917 Problem Chronic bilateral low back pain without sciatica M 54.5 Active confirmed 330551490 Problem Sinusitis, unspecified chronicity, unspecified location J32.9 Active confirmed 37973189 Problem Insomnia, unspecified type G47.00 Active confirmed 682251250 Problem Bilateral hearing loss, unspecified hearing loss type H91.93 Active confirmed 76793666 Problem Lumbar Facet arthropathy M47.816 Active confirmed 523526997 Problem Spondylosis without myelopathy or radiculopathy, lumbosacral region M47.817 Active confirmed 69361981 ALLERGIES Allergen (clinical drug ingredient) Drug/Non Drug Allergy do cumented on EMR Reaction Allergy Type Onset Date Status rosuvastatin Crestor(NDC Code:[address]-28) myalgias,swelling Drug A llergy Active atorvastatin Lipitor(NDC Code:[address]-70) severe muscle aches Drug Allergy Active Garlic garlic severe stomach pain Non Drug Allergy Active ENCOUNTERS from 1960 to 2021-02-17 Encounter Location Date Provider Diagnosis [facility] [address] Floor [phone] [place] [address] Jan, Garcia Villarreal Lumbar facet arthrop athy M12.88 IMMUNIZATIONS Vaccine Route Administration Date Status Influenza [...] Education Language: Question Answer Notes Languages spoken: Spanish Catholic: Question Answer Notes Catholic 21 Jehovah'S Witness Sexual Hx: Question Answer Notes Had sex [...] Information RESULTS No Results REASON FOR VISIT GABAPENTIN, CELEBREX, OXYCODONE REFILL MEDICAL (GENERAL) HISTORY Type Description Date Medical History hx of SVT- s/p ablation 2005 - [address] Mirna Leblanc in [place] [facility]- q yr- jan Medical History CAD s/p- [address] [facility] (201 6) Medical History Chronic back pain- [...] 2005 Surgical History coronary stents x 2 ([facility] - Dr. Martinez) 12/2011 Surgical History [...] Notes Treatment Notes Treatm ent Clinical Notes Jan, Lumbar facet arthropathy (ICD-10 - M12.88) PLAN OF TREATMENT Medication Medication Name Sig [...] Details Provider Name:Garcia Villarreal, 2021-03-04 09:00:00 AM, [address] [place] [address], , [place], [address], Provider Name:Garcia Villarreal, 2021-05-28 09:30:00 AM, [address], , [place], [address], Insurance Providers Payer Name Payer Address Payer Phone Insured Name Patient Relati onship to Insured Coverage Start Date Coverage End Date [employer] [facility] [address] [facility] [id number] KYREE HUDSON 2000
--- OUTSIDE RECORDS SUMMARY | 2021-04-12 09:33 | CCD | Continuity of Care Document ---
Author Author [facility] Organization Unknown Address [address] [facility], [address] [place] [address] Phone [phone] Care Team Providers Care Living Supervisor Name Role Phone Michelle DuenasM Problems Description [...] SIG Qnty Indications Ordering Provide r Date Creon [id number] Caps DR Rickey urbano take one capsule by mouth during each meal and 1 capsule during each snack 150caps Mendoza Brown MD 03/24/2021 Miralax 17GM/Scoop Powder use as instructed by doctor for bowel prep 510gm Mendoza Brown MD 03/24/2021 Metoprolol Succinate ER 25mg Tablets ER 24HR [...] lb BMI (Body Mass Index) 22.1 kg/m2 [place] Body Weight 135 lb Weight 63.958 kg BSA (Body Surface Area) 1.74 m2 10/11/2018 11:39am BP Systolic 132 mmHg BP Diastolic 74 mmHg Heart Rate 64 /min Height 67 inches 5'7" Weight 155.00 lb BMI (Body Mass Index) 24.3 kg/m2 [place] Body Weight 135 lb Weight 70.308 kg BSA (Body Surface Area) 1.81 m2 Results Test Acquired Date Facility Test Result H/L Range Note Laboratory test finding 03/15/2021 [facility] Main Lab [address] [place] [address] [phone] Calprotectin Stool 684 ug/g High 0-120 1, 2 Pancreatic Elastase Stool 139 Low >200 3, 4 Fat Fecal Qualitative 03/15/2021 [facility] Main Lab [address] [place] [address] [phone] Fats Neutral Normal Normal . 5 Fats Total Normal Normal . 6, 7 Laboratory test finding 03/15/2021 [facility] Main Lab [address] [place] [address] [phone] Tissue Transglutaminase IgA <2 U/mL Normal 0-3 8 Immunoglobulin A 360.0 mg/dL Normal 70-400 9, 10 FT4&TSH Panel 03/15/2021 [facility] nter Main Lab [address] [place] [address] [phone] Thyroid Stimulating Hormone 1.520 uIU/ML Normal 0. 358-3.740 Free T4 0.80 ng/dL Normal 0.76-1.46 11 Complete Blood Count 03/15/2021 [facility] enter Main Lab [address] [place] [address] [phone] White Blood Count 6.2 10 Normal 4.0-10.0 [...] 0-0 1 2 Comprehensive Metabolic Profil 03/15/2021 [facility] Main Lab [address] [place] [address] [phone] Glucose, Fasting 77 mg/dL Normal 70-100 Blood [...] clinically indicated Performed at: RN - [facility] [address] [id number] Sexual Assault Nurse: Anayeli Sherwood MD, Phone: [phone] Performed at: BN - [address] [id number] Sexual Assault Nurse: Rama Turner MD, Phone: [phone] 2 03/22/21 (MonMar 22) 02:29 PM YAMILETH CHARLEBOIS Elevated. Will inform patient. See triage. 3 Result Units: ug Elast./g Severe Pancreatic Insufficiency: <100 Moderate Pancreatic Insufficiency: 100 - 200 Normal: >200 4 03/22/21 (MonMar 22) 02:30 PM YAMILETH CHARLEBOIS Decreased. Will inform patient. See triage. 5 Normal (<60 Droplets/HPF) This test was developed and its performance characteristics determined by [facility]. It has not been cleared or approved by the Food and Drug Administration. 6 Normal (<100 Droplets/HPF) This test was developed and its performance characteristics determined by [facility]. It has not been cleared or approved [...] specificity for gluten sensitive enteropathy. Performed at: - [facility] [id number] Sexual Assault Nurse: Anayeli Sherwood MD, Phone: [phone] note:<nlbl:demographic_chang ed> 10 03/22/21 (MonMar 22) [...] Little GFR Left ESRD GFR <15 on CANDY DIPPER HAND 14 03/22/21 (MonMar 22) 02:28 PM YAMILETH CHARLEBOIS No significant abnormalities. Procedures Date Code Description Status 03/15/2021 24594 Office/Outpatient New Moderate M DM 45-59 Minutes Completed Medical Devices Description No Information Available Encounters Type Date Location Provider Dx Diagnosis Office Visit 03/15/2021 10:00a [facility] Yamileth Nani JEFFERSON Rodrigues R19.7 Diarrhea, unspecified Z86.010 Personal history of colonic polyps Z80.0 Family history of malignant neoplasm of digestive organs R63.4 Abnormal weight loss Assessments Date Code Description Provider 03/15/2021 R19.7 Diarrhea, unspecified Yamileth Cardoza JEFFERSON Rodrigues 03/15/2021 Z86.010 Personal history of colonic poly ps JEFFERSON Herzog 03/15/2021 Z80.0 Family history of malignant neop lasm of digestive organs JEFFERSON Herzog 03/15/2021 R63.4 Abnormal weight loss JEFFERSON Miller Plan of Treatment Future Appointment(s):* 04/26/2021 1:30 pm - [facility] * 04/12/2021 2:20 pm - Mendoza Brown MD at [facility] 03/15/2021 - JEFFERSON Herzog* R19.7 Diarrhea, unspecified [...] Mendoza Brown M.D. R19.7-DIARRHEA, UNSPECIFIED Scheduled 01/27/2021 [facility], Gastroenterology [address] [facility], [address] [place] [address] [phone]
--- OUTSIDE RECORDS SUMMARY | 2021-04-12 09:33 | CCD | Continuity of Care Document ---
Author Author Abena ESQUIVEL MD Organization Unknown Address [address] [place] [address] Phone [phone] Care Team Providers Care Infrastructure Administrator Name Role Phone HenriqueMichelle AUTM Problems Description [...] lb BMI (Body Mass Index) 22.1 kg/m2 [place] Body Weight 135 lb Weight 63.958 kg BSA (Body Surface Area) 1.74 m2 10/11/2018 11:39am BP Systolic 132 mmHg BP Diastolic 74 mmHg Heart Rate 64 /min Height 67 inches 5'7" Weight 155.00 lb BMI (Body Mass Index) 24.3 kg/m2 [place] Body Weight 135 lb Weight 70.308 kg BSA (Body Surface Area) 1.81 m2 Results Test Acquired Date Facility Test Result H/L Range Note Laboratory test finding 03/15/2021 [facility] Main Lab [address] [place] [address] [phone] Calprotectin Stool 684 ug/g High 0-120 1 Fat Fecal Total Stool Sendout <pending> Pancreatic Elastase Stool 139 Low >200 2 Fat Fecal Qualitative 03/15/2021 [facility] Main Lab [address] [place] [address] [phone] Fats Neutral Normal Normal . 3 Fats Total Normal Normal . 4 Laboratory test finding 03/15/2021 [facility] Main Lab [address] [place] [address] [phone] Tissue Transglutaminase IgA <2 U/mL Normal 0-3 5 Immunoglobulin A 360.0 mg/dL Normal 70-400 6, 7 FT4&TSH Panel 03/15/2021 [facility] nter Main Lab [address] [place] [address] [phone] Thyroid Stimulating Hormone 1.520 uIU/ML Normal 0. 358-3.740 Free T4 0.80 ng/dL Normal 0.76-1.46 8 Complete Blood Count 03/15/2021 [facility] enter Main Lab [address] [place] [address] [phone] White Blood Count 6.2 10 Normal 4.0-10.0 [...] Blood Cell % 0.0 % Normal 0-0 9 Comprehensive Metabolic Profil 03/15/2021 [facility] Main Lab [address] [place] [address] [phone] Glucose, Fasting 77 mg/dL Normal 70-100 Blood Urea Nitrogen 15 mg/dL Normal 7-18 Creatinine For GFR 0.92 mg/dL Normal 0.55-1.30 Glomerular Filtration Rate > 60.0 Normal >45 1 0 Sodium Level 140 mEq/L Normal 136-145 Potassium [...] Normal 3.2-5.2 Albumin/Globulin Ratio 1.2 Normal 1.2-2.2 11 1 Concentration Interpreta tion Follow-Up <16 - 50 ug/g Normal None >50 -120 ug/g Borderline Re-evaluate in 4-6 weeks >120 ug/g Abnormal Repeat as clinically indicated Performed at: RN - [facility] [address] [id number] Butcher Helper: Anayeli Sherwood MD, Phone: [phone] Performed at: - [facility] [address] [id number] Butcher Helper: Rama Turner MD, Phone: [phone] 2 Result Units: ug Elast./g Severe Pancreatic Insufficiency: <100 Moderate Pancreatic Insufficiency: 100 - 200 Normal: >200 3 Normal (<60 Droplets/HPF) This test was developed and its performance characteristics determined by [facility]. It has not been cleared or approved by the Food and Drug Administration. 4 Normal (<100 Droplets/HPF) This test was developed and its performance characteristics determined by [facility]. It has not been cleared or approved by the Food and Drug Administration. 5 Negative 0 - 3 Weak Positive 4 - 10 Positive >10 . Tissue Transglutaminase (tTG) has been identified as the endomysial antigen. Studies have demonstr- ated that endomysial IgA antibodies have over 99% specificity for gluten sensitive enteropathy. Performed at: [facility] [address] [id number] Butcher Helper: Anayeli Sherwood MD, Phone: [phone] 6 note:<nlbl:demographic_chang ed> 7 03/22/21 (MonMar 22) 02:26 PM VANESSA ANNIABOBRAVO Celiac marker negative. 8 03/22/21 (MonMar 22) 02:26 PM VANESSA CHARLEBOIS Thyroid function normal. 9 03/22/21 (MonMar 22) 02:27 PM VANESSA CHARLEBOIS Normal. 10 Units are mL/min/1.73 m2 Chronic Kidney Disease Staging per NKF: Stage I & II GFR >=60 Normal to Mildly Decreased Stage III GFR 30-59 Moderately Decreased Stage IV GFR 15-29 Severely Decreased Stage V GFR <15 Very Little GFR Left ESRD GFR <15 on CONTRACTS LAW PROFESSOR 11 03/22/21 (MonMar 22) 02:28 PM VANESSA CHARLEBOIS No significant abnormalities. Procedures Description No [...] Mendoza Esquivel M.D. R19.7-DIARRHEA, UNSPECIFIED Scheduled 01/27/2021 [facility], Gastroenterology [address] [facility], [address] [place] [address] [phone]
--- OUTSIDE RECORDS SUMMARY | 2021-04-12 09:33 | CCD ---
Author Author [facility] [place] [employer] Organization [facility] [employer] Address Unknown Phone Unavailable Care Team Providers Care Web Application Dev Specialist Name Role Phone Michelle Duenas Unavailable PROBLEMS Type Condition ICD9-CM Code MSF07-OZ Code Onset Dates Condition S tatus W/U Status Risk SNOMED Code Notes Problem Mixed hyperlipidemia E78.2 Active confirmed 782362780 Problem History of supraventricular tachycardia Z86.79 Active confirmed 616151463954344 Problem Dysthymia F34.1 Active confirmed 17877949 Problem Atherosclerosis of [place] co ronary artery of [place] heart without angina pectoris I25.10 Active confirmed 1008332503898 Problem Lumbar facet arthropathy M12.88 Active confirmed 256162312 Problem Disc displacement, lumbar M51.26 Active confirmed 576624490409536 Problem Spondylosis of lumbosacral region without myelop athy or radiculopathy M47.817 Active confirmed 90328426 Problem Sacroiliac dysfunction M53.3 Active confirmed 644880058 Problem Chronic prescription opiate use Z79.891 Active confirmed 126693069 Problem Sacroiliitis, not elsewhere classified M46.1 A ctive confirmed 177673308 Problem Primary osteoarthritis, right hand M19.041 Activ e confirmed 98326392 Problem 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 Active co nfirmed 34875978830799831 Problem Meniere''s disease of right ear H81.01 Active confi rmed 16433708 Problem Spondylosis without myelopathy or radiculopathy, lumbar region M47.816 Active confirmed 513023042 Problem Primary osteoarthritis of left hand M19.042 Acti ve confirmed 46686140 Problem Chronic prescription opiate use Z79.899 Active confirmed 349322078 Problem Other chronic pain G89.29 Active confirmed 8 7365341 Problem Spondylosis of lumbar region without myelopathy or radiculopathy M47.816 Active confirmed 50808802 Problem Chronic bilateral low back pain without sciatica M 54.5 Active confirmed 986162619 Problem Sinusitis, unspecified chronicity, unspecified location J32.9 Active confirmed 87302752 Problem Insomnia, unspecified type G47.00 Active confirmed 304899704 Problem Bilateral hearing loss, unspecified hearing loss type H91.93 Active confirmed 82784703 Problem Lumbar Facet arthropathy M47.816 Active confirmed 795878782 Problem Spondylosis without myelopathy or radiculopathy, lumbosacral region M47.817 Active confirmed 67041624 ALLERGIES Allergen (clinical drug ingredient) Drug/Non Drug Allergy do cumented on EMR Reaction Allergy Type Onset Date Status rosuvastatin Crestor(NDC Code:[address]-50) myalgias,swelling Drug A llergy Active atorvastatin Lipitor(NDC Code:[address]-44) severe muscle aches Drug Allergy Active Garlic garlic severe stomach pain Non Drug Allergy Active ENCOUNTERS from 1960 to 2021-03-17 Encounter Location Date Provider Diagnosis [address] [phone] [place] [address] Feb, Michelle Duenas IMMUNIZATIONS Vaccine Route Administration Date Status Influenza [...] Education Language: Question Answer Notes Languages spoken: Mauritanian Rastafari: Question Answer Notes Rastafari 21 Spiritism Sexual Hx: Question Answer Notes Had sex [...] Information RESULTS No Results REASON FOR VISIT Poison [place] MEDICAL (GENERAL) HISTORY Type Description Date Medical History hx of SVT- s/p ablation 2005 - Dr Mirna Leblanc in [facility]- q yr- jan Medical History CAD s/p- [...] 2005 Surgical History coronary stents x 2 ([facility] - Dr. Martinez) 12/2011 Surgical History [...] Provider Name:Garcia Villarreal, 2021-05-28 09:30:00 AM, [address], , [place], [address], Insurance Providers Payer Name Payer Address Payer Phone Insured Name Patient Relati onship to Insured Coverage Start Date Coverage End Date [facility] [employer] [facility] [address] [facility] [address] KYREE HUDSON
--- OUTSIDE RECORDS SUMMARY | 2021-04-12 09:33 | CCD | Continuity of Care Document ---
Author Author Abena ESQUIVEL MD Organization Unknown Address [address] [place] [address] Phone [phone] Care Team Providers Care Division Road Supervisor Name Role Phone HenriqueMichelle AUTM Problems Description [...] lb BMI (Body Mass Index) 22.1 kg/m2 [place] Body Weight 135 lb Weight 63.958 kg BSA (Body Surface Area) 1.74 m2 10/11/2018 11:39am BP Systolic 132 mmHg BP Diastolic 74 mmHg Heart Rate 64 /min Height 67 inches 5'7" Weight 155.00 lb BMI (Body Mass Index) 24.3 kg/m2 [place] Body Weight 135 lb Weight 70.308 kg BSA (Body Surface Area) 1.81 m2 Results Test Acquired Date Facility Test Result H/L Range Note Laboratory test finding 03/15/2021 [facility] Main [facility] [address] [place] [address] [phone] Calprotectin Stool 684 ug/g High 0-120 1, 2 Pancreatic Elastase Stool 139 Low >200 3, 4 Fat Fecal Qualitative 03/15/2021 [facility] Main Lab [address] [place] [address] [phone] Fats Neutral Normal Normal . 5 Fats Total Normal Normal . 6, 7 Laboratory test finding 03/15/2021 [facility] Main [facility] [address] [place] [address] [phone] Tissue Transglutaminase IgA <2 U/mL Normal 0-3 8 Immunoglobulin A 360.0 mg/dL Normal 70-400 9, 10 FT4&TSH Panel 03/15/2021 [facility] Main Lab [address] [place] [address] [phone] Thyroid Stimulating Hormone 1.520 uIU/ML Normal 0. 358-3.740 Free T4 0.80 ng/dL Normal 0.76-1.46 11 Complete Blood Count 03/15/2021 [facility] enter Main Lab [address] [place] [address] [phone] White Blood Count 6.2 10 Normal 4.0-10.0 [...] 0-0 1 2 Comprehensive Metabolic Profil 03/15/2021 [facility] Main Lab [address] [place] [address] [phone] Glucose, Fasting 77 mg/dL Normal 70-100 Blood [...] clinically indicated Performed at: RN - [facility] [address] [id number] Sanitarian Inspector: Anayeli Sherwood MD, Phone: [phone] Performed at: - [facility] [address] [id number] Sanitarian Inspector: Rama Turner MD, Phone: [phone] 03/22/21 (MonMar 22) 02:29 PM YAMILETH [...] specificity for gluten sensitive enteropathy. Performed at: [facility] [address] [id number] Sanitarian Inspector: Anayeli Sherwood MD, Phone: [phone] note:<nlbl:[email or web address]_[email or web address] ed> 10 03/22/21 (MonMar 22) [...] Little GFR Left ESRD GFR <15 on CYBER ENGINEER 14 03/22/21 (MonMar 22) 02:28 PM YAMILETH [...] Mendoza Esquivel M.D. R19.7-DIARRHEA, UNSPECIFIED Scheduled 01/27/2021 [facility], Gastroenterology [address], [address] [place] [address] [phone]
[2021-04-12] MEDS ORDERED: propofoL 500 MG/50 ML VIAL As Ordered ONE (09:34)
[2021-04-12] MEDS ORDERED: fentaNYL 100 MCG/2 ML INJECTION (J3010) As Ordered ONE (09:34)
[2021-04-12] MEDS ORDERED: LIDOCAINE 2% 100MG/5ML SDV (FOR ANES.) As Ordered ONE (09:34)
--- OUTSIDE RECORDS SUMMARY | 2021-04-12 09:34 | CCD ---
Author Author [facility] Address Unknown Phone Unavailable Care Team Providers Care Automobile Glass Technician Name Role Phone SYSTEM IN, NOT IN PROVIDER Unavailable Unavailable Charlebois, A Vanessa RPA C Unavailable Unavailable Charlebois, A Vanessa RPA C Unavailable Unavailable Charlebois, A Vanessa RPA C Unavailable Unavailable Charlebois, A Vanessa RPA C Unavailable Unavailable Charlebois, A Vanessa RPA C Unavailable Unavailable Charlebois, A Vanessa RPA C Unavailable Unavailable Charlebois, A Vanessa RPA C Unavailable Unavailable Charlebois, A Vanessa RPA C Unavailable Unavailable Charlebois, A Vanessa RPA C Unavailable Unavailable Charlebois, A Vanessa RPA C Unavailable Unavailable Charlebois, A Vanessa RPA C Unavailable Unavailable Charlebois, A Vanessa RPA C Unavailable Unavailable Charlebois, A Vanesas RPA C Unavailable Unavailable Charlebois, A Vanessa RPA C Unavailable Unavailable Charlebois, A Vanessa RPA C Unavailable Unavailable Charlebois, A Vanessa RPA C Unavailable Unavailable Charlebois, A Vanessa RPA C Unavailable Unavailable Charlebois, A Vanessa RPA C Unavailable Unavailable Charlebois, A Vanessa RPA C Unavailable Unavailable Charlebois, A Vanessa RPA C Unavailable Unavailable Charlebois, A Vanessa RPA C Unavailable Unavailable Charlebois, A Vanessa RPA C Unavailable Unavailable Charlebois, A Vanessa RPA C Unavailable Unavailable Charlebois, A Vanessa RPA C Unavailable Unavailable Charlebois, A Vanessa RPA C Unavailable Unavailable Charlebois, A Vanessa RPA C Unavailable Unavailable Charlebois, A Vanessa RPA C Unavailable Unavailable Charlebois, A Vanessa RPA C Unavailable Unavailable Charlebois, A Vanessa RPA C Unavailable Unavailable Charlebois, A Vanessa RPA C Unavailable Unavailable Charlebois, A Vanessa RPA C Unavailable Unavailable [place]bois, A Vanessa RPA C Unavailable Unavailable Charlebois, A Vanessa RPA C Unavailable Unavailable BUNKER, R MARCELLO PA Unavailable Unavailable BUNKER, R MARCELLO PA Unavailable Unavailable BUNKER, R MARCELLO PA Unavailable Unavailable BUNKER, R MARCELLO PA Unavailable Unavailable BUNKER, R MARCELLO PA Unavailable Unavailable BUNKER, R MARCELLO PA Unavailable Unavailable BUNKER, R MARCELLO PA Unavailable Unavailable BUNKER, R MARCELLO PA Unavailable Unavailable BUNKER, R MARCELLO PA Unavailable Unavailable BUNKER, R MARCELLO PA Unavailable Unavailable BUNKER, R MARCELLO PA Unavailable Unavailable BUNKER, R MARCELLO PA Unavailable Unavailable BUNKER, R MARCELLO PA Unavailable Unavailable BUNKER, R MARCELLO PA Unavailable Unavailable BUNKER, R MARCELLO PA Unavailable Unavailable BUNKER, R MARCELLO PA Unavailable Unavailable BUNKER, R MARCELLO PA Unavailable Unavailable BUNKER, R MARCELLO PA Unavailable Unavailable BUNKER, R MARCELLO PA Unavailable Unavailable BUNKER, R MARCELLO PA Unavailable Unavailable BUNKER, R MARCELLO PA Unavailable Unavailable BUNKER, R MARCELLO PA Unavailable Unavailable BUNKER, R MARCELLO PA Unavailable Unavailable BUNKER, R MARCELLO PA Unavailable Unavailable BUNKER, R MARCELLO PA Unavailable Unavailable BUNKER, R MARCELLO PA Unavailable Unavailable BUNKER, R MARCELLO PA Unavailable Unavailable BUNKER, R MARCELLO PA Unavailable Unavailable BUNKER, R MARCELLO PA Unavailable Unavailable BUNKER, R MARCELLO PA Unavailable Unavailable BUNKER, R MARCELLO PA Unavailable Unavailable BUNKER, R MARCELLO PA Unavailable Unavailable BUNKER, R MARCELLO PA Unavailable Unavailable BUNKER, R MARCELLO PA Unavailable Unavailable BUNKER, R MARCELLO PA Unavailable Unavailable BUNKER, R MARCELLO PA Unavailable Unavailable BUNKER, R MARCELLO PA Unavailable Unavailable BUNKER, R MARCELLO PA Unavailable Unavailable BUNKER, R MARCELLO PA Unavailable Unavailable BUNKER, R MARCELLO PA Unavailable Unavailable BUNKER, R MARCELLO PA Unavailable Unavailable BUNKER, R MARCELLO PA Unavailable Unavailable BUNKER, R MARCELLO PA Unavailable Unavailable BUNKER, R MARCELLO PA Unavailable Unavailable BUNKER, R MARCELLO PA Unavailable Unavailable BUNKER, R MARCELLO PA Unavailable Unavailable BUNKER, R MARCELLO PA Unavailable Unavailable BUNKER, R MARCELLO PA Unavailable Unavailable BUNKER, R MARCELLO PA Unavailable Unavailable BUNKER, R MARCELLO PA Unavailable Unavailable BUNKER, R MARCELLO PA Unavailable Unavailable BUNKER, R MARCELLO PA Unavailable Unavailable BUNKER, R MARCELLO PA Unavailable Unavailable BUNKER, R MARCELLO PA Unavailable Unavailable BUNKER, R MARCELLO PA Unavailable Unavailable BUNKER, R MARCELLO PA Unavailable Unavailable MACIEJ LUNA MD Unavailable Unavailable MACIEJ LUNA MD Unavailable Unavailable MACIEJ LUNA MD Unavailable Unavailable MACIEJ LUNA MD Unavailable Unavailable MACIEJ LUNA MD Unavailable Unavailable MACIEJ LUNA MD Unavailable Unavailable MACIEJ LUNA MD Unavailable Unavailable MACIEJ LUNA MD Unavailable Unavailable MACIEJ LUNA MD Unavailable Unavailable MACIEJ LUNA MD Unavailable Unavailable MACIEJ LUNA MD Unavailable Unavailable MACIEJ LUNA MD Unavailable Unavailable MACIEJ LUNA MD Unavailable Unavailable MACIEJ LUNA MD Unavailable Unavailable MACIEJ LUNA MD Unavailable Unavailable MACIEJ LUNA MD Unavailable Unavailable MACIEJ LUNA MD Unavailable Unavailable MACIEJ LUNA MD Unavailable Unavailable MACIEJ LUNA MD Unavailable Unavailable MACIEJ LUNA MD Unavailable Unavailable MACIEJ LUNA MD Unavailable Unavailable MACIEJ LUNA MD Unavailable Unavailable MACIEJ LUNA MD Unavailable Unavailable MACIEJ LUNA MD Unavailable Unavailable MACIEJ LUNA MD Unavailable Unavailable MACIEJ LUNA MD Unavailable Unavailable MACIEJ LUNA MD Unavailable Unavailable MACIEJ LUNA MD Unavailable Unavailable MACIEJ LUNA MD Unavailable Unavailable MACIEJ LUNA MD Unavailable Unavailable MACIEJ LUNA MD Unavailable Unavailable MACIEJ LUNA MD Unavailable Unavailable MACIEJ LUNA MD Unavailable Unavailable MACIEJ LUNA MD Unavailable Unavailable MACIEJ LUNA MD Unavailable Unavailable MACIEJ LUNA MD Unavailable Unavailable MACIEJ LUNA MD Unavailable Unavailable MACIEJ LUNA MD Unavailable Unavailable MACIEJ LUNA MD Unavailable Unavailable MACIEJ LUNA MD Unavailable Unavailable MACIEJ LUNA MD Unavailable Unavailable MACIEJ LUNA MD Unavailable Unavailable MACIEJ LUNA MD Unavailable Unavailable MACIEJ LUNA MD Unavailable Unavailable MACIEJ LUNA MD Unavailable Unavailable MACIEJ LUNA MD Unavailable Unavailable MACIEJ LUNA MD Unavailable Unavailable MACIEJ LUNA MD Unavailable Unavailable MACIEJ LUNA MD Unavailable Unavailable MACIEJ LUNA MD Unavailable Unavailable MACIEJ LUNA MD Unavailable Unavailable MACIEJ LUNA MD Unavailable Unavailable MACIEJ LUNA MD Unavailable Unavailable MACIEJ LUNA MD Unavailable Unavailable MACIEJ LUNA MD Unavailable Unavailable MACIEJ LUNA MD Unavailable Unavailable MACIEJ LUNA MD Unavailable Unavailable MACIEJ LUNA MD Unavailable Unavailable MACIEJ LUNA MD Unavailable Unavailable MACIEJ LUNA MD Unavailable Unavailable MACIEJ LUNA MD Unavailable Unavailable MACIEJ LUNA MD Unavailable Unavailable MACIEJ LUNA MD Unavailable Unavailable MACIEJ LUNA MD Unavailable Unavailable MACIEJ LUNA MD Unavailable Unavailable MACIEJ LUNA MD Unavailable Unavailable MACIEJ LUNA MD Unavailable Unavailable MACIEJ LUNA MD Unavailable Unavailable MACIEJ LUNA MD Unavailable Unavailable MACIEJ LUNA MD Unavailable Unavailable MACIEJ LUNA MD Unavailable Unavailable MACIEJ LUNA MD Unavailable Unavailable MACIEJ LUNA MD Unavailable Unavailable MACIEJ LUNA MD Unavailable Unavailable MACIEJ LUNA MD Unavailable Unavailable MACIEJ LUNA MD Unavailable Unavailable MACIEJ LUNA MD Unavailable Unavailable MACIEJ LUNA MD Unavailable Unavailable MACIEJ LUNA MD Unavailable Unavailable MACIEJ LUNA MD Unavailable Unavailable MACIEJ LUNA MD Unavailable Unavailable MACIEJ LUNA MD Unavailable Unavailable MACIEJ LUNA MD Unavailable Unavailable MACIEJ LUNA MD Unavailable Unavailable MACIEJ LUNA MD Unavailable Unavailable MACIEJ LUNA MD Unavailable Unavailable MACIEJ LUNA MD Unavailable Unavailable MACIEJ LUNA MD Unavailable Unavailable MACIEJ LUNA MD Unavailable Unavailable Henrique, R Michelle INTERNET [employer] E BUSINESS PROJECT MANAGER Unavailable Unavailable Henrique, R Michelle INTERNET AND E BUSINESS PROJECT MANAGER Unavailable Unavailable Henrique, R Michelle INTERNET AND E BUSINESS PROJECT MANAGER Unavailable Unavailable Henrique, R Michelle INTERNET AND E BUSINESS PROJECT MANAGER Unavailable Unavailable Henrique, R Michelle INTERNET AND E BUSINESS PROJECT MANAGER Unavailable Unavailable Henrique, R Michelle INTERNET AND E BUSINESS PROJECT MANAGER Unavailable Unavailable Henrique, R Michelle INTERNET AND E BUSINESS PROJECT MANAGER Unavailable Unavailable Henrique, R Michelle INTERNET AND E BUSINESS PROJECT MANAGER Unavailable Unavailable Henrique, R Michelle INTERNET AND E BUSINESS PROJECT MANAGER Unavailable Unavailable Henrique, R Michelle INTERNET AND E BUSINESS PROJECT MANAGER Unavailable Unavailable Henrique, R Michelle INTERNET AND E BUSINESS PROJECT MANAGER Unavailable Unavailable Henrique, R Michelle INTERNET AND E BUSINESS PROJECT MANAGER Unavailable Unavailable Henrique, R Michelle INTERNET AND E BUSINESS PROJECT MANAGER Unavailable Unavailable Henrique, R Michelle INTERNET AND E BUSINESS PROJECT MANAGER Unavailable Unavailable Henrique, R Mcihelle INTERNET AND E BUSINESS PROJECT MANAGER Unavailable Unavailable Henrique, R Michelle INTERNET AND E BUSINESS PROJECT MANAGER Unavailable Unavailable Henrique, R Michelle INTERNET AND E BUSINESS PROJECT MANAGER Unavailable Unavailable Henrique, R Michelle INTERNET AND E BUSINESS PROJECT MANAGER Unavailable Unavailable Henrique, R Michelle INTERNET AND E BUSINESS PROJECT MANAGER Unavailable Unavailable Henrique, R Michelle INTERNET AND E BUSINESS PROJECT MANAGER Unavailable Unavailable Henrique, R Michelle INTERNET AND E BUSINESS PROJECT MANAGER Unavailable Unavailable Henrique, R Michelle INTERNET AND E BUSINESS PROJECT MANAGER Unavailable Unavailable Henrique, R Michelle INTERNET AND E BUSINESS PROJECT MANAGER Unavailable Unavailable Henrique, R Michelle INTERNET AND E BUSINESS PROJECT MANAGER Unavailable Unavailable Henrique, R Michelle INTERNET AND E BUSINESS PROJECT MANAGER Unavailable Unavailable Henrique, R Michelle INTERNET AND E BUSINESS PROJECT MANAGER Unavailable Unavailable Henrique, R Michelle INTERNET AND E BUSINESS PROJECT MANAGER Unavailable Unavailable Henrique, R Michelle INTERNET AND E BUSINESS PROJECT MANAGER Unavailable Unavailable Henrique, R Michelle INTERNET AND E BUSINESS PROJECT MANAGER Unavailable Unavailable Henrique, R Michelle INTERNET AND E BUSINESS PROJECT MANAGER Unavailable Unavailable Henrique, R Michelle INTERNET AND E BUSINESS PROJECT MANAGER Unavailable Unavailable Henrique, R Michelle INTERNET AND E BUSINESS PROJECT MANAGER Unavailable Unavailable Henrique, R Michelle INTERNET AND E BUSINESS PROJECT MANAGER Unavailable Unavailable Henrique, R Michelle INTERNET AND E BUSINESS PROJECT MANAGER Unavailable Unavailable Henrique, R Michelle INTERNET AND E BUSINESS PROJECT MANAGER Unavailable Unavailable Henrique, R Michelle INTERNET AND E BUSINESS PROJECT MANAGER Unavailable Unavailable Henrique, R Michelle INTERNET AND E BUSINESS PROJECT MANAGER Unavailable Unavailable Henrique, R Michelle INTERNET AND E BUSINESS PROJECT MANAGER Unavailable Unavailable Henrique, R Michelle INTERNET AND E BUSINESS PROJECT MANAGER Unavailable Unavailable Henrique, R Michelle INTERNET AND E BUSINESS PROJECT MANAGER Unavailable Unavailable Whitman, M Damir PA Unavailable Unavailable Whitman, M Damir PA Unavailable Unavailable Whitman, M Damir PA Unavailable Unavailable Whitman, M Damir PA Unavailable Unavailable Whitman, M Damir PA Unavailable Unavailable Whitman, M Damir PA Unavailable Unavailable Whitman, M Damir PA Unavailable Unavailable Whitman, M Damir PA Unavailable Unavailable Whitman, M Damir PA Unavailable Unavailable Whitman, M Damir PA Unavailable Unavailable Whitman, M Damir PA Unavailable Unavailable Whitman, M Damir PA Unavailable Unavailable Whitman, M Damir PA Unavailable Unavailable Whitman, M Damir PA Unavailable Unavailable Whitman, M Damir PA Unavailable Unavailable Whitman, M Damir PA Unavailable Unavailable Whitman, M Damir PA Unavailable Unavailable Whitman, M Damir PA Unavailable Unavailable Whitman, M Damir PA Unavailable Unavailable Whitman, M Damir PA Unavailable Unavailable Whitman, M Damir PA Unavailable Unavailable Whitman, M Damir PA Unavailable Unavailable Whitman, M Damir PA Unavailable Unavailable Whitman, M Damir PA Unavailable Unavailable Whitman, M Damir PA Unavailable Unavailable Whitman, M Damir PA Unavailable Unavailable Whitman, M Damir PA Unavailable Unavailable Whitman, M Damir PA Unavailable Unavailable Whitman, M Admir PA Unavailable Unavailable Whitman, M Damir PA Unavailable Unavailable Whitman, M Damir PA Unavailable Unavailable Whitman, M Damir PA Unavailable Unavailable Whitman, M Damir PA Unavailable Unavailable Whitman, M Damir PA Unavailable Unavailable Whitman, M Damir PA Unavailable Unavailable Whitman, M Damir PA Unavailable Unavailable Whitman, M Damir PA Unavailable Unavailable Whitman, M Damir PA Unavailable Unavailable Whitman, M Damir PA Unavailable Unavailable Whitman, M Damir PA Unavailable Unavailable Whitman, M Damir PA Unavailable Unavailable Whitman, M Damir PA Unavailable Unavailable Whitman, M Damir PA Unavailable Unavailable Whitman, M Damir PA Unavailable Unavailable Whitman, M Damir PA Unavailable Unavailable Whitman, M Damir PA Unavailable Unavailable Whitman, M Damir PA Unavailable Unavailable Whitman, M Damir PA Unavailable Unavailable J Carlos, M Damir PA Unavailable Unavailable BETINA, Denis HUMPHRIES MD Unavailable Unavailable BETINA, Denis HUMPHRIES MD Unavailable Unavailable BETINA, Denis HUMPHRIES MD Unavailable Unavailable BETINA, Denis HUMPHRIES MD Unavailable Unavailable BETINA, Denis HUMPHRIES MD Unavailable Unavailable BETINA, Denis HUMPHRIES MD Unavailable Unavailable BETINA, Denis HUMPHRIES MD Unavailable Unavailable BETINA, Denis HUMPHRIES MD Unavailable Unavailable BETINA, Denis HUMPHRIES MD Unavailable Unavailable BETINA, Denis HUMPHRIES MD Unavailable Unavailable BETINA, Denis HUMPHRIES MD Unavailable Unavailable BETINA, Denis HUMPHRIES MD Unavailable Unavailable BETINA, Denis HUMPHRIES MD Unavailable Unavailable BETINA, Denis HUMPHRIES MD Unavailable Unavailable BETINA, Denis HUMPHRIES MD Unavailable Unavailable BETINA, Denis HUMPHRIES MD Unavailable Unavailable BETINA, Denis HUMPHRIES MD Unavailable Unavailable BETINA, Denis HUMPHRIES MD Unavailable Unavailable BETINA, Denis HUMPHRIES MD Unavailable Unavailable BETINA, Denis HUMPHRIES MD Unavailable Unavailable BETINA, Denis HUMPHRIES MD Unavailable Unavailable BETINA, Denis HUMPHRIES MD Unavailable Unavailable BETINA, Denis HUMPHRIES MD Unavailable Unavailable BETINA, Denis HUMPHRIES MD Unavailable Unavailable BETINA, Denis HUMPHRIES MD Unavailable Unavailable BETINA, Denis HUMPHRIES MD Unavailable Unavailable BETINA, Denis HUMPHRIES MD Unavailable Unavailable BETINA, Denis HUMPHRIES MD Unavailable Unavailable BETINA, Denis HUMPHRIES MD Unavailable Unavailable BETINA, Denis HUMPHRIES MD Unavailable Unavailable BETINA, Denis HUMPHRIES MD Unavailable Unavailable BETINA, Denis HUMPHRIES MD Unavailable Unavailable BETINA, Denis HUMPHRIES MD Unavailable Unavailable BETINA, Denis HUMPHRIES MD Unavailable Unavailable BETINA, Denis HUMPHRIES MD Unavailable Unavailable BETINA, Denis HUMPHRIES MD Unavailable Unavailable BETINA, Denis HUMPHRIES MD Unavailable Unavailable BETINA, Denis HUMPHRIES MD Unavailable Unavailable BETINA, Denis HUMPHRIES MD Unavailable Unavailable BETINA, Denis HUMPHRIES MD Unavailable Unavailable BETINA, Denis HUMPHRIES MD Unavailable Unavailable BETINA, Denis HUMPHRIES MD Unavailable Unavailable BETINA, Denis HUMPHRIES MD Unavailable Unavailable BETINA, Denis HUMPHRIES MD Unavailable Unavailable BETINA, Denis HUMPHRIES MD Unavailable Unavailable BETINA, Denis HUMPHRIES MD Unavailable Unavailable BETINA, Denis HUMPHRIES MD Unavailable Unavailable BETINA, Denis HUMPHRIES MD Unavailable Unavailable BETINA, Denis HUMPHRIES MD Unavailable Unavailable BETINA, Denis HUMPHRIES MD Unavailable Unavailable BETINA, Denis HUMPHRIES MD Unavailable Unavailable BETINA, Denis HUMPHRIES MD Unavailable Unavailable BETINA, Denis HUMPHRIES MD Unavailable Unavailable BETINA, Denis HUMPHRIES MD Unavailable Unavailable BETINA, Denis HUMPHRIES MD Unavailable Unavailable BETINA, Denis HUMPHRIES MD Unavailable Unavailable BETINA, Denis HUMPHRIES MD Unavailable Unavailable BETINA, Denis HUMPHRIES MD Unavailable Unavailable BETINA, Denis HUMPHRIES MD Unavailable Unavailable BETINA, Denis HUMPHRIES MD Unavailable Unavailable BETINA, Denis HUMPHRIES MD Unavailable Unavailable BETINA, Denis HUMPHRIES MD Unavailable Unavailable BETINA, Denis HUMPHRIES MD Unavailable Unavailable BETINA, Denis HUMPHRIES MD Unavailable Unavailable BETINA, Denis HUMPHRIES MD Unavailable Unavailable BETINA, Denis HUMPHRIES MD Unavailable Unavailable BETINA, Denis HUMPHRIES MD Unavailable Unavailable BETINA, Denis HUMPHRIES MD Unavailable Unavailable BETINA, Denis HUMPHRIES MD Unavailable Unavailable BETINA, Denis HUMPHRIES MD Unavailable Unavailable BETINA, Denis HUMPHRIES MD Unavailable Unavailable BETINA, Denis HUMPHRIES MD Unavailable Unavailable BETINA, Denis HUMPHRIES MD Unavailable Unavailable BETINA, Denis HUMPHRIES MD Unavailable Unavailable BETINA, Denis HUMPHRIES MD Unavailable Unavailable BETINA, Denis HUMPHRIES MD Unavailable Unavailable BETINA, Denis HUMPHRIES MD Unavailable Unavailable BETINA, Denis HUMPHRIES MD Unavailable Unavailable BETINA, Denis HUMPHRIES MD Unavailable Unavailable BETINA, Denis HUMPHRIES MD Unavailable Unavailable BETINA, Denis HUMPHRIES MD Unavailable Unavailable BETINA, Denis HUMPHRIES MD Unavailable Unavailable BETINA, Denis HUMPHRIES MD Unavailable Unavailable BETINA, Denis HUMPHRIES MD Unavailable Unavailable BETINA, Denis HUMPHRIES MD Unavailable Unavailable BETINA, Denis HUMPHRIES MD Unavailable Unavailable BETINA, Denis HUMPHRIES MD Unavailable Unavailable BETINA, Denis HUMPHRIES MD Unavailable Unavailable BETINA, Denis HUMPHRIES MD Unavailable Unavailable BETINA, Denis HUMPHRIES MD Unavailable Unavailable BETINA, Denis HUMPHRIES MD Unavailable Unavailable BETINA, Denis HUMPHRIES MD Unavailable Unavailable BETINA, Denis HUMPHRIES MD Unavailable Unavailable BETINA, Denis HUMPHRIES MD Unavailable Unavailable BETINA, Denis HUMPHRIES MD Unavailable Unavailable BETINA, Denis HUMPHRIES MD Unavailable Unavailable BETINA, Denis HUMPHRIES MD Unavailable Unavailable BETINA, Denis HUMPHRIES MD Unavailable Unavailable BETINA, Denis HUMPHRIES MD Unavailable Unavailable BETINA, Denis HUMPHRIES MD Unavailable Unavailable Mary, A Marisa INTERNET AND E BUSINESS PROJECT MANAGER Unavailable Unavailable Mary, A Marisa INTERNET AND E BUSINESS PROJECT MANAGER Unavailable Unavailable Mary, A Marisa INTERNET AND E BUSINESS PROJECT MANAGER Unavailable Unavailable Mary, A Marisa INTERNET AND E BUSINESS PROJECT MANAGER Unavailable Unavailable Mary, A Marisa INTERNET AND E BUSINESS PROJECT MANAGER Unavailable Unavailable Mary, A Marisa INTERNET AND E BUSINESS PROJECT MANAGER Unavailable Unavailable Mary, A Marisa INTERNET AND E BUSINESS PROJECT MANAGER Unavailable Unavailable Mary, A Marisa INTERNET AND E BUSINESS PROJECT MANAGER Unavailable Unavailable Mary, A Marisa INTERNET AND E BUSINESS PROJECT MANAGER Unavailable Unavailable Mary, A Marisa INTERNET AND E BUSINESS PROJECT MANAGER Unavailable Unavailable Mary, A Marisa INTERNET AND E BUSINESS PROJECT MANAGER Unavailable Unavailable Mary, A Marisa INTERNET AND E BUSINESS PROJECT MANAGER Unavailable Unavailable Mary, A Marisa INTERNET AND E BUSINESS PROJECT MANAGER Unavailable Unavailable Mary, A Marisa INTERNET AND E BUSINESS PROJECT MANAGER Unavailable Unavailable Mary, A Marisa INTERNET AND E BUSINESS PROJECT MANAGER Unavailable Unavailable Mary, A Marisa INTERNET AND E BUSINESS PROJECT MANAGER Unavailable Unavailable Mary, A Marisa INTERNET AND E BUSINESS PROJECT MANAGER Unavailable Unavailable Mary, A Marisa INTERNET AND E BUSINESS PROJECT MANAGER Unavailable Unavailable Mary, A Marisa INTERNET AND E BUSINESS PROJECT MANAGER Unavailable Unavailable Mary, A Marisa INTERNET AND E BUSINESS PROJECT MANAGER Unavailable Unavailable Mary, A Marisa INTERNET AND E BUSINESS PROJECT MANAGER Unavailable Unavailable Mary, A Marisa INTERNET AND E BUSINESS PROJECT MANAGER Unavailable Unavailable Mary, A Marisa INTERNET AND E BUSINESS PROJECT MANAGER Unavailable Unavailable Mary, A Marisa INTERNET AND E BUSINESS PROJECT MANAGER Unavailable Unavailable Mary, A Marisa INTERNET AND E BUSINESS PROJECT MANAGER Unavailable Unavailable Mary, A Marisa INTERNET AND E BUSINESS PROJECT MANAGER Unavailable Unavailable Mary, A Marisa INTERNET AND E BUSINESS PROJECT MANAGER Unavailable Unavailable Mary, A Marisa INTERNET AND E BUSINESS PROJECT MANAGER Unavailable Unavailable Mary, A Marisa INTERNET AND E BUSINESS PROJECT MANAGER Unavailable Unavailable Mary, A Marisa INTERNET AND E BUSINESS PROJECT MANAGER Unavailable Unavailable Mary, A Marisa INTERNET AND E BUSINESS PROJECT MANAGER Unavailable Unavailable Mary, A Marisa INTERNET AND E BUSINESS PROJECT MANAGER Unavailable Unavailable Mary, A Marisa INTERNET AND E BUSINESS PROJECT MANAGER Unavailable Unavailable Mary, A Marisa INTERNET AND E BUSINESS PROJECT MANAGER Unavailable Unavailable Mary, A Marisa INTERNET AND E BUSINESS PROJECT MANAGER Unavailable Unavailable Mary, A Marisa INTERNET AND E BUSINESS PROJECT MANAGER Unavailable Unavailable Mary, A Marisa INTERNET AND E BUSINESS PROJECT MANAGER Unavailable Unavailable Mary, A Marisa INTERNET AND E BUSINESS PROJECT MANAGER Unavailable Unavailable Mary, A Marisa INTERNET AND E BUSINESS PROJECT MANAGER Unavailable Unavailable Mary, A Marisa INTERNET AND E BUSINESS PROJECT MANAGER Unavailable Unavailable Mary, A Marisa INTERNET AND E BUSINESS PROJECT MANAGER Unavailable Unavailable Mary, A Marisa INTERNET AND E BUSINESS PROJECT MANAGER Unavailable Unavailable Mary, A Marisa INTERNET AND E BUSINESS PROJECT MANAGER Unavailable Unavailable Mary, A Marisa INTERNET AND E BUSINESS PROJECT MANAGER Unavailable Unavailable Mary, A Marisa INTERNET AND E BUSINESS PROJECT MANAGER Unavailable Unavailable Mary, A Marisa INTERNET AND E BUSINESS PROJECT MANAGER Unavailable Unavailable Mary, A Marisa INTERNET AND E BUSINESS PROJECT MANAGER Unavailable Unavailable Mary, A Marisa INTERNET AND E BUSINESS PROJECT MANAGER Unavailable Unavailable Mary, A Marisa INTERNET AND E BUSINESS PROJECT MANAGER Unavailable Unavailable Mary, A Marisa INTERNET AND E BUSINESS PROJECT MANAGER Unavailable Unavailable Mary, A Marisa INTERNET AND E BUSINESS PROJECT MANAGER Unavailable Unavailable Mary, A Marisa INTERNET AND E BUSINESS PROJECT MANAGER Unavailable Unavailable [place], F Jaswant PA Unavailable Unavailable [place], F Jaswant PA Unavailable Unavailable Gela, F Jaswant PA Unavailable Unavailable Gela, F Jaswant PA Unavailable Unavailable [place], F Jaswant PA Unavailable Unavailable [place], F Jaswant PA Unavailable Unavailable [place], F Jaswant PA Unavailable Unavailable Gela, F Jaswant PA Unavailable Unavailable Gela, F Jaswant PA Unavailable Unavailable [place], F Jaswant PA Unavailable Unavailable WILMARPhong MD Unavailable Unavailable WILMARPhong MD Unavailable Unavailable WILMARPhong MD Unavailable Unavailable WILMARPhong MD Unavailable Unavailable WILMARPhong MD Unavailable Unavailable WILMARPhong MD Unavailable Unavailable WILMARPhong MD Unavailable Unavailable WILMARPhong MD Unavailable Unavailable WILMARPhong MD Unavailable Unavailable WILMARPhong MD Unavailable Unavailable WILMARPhong MD Unavailable Unavailable WILMARPhong MD Unavailable Unavailable WILMARPhong MD Unavailable Unavailable WILMARPhong MD Unavailable Unavailable WILMARPhong MD Unavailable Unavailable WILMARPhong MD Unavailable Unavailable WILMARPhong MD Unavailable Unavailable WILMARPhong MD Unavailable Unavailable WILMARPhong MD Unavailable Unavailable WILMARPhong MD Unavailable Unavailable WILMARPhong MD Unavailable Unavailable WILMARPhong MD Unavailable Unavailable WILMARPhong MD Unavailable Unavailable WILMARPhong MD Unavailable Unavailable WILMARPhong MD Unavailable Unavailable WILMARPhong MD Unavailable Unavailable WILMARPhong MD Unavailable Unavailable WILMARPhong MD Unavailable Unavailable WILMARPhong MD Unavailable Unavailable WILMARPhong MD Unavailable Unavailable WILMARPhong MD Unavailable Unavailable Phong URBAN MD Unavailable Unavailable WILMARPhong MD Unavailable Unavailable WILMARPhong MD Unavailable Unavailable WILMARPhong MD Unavailable Unavailable WILMARPhong MD Unavailable Unavailable WILMARPhong MD Unavailable Unavailable WILMARPhong MD Unavailable Unavailable WILMARPhong MD Unavailable Unavailable WILMARPhong MD Unavailable Unavailable WILMARPhong MD Unavailable Unavailable WILMARPhong MD Unavailable Unavailable WILMARPhong MD Unavailable Unavailable WILMARPhong MD Unavailable Unavailable WILMARPhong MD Unavailable Unavailable WILMARPhong MD Unavailable Unavailable WILMARPhong MD Unavailable Unavailable WILMARPhong MD Unavailable Unavailable WILMARPhong MD Unavailable Unavailable WILMARPhong MD Unavailable Unavailable WILMAR, J INA MD Unavailable Unavailable WILMAR, J INA MD Unavailable Unavailable WILMAR, J INA MD Unavailable Unavailable WILMAR, J INA MD Unavailable Unavailable WILMAR, J NIA MD Unavailable Unavailable WILMAR, J INA MD Unavailable Unavailable WILMAR, J INA MD Unavailable Unavailable WILMAR, J INA MD Unavailable Unavailable WILMAR, J INA MD Unavailable Unavailable WILMAR, J INA MD Unavailable Unavailable WILMAR, J INA MD Unavailable Unavailable WILMAR, J INA MD Unavailable Unavailable WILMAR, J INA MD Unavailable Unavailable WILMAR, J INA MD Unavailable Unavailable WILMAR, J INA MD Unavailable Unavailable WILMAR, J INA MD Unavailable Unavailable WILMAR, J INA MD Unavailable Unavailable WILMAR, J INA MD Unavailable Unavailable WILMAR, J INA MD Unavailable Unavailable WILMAR, J INA MD Unavailable Unavailable WILMAR, J INA MD Unavailable Unavailable WILMAR, J INA MD Unavailable Unavailable WILMAR, J INA MD Unavailable Unavailable WILMAR, J INA MD Unavailable Unavailable WILMAR, J INA MD Unavailable Unavailable WILMAR, J INA MD Unavailable Unavailable WILMAR, J INA MD Unavailable Unavailable WILMAR, J INA MD Unavailable Unavailable WILMAR, J IAN MD Unavailable Unavailable WILMAR, J INA MD Unavailable Unavailable WILMAR, J INA MD Unavailable Unavailable WILMAR, J INA MD Unavailable Unavailable WILMAR, J INA MD Unavailable Unavailable Re-disclosure Warning The records that you are about to access may contain information from federally-assisted alcohol or drug abuse programs. If such information is present, then the following federally mandated warning applies: This information has been disclosed to you from records protected by federal confidentiality rules (42 CFR part 2). The federal rules prohibit you from making any further disclosure of this information unless further disclosure is expressly permitted by the written consent of the person to whom it pertains or as otherwise permitted by 42 CFR part 2. A general authorization for the release of medical or other information is NOT sufficient for this purpose. The Federal rules restrict any use of the information to criminally investigate or prosecute any alcohol or drug abuse patient.The records that you are about to access may contain highly sensitive health information, the redisclosure of which is protected by Article 27-F of the [facility] Public Health law. If you continue you may have access to information: Regarding HIV / AIDS; Provided by facilities licensed or operated by the [facility] Office of Mental Health; or Provided by the [facility] Office for People With Developmental Disabilities. If such information is present, then the following [facility] mandated warning applies: This information has been disclosed to you from confidential records which are protected by state law. State law prohibits you from making any further disclosure of this information without the specific written consent of the person to whom it pertains, or as otherwise permitted by law. Any unauthorized further disclosure in violation of state law may result in a fine or fci sentence or both. A general authorization for the release of medical or other information is NOT sufficient authorization for further disc losure. Allergies and Adverse Reactions Type Description Substance Reaction Status Data Source(s ) No Known Drug Allergies No Known Drug Allergies [facility] Family History Family Member Name Family Member Gender Family Member Status Date o f Status Description Data Source(s) Unknown Unknown Problem MEDENT ([facility] Wily Thompson, DEANNA) Unknown Male Problem MEDENT ([facility]) Encounters Encounter Providers Location Date Indications Data Source(s ) Outpatient Attender: KARRIE LUNA MDReferrer: PROVIDER SYST EM [place] 07/05/2021 12:00:00 AM [facility] Unknown [address] [facility] [address] 04/01/2021 12:00:00 AM EDT eCW1 ([facility]) Unknown [address] [facility] [place] [address] 03/16/2021 12:00:00 AM EDT eCW1 ([facility]) Outpatient Attender: Vanessa Jha/Urszula/Nani oviedo/Stephanie 03/15/2021 10:00:00 AM EDT MEDENT ([facility] Yaakov basilio, DEANNA) Unknown [address] [facility] [place] [address] 03/10/2021 12:00:00 AM EDT eCW1 ([facility]) Outpatient [address] [facility] [place] [address] 03/09/2021 12:00:00 AM EDT eCW1 ([facility]) Outpatient [address] [facility] [address] 03/04/2021 12:00:00 AM EDT eCW1 ([facility]) [place] [address] [facility] [address] 02/17/2021 12:00:00 AM EDT eCW1 ([facility]) [place] [address] [facility] [address] 02/16/2021 12:00:00 AM EDT eCW1 ([facility]) Outpatient Attender: KARRIE LUNA MD 01/27/2021 12:00:00 A [facility] Outpatient Attender: Marisa Hernandez FNPReferrer: Michelle DOUGLAS 12/30/2020 04:40:00 PM EDT - 12/30/2020 04:40:00 PM [facility] [place] [address] [facility] [address] 12/23/2020 12:00:00 AM EDT eCW1 ([facility]) ( WCPRO) W/C Procedure [address] [place] [address] 12/21/2020 12:00:00 AM EDT eCW1 ([facility]) [place] [address] [facility] [address] 12/16/2020 12:00:00 AM EDT eCW1 ([facility]) [place] [address] [facility] [address] 12/15/2020 12:00:00 AM EDT eCW1 ([facility]) [place] [address] [facility] [address] 11/18/2020 12:00:00 AM EDT eCW1 ([facility]) [place] [address] [facility] [place] [address] 11/16/2020 12:00:00 AM EDT eCW1 ([facility]) [place] [address] [facility] [address] 11/06/2020 12:00:00 AM EDT eCW1 ([facility]) [place]patient [address] [facility] [address] 11/03/2020 12:00:00 AM EDT eCW1 ([facility]) [place] [address] [facility] [place] [address] 10/29/2020 12:00:00 AM EDT [facility]CW1 ([facility]) [place] [address] [facility] [address] 10/27/2020 12:00:00 AM EDT eCW1 ([facility]) [place] [address] [facility] [address] 10/27/2020 12:00:00 AM EDT eCW1 ([facility]) Outpatient Attender: YANDEL MOFFETT MD 10/01/2020 12:00:0 0 AM [facility] Unknown [address] [facility] [address] 09/30/2020 12:00:00 AM EDT eCW1 ([facility]) [place] [address] [facility] [address] 09/30/2020 12:00:00 AM EDT eCW1 ([facility]) [place]patient [address] [facility] [address] 09/30/2020 12:00:00 AM EDT eCW1 ([facility]) Outpatient Attender: YANDEL MOFFETT MD 09/24/2020 12:00:0 0 AM [facility] Outpatient Attender: Damir Whitman PAConsultant: MARCELLO GARCIA 09/07/2020 11:27:00 AM EDT - 09/07/2020 11:27:00 AM [facility] Outpatient [address] [facility] [address] 08/21/2020 12:00:00 AM EST eCW1 ([facility]) Outpatient Attender: YANDEL MOFFETT MD [id number] 12:00:00 AM EST - 09/02/2020 08:44:32 AM EST Low back pain [facility] Low back pain Outpatient Referrer: YANDEL MOFFETT MD 08/20/2020 1 2:00:00 AM EST Low back pain [facility] Low back pain Outpatient Attender: KARRIE LUNA MD 08/05/2020 12:00:00 A [facility] Outpatient [address] [facility] [address] 07/31/2020 12:00:00 AM EST eCW1 ([facility]) Outpatient Attender: KARRIE LUNA MD [id number] 07/27/2020 12:00:00 AM [facility] Unknown [address] [facility] [place] [address] 07/10/2020 12:00:00 AM EST eCW1 ([facility]) Unknown [address] [facility] [place] [address] 07/01/2020 12:00:00 AM EST eCW1 ([facility]) [place] [address] [facility] [place] [address] 06/24/2020 12:00:00 AM EST eCW1 ([facility]) [place] [address] [facility] [address] 06/16/2020 12:00:00 AM EST eCW1 ([facility]) [place] [address] [facility] [address] 06/16/2020 12:00:00 AM EST eCW1 ([facility]) [place] [address] [facility] [address] 06/05/2020 12:00:00 AM EST eCW1 ([facility]) Unknown [address] [facility] [place] [address] 05/01/2020 12:00:00 AM EST eCW1 ([facility]) Unknown [address] [facility] [place] [address] 04/27/2020 12:00:00 AM EST eCW1 ([facility]) [place]patient [address] [facility] [place] [address] 04/24/2020 12:00:00 AM EDT eCW1 ([facility]) Outpatient Attender: INA URBAN MD [id number] 04/09/2020 07:44:17 AM EDT [facility] Outpatient [address] [facility] [place] [address] 03/26/2020 12:00:00 AM EDT eCW1 ([facility]) Emergency Attender: Jaswant GARCIA EMERGENCY ROOM-ER 12/21/2011 03:21:00 PM EDT - 12/21/2011 09:00:00 PM EDT [facility] Immunizations Vaccine Date Status Description Data Source(s) COVID-19 VACCINE CereScan 10/05/2020 12:00:00 AM EDT completed [facility] Vaccine Series Complete: YESThis Data wa s Submitted to [facility] Via [employer]. COVID-19 VACCINE Pfizer 09/14/2020 12:00:00 AM EDT completed [facility] Vaccine Series Complete: NOThis Data was Submitted to [facility] Via [employer]. Medications Medication Brand Name Start Date Product Form Dose Route Admi nistrative Instructions Pharmacy Instructions Status Indications Reaction Description Data Source(s) POLYETHYLENE GLYCOL 3350 142 MG/ML Oral Solution [Miralax] M iralax 03/24/2021 12:00:00 AM EDT active M EDENT ([facility], ) Amylases 326233 UNT / Endopeptidases 114 000 UNT / Lipase 27357 UNT Delayed Release Oral Capsule [Creon] Creon 03/24/2021 12:00:00 AM EDT ORAL active MEDENT ([facility], ) methylPREDNISolone 4 MG methylPREDNISolone 4 MG 03/16/2021 12:00:00 A M EDT active methylPREDNISolone 4 MG eCW1 ([facility]) Triamcinolone Acetonide 1 MG/ML Topical Cream Triamcin olone Acetonide 0.1 % Triamcinolone Acetonide 0.1 % 03/16/2021 12:00:00 AM EDT active Triamcinolone Acetonide 0.1 % eCW1 ([facility]) methylPREDNISolone 4 MG methylPREDNISolone 4 MG 03/16/2021 12:00:00 A M EDT active methylPREDNISolone 4 MG eCW1 ([facility]) Triamcinolone Acetonide 1 MG/ML Topical Cream Triamcin olone Acetonide 0.1 % Triamcinolone Acetonide 0.1 % 03/16/2021 12:00:00 AM EDT active Triamcinolone Acetonide 0.1 % eCW1 ([facility]) Oxycodone Hydrochloride 5 MG Oral Tablet oxyCODONE HCl 5 MG oxyCODONE HCl 5 MG 02/16/2021 12:00:00 AM EDT 1.0 {tablet_as_needed} active oxyCODONE HCl 5 MG eCW1 ([facility]) Oxycodone Hydrochloride 5 MG Oral Tablet oxyCODONE HCl 5 MG oxyCODONE HCl 5 MG 02/16/2021 12:00:00 AM EDT 1.0 {tablet_as_needed} active oxyCODONE HCl 5 MG eCW1 ([facility]) Oxycodone Hydrochloride 5 MG Oral Tablet oxyCODONE HCl 5 MG oxyCODONE HCl 5 MG 02/16/2021 12:00:00 AM EDT 1.0 {tablet_as_needed} active oxyCODONE HCl 5 MG eCW1 ([facility]) Oxycodone Hydrochloride 5 MG Oral Tablet oxyCODONE HCl 5 MG oxyCODONE HCl 5 MG 02/16/2021 12:00:00 AM EDT 1.0 {tablet_as_needed} active oxyCODONE HCl 5 MG eCW1 ([facility]) Oxycodone Hydrochloride 5 MG Oral Tablet oxyCODONE HCl 5 MG oxyCODONE HCl 5 MG 02/16/2021 12:00:00 AM EDT 1.0 {tablet_as_needed} active oxyCODONE HCl 5 MG eCW1 ([facility]) Oxycodone Hydrochloride 5 MG Oral Tablet oxyCODONE HCl 5 MG oxyCODONE HCl 5 MG 02/16/2021 12:00:00 AM EDT 1.0 {tablet_as_needed} active oxyCODONE HCl 5 MG eCW1 ([facility]) Oxycodone Hydrochloride 5 MG Oral Tablet oxyCODONE HCl 5 MG oxyCODONE HCl 5 MG 02/16/2021 12:00:00 AM EDT 1.0 {tablet_as_needed} active oxyCODONE HCl 5 MG eCW1 ([facility]) 300 mg 12/29/2020 12:00:00 AM EDT capsule 60 TAKE TWO CAPSULES BY MOUTH AT BEDTIME ONCE DAILY TAKE TWO CAPSULES BY MOUTH AT BEDTIME ONCE DAILY SOLD: 01/12/2021 [facility] 25 mg 12/16/2020 12:00:00 AM EDT tablet 90 TAKE ONE TABLET BY MOUTH EVERY EVENING TAKE ONE TABLET BY MOUTH EVERY EVENING SOLD: 12/21/2020 [facility] Oxycodone Hydrochloride 5 MG Oral Tablet oxyCODONE HCl 5 MG oxyCODONE HCl 5 MG 12/16/2020 12:00:00 AM EDT 1.0 {tablet_as_needed} active oxyCODONE HCl 5 MG eCW1 ([facility]) Oxycodone Hydrochloride 5 MG Oral Tablet oxyCODONE HCl 5 MG oxyCODONE HCl 5 MG 12/16/2020 12:00:00 AM EDT 1.0 {tablet_as_needed} active oxyCODONE HCl 5 MG eCW1 ([facility]) Oxycodone Hydrochloride 5 MG Oral Tablet oxyCODONE HCl 5 MG oxyCODONE HCl 5 MG 12/16/2020 12:00:00 AM EDT 1.0 {tablet_as_needed} active oxyCODONE HCl 5 MG eCW1 ([facility]) Amitriptyline Hydrochloride 25 MG Oral Tablet AMITRIPTYLINE HCL 11/26/2020 12:00:00 AM EDT tablet 90 TAKE 1-3 TABLETS BY MOUTH ONCE A DAY TAKE 1-3 TABLETS BY MOUTH ONCE A DAY SOLD: 12/01/2020 [facility] 25 mg 11/26/2020 12:00:00 AM EDT tablet 90 TAKE 1-3 TABLETS BY MOUTH ONCE A DAY TAKE 1-3 TABLETS BY MOUTH ONCE A DAY SOLD: 02/09/2021 [facility] 25 mg 11/26/2020 12:00:00 AM EDT tablet 90 TAKE 1-3 TABLETS BY MOUTH ONCE A DAY TAKE 1-3 TABLETS BY MOUTH ONCE A DAY SOLD: 01/12/2021 [facility] Oxycodone Hydrochloride 5 MG Oral Tablet Oxycodone HCl 5 MG Oxycodone HCl 5 MG 11/18/2020 12:00:00 AM EDT 1.0 {tablet_as_needed} active Oxycodone HCl 5 MG eCW1 ([facility]) Oxycodone Hydrochloride 5 MG Oral Tablet oxyCODONE HCl 5 MG oxyCODONE HCl 5 MG 11/18/2020 12:00:00 AM EDT 1.0 {tablet_as_needed} active oxyCODONE HCl 5 MG eCW1 ([facility]) 200 mg 11/17/2020 12:00:00 AM EDT capsule 60 TAKE ONE CAPSULE BY MOUTH TWICE A DAY MAXIMUM DAILY DOSE = 2 TAKE ONE CAPSULE BY MOUTH TWICE A DAY MA XIMUM DAILY DOSE = 2 SOLD: 12/21/2020 [facility] 200 mg 11/17/2020 12:00:00 AM EDT capsule 60 TAKE ONE CAPSULE BY MOUTH TWICE A DAY MAXIMUM DAILY DOSE = 2 TAKE ONE CAPSULE BY MOUTH TWICE A DAY MA XIMUM DAILY DOSE = 2 SOLD: 01/20/2021 [facility] 200 mg 11/17/2020 12:00:00 AM EDT capsule 60 TAKE ONE CAPSULE BY MOUTH TWICE A DAY MAXIMUM DAILY DOSE = 2 TAKE ONE CAPSULE BY MOUTH TWICE A DAY MA XIMUM DAILY DOSE = 2 SOLD: 11/17/2020 [facility] 100 mg 11/03/2020 12:00:00 AM EDT tablet 90 TAKE 1 TABLET BY MOUTH ONCE A DAY TAKE 1 TABLET BY MOUTH ONCE A DAY SOLD: 02/04/2021 [facility] Fluconazole 150 MG Oral Tablet [Diflucan] Diflucan 150 MG Di flucan 150 MG 11/03/2020 12:00:00 AM EDT 1.0 {tablet} suspended Diflucan 150 MG eCW1 ([facility]) Fluconazole 150 MG Oral Tablet [Diflucan] Diflucan 150 MG Di flucan 150 MG 11/03/2020 12:00:00 AM EDT 1.0 {tablet} suspended Diflucan 150 MG eCW1 ([facility]) Doxycycline Monohydrate 100 MG Oral Capsule Doxycycline Racine hydrate 100 MG 11/03/2020 12:00:00 AM EDT 1.0 {capsule} suspend ed Doxycycline Monohydrate 100 MG eCW1 ([facility]) Doxycycline Monohydrate 100 MG Oral Capsule Doxycycline Racine hydrate 100 MG 11/03/2020 12:00:00 AM EDT 1.0 {capsule} active Doxycycline Monohydrate 100 MG eCW1 ([facility]) Doxycycline Monohydrate 100 MG Oral Capsule Doxycycline Racine hydrate 100 MG 11/03/2020 12:00:00 AM EDT 1.0 {capsule} suspend ed Doxycycline Monohydrate 100 MG eCW1 ([facility]) Doxycycline Monohydrate 100 MG Oral Capsule Doxycycline Racine hydrate 100 MG 11/03/2020 12:00:00 AM EDT 1.0 {capsule} suspend ed Doxycycline Monohydrate 100 MG eCW1 ([facility]) Doxycycline Monohydrate 100 MG Oral Capsule Doxycycline Racine hydrate 100 MG 11/03/2020 12:00:00 AM EDT 1.0 {capsule} suspend ed Doxycycline Monohydrate 100 MG eCW1 ([facility]) Fluconazole 150 MG Oral Tablet [Diflucan] Diflucan 150 MG Di flucan 150 MG 11/03/2020 12:00:00 AM EDT 1.0 {tablet} suspended Diflucan 150 MG eCW1 ([facility]) Fluconazole 150 MG Oral Tablet [Diflucan] Diflucan 150 MG Di flucan 150 MG 11/03/2020 12:00:00 AM EDT 1.0 {tablet} suspended Diflucan 150 MG eCW1 ([facility]) Fluconazole 150 MG Oral Tablet [Diflucan] Diflucan 150 MG Di flucan 150 MG 11/03/2020 12:00:00 AM EDT 1.0 {tablet} suspended Diflucan 150 MG eCW1 ([facility]) 100 mg 11/03/2020 12:00:00 AM EDT tablet 90 TAKE 1 TABLET BY MOUTH ONCE A DAY TAKE 1 TABLET BY MOUTH ONCE A DAY SOLD: 11/03/2020 [facility] 100 mg 11/03/2020 12:00:00 AM EDT capsule 10 TAKE ONE CAPSULE BY MOUTH TWICE A DAY FOR 5 DAYS TAKE ONE CAPSULE BY MOUTH TWICE A DAY FOR 5 DAYS SOLD: 11/03/2020 [facility] Fluconazole 150 MG Oral Tablet [Diflucan] Diflucan 150 MG Di flucan 150 MG 11/03/2020 12:00:00 AM EDT 1.0 {tablet} active Diflucan 150 MG eCW1 ([facility]) Fluconazole 150 MG Oral Tablet [Diflucan] Diflucan 150 MG Di flucan 150 MG 11/03/2020 12:00:00 AM EDT 1.0 {tablet} suspended Diflucan 150 MG eCW1 ([facility]) Fluconazole 150 MG Oral Tablet [Diflucan] Diflucan 150 MG Di flucan 150 MG 11/03/2020 12:00:00 AM EDT 1.0 {tablet} active Diflucan 150 MG eCW1 ([facility]) Fluconazole 150 MG Oral Tablet [Diflucan] Diflucan 150 MG Di flucan 150 MG 11/03/2020 12:00:00 AM EDT 1.0 {tablet} suspended Diflucan 150 MG eCW1 ([facility]) Fluconazole 150 MG Oral Tablet [Diflucan] Diflucan 150 MG Di flucan 150 MG 11/03/2020 12:00:00 AM EDT 1.0 {tablet} suspended Diflucan 150 MG eCW1 ([facility]) Fluconazole 150 MG Oral Tablet [Diflucan] Diflucan 150 MG Di flucan 150 MG 11/03/2020 12:00:00 AM EDT 1.0 {tablet} suspended Diflucan 150 MG eCW1 ([facility]) Doxycycline Monohydrate 100 MG Oral Capsule Doxycycline Racine hydrate 100 MG 11/03/2020 12:00:00 AM EDT 1.0 {capsule} suspend ed Doxycycline Monohydrate 100 MG eCW1 ([facility]) Doxycycline Monohydrate 100 MG Oral Capsule Doxycycline Racine hydrate 100 MG 11/03/2020 12:00:00 AM EDT 1.0 {capsule} suspend ed Doxycycline Monohydrate 100 MG eCW1 ([facility]) Fluconazole 150 MG Oral Tablet [Diflucan] Diflucan 150 MG Di flucan 150 MG 11/03/2020 12:00:00 AM EDT 1.0 {tablet} active Diflucan 150 MG eCW1 ([facility]) Doxycycline Monohydrate 100 MG Oral Capsule Doxycycline Racine hydrate 100 MG 11/03/2020 12:00:00 AM EDT 1.0 {capsule} suspend ed Doxycycline Monohydrate 100 MG eCW1 ([facility]) Doxycycline Monohydrate 100 MG Oral Capsule Doxycycline Racine hydrate 100 MG 11/03/2020 12:00:00 AM EDT 1.0 {capsule} active Doxycycline Monohydrate 100 MG eCW1 ([facility]) Doxycycline Monohydrate 100 MG Oral Capsule Doxycycline Racine hydrate 100 MG 11/03/2020 12:00:00 AM EDT 1.0 {capsule} suspend ed Doxycycline Monohydrate 100 MG eCW1 ([facility]) Doxycycline Monohydrate 100 MG Oral Capsule Doxycycline Racine hydrate 100 MG 11/03/2020 12:00:00 AM EDT 1.0 {capsule} suspend ed Doxycycline Monohydrate 100 MG eCW1 ([facility]) 150 mg 11/03/2020 12:00:00 AM EDT tablet 2 TAKE 1 TABLET BY MOUTH FOR 1 DOSE REPEAT IN 72 HOURS IF NEEDED TAKE 1 TABLET BY MOUTH FOR 1 DOSE REPEAT IN 72 HOURS IF NEEDED SOLD: 11/03/2020 [facility] Doxycycline Monohydrate 100 MG Oral Capsule Doxycycline Racine hydrate 100 MG 11/03/2020 12:00:00 AM EDT 1.0 {capsule} suspend ed Doxycycline Monohydrate 100 MG eCW1 ([facility]) Doxycycline Monohydrate 100 MG Oral Capsule Doxycycline Racine hydrate 100 MG 11/03/2020 12:00:00 AM EDT 1.0 {capsule} active Doxycycline Monohydrate 100 MG eCW1 ([facility]) Fluconazole 150 MG Oral Tablet [Diflucan] Diflucan 150 MG Di flucan 150 MG 11/03/2020 12:00:00 AM EDT 1.0 {tablet} suspended Diflucan 150 MG eCW1 ([facility]) Doxycycline Monohydrate 100 MG Oral Capsule Doxycycline Racine hydrate 100 MG 11/03/2020 12:00:00 AM EDT 1.0 {capsule} suspend ed Doxycycline Monohydrate 100 MG eCW1 ([facility]) Doxycycline Monohydrate 100 MG Oral Capsule Doxycycline Racine hydrate 100 MG 11/03/2020 12:00:00 AM EDT 1.0 {capsule} suspend ed Doxycycline Monohydrate 100 MG eCW1 ([facility]) Fluconazole 150 MG Oral Tablet [Diflucan] Diflucan 150 MG Di flucan 150 MG 11/03/2020 12:00:00 AM EDT 1.0 {tablet} suspended Diflucan 150 MG eCW1 ([facility]) Fluconazole 150 MG Oral Tablet [Diflucan] Diflucan 150 MG Di flucan 150 MG 11/03/2020 12:00:00 AM EDT 1.0 {tablet} suspended Diflucan 150 MG eCW1 ([facility]) Cervical Collar - Cervical Collar - 10/29/2020 12:00:00 AM EDT active Cervical Collar - eCW1 ([facility]) Cervical Collar - Cervical Collar - 10/29/2020 12:00:00 AM EDT active Cervical Collar - eCW1 ([facility]) Cervical Collar - Cervical Collar - 10/29/2020 12:00:00 AM EDT active Cervical Collar - eCW1 ([facility]) Cervical Collar - Cervical Collar - 10/29/2020 12:00:00 AM EDT active Cervical Collar - eCW1 ([facility]) Cervical Collar - Cervical Collar - 10/29/2020 12:00:00 AM EDT active Cervical Collar - eCW1 ([facility]) Cervical Collar - Cervical Collar - 10/29/2020 12:00:00 AM EDT active Cervical Collar - eCW1 ([facility]) Cervical Collar - Cervical Collar - 10/29/2020 12:00:00 AM EDT active Cervical Collar - eCW1 ([facility]) Cervical Collar - Cervical Collar - 10/29/2020 12:00:00 AM EDT active Cervical Collar - eCW1 ([facility]) Cervical Collar - Cervical Collar - 10/29/2020 12:00:00 AM EDT active Cervical Collar - eCW1 ([facility]) Cervical Collar - Cervical Collar - 10/29/2020 12:00:00 AM EDT active Cervical Collar - eCW1 ([facility]) Cervical Collar - Cervical Collar - 10/29/2020 12:00:00 AM EDT active Cervical Collar - eCW1 ([facility]) Cervical Collar - Cervical Collar - 10/29/2020 12:00:00 AM EDT active Cervical Collar - eCW1 ([facility]) Cervical Collar - Cervical Collar - 10/29/2020 12:00:00 AM EDT active Cervical Collar - eCW1 ([facility]) Cervical Collar - Cervical Collar - 10/29/2020 12:00:00 AM EDT active Cervical Collar - eCW1 ([facility]) Cervical Collar - Cervical Collar - 10/29/2020 12:00:00 AM EDT active Cervical Collar - eCW1 ([facility]) Cervical Collar - Cervical Collar - 10/29/2020 12:00:00 AM EDT active Cervical Collar - eCW1 (Formerly [facility]) Cervical Collar - Cervical Collar - 10/29/2020 12:00:00 AM EDT active Cervical Collar - eCW1 (Formerly [facility]) Hydroxychloroquine Sulfate 200 MG Oral Tablet HYDROXYCHLOROQ UINE SULFATE 10/19/2020 12:00:00 AM EDT tablet 60 TAKE ONE TABLE T BY MOUTH TWICE A DAY TAKE ONE TABLET BY MOUTH TWICE A DAY SOLD: 02/09/2021 [facility] Hydroxychloroquine Sulfate 200 MG Oral Tablet HYDROXYCHLOROQ UINE SULFATE 10/19/2020 12:00:00 AM EDT tablet 60 TAKE ONE TABLE T BY MOUTH TWICE A DAY TAKE ONE TABLET BY MOUTH TWICE A DAY SOLD: 01/12/2021 [facility] Hydroxychloroquine Sulfate 200 MG Oral Tablet HYDROXYCHLOROQ UINE SULFATE 10/19/2020 12:00:00 AM EDT tablet 60 TAKE ONE TABLE T BY MOUTH TWICE A DAY TAKE ONE TABLET BY MOUTH TWICE A DAY SOLD: 10/21/2020 [facility] Hydroxychloroquine Sulfate 200 MG Oral Tablet HYDROXYCHLOROQ UINE SULFATE 10/19/2020 12:00:00 AM EDT tablet 60 TAKE ONE TABLE T BY MOUTH TWICE A DAY TAKE ONE TABLET BY MOUTH TWICE A DAY SOLD: 03/16/2021 [facility] Hydroxychloroquine Sulfate 200 MG Oral Tablet HYDROXYCHLOROQ UINE SULFATE 10/19/2020 12:00:00 AM EDT tablet 60 TAKE ONE TABLE T BY MOUTH TWICE A DAY TAKE ONE TABLET BY MOUTH TWICE A DAY SOLD: 12/01/2020 [facility] 300 mg 09/30/2020 12:00:00 AM EDT capsule 60 TAKE 2 CAPSULES BY MOUTH BEFORE BEDTIME TAKE 2 CAPSULES BY MOUTH BEFORE BEDTIME SOLD: 10/29/2020 [facility] 300 mg 09/30/2020 12:00:00 AM EDT capsule 60 TAKE 2 CAPSULES BY MOUTH BEFORE BEDTIME TAKE 2 CAPSULES BY MOUTH BEFORE BEDTIME SOLD: 12/01/2020 [facility] gabapentin 300 MG Oral Capsule GABAPENTIN 09/30/2020 12:00:00 AM EDT capsule 60 TAKE 2 CAPSULES BY MOUTH BEFORE BEDTIME TAKE 2 CAPSULE S BY MOUTH BEFORE BEDTIME SOLD: 09/30/2020 [facility] Amitriptyline Hydrochloride 25 MG Oral Tablet AMITRIPTYLINE HCL 08/21/2020 12:00:00 AM EST tablet 90 TAKE 1-3 TABLETS BY MOUTH ONCE A DAY TAKE 1-3 TABLETS BY MOUTH ONCE A DAY SOLD: 10/29/2020 [facility] Amitriptyline Hydrochloride 25 MG Oral Tablet AMITRIPTYLINE HCL 08/21/2020 12:00:00 AM EST tablet 90 TAKE 1-3 TABLETS BY MOUTH ONCE A DAY TAKE 1-3 TABLETS BY MOUTH ONCE A DAY SOLD: 09/20/2020 [facility] Amitriptyline Hydrochloride 25 MG Oral Tablet AMITRIPTYLINE HCL 08/21/2020 12:00:00 AM EST tablet 90 TAKE 1-3 TABLETS BY MOUTH ONCE A DAY TAKE 1-3 TABLETS BY MOUTH ONCE A DAY SOLD: 08/22/2020 [facility] 200 mg 07/31/2020 12:00:00 AM EST capsule 60 TAKE ONE CAPSULE BY MOUTH TWICE A DAY MAXIMUM DAILY DOSE = 2 TAKE ONE CAPSULE BY MOUTH TWICE A DAY MA XIMUM DAILY DOSE = 2 SOLD: 09/03/2020 [facility] 200 mg 07/31/2020 12:00:00 AM EST capsule 60 TAKE ONE CAPSULE BY MOUTH TWICE A DAY MAXIMUM DAILY DOSE = 2 TAKE ONE CAPSULE BY MOUTH TWICE A DAY MA XIMUM DAILY DOSE = 2 SOLD: 08/04/2020 [facility] 200 mg 07/31/2020 12:00:00 AM EST capsule 60 TAKE ONE CAPSULE BY MOUTH TWICE A DAY MAXIMUM DAILY DOSE = 2 TAKE ONE CAPSULE BY MOUTH TWICE A DAY MA XIMUM DAILY DOSE = 2 SOLD: 10/12/2020 [facility] 100 mg 07/03/2020 12:00:00 AM EST tablet 90 TAKE ONE TABLET BY MOUTH EVERY DAY TAKE ONE TABLET BY MOUTH EVERY DAY SOLD: 07/03/2020 [facility] 300 mg 06/25/2020 12:00:00 AM EST capsule 60 TAKE TWO CAPSULES BY MOUTH BEFORE BEDTIME DIRECTED TAKE TWO CAPSULES BY MOUTH BEFORE BEDTIM E DIRECTED SOLD: 06/25/2020 [facility] 300 mg 06/25/2020 12:00:00 AM EST capsule 60 TAKE TWO CAPSULES BY MOUTH BEFORE BEDTIME DIRECTED TAKE TWO CAPSULES BY MOUTH BEFORE BEDTIM E DIRECTED SOLD: 08/22/2020 [facility] 300 mg 06/25/2020 12:00:00 AM EST capsule 60 TAKE TWO CAPSULES BY MOUTH BEFORE BEDTIME DIRECTED TAKE TWO CAPSULES BY MOUTH BEFORE BEDTIM E DIRECTED SOLD: 07/23/2020 [facility] Amitriptyline Hydrochloride 25 MG Oral Tablet Amitript yline HCl 25 MG Amitriptyline HCl 25 MG 06/24/2020 12:00:00 AM EST active Amitriptyline HCl 25 MG eCW1 ([facility]) Amitriptyline Hydrochloride 25 MG Oral Tablet Amitript yline HCl 25 MG Amitriptyline HCl 25 MG 06/24/2020 12:00:00 AM EST active Amitriptyline HCl 25 MG eCW1 ([facility]) Amitriptyline Hydrochloride 25 MG Oral Tablet Amitript yline HCl 25 MG Amitriptyline HCl 25 MG 06/24/2020 12:00:00 AM EST active Amitriptyline HCl 25 MG eCW1 ([facility]) Amitriptyline Hydrochloride 25 MG Oral Tablet Amitript yline HCl 25 MG Amitriptyline HCl 25 MG 06/24/2020 12:00:00 AM EST active Amitriptyline HCl 25 MG eCW1 ([facility]) Amitriptyline Hydrochloride 25 MG Oral Tablet Amitript yline HCl 25 MG Amitriptyline HCl 25 MG 06/24/2020 12:00:00 AM EST active Amitriptyline HCl 25 MG eCW1 ([facility]) Amitriptyline Hydrochloride 25 MG Oral Tablet Amitript yline HCl 25 MG Amitriptyline HCl 25 MG 06/24/2020 12:00:00 AM EST active Amitriptyline HCl 25 MG eCW1 ([facility]) Amitriptyline Hydrochloride 25 MG Oral Tablet Amitript yline HCl 25 MG Amitriptyline HCl 25 MG 06/24/2020 12:00:00 AM EST active Amitriptyline HCl 25 MG eCW1 ([facility]) Amitriptyline Hydrochloride 25 MG Oral Tablet Amitript yline HCl 25 MG Amitriptyline HCl 25 MG 06/24/2020 12:00:00 AM EST active Amitriptyline HCl 25 MG eCW1 ([facility]) Amitriptyline Hydrochloride 25 MG Oral Tablet Amitript yline HCl 25 MG Amitriptyline HCl 25 MG 06/24/2020 12:00:00 AM EST 1.0 {tablet_at_b edtime} active Amitriptyline HCl 25 MG e CW1 ([facility]) Amitriptyline Hydrochloride 25 MG Oral Tablet Amitript yline HCl 25 MG Amitriptyline HCl 25 MG 06/24/2020 12:00:00 AM EST active Amitriptyline HCl 25 MG eCW1 ([facility]) Amitriptyline Hydrochloride 25 MG Oral Tablet Amitript yline HCl 25 MG Amitriptyline HCl 25 MG 06/24/2020 12:00:00 AM EST active Amitriptyline HCl 25 MG eCW1 ([facility]) Amitriptyline Hydrochloride 25 MG Oral Tablet Amitript yline HCl 25 MG Amitriptyline HCl 25 MG 06/24/2020 12:00:00 AM EST active Amitriptyline HCl 25 MG eCW1 ([facility]) Amitriptyline Hydrochloride 25 MG Oral Tablet Amitript yline HCl 25 MG Amitriptyline HCl 25 MG 06/24/2020 12:00:00 AM EST 1.0 {tablet_at_b edtime} active Amitriptyline HCl 25 MG e CW1 ([facility]) Amitriptyline Hydrochloride 25 MG Oral Tablet Amitript yline HCl 25 MG Amitriptyline HCl 25 MG 06/24/2020 12:00:00 AM EST 1.0 {tablet_at_b edtime} active Amitriptyline HCl 25 MG e CW1 ([facility]) Amitriptyline Hydrochloride 25 MG Oral Tablet Amitript yline HCl 25 MG Amitriptyline HCl 25 MG 06/24/2020 12:00:00 AM EST active Amitriptyline HCl 25 MG eCW1 ([facility]) Amitriptyline Hydrochloride 25 MG Oral Tablet AMITRIPTYLINE HCL 06/24/2020 12:00:00 AM EST tablet 30 TAKE 1 TABLET BY MOUTH ON CE A DAY AT BEDTIME TAKE 1 TABLET BY MOUTH ONCE A DAY AT BEDTIME SOLD: 06/25/2020 [facility] Amitriptyline Hydrochloride 25 MG Oral Tablet Amitript yline HCl 25 MG Amitriptyline HCl 25 MG 06/24/2020 12:00:00 AM EST active Amitriptyline HCl 25 MG eCW1 ([facility]) Amitriptyline Hydrochloride 25 MG Oral Tablet Amitript yline HCl 25 MG Amitriptyline HCl 25 MG 06/24/2020 12:00:00 AM EST active Amitriptyline HCl 25 MG eCW1 ([facility]) Amitriptyline Hydrochloride 25 MG Oral Tablet Amitript yline HCl 25 MG Amitriptyline HCl 25 MG 06/24/2020 12:00:00 AM EST active Amitriptyline HCl 25 MG eCW1 ([facility]) Amitriptyline Hydrochloride 25 MG Oral Tablet Amitript yline HCl 25 MG Amitriptyline HCl 25 MG 06/24/2020 12:00:00 AM EST 1.0 {tablet_at_b edtime} active Amitriptyline HCl 25 MG e CW1 ([facility]) Amitriptyline Hydrochloride 25 MG Oral Tablet Amitript yline HCl 25 MG Amitriptyline HCl 25 MG 06/24/2020 12:00:00 AM EST active Amitriptyline HCl 25 MG eCW1 ([facility]) Amitriptyline Hydrochloride 25 MG Oral Tablet Amitript yline HCl 25 MG Amitriptyline HCl 25 MG 06/24/2020 12:00:00 AM EST active Amitriptyline HCl 25 MG eCW1 ([facility]) Amitriptyline Hydrochloride 25 MG Oral Tablet Amitript yline HCl 25 MG Amitriptyline HCl 25 MG 06/24/2020 12:00:00 AM EST 1.0 {tablet_at_b edtime} active Amitriptyline HCl 25 MG e CW1 ([facility]) Amitriptyline Hydrochloride 25 MG Oral Tablet Amitript yline HCl 25 MG Amitriptyline HCl 25 MG 06/24/2020 12:00:00 AM EST active Amitriptyline HCl 25 MG eCW1 ([facility]) Amitriptyline Hydrochloride 25 MG Oral Tablet Amitript yline HCl 25 MG Amitriptyline HCl 25 MG 06/24/2020 12:00:00 AM EST active Amitriptyline HCl 25 MG eCW1 ([facility]) Amitriptyline Hydrochloride 25 MG Oral Tablet Amitript yline HCl 25 MG Amitriptyline HCl 25 MG 06/24/2020 12:00:00 AM EST active Amitriptyline HCl 25 MG eCW1 ([facility]) Amitriptyline Hydrochloride 25 MG Oral Tablet AMITRIPTYLINE HCL 06/24/2020 12:00:00 AM EST tablet 30 TAKE 1 TABLET BY MOUTH ON CE A DAY AT BEDTIME TAKE 1 TABLET BY MOUTH ONCE A DAY AT BEDTIME SOLD: 07/23/2020 [facility] Amitriptyline Hydrochloride 25 MG Oral Tablet Amitript yline HCl 25 MG Amitriptyline HCl 25 MG 06/24/2020 12:00:00 AM EST active Amitriptyline HCl 25 MG eCW1 ([facility]) Amitriptyline Hydrochloride 25 MG Oral Tablet Amitript yline HCl 25 MG Amitriptyline HCl 25 MG 06/24/2020 12:00:00 AM EST active Amitriptyline HCl 25 MG eCW1 ([facility]) 200 mg 05/01/2020 12:00:00 AM EST capsule 60 TAKE ONE CAPSULE BY MOUTH TWICE A DAY TAKE ONE CAPSULE BY MOUTH TWICE A DAY SOLD: 06/05/2020 [facility] 200 mg 05/01/2020 12:00:00 AM EST capsule 60 TAKE ONE CAPSULE BY MOUTH TWICE A DAY TAKE ONE CAPSULE BY MOUTH TWICE A DAY SOLD: 05/04/2020 [facility] 200 mg 05/01/2020 12:00:00 AM EST capsule 60 TAKE ONE CAPSULE BY MOUTH TWICE A DAY TAKE ONE CAPSULE BY MOUTH TWICE A DAY SOLD: 07/03/2020 [facility] Dicyclomine Hydrochloride 20 MG Oral Tablet Dicyclomin e HCl 20 MG Dicyclomine HCl 20 MG 04/24/2020 12:00:00 AM EDT 1.0 {tablet} ac tive Dicyclomine HCl 20 MG eCW1 ([facility]) Dicyclomine Hydrochloride 20 MG Oral Tablet Dicyclomin e HCl 20 MG Dicyclomine HCl 20 MG 04/24/2020 12:00:00 AM EDT 1.0 {tablet} [facility]is [facility] Dicyclomine HCl 20 MG eCW1 ([facility]) Dicyclomine Hydrochloride 20 MG Oral Tablet Dicyclomin e HCl 20 MG Dicyclomine HCl 20 MG 04/24/2020 12:00:00 AM EDT 1.0 {tablet} ac tive Dicyclomine HCl 20 MG eCW1 ([facility]) Dicyclomine Hydrochloride 20 MG Oral Tablet Dicyclomin e HCl 20 MG Dicyclomine HCl 20 MG 04/24/2020 12:00:00 AM EDT 1.0 {tablet} lewis spended Dicyclomine HCl 20 MG eCW1 ([facility]) Dicyclomine Hydrochloride 20 MG Oral Tablet Dicyclomin e HCl 20 MG Dicyclomine HCl 20 MG 04/24/2020 12:00:00 AM EDT 1.0 {tablet} lewis spended Dicyclomine HCl 20 MG eCW1 ([facility]) 20 mg 04/24/2020 12:00:00 AM EDT tablet 90 TAKE ONE TABLET BY MOUTH THREE TIMES A DAY TAKE ONE TABLET BY MOUTH THREE TIMES A DAY SOLD: 04/27/2020 [facility] Dicyclomine Hydrochloride 20 MG Oral Tablet Dicyclomin e HCl 20 MG Dicyclomine HCl 20 MG 04/24/2020 12:00:00 AM EDT 1.0 {tablet} lewis spended Dicyclomine HCl 20 MG eCW1 ([facility]) Dicyclomine Hydrochloride 20 MG Oral Tablet Dicyclomin e HCl 20 MG Dicyclomine HCl 20 MG 04/24/2020 12:00:00 AM EDT 1.0 {tablet} lewis spended Dicyclomine HCl 20 MG eCW1 ([facility]) Dicyclomine Hydrochloride 20 MG Oral Tablet Dicyclomin e HCl 20 MG Dicyclomine HCl 20 MG 04/24/2020 12:00:00 AM EDT 1.0 {tablet} lewis spended Dicyclomine HCl 20 MG eCW1 ([facility]) Dicyclomine Hydrochloride 20 MG Oral Tablet Dicyclomin e HCl 20 MG Dicyclomine HCl 20 MG 04/24/2020 12:00:00 AM EDT 1.0 {tablet} lewis spended Dicyclomine HCl 20 MG eCW1 ([facility]) Dicyclomine Hydrochloride 20 MG Oral Tablet Dicyclomin e HCl 20 MG Dicyclomine HCl 20 MG 04/24/2020 12:00:00 AM EDT 1.0 {tablet} lewis spended Dicyclomine HCl 20 MG eCW1 ([facility]) Dicyclomine Hydrochloride 20 MG Oral Tablet Dicyclomin e HCl 20 MG Dicyclomine HCl 20 MG 04/24/2020 12:00:00 AM EDT 1.0 {tablet} ac tive Dicyclomine HCl 20 MG eCW1 ([facility]) Dicyclomine Hydrochloride 20 MG Oral Tablet Dicyclomin e HCl 20 MG Dicyclomine HCl 20 MG 04/24/2020 12:00:00 AM EDT 1.0 {tablet} lewis spended Dicyclomine HCl 20 MG eCW1 ([facility]) Dicyclomine Hydrochloride 20 MG Oral Tablet Dicyclomin e HCl 20 MG Dicyclomine HCl 20 MG 04/24/2020 12:00:00 AM EDT 1.0 {tablet} lewis spended Dicyclomine HCl 20 MG eCW1 ([facility]) Dicyclomine Hydrochloride 20 MG Oral Tablet Dicyclomin e HCl 20 MG Dicyclomine HCl 20 MG 04/24/2020 12:00:00 AM EDT 1.0 {tablet} lewis spended Dicyclomine HCl 20 MG eCW1 ([facility]) Dicyclomine Hydrochloride 20 MG Oral Tablet Dicyclomin e HCl 20 MG Dicyclomine HCl 20 MG 04/24/2020 12:00:00 AM EDT 1.0 {tablet} lewis spended Dicyclomine HCl 20 MG eCW1 ([facility]) Dicyclomine Hydrochloride 20 MG Oral Tablet Dicyclomin e HCl 20 MG Dicyclomine HCl 20 MG 04/24/2020 12:00:00 AM EDT 1.0 {tablet} lewis spended Dicyclomine HCl 20 MG eCW1 ([facility]) Dicyclomine Hydrochloride 20 MG Oral Tablet Dicyclomin e HCl 20 MG Dicyclomine HCl 20 MG 04/24/2020 12:00:00 AM EDT 1.0 {tablet} lewis [facility]ended Dicyclomine HCl 20 MG eCW1 ([facility]) Dicyclomine Hydrochloride 20 MG Oral Tablet Dicyclomin e HCl 20 MG Dicyclomine HCl 20 MG 04/24/2020 12:00:00 AM EDT 1.0 {tablet} ac tive Dicyclomine HCl 20 MG eCW1 ([facility]) Dicyclomine Hydrochloride 20 MG Oral Tablet Dicyclomin e HCl 20 MG Dicyclomine HCl 20 MG 04/24/2020 12:00:00 AM EDT 1.0 {tablet} lewis spended Dicyclomine HCl 20 MG eCW1 ([facility]) Dicyclomine Hydrochloride 20 MG Oral Tablet Dicyclomin e HCl 20 MG Dicyclomine HCl 20 MG 04/24/2020 12:00:00 AM EDT 1.0 {tablet} lewis spended Dicyclomine HCl 20 MG eCW1 ([facility]) Dicyclomine Hydrochloride 20 MG Oral Tablet Dicyclomin e HCl 20 MG Dicyclomine HCl 20 MG 04/24/2020 12:00:00 AM EDT 1.0 {tablet} lewis spended Dicyclomine HCl 20 MG eCW1 ([facility]) Dicyclomine Hydrochloride 20 MG Oral Tablet Dicyclomin e HCl 20 MG Dicyclomine HCl 20 MG 04/24/2020 12:00:00 AM EDT 1.0 {tablet} lewis spended Dicyclomine HCl 20 MG eCW1 ([facility]) Dicyclomine Hydrochloride 20 MG Oral Tablet Dicyclomin e HCl 20 MG Dicyclomine HCl 20 MG 04/24/2020 12:00:00 AM EDT 1.0 {tablet} lewis spended Dicyclomine HCl 20 MG eCW1 ([facility]) Dicyclomine Hydrochloride 20 MG Oral Tablet Dicyclomin e HCl 20 MG Dicyclomine HCl 20 MG 04/24/2020 12:00:00 AM EDT 1.0 {tablet} lewis spended Dicyclomine HCl 20 MG eCW1 ([facility]) Dicyclomine Hydrochloride 20 MG Oral Tablet Dicyclomin e HCl 20 MG Dicyclomine HCl 20 MG 04/24/2020 12:00:00 AM EDT 1.0 {tablet} lewis spended Dicyclomine HCl 20 MG eCW1 ([facility]) Dicyclomine Hydrochloride 20 MG Oral Tablet Dicyclomin e HCl 20 MG Dicyclomine HCl 20 MG 04/24/2020 12:00:00 AM EDT 1.0 {tablet} lewis spended Dicyclomine HCl 20 MG eCW1 ([facility]) Dicyclomine Hydrochloride 20 MG Oral Tablet Dicyclomin e HCl 20 MG Dicyclomine HCl 20 MG 04/24/2020 12:00:00 AM EDT 1.0 {tablet} lewis spended Dicyclomine HCl 20 MG eCW1 ([facility]) Dicyclomine Hydrochloride 20 MG Oral Tablet Dicyclomin e HCl 20 MG Dicyclomine HCl 20 MG 04/24/2020 12:00:00 AM EDT 1.0 {tablet} lewis spended Dicyclomine HCl 20 MG eCW1 ([facility]) Dicyclomine Hydrochloride 20 MG Oral Tablet Dicyclomin e HCl 20 MG Dicyclomine HCl 20 MG 04/24/2020 12:00:00 AM EDT 1.0 {tablet} lewis spended Dicyclomine HCl 20 MG eCW1 ([facility]) Dicyclomine Hydrochloride 20 MG Oral Tablet Dicyclomin e HCl 20 MG Dicyclomine HCl 20 MG 04/24/2020 12:00:00 AM EDT 1.0 {tablet} lewis spended Dicyclomine HCl 20 MG eCW1 ([facility]) Dicyclomine Hydrochloride 20 MG Oral Tablet Dicyclomin e HCl 20 MG Dicyclomine HCl 20 MG 04/24/2020 12:00:00 AM EDT 1.0 {tablet} ac tive Dicyclomine HCl 20 MG eCW1 ([facility]) Dicyclomine Hydrochloride 20 MG Oral Tablet Dicyclomin e HCl 20 MG Dicyclomine HCl 20 MG 04/24/2020 12:00:00 AM EDT 1.0 {tablet} lewis spended Dicyclomine HCl 20 MG eCW1 ([facility]) Hydroxychloroquine Sulfate 200 MG Oral Tablet HYDROXYCHLOROQ UINE SULFATE 04/08/2020 12:00:00 AM EDT tablet 60 TAKE ONE TABLE T BY MOUTH TWICE A DAY TAKE ONE TABLET BY MOUTH TWICE A DAY SOLD: 05/19/2020 [facility] Hydroxychloroquine Sulfate 200 MG Oral Tablet HYDROXYCHLOROQ UINE SULFATE 04/08/2020 12:00:00 AM EDT tablet 60 TAKE ONE TABLE T BY MOUTH TWICE A DAY TAKE ONE TABLET BY MOUTH TWICE A DAY SOLD: 08/22/2020 [facility] Hydroxychloroquine Sulfate 200 MG Oral Tablet HYDROXYCHLOROQ UINE SULFATE 04/08/2020 12:00:00 AM EDT tablet 60 TAKE ONE TABLE T BY MOUTH TWICE A DAY TAKE ONE TABLET BY MOUTH TWICE A DAY SOLD: 07/23/2020 [facility] Hydroxychloroquine Sulfate 200 MG Oral Tablet HYDROXYCHLOROQ UINE SULFATE 04/08/2020 12:00:00 AM EDT tablet 60 TAKE ONE TABLE T BY MOUTH TWICE A DAY TAKE ONE TABLET BY MOUTH TWICE A DAY SOLD: 06/18/2020 [facility] Hydroxychloroquine Sulfate 200 MG Oral Tablet HYDROXYCHLOROQ UINE SULFATE 04/08/2020 12:00:00 AM EDT tablet 60 TAKE ONE TABLE T BY MOUTH TWICE A DAY TAKE ONE TABLET BY MOUTH TWICE A DAY SOLD: 09/20/2020 [facility] Hydroxychloroquine Sulfate 200 MG Oral Tablet HYDROXYCHLOROQ UINE SULFATE 04/08/2020 12:00:00 AM EDT tablet 60 TAKE ONE TABLE T BY MOUTH TWICE A DAY TAKE ONE TABLET BY MOUTH TWICE A DAY SOLD: 04/13/2020 [facility] Hydroxychloroquine Sulfate 200 MG Oral T ablet Hydroxychloroquine Sulfate 200 MG Oral Tablet (PLAQUENIL) Hydroxychloroquine Sulfate 200 MG Oral T ablet (PLAQUENIL) 03/31/2020 12:00:00 AM EDT 200 mg Oral active Take 1 tablet by mouth Two Times Daily [facility] 200 mg 03/20/2020 12:00:00 AM EDT capsule 60 TAKE ONE CAPSULE BY MOUTH TWICE A DAY MAXIMUM DAILY DOSE = 2 CAPSULES TAKE ONE CAPSULE BY MOUTH TWICE A DAY MAXIMUM DAILY DOSE = 2 CAPSULES SOLD: 03/26/2020 [facility] 100 mg 03/20/2020 12:00:00 AM EDT tablet 90 TAKE ONE TABLET BY MOUTH EVERY DAY TAKE ONE TABLET BY MOUTH EVERY DAY SOLD: 03/26/2020 [facility] 10-325 mg 02/24/2020 12:00:00 AM EDT tablet 90 TAKE ONE TABLET BY MOUTH EVERY 8 HOURS NEEDED FOR PAIN MAXIMUM DAILY DOSE = 3 TABLETS TAKE ONE TABLET BY MOUTH EVERY 8 HOURS NEEDED FOR PAIN MAXIMUM DAILY DOSE = 3 TABLETS SOLD: 02/25/2020 [facility] 300 mg 02/20/2020 12:00:00 AM EDT capsule 60 TAKE TWO CAPSULES BY MOUTH AT BEDTIME DIRECTED TAKE TWO CAPSULES BY MOUTH AT BEDTIME DIRECTED SOLD : 04/27/2020 [facility] 300 mg 02/20/2020 12:00:00 AM EDT capsule 60 TAKE TWO CAPSULES BY MOUTH AT BEDTIME DIRECTED TAKE TWO CAPSULES BY MOUTH AT BEDTIME DIRECTED SOLD : 03/26/2020 [facility] 300 mg 02/20/2020 12:00:00 AM EDT capsule 60 TAKE TWO CAPSULES BY MOUTH AT BEDTIME DIRECTED TAKE TWO CAPSULES BY MOUTH AT BEDTIME DIRECTED SOLD : 02/25/2020 [facility] Hydroxychloroquine Sulfate 200 MG Oral T ablet Hydroxychloroquine Sulfate 200 MG Oral Tablet (PLAQUENIL) Hydroxychloroquine Sulfate 200 MG Oral T ablet (PLAQUENIL) 01/06/2020 12:00:00 AM EDT 200 mg Oral active Take 1 tablet by mouth Two Times Daily [facility] 25 mg 12/16/2019 12:00:00 AM EDT tablet 90 TAKE 1 TABLET [25MG TOTAL] BY MOUTH EVERY EVENING TAKE 1 TABLET [25MG TOTAL] BY MOUTH EVERY EVENING SOLD : 03/18/2020 [facility] 25 mg 12/16/2019 12:00:00 AM EDT tablet 90 TAKE 1 TABLET [25MG TOTAL] BY MOUTH EVERY EVENING TAKE 1 TABLET [25MG TOTAL] BY MOUTH EVERY EVENING SOLD : 06/18/2020 [facility] 25 mg 12/16/2019 12:00:00 AM EDT tablet 90 TAKE 1 TABLET [25MG TOTAL] BY MOUTH EVERY EVENING TAKE 1 TABLET [25MG TOTAL] BY MOUTH EVERY EVENING SOLD : 09/20/2020 [facility] gabapentin 300 MG Oral Capsule Gabapentin 300 MG Oral Capsule (NEURONTIN) Gabapentin 300 MG Oral Capsule (NEURONTIN) 04/16/2019 12:00:00 AM EDT aborted TAKE ONE CAPSULE BY MOUTH EVERY 8 HOURS THREE TIMES A DAY [facility]. Devices (DURABLE MEDICAL EQUIPMENT SEE SIG) [facility] [place] [id number] 10/22/2018 12:00:00 AM EDT aborted Use as directed. Comfort Cool Thumb [facility] Splint [facility] 1 ML evolocumab 140 MG/ML Auto-Injector Evolocumab 140 MG/ML Subcutaneous Solution Auto-injector (Repatha SureClick) Evolocumab 140 MG/ML Subcutaneous Solution Auto-injector (Repatha SureClick) Subcutaneous aborted Inject into the skin [facility] Acetaminophen 325 MG / Oxycodone Hydroch loride 10 MG Oral Tablet oxyCODONE- Acetaminophen 10-325 MG Oral Tablet (PERCOCET) oxyCODONE-Acetaminophen 10-325 MG Oral Tablet (PERCOCET) 1 {tbl} Oral aborted Take 1 tablet by mouth every 4 (four) hours as needed for Pain [facility] gabapentin 100 MG Oral Capsule gabapentin (NEURONTIN) 100 MG capsule gabapentin (NEURONTIN) 100 MG capsule 100 mg Oral aborted Take 100 mg by mouth Three times daily [facility] [place]-3 Fatty Acids (FISH OIL PO) Oral aborte d Take by mouth [facility] Insurance Providers Payer name Policy type / Coverage type Policy ID Covered alliance party ID Covered alliance party's relationship to ramirez Policy Ramirez Plan Information [employer] SAFE W [id number] [facility] 6 [id number] [facility] [employer] [employer] PLUS 2 [id number] 1 [id number] BC EXC PLANS 1 [id number] BC HMOBLUE OPTION MC 2 [id number] EXCELLUS I [id number] Self [id number] [facility] Comm Plan Medicaid F [id number] SELF [id number] [facility] MEDICAID [id number] Jeri [id number] [employer] COMMUNITY PLAN MCDHMO [id number] SP [id number] [facility] I [id number] Self [id number] EXCELLUS H [id number] Unkn [id number] EXCELLUS BC-BS PPO [id number] EXCELLUS H [id number] Spouse [id number] MEDICAID [id number] Self [id number] MEDICAID [id number] Jeri [id number] [facility] I [id number] Self [id number] [place]BS [place] PPO 302/307 [id number] SP [id number] SAFE WORK COMP [id number] SP [id number] OTHER WORKERS COMPENSATION WCB# [id number] SP WCB# [id number] ANSI-Medicaid [id number] ANSI-Commercial [id number] [facility] MEDICAID [id number] S [id number] ANSI-Commercial [id number] ANSI-Medicaid [id number] ANSI-Commercial [id number] ANSI-Medicaid [id number] ANSI-Medicaid [id number] ANSI-Commercial [id number]-e5lz-1879-[id number] [id number] ANSI-Commercial [id number]-qo8u-[id number]-qk9f-[id number] ANSI-Medicaid [id number] [facility] [employer] ([facility] [place] [id number] Self [id number] ANSI-Commercial [id number]-[id number] [id number]-9hc5-[id number] ANSI-Medicaid [id number] ANSI-Medicaid [id number] ANSI-Commercial [id number]-[id number]-[id number] ANSI-Commercial go90q995-500h-1378-y224-[id number]-2243-[id number] ANSI-Medicaid [id number] ANSI-Medicaid [id number] ANSI-Commercial [id number]-d696-[id number]-f252-qt25tq50q00o ANSI-Commercial [id number] ANSI-Medicaid [id number] [facility] [id number] [facility] [id number] ANSI-Commercial [id number] ANSI-Medicaid [id number] ANSI-Commercial [id number] ANSI-Medicaid [id number] ANSI-Medicaid [id number] ANSI-Commercial [id number] ANSI-Commercial [id number] ANSI-Medicaid [id number] [facility]-Medicaid [id number] ANSI-Commercial [id number] [facility]-Medicaid [id number] ANSI-Commercial [id number] [facility] [id number] [facility]-Medicaid [id number] ANSI-Commercial [id number] ANSI-Commercial [id number] [facility] [id number] ANSI-Medicaid [id number] ANSI-Commercial [id number] ANSI-Commercial [id number] ANSI-Medicaid [id number] [facility] AMERICHOICE XIX -[facility] [id number] [facility] MEDICAID PI PI [facility] Health Maintenance Organization ([facility]) [id number] Self 1 [id number] [facility] [id number] [facility] AMERICHOICE XIX -O [id number] [facility] Maintenance Organization ([facility]) [id number] Self 1 [id number] SPECIAL FUNDS O WCB#[id number] S WCB #[id number] [facility] COMMUNITY PLAN [facility] [id number] SP [id number] SPECIAL FUNDS CONSERVATION-DEW WCB# [id number] SP WCB# [id number] SPECIAL FUNDS CONSERVATION-DEW [id number] SP [id number] SPECIAL FUNDS CONSERVATION-DE[place] [id number] SP [id number] MEDICAID P [id number] S [id number] MEDICAID [id number] SP [id number] SPECIAL FUNDS P [id number] S [id number] EXCELLUS BCBS P [id number] S [id number] BLUE CROSS VERA PLAN [id number] SP [id number] BLUE CROSS VERA PLAN [id number] SP [id number] HMO BLUE P [id number] S [id number] SPECIAL FUNDS P [id number] S [id number] SPECIAL FUNDS CONSERVATION-DEW [id number] SP [id number] SELF PAY 2 UNAVAILABLE 1 [place]LE [place] 3 [id number] 1 [id number] MEDICAID - O/P EMERGENCY ROOM [id number] 18 [id number] BLUE CROSS BLUE SHIELD-O/P [id number] UNHC COMMUNITY PLAN MCDHMO [id number] SP [id number] UNHC COMMUNITY PLAN MCDHMO [id number] SP [id number] SAFE WORK COMP WCB# [id number] SP W CB# [id number] [facility] MEDICAID [id number] S [id number] BCBS [facility] [id number] S [id number] SAFE WORK COMP WC [id number] 18 [id number] [place] [id number] SP [id number] SAFE WORK COMP WCB# [id number] SP W CB# [id number] EMEDNY [id number] SP [id number] ONE CALL CARE MANAGEMENT O [id number] S [id number] [facility](MCAID) O [id number] S [id number] SELF PAY ONLY [id number] SP [id number] MEDICAID [id number] SP [id number] BCBS [place]ATN PPO 302/307 [id number] [facility] BC-BS PPO 306 [id number] SP [id number] Problems, Conditions, and Diagnoses Code Display Name Description Problem Type Effective Dates Data Source(s) M79.672 Pain in left foot PAIN IN LEFT FOOT Diagnosis 12/30 04:40:00 PM [facility] G89.29 Other chronic pain Other chronic pain Diagnosis 02:45:02 PM [facility] M54.5 Low back pain Low back pain Diagnosis 08/20/2020 02:45:02 PM [facility] G89.29 Chronic pain Other chronic pain Problem 12/23/2020 12:0 0:00 AM EDT eCW1 ([facility]) M47.816 [id number] Lumbar Facet arthropathy Problem 10/29/2020 12:00:00 AM EDT eCW1 ([facility]) M47.817 [id number] Spondylosis without myelopathy or radiculopathy, lumbosacral region Problem 10/28/2020 12:00:00 AM EDT eCW1 ([facility]) M47.816 [id number] Spondylosis without myelopathy or radiculopathy, lumbar region Problem 10/28/2020 12:00:00 AM EDT eCW1 ([facility]) H91.93 [id number] Bilateral hearing loss, unspecified heari ng loss type Problem 06/08/2020 12:00:00 AM EST eCW1 ([facility]) Surgeries/Procedures Procedure Description Date Indications Data Source(s) OFFICE OUTPATIENT NEW 45 MINUTES 03/15/2021 12:00:00 A M EDT [facility] ([facility], ) Pain Procedure Log 12/23/2020 12:00:00 AM EDT eCW ([facility]) Results ID Date Data Source [id number] 03/15/2021 01:15:00 PM EDT [facility] ([facility], ) Name Value Range Interpretation Code Description Data Nunu rce(s) Supporting Document(s) Fats Neutral Laboratory test result Normal (applies to non -numeric results) [facility], ) <content>Normal (<60 Droplets/HPF)</cont ent>
<content>This test was developed and its performance characteristics</content>
<content>determined by [facility]. It has not been cleared or</content>
<content>approved by the Food and Drug Administration.</content>
<content></content> Fats Total Laboratory test result Normal (applies to non-n umeric results) [facility] ([facility], ) <content>Normal (<100 Droplets/HPF)</con tent>
<content>This test was developed and its performance characteristics</content>
<content>determined by [facility]. It has not been cleared or</content>
<content>approved by the Food and Drug Administration.</content>
<content></content> ID Date Data Source [id number] 03/15/2021 01:15:00 PM EDT [facility] ([facility], ) Name Value Range Interpretation Code Description Data Nunu rce(s) Supporting Document(s) Fat [Mass] in Stool Laboratory test result [facility] ([facility]) Calprotectin [Mass/mass] in Stool 684 ug/g 0-120 Above high no rmal [facility] ([facility]) <content>Concentration Interpretatio n Follow-Up</content>
<content><16 - 50 ug/g Normal None</content>
<content>>50 -120 ug/g Borderline Re-evaluate in 4-6 weeks</content>
<content>>120 ug/g Abnormal Repeat as clinically</content>
<content>indicated</content>
<content>Performed at: - [facility]</content>
<content>[address], [place] [id number]</content>
<content>Waiter/Waitress Cafeteria: Anayeli Sherwood MD, Phone: [phone]</content>
<content>Performed at: - [facility]</content>
<content>[address] [place] [phone]</content>
<content>Waiter/Waitress Cafeteria: Rama Turner MD, Phone: [phone]</content>
<content></content> Elastase.pancreatic [Mass/mass] in Stool 139 Below low normal [facility] ([facility]) <content>Result Units: ug Elast./g</cont ent>
<content>Severe Pancreatic Insufficiency: <100</content>
<content>Moderate Pancreatic Insufficiency: 100 - 200</content>
<content>Normal: >200</content>
<content></content> ID Date Data Source [id number] 03/15/2021 11:48:00 AM EDT [facility] ([facility]) Name Value Range Interpretation Code Description Data Nunu rce(s) Supporting Document(s) Creatinine For GFR 0.92 mg/dL 0.55-1.30 Normal (applies to non -numeric results) [facility] ([facility]) Glucose, Fasting 77 mg/dL 70-100 Normal (applies to non-numeric results) [facility] ([facility]) Blood Urea Nitrogen 15 mg/dL 7-18 Normal (applies to non-nume arnulfo results) [facility] ([facility]) Sodium Level 140 meq/L 136-145 Normal (applies to non-numeric res ults) [facility] ([facility]) Glomerular Filtration Rate Laboratory test result Normal (applies to non- numeric results) [facility] ([facility]) <content>Units are mL/min/1.73 m2</content>
<content></content>
<content>Chronic Kidney Disease Staging per NKF:</content>
<content></content>
<content>Stage I & II GFR >=60 Normal to Mildly Decreased</content>
<content>Stage III GFR 30- 59 Moderately Decreased</content>
<content>Stage IV GFR 15-29 Severely Decreased</content>
<content>Stage V GFR <15 Very Little GFR Left</content>
<content>ESRD GFR <15 on PRE K LEAD TEACHER</content>
<content></content> Potassium Serum 4.9 meq/L 3.5-5.1 Normal (applies to non-numeric results) [facility] ([facility]) Chloride Level 107 meq/L 98-107 Normal (applies to non-numeric r esults) [facility] ([facility]) Calcium Level 9.2 mg/dL 8.8-10.2 Normal (applies to non-numeric re sults) [facility] ([facility], ) Anion Gap 4 meq/L 8-16 Below low normal [facility] ( [facility]) Carbon Dioxide Level 29 meq/L 21-32 Normal (applies to non-num renetta results) [facility]) Alkaline Phosphatase 71 U/L 45-117 Normal (applies to non-num renetta results) [facility]) Ast/Sgot 20 U/L 7-37 Normal (applies to non-numeric resul ts) [facility]) Alt/SGPT 28 U/L 12-78 Normal (applies to non-numeric resul ts) [facility]) Bilirubin,Total 0.3 mg/dL 0.2-1.0 Normal (applies to non-numeric results) [facility]) Total Protein 7.4 GM/DL 6.4-8.2 Normal (applies to non-numeric re sults) [facility]) Albumin 4.0 GM/DL 3.2-5.2 Normal (applies to non-numeric resul ts) [facility]) Albumin/Globulin Ratio 1.2 1.2-2.2 Normal (applies to non-n umeric results) [facility]) 03/22/21 (MonMar 22) 02:28 PM [facility] No significant abnormalities. ID Date Data Source [id number] 03/15/2021 11:48:00 AM EDT [facility] ([facility]) Name Value Range Interpretation Code Description Data Nunu rce(s) Supporting Document(s) Red Blood Count 4.99 10 4.00-5.40 Normal (applies to non-numeric results) [facility]) White Blood Count 6.2 10 4.0-10.0 Normal (applies to non-numeri c results) [facility]) Hemoglobin 14.8 g/dL 12.0-15.5 Normal (applies to non-numeric resul ts) [facility]) Hematocrit 44.7 % 36.0-47.0 Normal (applies to non-numeric resul ts) [facility]) Mean Corpuscular Hemoglobin 29.7 pg 27.0-33.0 Norm al (applies to non-numeric results) [facility]) Mean Corpuscular Volume 89.6 fl 80.0-96.0 Normal ( applies to non-numeric results) [facility]) Platelet Count, Automated 353 10 150-450 Normal (applies to non-numeric results) [facility]) Red Cell Distribution Width 11.9 % 11.5-14.5 Norm al (applies to non-numeric results) [facility]) Mean Corpuscular HGB Conc 33.1 g/dL 32.0-36.5 Normal (applies to non-numeric results) [facility]) Nucleated Red Blood Cell % 0.0 % 0-0 Normal (applies to n on-numeric results) [facility]) 03/22/21 (MonMar 22) 02:27 PM VANESSA RAVI Normal. ID Date Data Source [id number] 03/15/2021 11:48:[address] [facility]) Name Value Range Interpretation Code Description Data Nunu rce(s) Supporting Document(s) Thyroid Stimulating Hormone 1.520 uIU/ML 0.358-3.740 Norm al (applies to non- numeric results) [facility]) Free T4 0.80 ng/dL 0.76-1.46 Normal (applies to non-numeric resul ts) [facility]) 03/22/21 (MonMar 22) 02:26 PM VANESSA RAVI Thyroid function normal. ID Date Data Source [id number] 03/15/2021 11:48:[address] [facility]) Name Value Range Interpretation Code Description Data Nunu rce(s) Supporting Document(s) IgA [Mass/volume] in Serum or Plasma 360.0 mg/dL 70-400 Normal (applies to non- numeric results) [facility] ([facility]) <content>note:<nlbl:demographic_changed> </content>
<content></content> Tissue transglutaminase IgA Ab [Units/volume] in Serum Labor atory test result 0-3 Normal (applies to non-numeric results) [facility] ([facility]) Negative 0 - 3 Weak Positive 4 - 10 Positive >10 . Tissue Transglutaminase (tTG) has been identified as the endomysial antigen. Studies have demonstr- ated that endomysial IgA antibodies have over 99% specificity for gluten sensitive enteropathy. Performed at: RN - [facility] [address] [id number] Waiter/Waitress Cafeteria: Anayeli Sherwood MD, Phone: [phone] ID Date Data Source GASTROINTESTINAL GI PANEL (GIPANEL) 03/10/2021 12:00:00 AM EDT [facility] ([facility]) Name Value Range Interpretation Code Description Data Nunu rce(s) Supporting Document(s) This Gastrointestinal PCR Panel detects the following bacteria, GASTROINTESTINAL (GI) PANEL [facility] ([facility]) ID Date Data Source [id number] 12/30/2020 07:10:00 PM EDT [facility] DATE OF EXAMINATION: 12/30/2020 17:41 EDT HISTORY: Pain TECHNIQUE: 4 views of the left foot were obtained. FINDINGS: Prior surgical fixation at the first metatarsophalangeal joint noted. Remainderof examination demonstrates relatively age-appropriate degenerative changes. Noevidence for acute fracture or dislocation. Surrounding soft tissues withoutobvious swelling or subcutaneous emphysema. IMPRESSION: Chronic postsurgical changes involving the first MTP joint.Otherwise generalized age-related changes without obvious acute process. Electronically signed in PS360 by: Roger Scherer M.D. 12/30/2020 19:05 EDT Name Value Range Interpretation Code Description Data Nunu rce(s) Supporting Document(s) ID Date Data Source [id number] 12/16/2020 09:45:00 AM EDT [facility] Name Value Range Interpretation Code Description Data Nunu rce(s) Supporting Document(s) SARS-CoV-2 (COVID-19) RNA [Presence] in Respiratory specimen by SHIRA with probe detection Not Detected [facility] This lab was ordered by [facility] and reported by [facility] ID Date Data Source [id number] 11/04/2020 09:35:00 AM EDT [facility] Name Value Range Interpretation Code Description Data Nunu rce(s) Supporting Document(s) SARS-CoV-2 (COVID-19) RNA [Presence] in Respiratory specimen by SHIRA with probe detection Positive for 2019-nCoV [facility] This lab was ordered by [facility] and reported by [facility] ID Date Data Source [id number] 10/24/2020 10:30:00 AM EDT [facility] Name Value Range Interpretation Code Description Data Nunu rce(s) Supporting Document(s) SARS-CoV-2 (COVID-19) RNA [Presence] in Respiratory specimen by SHIRA with probe detection Not Detected [facility] This lab was ordered by [facility] and reported by [facility] ID Date Data Source [id number] 08/26/2020 09:42:33 AM [facility] Name Value Range Interpretation Code Description Data Nunu rce(s) Supporting Document(s) Progress Note [facility] NPNQGq0fFzBOLiGn34/TFBumXBRsk1YzQDlhUOw4MXqjUEXzQ4LgTHY1nQ1cJSN9DAxYPtAxEbGpYaEb [facility] [file] ADBmhDiPRSzXNYoA6s4E2TKZ45d4QZzrm1nnP29Xqu2wm+0QwZcaei6F19Mpp0b93jJ3T7D5UC2d+Adán [file] ICAgICAgICAgICAgICAgICAgICAgICAgICAgICAgICAgICAgICAgICAgICAgICAgICAgICAgICAgICAg ICAgICAgICAgICAgICAgICAgICAgICAgICAgICANCiAgICAgICAgICAgICAgICAgICAgICAgICAgICAg ICAgICAgICAgICAgICAgICAgICAgICAgICAgICAgIC AgICAgICAgICAgICAgICAgICAgICAgICAgICAgICAgICAgICAgICANCiAgICAgICAgICAgICAgICAgIC AgICAgICAgICAgICAgICAgICAgICAgICAgICAgICAgICAgICAgICAgICAgICAgICAgICAgICAgICAgIC AgICAgICAgICAgICAgICAgICAgICANCiAgICAgICAg ICAgICAgICAgICAgICAgICAgICAgICAgICAgICAgICAgICAgICAgICAgICAgICAgICAgICAgICAgICAg ICAgICAgICAgICAgICAgICAgICAgICAgICAgICAgICANCiAgICAgICAgICAgICAgICAgICAgICAgICAg ICAgICAgICAgICAgICAgICAgICAgICAgICAgICAgIC AgICAgICAgICAgICAgICAgICAgICAgICAgICAgICAgICAgICAgICAgICANCiAgICAgICAgICAgICAgIC AgICAgICAgICAgICAgICAgICAgICAgICAgICAgICAgICAgICAgICAgICAgICAgICAgICAgICAgICAgIC AgICAgICAgICAgICAgICAgICAgICAgICANCiAgICAg ICAgICAgICAgICAgICAgICAgICAgICAgICAgICAgICAgICAgICAgICAgICAgICAgICAgICAgICAgICAg ICAgICAgICAgICAgICAgICAgICAgICAgICAgICAgICAgICANCiAgICAgICAgICAgICAgICAgICAgICAg ICAgICAgICAgICAgICAgICAgICAgICAgICAgICAgIC AgICAgICAgICAgICAgICAgICAgICAgICAgICAgICAgICAgICAgICAgICAgICANCiAgICAgICAgICAgIC AgICAgICAgICAgICAgICAgICAgICAgICAgICAgICAgICAgICAgICAgICAgICAgICAgICAgICAgICAgIC AgICAgICAgICAgICAgICAgICAgICAgICAgICANCiAg ICAgICAgICAgICAgICAgICAgICAgICAgICAgICAgICAgICAgICAgICAgICAgICAgICAgICAgICAgICAg ICAgICAgICAgICAgICAgICAgICAgICAgICAgICAgICAgICAgICANCjw/lHIpG3hmrTVxcmO6G3bnZo4H Vh8FPK4ls7KrXPUhCHjptcZbOowRQqKsSWAwRshEXy j7FRheKV5WcFBvJ0NpS8WgTYdwCC9BPBGySBZgsUZtBTRqRNBlCpI1VAYrVRkjLP3YyKGrBJbdNKFyMR AuEyZuBWFpIONeZJAhGR7VEVBhK292oqHwYy4BDw0PBqBtRT3tdp4ZNtVfWLQzOlqCBvt8IPirFU8QtU YsiEXlUcFrCRWINzTwB7wuu3UvPqadJICCMLvnDU9K r9JfvCDzNUv+Rr0IXI4ha0YtBCwyVvEiNJ7eqa5UQFbNNdNaY2RqmPmzWTZqp4gqDXDxFE6esKTjZIF4 RKymaFypOB8tXkXZEWTsqEvuYWYXNHQezKClAhC0RuXhNnQvILQ3CFUoVU7eBRzcDX7EQQO6COreJJNx BZNmB5vUZxDeKXOaCfRheUbeFN3GIhOsC4TbthFdlA AyNiAwIFINCj4+RLrqgvFeFgcQWkE9YKNis4YnOXb5AC9NAOSxADkbLP9KFQIilL5nKCekNK1QCxSnHT FgJEEGQzRdZ68wuYUtXXh7L5ClPuGqPTPvTwuuANItHBmcFpBkEOIlQrEgBHjjUK5+ID4+HPwiHB0DHD ckdiLzXTJuMs1GTXDmGLIoXS9lVYEiSMJmC3Q7dFlc NWYQVaDoF5shmrqiIM7bVWVfB005fIemldKlMSY0MROyUs7MHIMfHCP8RXPthUQhCeEpWSGUYOpaSB9Y aGPxQNE1fS5oHNsdPZCfGWEqN0cFNaBtwEdsKB10yJnekyNgxMQxXWd+Xe0FNO0qt1OlRYn0huUaGJvr RZA4EMpdMCZmCUGkMMFiRZW8KID2OCBHTgBjALGuJA DjEZuwZVPmYMKwqa8ZGABiCOVaPhD2KlTyRLWuEWYfIHhyWHKmKLK0KOA6GZSxNCVtQU2DIdEeGRDqHC XcTIqfUEUkCSPxbo7XLKQeDNHhYxVcXbBaDZGaGRZaGLllCWYpVUPfJYFfLFZjHZQwSZ8OZeMaKEQuDU jpGHqmUCOjHYEgvo6UXENvEKPyCzC5OwAeBGYmCUAb OGtcKRRiXXFzUkL7CMOeNXUdGL6TPjEiSTNdVHP9OXHpHQYpXFGpll7WXRGlENMxZTj7UECcAEMbCBCq HUsxBTYlIMRyOFU3NBYmJFAaIS5XJtVbGASbABTkDMGxXIXkGCHzmj7ZCQXvDRYqVwJpCRZeDGOaUPTb YPisDTJmEPSzGuGdIFMoKVYbGT1SNyWcMJCkDAW9WG GjVMIuKSWzzb4QKHCzTTHqWFgzSBNnTWPlDADqPKywVZRjAHF3QpP0EFNmSQPiPQ9BHqNhNDMtIfF6Zd HxPBBoSONplj4JNIJuDLOeVRmmYQTsBWKqPEHpQJvdJDAtTQS6ANHeHRYnSPXdFL7ZBwEsEVLqFjI3SZ UkZXSsPSIfwl0OFJImCRHfAve8LnVeOXJsNBCqVWmq KALrLOM8XOijQEKbUTFqUD9EXuGjRARrNlh8FMngUMMaRRCiti2AJOImJZWzPBHgRvGhVYYxFIQzCQhd JRYzHVK8SYB2ZKYcVRVlRA0HXmOkKZXlVgxlNfItUMUvCVHsdz7PhPIatLfwdj7RHKrEEo5JzCjzTYR9 YMzhFx5psOUfJADmZCKJOq5YjgZzNNOoXPTKRIxrPU KoAAasQdGiTgLgFqBbX4WvVMg7EULtBPKiAPC6MZroHVN0KcR7C5B6OwLnBPEjRoYuCfMdSxv4SNV0YX FfYZMbT4KfZGS+LE4tHFj+Zd6Ci2UjygZ3hxCdGPpbYDIrWD4KWPTIF0JHTt== ID Date Data Source [id number] 08/21/2020 01:07:39 PM [facility] XR SPINE LUMBAR 4-MORE VIEWS [id number] RESULTInterpreted by:NANCY Palm SPINECLINICAL STATEMENT: Low back pain.TECHNIQUE: AP, lateral, and flexion-extension views of the lumbar spine. COMPARISON: NoneFINDINGS:No acute fracture or subluxation is identified. Diffuse osteopenia is present.Normal vertebral body heights and alignment are maintained. Moderate degenerative disc space narrowing is noted at L5-S1.Otherwise, normal intervertebral disc spaces are preserved.IMPRESSION:Diffuse osteopenia.Severe degenerative disc disease at L5-S1.This document has been electronically signed by Zac Cordova MD on 08/21/2020 1:05 PM Name Value Range Interpretation Code Description Data Nunu rce(s) Supporting Document(s) ID Date Data Source [id number] 07/27/2020 01:48:38 PM [facility] Name Value Range Interpretation Code Description Data Nunu rce(s) Supporting Document(s) Progress Note [facility] RIFAJb5qYjUAEfBj98/FOSzkYMEcb5LxAAsjXVg1UDnvEAUkH0BqERG4mL6wEJA0QDcONgWzAjLmWbAg lbm [file] ICAgICAgICAgICAgICAgICAgICAgICAgICAgICAgIC WkSKFpUQQrBKBtQMQySPPcDWAtUVBoIRQuDA6MZJQdOBKeJRTxPQDzMXBaKFNxOLAyREDyFDOrWHYvPV AgICAgICAgICAgICAgICAgICAgICAgICAgICAgICAgICAgICAgICAgICAgICAgICAgICAgICAgICAgIC IxNPTeRAPxMV4MCDIqDCIyDUDkWTMeBHHcJDGiONSk ICAgICAgICAgICAgICAgICAgICAgICAgICAgICAgICAgICAgICAgICAgICAgICAgICAgICAgICAgICAg UUMyNBInZEMtKKUqALGaDOWxVF0FNFVeQZErNSTsLPBwHPJuZQZxFZXwPHOvKKIgWSPeZOAbNOOpZPPs ICAgICAgICAgICAgICAgICAgICAgICAgICAgICAgIC BkUSQsWCNoCFOoWRSfTIIhEFSeCPLxXLIdTNEvUS7ELWHzBMRpDSGjDNPnDADbCRZeZLOoRMHdMTBuIN AgICAgICAgICAgICAgICAgICAgICAgICAgICAgICAgICAgICAgICAgICAgICAgICAgICAgICAgICAgIC WxYAEgJAGfAFJhDZ9BEOMrCNCqGKAgPVWlLWYpVTUg ICAgICAgICAgICAgICAgICAgICAgICAgICAgICAgICAgICAgICAgICAgICAgICAgICAgICAgICAgICAg PYUaSHIdSGTyQCIuZEGiPMCiSULdWL8GTAXvRRSvRKNkOWBpAGEdKAKiHXKgWOQuASFjWYNjOCBnNUSg ICAgICAgICAgICAgICAgICAgICAgICAgICAgICAgIC IeZUJnAWBuTCCsPDPcVOIeJHIpJHIiCCHmMLPfFBUzWA7AWGPhLLTmKIKnSLKcBZJjMKKtZPRuXSDbAE AgICAgICAgICAgICAgICAgICAgICAgICAgICAgICAgICAgICAgICAgICAgICAgICAgICAgICAgICAgIC TfNLTxJMNbPTSsUJXoPR8SAHLxFNVhGNOdAEVgYDHx ICAgICAgICAgICAgICAgICAgICAgICAgICAgICAgICAgICAgICAgICAgICAgICAgICAgICAgICAgICAg VOPnIVChWMYfQPViTLIpIOPnTPGdTPXzBJ7DNNKaNJMmZYJnAMSoMVKkTFOqTKDaUFUkHQGaQZLyCKDc ICAgICAgICAgICAgICAgICAgICAgICAgICAgICAgIC WoXYIeLXLmFMEtHAKyKLMeFZXdDPViPREgRDKkWVWxJNFlWA7SJA49uCYxl5D8GBFqRT4nola/Pg0KDQ smnxBcjNZoXU1HWbWaZE1ldr1HTdSoRB5gyy1SQDlJSfEzV2E0qJPgJBGxYMCYRvVvR21uZFecIf45WK peBUOaNbDuUIl5Gu6ATrAjI1dkMHSgNeM4KJVnWyI2 KSLiXeZ1ROOuDdLcAQPuSCSoYFSzRRMDJU2CBbReQ8IzkX95LNWIQu1+AVjxcsJqJwkEGxKhHDLxe4Ay VSr9AH2ZTGKmQuajs9SjUbOlLQLLNCkqVO7JAZM7JSH7RHEkLr0FAEQmQ328pgNuXH1DCz7RZpVcBJ2y bo5XZgSxCCDmXwdEAnr6RSqyLB9FsCXkIZmHro7jvj YtxiTWz2HvtlNerTIAxINpG5rygdylQWBrRV6GPXQ2HEIzGG8uPQPfZOAmOqAdBXACVZ7RRELiSXJpzQ NhSFPjRKDGFL8WZOiiIXF9VMRzdnSsxKEfTIzjPN9MGIUlroGqHxSyZNFTJIc+Om5BOH7nr6SjVFyuCS AkHA0lbf6WBHjGQtDvV3A8hIWzM6R1WFtvRc8CYVFq CFGfBxKeMDOOIXgxSY3GHQ2lmcW3DN5RmZJwLNUoSESqmEIlWPk1K03fyGJaETpuXI2BSHG+Heriberto+Pg0K OEEaXSVvJNSnLrIcMWZBYmLvO8ArI6LPm4OzX9IyQP52yLuojpGvEOvbSH4YZF7vJLIxATKBDQ3NoCYm cM0szwSrKeZaSLLSLiKnO82njRAkGMFxEBXgMYPrEg 3NVUGcN6QgshXfvHcaygJxOTPcFBNBVV7GJKfqwfUatVDbfChiYD76gBhxTQ0RYi7ALbQaFB5egf4XrB DoHo1BCMDeAq6EFYNhMNOuGQCaTTH5VCObCmFrFCehNZKdKGAnTET9DNVcPRKtQW4QSjTlIUFmBkA9Ey IfUALoUWRqsi4OQIFrSJIuMNM7QnKhZAWkOTFiARws UHKaKSCdZPT6CQMmMLWlEM5KJsZiTCNuDIU0SIDpTFAvRRLcwv9QGNPdNEObSTQ8SkZbDJLhLXPpPPby OTDvQFF0AYCmXLBuXAIrLR7QTzIvQMGcJYN9NEGeNAAkRSUlth1ZSWPnALGgSJxhQmKqIHOzYZRwLLkw QFUsEWBmJNL4ZNHhPPMmQR5DSsZrIJWzEQKlLPObRJ JyUHGfvm3LAGEeKOGwWaE1DnOuQVSqNPZgMBgrJGBwVNX9SWZsJMHgYMRhUJ5TYbKjBIGmMYDjGtpvXJ TpLBDyud8CTQLtIHZpUbM3ZVYwJMMyLXQrZDsgYIBpSPG7Qzx0DPHsXKBgOP9JOaOtCVHkKSr6ZviySE BsRQWeyl2NQGWaPVRoJXNiBaCgAPArEJNeBUxeDYWw JNQ0DdE4AJUhRQBmPS2PPrGiSZWqOZu2FtsgXFOxBNItws1MHSYpCTMzPPP6FjFiRVKyUEHwYKauUHRd MUHgYkjnRTDuNMMlJB8FQfIqXSPcVfH7KJSjQISkGLDfxz3ICJVlBNQhFFT3QWDvRBIyXZPwWQbxCZJw GUYoDww7LSUsZARsOP9QCfEtNEUaSoSeUgWsYZDqPG Yfaa4DHLHgHKMsSjKkCWYoWZFcNUMwLGwhGIKeELPhWQf0CKDcVATwUC9BScGdPDKvYnJ2BOWdNMTxDR Bhek5LARNaZNDqOuzqMELjWNHaKVQrCYiaLBTlQUKlIVN4RHWrHOOnTP7UAmPjQXZoHqMyWNAkDDIaPG Dcok2AJKYaWUDlRNfkScAbAILpYOJsCLcfJJTrVNF2 BMs7YVHzTOPzUU1LLxAfFCDdDlZqRlMoXJThYXLtkl7QvAGlzWslcf9MPOnGUg6EnIiqBZL5HIbiZu5d bADeMWHyBXZEIf6WftDdALKsLSINHOyvDXBmBDZ2AvI1EBM6NqB7MqIsEvf5BbM0EAVlH7G2O1QhFVu7 PoI8NvIjSQG2QKfgCFYxMYVxFNbyYKzyAjH4CqasO9 YxOTg+BA1hGCo+Ql7Fv4RczbS2jhPvLLppRpI0Dn6XVOUGN6GQLa== ID Date Data Source [id number] 07/24/2020 12:00:00 AM EST [facility] [employer] Patient Name: LEX [facility]ONZALEZ [facility] 1960[facility] [id number] Date of Exam: 07/24/2020#: Fax: [phone] EXAM: MRI LUMBAR SPINE WITHOUT CONTRASTPROCEDURE INFORMATION:Exam: MR Lumbar Spine Without Contrast.Exam date and time: 07/24/2020 1:14 PM Age: 59 years oldClinical indication: Low back painTECHNIQUE: Imaging protocol: Multiplanar magnetic resonance images of thelumbar spine without intravenous contrast.COMPARISON: MRI LUMBAR SPINE WITHOUT CONTRAST 11/28/2016 6:15 PMFINDINGS:Vertebrae: Unremarkable.Spinal cord: Normal signal. No cord com pression.L1-L2: There is mild retrolisthesis at this level. There is discdesiccation. There is moderate disc bulging. There is facet arthropathy andligamentum flavum hypertrophy.L2-L3: There is mild retrolisthesis at this level. There is moderate discbulging. Disc bulging extends into both neural foramen causing mildbilateral neural foraminal narrowing. There is a small superimposed leftparacentral disc protrusion. There is facet arthropathy and ligamentumflavum hypertrophy. There is mild spinal canal stenosis.L3-L4: There is mild disc bulging. There is facet arthropathy andligamentum flavum hypertr ophy. There is mild spinal canal stenosis.L4-L5: There is disc desiccation. There is a moderate disc bulge with asmall superimposed left foraminal disc herniation. There is moderateleft-sided neuroforaminal narrowing. There is mild rightsidedneuroforaminal narrowing. There is facet arthropathy and ligamentum flavumhypertrophy. There is mild spinal canal stenosis.L5-S1: There is disc space narrowing and desiccation. There are moderatedegenerative end plate changes at this level. There is moderate discbulging. Disc bulging extends into both neural foramen causing moderatebilateral neural foraminal narrowing. There is a small superimposed leftparacentral disc protrusion. There is facet arthropathy and ligamentumflavum hypertrophy.Sacrum/coccyx: There are several sacral cysts of uncertain clinicalsignificance.Soft tissues: Unremarkable.IMPRESSION:1. Multilevel degenerative changes causing variable degrees of spinal canaland neuroforaminal narrowing as described above.2. There are several sacral cysts of uncertain clinical significance.Thank you for allowing us to participate in the care of your patient.Dictated and Authenticated by: Yobani Brxaton MD 07/24/2020 2:36 PM [place] [facility] [facility] [place])V radV/Luisk you for referring ABENA GONZALEZ to our office. Electronically Signed - [facility] 07/24/20 14:47 Name Value Range Interpretation Code Description Data Nunu rce(s) Supporting Document(s) ID Date Data Source [id number] 04/09/2020 10:42:38 AM EDT [facility] INFORMATIONPatient MRN Name Date of Age Gend*PT [id number] Abena Stewart 1960 59 years F ---PT Location Admission Date/Time Visit ID Attending Provider --- --- --- --- EPI ID CSN Admitting Provider [id number] ---Cardiology History and PhysicalName: Abena Stewart Gender: femaleDate of : 1960 Age: 59 yearsPrimary Care Provider / Referring Physician: MARCELLO CROWLEY PACardiology Telemedicine VisitPatient was identified by name and date of .Verbal consent was obtained from the patient for this telemedicine visit.Patient is aware of the risks, limitations, and benefits of a telemedicinevisit.This telemedicine assessment was conducted remotely with the assistance ofNourishication technology: Telephone Only Codes [id number]: 21- 30 minutes of medicaldiscussion: Telephone OnlyCurrent HistoryChief Complaint: This is a Telemedicine visitHPI:This patient is a 59 years female with the following updated problem list:1. Known history of CAD with previous stent to the LAD January 05, 2012; cardiaccatheterization 2017 done for recurrent chest pain reveals widely patentLAD stent and no other disease. Normal EF2. Dyslipidemia: Intolerant to statins and now on Repatha3. Varicose veins4. Cervical disc disease; degenerative disc disease and lumbar5. Rheumatoid arthritis6. Stress echocardiogram 05/11/2018 was negative for ischemia; she exercisedfor 9 minutes and 14 seconds, EF normal, no significant valve diseaseReview of Systems General Denies dizziness or lightheadedness. Denies any recent, unexpectedweight changes. HEENT Denies any loss or change of vision. Denies tinnitus. Respiratory Denies PND, orthopnea, SANTOS, hemoptysis, cough, or shortness ofbreath. Cardiac Denies chest pain or pressure, denies palpitations GI Denies melena, hematochezia, nausea, or vomiting. MS Denies any lower extremity edema. Neuro Denies speech, motor, or sensory impairment. Psych Denies depression or anxiety. Endo Denies polyuria or polydipsia, denies temperature intolerance. Derm Denies diaphoresis, non-healing skin woundsPast HistoryPast Medical History:Diagnosis Date Anxiety Atrial fibrillation past history Cervical dysplasia Cervical herniated disc Chest pain 04/07/2014 Coronary artery disease DDD (degenerative disc disease), lumbar Hyperlipidemia Lumbar herniated disc Peripheral neuropathy PONV (postoperative nausea and vomiting) Rheumatoid arthritis SVT (supraventricular tachycardia) Varicose veins of right lower extremity with pain 07/01/2016Past Surgical History:Procedure Laterality Date ABLATION OF DYSRHYTHMIC FOCUS CARDIAC CATHETERIZATION N/A 2017 Procedure: Cardiac catheterization; Surgeon: Jay Martinez MD; Laterality:N/A; CARDIAC CATHETERIZATION N/A 2017 Procedure: Angioplasty-coronary; Surgeon: Jay Martinez MD; Laterality: N/A; CERVICAL BIOPSY W/ LOOP ELECTRODE EXCISION CORONARY ANGIOPLASTY CORONARY STENT PLACEMENT LAD GREAT TOE ARTHRODESIS, METATARSALPHALANGEAL JOINT Bilateral METACARPOPHALANGEAL JOINT ARTHRODESIS Right 2nd and 3rd digit TUBAL LIGATION VARICOSE VEIN SURGERY Right VARICOSE VEIN SURGERY Right 07/08/2016 Procedure: PHLEBECTOMY VARICOSE VEIN RIGHT ; Surgeon: Benji Corbett MD;Location: [facility]; Service: Vascular; Laterality: Right;Family HistoryProblem Relation Age of Onset Colon cancer Mother Coronary artery disease Father Diabetes Father Diabetes Sister Coronary artery disease Brother Diabetes Brother Malig Hyperthermia Neg HxSocial HistorySocioeconomic History Marital status: Spouse name: Not on file Number of children: Not on file Years of education: Not on file Highest education level: Not on fileOccupational History Not on fileSocial Needs Financial resource strain: Not on file Food insecurity: Worry: Not on file Inability: Not on file Transportation needs: Medical: Not on file Non-medical: Not on fileTobacco Use Smoking status: Former Smoker Packs/day: 0.25 Years: 3.00 Pack years: 0.75 Types: Cigarettes Smokeless tobacco: Never UsedSubstance and Sexual Activity Alcohol use: Yes Comment: 3/week Drug use: Yes Types: Marijuana Comment: rare Sexual activity: Not on fileLifestyle Physical activity: Days per week: Not on file Minutes per session: Not on file Stress: Not on fileRelationships Social connections: Talks on phone: Not on file Gets together: Not on file Attends protestant service: Not on file Active member of club or organization: Not on file Attends meetings of clubs or organizations: Not on file Relationship status: Not on file Intimate partner violence: Fear of current or ex partner: Not on file Emotionally abused: Not on file Physically abused: Not on file Forced sexual activity: Not on fileOther Topics Concern Not on fileSocial History Narrative Not on fileMedications and AllergiesALLERGIES/SENSITIVITIES: Crestor [rosuvastatin]; Lipitor [atorvastatin]; andPravachol [pravastatin sodium]Current Outpatient Medications: aspirin 81 MG chewable tablet, Chew 81 mg daily, Disp: , Rfl: DAILY TEMITOPE (THERAGRAN) per tablet, Take 1 tablet by mouth daily, Disp: , Rfl: Evolocumab (REPATHA SURECLICK) 140 MG/ML SOAJ, Inject 1 mL under the skinevery 14 (fourteen) days, Disp: 6 pen, Rfl: 3 metoprolol tartrate (LOPRESSOR) 25 MG tablet, TAKE ONE TABLET (25MG TOTAL) BYMOUTH EVERY EVENING, Disp: 90 tablet, Rfl: 3 nitroglycerin (NITROLINGUAL) 0.4 MG/SPRAY spray, Place 1 spray under thetongue every 5 (five) minutes as needed for chest pain, Disp: 12 g, Rfl: 1 [place]-3 Fatty Acids (FISH OIL) 1000 MG CAPS, Take by mouth daily , Disp: ,Rfl: oxyCODONE-acetaminophen (PERCOCET) 5-325 MG per tablet, Take 1 tablet bymouth 4 (four) times a day as needed for pain, Disp: , Rfl: polyvinyl alcohol (LIQUIFILM TEARS) 1.4 % ophthalmic solution, Administer 1drop to both eyes Every 24 hours as needed for dry eyes, Disp: , Rfl: sertraline (ZOLOFT) 50 MG tablet, Take 50 mg by mouth daily, Disp: , Rfl:PhysicalPHYSICAL EXAM: Deferred due to Telemedicine encounterLMP (LMP Unknown)DiagnosticsLabLipids were reviewed with the patient was not taking her Praluent due toinsurance issues and she has since been changed to Repatha at that time her LDLwas 179 with an HDL of 62. Repeat testing is pendingImaging/Testing: NoneEKG: NoneAssessment & PlanASSESSMENT/PLAN:1. Coronary artery disease: She has no symptoms related to this with a negativestress test in 2018. She knows to contact us if anything changes or to call 911for emergencies and we will repeat the stress test next year.2. Dyslipidemia: She has significant elevation in her lipids and is now onRepatha but is waiting for medicaid approval with repeat studies pending. Thegoal is an LDL less than 70.3. Rheumatoid arthritisI have spent 15 minutes with the patient, counseling/coordinating the patient'scare.I discussed the above listed diagnoses and discussed Results of diagnostictesting, Prognosis, Management option risks and benefits, Treatment/managementinstructions, Compliance and Ris k Factor ReductionFollow up has been arranged and the patient knows to call if any issues arisebetween now and then, all question were answered.Signature: Ina Urban, MDDate: April 09, 2020Time: 10:19 AMThis document or parts of this document, were dictated using [employer]. A reasonable attempt at proofreading has been made to minimize errors.Please call with any questions or corrections. Name Value Range Interpretation Code Description Data Nunu rce(s) Supporting Document(s) Procedure Social History Code Duration Value Status Description Data Source(s ) Smoking 03/09/2021 12:00:00 AM EDT Former Smoker completed Former Smoker eCW1 ([facility]) Smoking 03/09/2021 12:00:00 AM EDT Former Smoker completed Former Smoker eCW1 ([facility]) Smoking 03/09/2021 12:00:00 AM EDT Former Smoker completed Former Smoker eCW1 ([facility]) Smoking 03/09/2021 12:00:00 AM EDT Former Smoker completed Former Smoker eCW1 ([facility]) Smoking 12/23/2020 12:00:00 AM EDT Former Smoker completed Former Smoker eCW1 ([facility]) Smoking 12/23/2020 12:00:00 AM EDT Former Smoker completed Former Smoker eCW1 ([facility]) Smoking 12/23/2020 12:00:00 AM EDT Former Smoker completed Former Smoker eCW1 ([facility]) Smoking 12/23/2020 12:00:00 AM EDT Former Smoker completed Former Smoker eCW1 ([facility]) Smoking 12/21/2020 12:00:00 AM EDT Former Smoker completed Former Smoker eCW1 ([facility]) Smoking 12/15/2020 12:00:00 AM EDT Former Smoker completed Former Smoker eCW1 ([facility]) Smoking 12/15/2020 12:00:00 AM EDT Former Smoker completed Former Smoker eCW1 ([facility]) Smoking 11/18/2020 12:00:00 AM EDT Former Smoker completed Former Smoker eCW1 ([facility]) Smoking 11/03/2020 12:00:00 AM EDT Former Smoker completed Former Smoker eCW1 ([facility]) Smoking 11/03/2020 12:00:00 AM EDT Former Smoker completed Former Smoker eCW1 ([facility]) Smoking 11/03/2020 12:00:00 AM EDT Former Smoker completed Former Smoker eCW1 ([facility]) Smoking 10/27/2020 12:00:00 AM EDT Former Smoker completed Former Smoker eCW1 ([facility]) Smoking 10/27/2020 12:00:00 AM EDT Former Smoker completed Former Smoker eCW1 ([facility]) Smoking 10/27/2020 12:00:00 AM EDT Former Smoker completed Former Smoker eCW1 ([facility]) Smoking 09/30/2020 12:00:00 AM EDT Former Smoker completed Former Smoker eCW1 ([facility]) Smoking 09/30/2020 12:00:00 AM EDT Former Smoker completed Former Smoker eCW1 ([facility]) Smoking 09/30/2020 12:00:00 AM EDT Former Smoker completed Former Smoker eCW1 ([facility]) Smoking 09/07/2020 12:00:00 AM EDT Patient has never smoked co mpleted Patient has never smoked MEDENT ([facility]) Smoking 08/21/2020 12:00:00 AM EST Former Smoker completed Former Smoker eCW1 ([facility]) Alcohol intake 08/20/2020 12:00:00 AM EST Current drinker of al cohol (finding) completed Current drinker of alcohol (finding) [facility] Tobacco use and exposure 08/20/2020 12:00:00 AM EST Never used co mpleted Never used [facility] Smoking 08/20/2020 12:00:00 AM EST Never smoker completed Never s ctker [facility] Smoking 07/31/2020 12:00:00 AM EST Former Smoker completed Former Smoker eCW1 ([facility]) Alcohol intake 07/24/2020 12:00:00 AM EST Current drinker of al cohol (finding) completed Current drinker of alcohol (finding) [facility] Smoking 06/24/2020 12:00:00 AM EST Former Smoker completed Former Smoker eCW1 ([facility]) Smoking 06/24/2020 12:00:00 AM EST Former Smoker completed Former Smoker eCW1 ([facility]) Smoking 06/24/2020 12:00:00 AM EST Former Smoker completed Former Smoker eCW1 ([facility]) Smoking 06/24/2020 12:00:00 AM EST Former Smoker completed Former Smoker eCW1 ([facility]) Smoking 04/24/2020 12:00:00 AM EDT Former Smoker completed Former Smoker eCW1 ([facility]) Smoking 04/24/2020 12:00:00 AM EDT Former Smoker completed Former Smoker eCW1 ([facility]) Smoking 04/24/2020 12:00:00 AM EDT Former Smoker completed Former Smoker eCW1 ([facility]) Smoking 04/24/2020 12:00:00 AM EDT Former Smoker completed Former Smoker eCW1 ([facility]) Smoking 04/24/2020 12:00:00 AM EDT Former Smoker completed Former Smoker eCW1 ([facility]) Smoking 03/26/2020 12:00:00 AM EDT Former Smoker completed Former Smoker eCW1 ([facility]) Vital Signs ID Date Data Source UNK Name Value Range Interpretation Code Description Data Source(s) Diastolic blood pressure 62 mm[Hg] 62 mm[Hg] [facility] ([facility]) [place] body weight 135 [lb_av] 135 [lb_av] MEDEN T ([facility]) Systolic blood pressure 98 mm[Hg] 98 mm[Hg] M [facility] ([facility]) Body height 67 [in_i] 67 [in_i] [facility] ([facility]) 5'7" Body weight 141.00 [lb_av] 141.00 [lb_av] MEDEN T ([facility]) Body mass index (BMI) [Ratio] 22.1 kg/m2 22.1 k g/m2 [facility] ([facility]) Body weight 63.958 kg 63.958 kg [facility] ([facility]) Body surface area Derived from formula 1.74 m2 1.74 m2 [facility] ([facility]) Body weight 142.6 [lb_av] 142.6 [lb_av] eCW1 ([facility]) Body weight 64.68 kg 64.68 kg eCW1 ([facility]) Body height 68 [in_i] 68 [in_i] eCW1 ([facility]) Body mass index (BMI) [Ratio] 21.68 kg/m2 21.68 kg/m2 eCW1 ([facility]) Heart rate 69 /min 69 /min eCW1 ([facility]) Respiratory rate 17 /min 17 /min eCW1 ([facility]) Body temperature 97.9 [degF] 97.9 [degF] eCW1 ( [facility]) Systolic blood pressure 118 mm[Hg] 118 mm[Hg] e CW1 ([facility]) Diastolic blood pressure 71 mm[Hg] 71 mm[Hg] eCW1 ([facility]) Body weight 149 [lb_av] 149 [lb_av] eCW1 ([facility]) Body weight 67.59 kg 67.59 kg eCW1 ([facility]) Body height 68 [in_i] 68 [in_i] eCW1 ([facility]) Body mass index (BMI) [Ratio] 22.65 kg/m2 22.65 kg/m2 eCW1 ([facility]) Body temperature 97.2 [degF] 97.2 [degF] eCW1 ( [facility]) Body weight 149.4 [lb_av] 149.4 [lb_av] eCW1 ([facility]) Body height 68 [in_i] 68 [in_i] eCW1 ([facility]) Body mass index (BMI) [Ratio] 22.71 kg/m2 22.71 kg/m2 eCW1 ([facility]) Heart rate 83 /min 83 /min eCW1 ([facility]) Respiratory rate 18 /min 18 /min eCW1 ([facility]) Body temperature 97.9 [degF] 97.9 [degF] eCW1 ( [facility]) Systolic blood pressure 131 mm[Hg] 131 mm[Hg] e CW1 ([facility]) Diastolic blood pressure 76 mm[Hg] 76 mm[Hg] eCW1 ([facility]) Body weight 148.8 [lb_av] 148.8 [lb_av] eCW1 ([facility]) Body height 68 [in_i] 68 [in_i] eCW1 ([facility]) Body mass index (BMI) [Ratio] 22.62 kg/m2 22.62 kg/m2 eCW1 ([facility]) Heart rate 91 /min 91 /min eCW1 ([facility]) Respiratory rate 18 /min 18 /min eCW1 ([facility]) Body temperature 98.4 [degF] 98.4 [degF] eCW1 ( [facility]) Systolic blood pressure 143 mm[Hg] 143 mm[Hg] e CW1 ([facility]) Diastolic blood pressure 68 mm[Hg] 68 mm[Hg] eCW1 ([facility]) Body weight 151.2 [lb_av] 151.2 [lb_av] eCW1 ([facility]) Body height 68 [in_i] 68 [in_i] eCW1 ([facility]) Body mass index (BMI) [Ratio] 22.99 kg/m2 22.99 kg/m2 eCW1 ([facility]) Heart rate 80 /min 80 /min eCW1 ([facility]) Respiratory rate 18 /min 18 /min eCW1 ([facility]) Body temperature 96.5 [degF] 96.5 [degF] eCW1 ( [facility]) Systolic blood pressure 122 mm[Hg] 122 mm[Hg] e CW1 ([facility]) Diastolic blood pressure 68 mm[Hg] 68 mm[Hg] eCW1 ([facility]) Body temperature 97.9 [degF] 97.9 [degF] eCW1 ( [facility]) Systolic blood pressure 117 mm[Hg] 117 mm[Hg] e CW1 ([facility]) Diastolic blood pressure 66 mm[Hg] 66 mm[Hg] eCW1 ([facility]) Body weight 156 [lb_av] 156 [lb_av] eCW1 ([facility]) Body height 68 [in_i] 68 [in_i] eCW1 ([facility]) Body mass index (BMI) [Ratio] 23.72 kg/m2 23.72 kg/m2 eCW1 ([facility]) Heart rate 87 /min 87 /min eCW1 ([facility]) Respiratory rate 18 /min 18 /min eCW1 ([facility]) Body weight 156.6 [lb_av] 156.6 [lb_av] eCW1 ([facility]) Body height 68 [in_i] 68 [in_i] eCW1 ([facility]) Body mass index (BMI) [Ratio] 23.81 kg/m2 23.81 kg/m2 eCW1 ([facility]) Heart rate 69 /min 69 /min eCW1 ([facility]) Respiratory rate 18 /min 18 /min eCW1 ([facility]) Body temperature 97.3 [degF] 97.3 [degF] eCW1 ( [facility]) Systolic blood pressure 135 mm[Hg] 135 mm[Hg] e CW1 ([facility]) Diastolic blood pressure 67 mm[Hg] 67 mm[Hg] eCW1 ([facility]) Body weight 156.8 [lb_av] 156.8 [lb_av] eCW1 ([facility]) Body height 68 [in_i] 68 [in_i] eCW1 ([facility]) Body mass index (BMI) [Ratio] 23.84 kg/m2 23.84 kg/m2 eCW1 ([facility]) Heart rate 70 /min 70 /min eCW1 ([facility]) Respiratory rate 16 /min 16 /min eCW1 ([facility]) Body temperature 97.6 [degF] 97.6 [degF] eCW1 ( [facility]) Systolic blood pressure 108 mm[Hg] 108 mm[Hg] e CW1 ([facility]) Diastolic blood pressure 57 mm[Hg] 57 mm[Hg] eCW1 ([facility]) Systolic blood pressure 119 mm[Hg] 119 mm[Hg] M EDENT ([facility]) Diastolic blood pressure 73 mm[Hg] 73 mm[Hg] MEDENT ([facility]) Heart rate 69 /min 69 /min MEDENT ([facility]) Body temperature 96.4 [degF] 96.4 [degF] MED[facility] ([facility]) Respiratory rate 16 /min 16 /min [facility] ( [facility]) Oxygen saturation in Arterial blood by Pulse oximetry 99 % 99 % [facility] ([facility]) Body weight 155.00 [lb_av] 155.00 [lb_av] MEDEN T ([facility]) Body weight 70.308 kg 70.308 kg [facility] ([facility]) Body height 68 [in_i] 68 [in_i] [facility] 5'8" Body mass index (BMI) [Ratio] 23.6 kg/m2 23.6 k g/m2 [facility] ([facility]) Body surface area Derived from formula 1.83 m2 1.83 m2 [facility] Body weight 154 [lb_av] 154 [lb_av] eCW1 ([facility]) Body height 68 [in_i] 68 [in_i] W1 ([facility]) Body mass index (BMI) [Ratio] 23.41 kg/m2 23.41 kg/m2 eCW1 ([facility]) Heart rate 62 /min 62 /min eCW1 ([facility]) Respiratory rate 16 /min 16 /min eCW1 ([facility]) Body temperature 96.8 [degF] 96.8 [degF] eCW1 ( [facility]) Systolic blood pressure 127 mm[Hg] 127 mm[Hg] e CW1 ([facility]) Diastolic blood pressure 59 mm[Hg] 59 mm[Hg] eCW1 ([facility]) Body weight 141 [lb_av] 141 [lb_av] eCW1 ([facility]) Body weight 63.96 kg 63.96 kg eCW1 ([facility]) Body height 68 [in_i] 68 [in_i] eCW1 ([facility]) Systolic blood pressure 122 mm[Hg] 122 mm[Hg] e CW1 ([facility]) Body mass index (BMI) [Ratio] 21.44 kg/m2 21.44 kg/m2 eCW1 ([facility]) Diastolic blood pressure 68 mm[Hg] 68 mm[Hg] eCW1 ([facility]) Body weight 142 [lb_av] 142 [lb_av] eCW1 ([facility]) Body height 68 [in_i] 68 [in_i] eCW1 ([facility]) Body mass index (BMI) [Ratio] 21.59 kg/m2 21.59 kg/m2 eCW1 ([facility]) Heart rate 68 /min 68 /min eCW1 ([facility]) Respiratory rate 16 /min 16 /min eCW1 ([facility]) Body temperature 97.3 [degF] 97.3 [degF] eCW1 ( [facility]) Systolic blood pressure 121 mm[Hg] 121 mm[Hg] e CW1 ([facility]) Diastolic blood pressure 70 mm[Hg] 70 mm[Hg] eCW1 ([facility]) Body weight 141 [lb_av] 141 [lb_av] eCW1 ([facility]) Body height 68 [in_i] 68 [in_i] eCW1 ([facility]) Body mass index (BMI) [Ratio] 21.44 kg/m2 21.44 kg/m2 eCW1 ([facility]) Heart rate 63 /min 63 /min eCW1 ([facility]) Respiratory rate 17 /min 17 /min eCW1 ([facility]) Body temperature 97.9 [degF] 97.9 [degF] eCW1 ( [facility]) Systolic blood pressure 103 mm[Hg] 103 mm[Hg] e CW1 ([facility]) Diastolic blood pressure 63 mm[Hg] 63 mm[Hg] eCW1 ([facility]) Body weight 141 [lb_av] 141 [lb_av] eCW1 ([facility]) Respiratory rate 16 /min 16 /min eCW1 ([facility]) Body height 68 [in_i] 68 [in_i] eCW1 ([facility]) Heart rate 65 /min 65 /min eCW1 ([facility]) Body mass index (BMI) [Ratio] 21.44 kg/m2 21.44 kg/m2 eCW1 ([facility]) Systolic blood pressure 108 mm[Hg] 108 mm[Hg] e CW1 ([facility]) Body temperature 97.5 [degF] 97.5 [degF] eCW1 ( [facility]) Diastolic blood pressure 58 mm[Hg] 58 mm[Hg] eCW1 ([facility]) ID Date Data Source [id number] 09/04/2020 02:13:27 PM [facility] Name Value Range Interpretation Code Description Data Source(s) WEIGHT RECORDED 157 lb [address] [facility] Body height Measured 68 in 68 in [facility] Patient Treatment Plan of Care Planned Activity Planned Date Details Description Data Source (s) methylPREDNISolone 4 MG 03/16/2021 12:00:00 AM EDT eCW1 ([facility]) Triamcinolone Acetonide 1 MG/ML Topical Cream 03/16/2021 12:00:00 A M EDT eCW1 ([facility]) methylPREDNISolone 4 MG 03/16/2021 12:00:00 AM EDT eCW1 ([facility]) Triamcinolone Acetonide 1 MG/ML Topical Cream 03/16/2021 12:00:00 A M EDT eCW1 ([facility]) Oxycodone Hydrochloride 5 MG Oral Tablet 02/16/2021 12:00:00 AM EDT eCW1 ([facility]) Oxycodone Hydrochloride 5 MG Oral Tablet 02/16/2021 12:00:00 AM EDT eCW1 ([facility]) Oxycodone Hydrochloride 5 MG Oral Tablet 02/16/2021 12:00:00 AM EDT eCW1 ([facility]) Oxycodone Hydrochloride 5 MG Oral Tablet 12/16/2020 12:00:00 AM EDT eCW1 ([facility]) Oxycodone Hydrochloride 5 MG Oral Tablet 11/18/2020 12:00:00 AM EDT eCW1 ([facility]) Doxycycline Monohydrate 100 MG Oral Capsule 11/03/2020 12:00:00 AM EDT eCW1 ([facility]) Fluconazole 150 MG Oral Tablet [Diflucan] 11/03/2020 12:00:00 AM ED T eCW1 ([facility]) Doxycycline Monohydrate 100 MG Oral Capsule 11/03/2020 12:00:00 AM EDT eCW1 ([facility]) Fluconazole 150 MG Oral Tablet [Diflucan] 11/03/2020 12:00:00 AM ED T eCW1 ([facility]) Doxycycline Monohydrate 100 MG Oral Capsule 11/03/2020 12:00:00 AM EDT eCW1 ([facility]) Fluconazole 150 MG Oral Tablet [Diflucan] 11/03/2020 12:00:00 AM ED T eCW1 ([facility]) Cervical Collar - 10/29/2020 12:00:00 AM EDT eCW1 ([facility]) Cervical Collar - 10/29/2020 12:00:00 AM EDT eCW1 ([facility]) Amitriptyline Hydrochloride 25 MG Oral Tablet 06/24/2020 12:00:00 A M EST eCW1 ([facility]) Amitriptyline Hydrochloride 25 MG Oral Tablet 06/24/2020 12:00:00 A M EST eCW1 ([facility]) Amitriptyline Hydrochloride 25 MG Oral Tablet 06/24/2020 12:00:00 A M EST eCW1 ([facility]) Amitriptyline Hydrochloride 25 MG Oral Tablet 06/24/2020 12:00:00 A M EST eCW1 ([facility]) Amitriptyline Hydrochloride 25 MG Oral Tablet 06/24/2020 12:00:00 A M EST eCW1 ([facility]) Amitriptyline Hydrochloride 25 MG Oral Tablet 06/24/2020 12:00:00 A M EST eCW1 ([facility]) Amitriptyline Hydrochloride 25 MG Oral Tablet 06/24/2020 12:00:00 A M EST eCW1 ([facility]) Amitriptyline Hydrochloride 25 MG Oral Tablet 06/24/2020 12:00:00 A M EST eCW1 ([facility]) Dicyclomine Hydrochloride 20 MG Oral Tablet 04/24/2020 12:00:00 AM EDT eCW1 ([facility]) Dicyclomine Hydrochloride 20 MG Oral Tablet 04/24/2020 12:00:00 AM EDT eCW1 ([facility]) Dicyclomine Hydrochloride 20 MG Oral Tablet 04/24/2020 12:00:00 AM EDT eCW1 ([facility]) Dicyclomine Hydrochloride 20 MG Oral Tablet 04/24/2020 12:00:00 AM EDT eCW1 ([facility]) Dicyclomine Hydrochloride 20 MG Oral Tablet 04/24/2020 12:00:00 AM EDT eCW1 ([facility]) Hydroxychloroquine Sulfate 200 MG Oral Tablet 03/31/2020 12:00:00 A M [facility] Hydroxychloroquine Sulfate 200 MG Oral Tablet 01/06/2020 12:00:00 A M [facility] gabapentin 300 MG Oral Capsule 04/16/2019 12:00:00 AM [facility] Misc. Devices (DURABLE MEDICAL EQUIPMENT SEE SIG) [facility] [place]22[place] 12:00:00 AM [facility] Acetaminophen 325 MG / Oxycodone Hydrochloride 10 MG Oral Tablet [facility] 1 ML evolocumab 140 MG/ML Auto-Injector [facility] [place]-3 Fatty Acids (FISH OIL PO) [facility] gabapentin 100 MG Oral Capsule [facility]
--- NOTE | 2021-04-12 11:49 | ROOR ---
Patient Name: Abena Gonzalez Procedure Date: 04/12/2021 11:27 AM Date of : 1960 Age: 60 Room: [facility] Gender: Female Note Status: Finalized Procedure: Upper GI endoscopy Indications: Diarrhea, Weight loss Providers: Mendoza Brown MD Referring MD: Michelle FAIRBANKS Requesting Provider: Medicines: Monitored Anesthesia Care Complications: No immediate complications. Procedure: Pre-Anesthesia Assessment: - The heart rate, respiratory rate, oxygen saturations, blood pressure, adequacy of pulmonary ventilation, and response to care were monitored throughout the procedure. The Endoscope was introduced through the mouth, and advanced to the second part of duodenum. The upper GI endoscopy was accomplished without difficulty. The patient tolerated the procedure well. Findings: The esophagus was normal. The stomach was normal. The examined duodenum was normal. Biopsies for histology were taken with a cold forceps in the first portion of the duodenum and in the second portion of the duodenum for evaluation of celiac disease. Impression: - Normal esophagus. - Normal stomach. - Normal examined duodenum. - Biopsies were taken with a cold forceps for evaluation of celiac disease. Recommendation: - Await pathology results. - Telephone endoscopist for pathology results in 2 weeks. Procedure Code(s): --- Professional --- 22323, Esophagogastroduodenoscopy, flexible, transoral; with biopsy, single or multiple Diagnosis Code(s): --- Professional --- R63.4, Abnormal weight loss R19.7, Diarrhea, unspecified CPT copyright 2019 [employer]. All rights reserved. The codes documented in this report are preliminary and upon post acute care nurse review may be revised to meet current compliance requirements. Mendoza Brown MD Mendoza Brown MD 04/12/2021 11:49:13 AM Electronically signed by Mendoza Brown MD Number of Addenda: 0 Note Initiated On: 04/12/2021 11:27 AM Estimated Blood Loss: Estimated blood loss: none.
--- NOTE | 2021-04-12 12:09 | ROOR ---
Patient Name: Abena Gonzalez Procedure Date: 04/12/2021 11:28 AM Date of : 1960 Age: 60 Room: [facility] Gender: Female Note Status: Finalized Procedure: Colonoscopy Indications: Chronic diarrhea, Weight loss, (high calprotectin, low fecal elastase, normal GI panel, Normal CT enterography) Providers: Mendoza Brown MD Referring MD: Michelle FAIRBANKS Requesting Provider: Medicines: Monitored Anesthesia Care Complications: No immediate complications. Procedure: Pre-Anesthesia Assessment: - The heart rate, respiratory rate, oxygen saturations, blood pressure, adequacy of pulmonary ventilation, and response to care were monitored throughout the procedure. The Colonoscope was introduced through the anus and advanced to 10 cm into the ileum. The colonoscopy was performed without difficulty. The patient tolerated the procedure well. The quality of the bowel preparation was good. Findings: The perianal and digital rectal examinations were normal. The colon appeared normal. The terminal ileum appeared normal. Biopsies for histology were taken with a cold forceps for evaluation of microscopic colitis. Impression: - The entire colon is normal. - The examined portion of the ileum was normal. - Biopsies were taken with a cold forceps for evaluation of microscopic colitis. Recommendation: - Telephone endoscopist for pathology results in 2 weeks. Procedure Code(s): --- Professional --- 37126, Colonoscopy, flexible; with biopsy, single or multiple Diagnosis Code(s): --- Professional --- R63.4, Abnormal weight loss K52.9, Noninfective gastroenteritis and colitis, unspecified CPT copyright 2019 [employer]. All rights reserved. The codes documented in this report are preliminary and upon bucket wash operator review may be revised to meet current compliance requirements. Mendoza Brown MD Mendoza Brown MD 04/12/2021 12:09:03 PM Electronically signed by Mendoza Brown MD Number of Addenda: 0 Note Initiated On: 04/12/2021 11:28 AM Estimated Blood Loss: Estimated blood loss: none.
[2021-04-12 12:30] VITALS: BP 108/60
== END 2021-04-12 13:06 | disposition home or self-care (01) ==
LOC: M OPP 09:28
PROVIDERS: ATTEND Internal Medicine Gastroenterology
DX: K52.9 Noninfective gastroenteritis and colitis, unspecified (principal); R63.4 Abnormal weight loss; Z86.010 Personal history of colon polyps; Z80.0 Family history of malignant neoplasm of digestive organs; Z79.82 Long term (current) use of aspirin; Z79.891 Long term (current) use of opiate analgesic; Z79.899 Other long term (current) drug therapy; Z88.5 Allergy status to narcotic agent; Z88.8 Allergy status to other drugs, medicaments and biological substances; Z91.018 Allergy to other foods; Z95.5 Presence of coronary angioplasty implant and graft
CPT/HCPCS: 43239; 45380; 88305; J3010

== ENCOUNTER → 2021-05-28 | Outpatient (CLI) | payer OTHER ==
[~2021-05-28] MED LIST changes: -NS 1,000 ML IV ONE
== END ==
LOC: M PAIN 09:30
PROVIDERS: ATTEND Anesthesiology
DX: M12.88 Other specific arthropathies, not elsewhere classified, other specified site (principal); M47.816 Spondylosis without myelopathy or radiculopathy, lumbar region; G89.29 Other chronic pain; Z86.59 Personal history of other mental and behavioral disorders; Z87.891 Personal history of nicotine dependence; Z88.8 Allergy status to other drugs, medicaments and biological substances; Z91.018 Allergy to other foods; Z79.82 Long term (current) use of aspirin; Z79.899 Other long term (current) drug therapy

== ENCOUNTER → 2021-10-16 | Outpatient (CLI) | payer OTHER ==
[~2021-10-16] MED LIST changes: +APPLTAB2 PO; +NITR4TASL SL
== END ==
LOC: M LABSMTC 09:12
PROVIDERS: ATTEND Anesthesiology
DX: Z01.812 Encounter for preprocedural laboratory examination (principal); Z20.822 Contact with and (suspected) exposure to COVID-19

== ENCOUNTER → 2021-10-19 | Outpatient (CLI) | payer OTHER ==
[~2021-10-19] MED LIST changes: +BUPIVACAINE HCL 0.25% 30ML VIAL As Ordered ONE; +ISOVUE-M 300 61% 15ML VIAL As Ordered ONE; +LIDOCAINE 1% SDV 30ML VIAL As Ordered ONE
[2021-10-19 15:50] VITALS: BP 132/61
== END ==
LOC: M IRPRO 14:06
PROVIDERS: ATTEND Anesthesiology
DX: M47.816 Spondylosis without myelopathy or radiculopathy, lumbar region (principal); M47.817 Spondylosis without myelopathy or radiculopathy, lumbosacral region; G89.29 Other chronic pain; M19.90 Unspecified osteoarthritis, unspecified site; F41.9 Anxiety disorder, unspecified; Z88.5 Allergy status to narcotic agent; Z88.8 Allergy status to other drugs, medicaments and biological substances; Z91.018 Allergy to other foods
CPT/HCPCS: 64493; 64494; Q9967

== ENCOUNTER → 2021-11-17 | Outpatient (CLI) | payer OTHER ==
[~2021-11-17] MED LIST changes: -BUPIVACAINE HCL 0.25% 30ML VIAL As Ordered ONE; -ISOVUE-M 300 61% 15ML VIAL As Ordered ONE; -LIDOCAINE 1% SDV 30ML VIAL As Ordered ONE
== END ==
LOC: M PAIN 10:15
PROVIDERS: ATTEND Anesthesiology
DX: G89.29 Other chronic pain (principal); M47.816 Spondylosis without myelopathy or radiculopathy, lumbar region; M12.88 Other specific arthropathies, not elsewhere classified, other specified site; Z86.59 Personal history of other mental and behavioral disorders; Z87.891 Personal history of nicotine dependence; Z88.8 Allergy status to other drugs, medicaments and biological substances; Z91.018 Allergy to other foods; Z79.82 Long term (current) use of aspirin; Z79.899 Other long term (current) drug therapy

== ENCOUNTER → 2021-11-25 | Outpatient (REF) | payer OTHER ==
[~2021-11-25] MED LIST changes: -GLUCTAB6 PO; +GLUCTAB7 PO
== END ==
LOC: M SFHCLERA 11:37
PROVIDERS: ATTEND Nurse Practitioner Family
DX: R05.9 Cough, unspecified (principal)

== ENCOUNTER → 2022-02-23 | Outpatient (REF) | payer OTHER ==
[2022-02-23 17:26] LABS: BASO % 0.2 % (0.0-1.0); HEMATOCRIT 40.1 % (36.0-47.0); HEMOGLOBIN 13.1 g/dl (12.0-15.5); LYMPH # 0.6 10^3/uL (1.5-5.0); LYMPH % 11.1 % (24.0-44.0); MEAN CORPUSCULAR HEMOGLOBIN 29.8 pg (27.0-33.0); MEAN CORPUSCULAR HGB CONC 32.7 g/dl (32.0-36.5); MEAN CORPUSCULAR VOLUME 91.1 fl (80.0-96.0); MONO # 0.1 10^3/uL (0.0-0.8); MONO % 1.5 % (2.0-8.0); NEUTROPHILS # 4.8 10^3/uL (1.5-8.5); NEUTROPHILS % 86.7 % (36.0-66.0); PLATELET COUNT, AUTOMATED 273 10^3/uL (150-450); WHITE BLOOD COUNT 5.5 10^3/uL (4.0-10.0)
[2022-02-23 18:04] LABS: ALBUMIN 3.7 GM/DL (3.2-5.2); ALT/SGPT 30 U/L (12-78); BILIRUBIN,TOTAL 0.3 MG/DL (0.2-1.0); BLOOD UREA NITROGEN 20 MG/DL (7-18); CALCIUM LEVEL 8.8 MG/DL (8.8-10.2); CARBON DIOXIDE LEVEL 27 MEQ/L (21-32); CHLORIDE LEVEL 108 MEQ/L (98-107); CHOLESTEROL LEVEL 141 MG/DL (<200); CHOLESTEROL RISK RATIO 1.719 (<5); CREATININE FOR GFR 0.84 MG/DL (0.55-1.30); FREE T4 0.62 NG/DL (0.76-1.46); GLOMERULAR FILTRATION RATE > 60.0 (>45); GLUCOSE, FASTING 126 MG/DL (70-100); HDL CHOLESTEROL 82 MG/DL (>40); LDL CHOLESTEROL 27 MG/DL (<100); NON-HDL-C 59 MG/DL; POTASSIUM SERUM 4.3 MEQ/L (3.5-5.1); SODIUM LEVEL 141 MEQ/L (136-145); TOTAL PROTEIN 6.9 GM/DL (6.4-8.2); TRIGLYCERIDES LEVEL 160 MG/DL (<150)
== END ==
LOC: M SFHCLERA 15:23
PROVIDERS: ATTEND Student in an Organized Health Care Education/Training Program
DX: R53.83 Other fatigue (principal)

== ENCOUNTER → 2022-03-09 | Outpatient (CLI) | payer OTHER | LOC: M PAIN 09:45 | PROVIDERS: ATTEND Nurse Practitioner Family | DX: M47.816 Spondylosis without myelopathy or radiculopathy, lumbar region (principal); M47.817 Spondylosis without myelopathy or radiculopathy, lumbosacral region; G89.29 Other chronic pain; Z86.59 Personal history of other mental and behavioral disorders; Z87.891 Personal history of nicotine dependence; Z88.8 Allergy status to other drugs, medicaments and biological substances; Z91.018 Allergy to other foods; Z79.82 Long term (current) use of aspirin; Z79.899 Other long term (current) drug therapy ==

== ENCOUNTER → 2022-03-20 | Outpatient (CLI) | payer OTHER | LOC: M LABSMTC 09:13 | PROVIDERS: ATTEND Anesthesiology | DX: Z01.812 Encounter for preprocedural laboratory examination (principal) ==

== ENCOUNTER → 2022-03-22 | Outpatient (CLI) | payer OTHER ==
[~2022-03-22] MED LIST changes: +BUPIVACAINE HCL 0.25% 30ML VIAL As Ordered ONE; +LIDOCAINE 1% SDV 30ML VIAL As Ordered ONE; +dexameTHASONE 10MG/1ML VIAL PRES.FREE (J1100 PER 1MG) As Ordered ONE; +diazePAM 5MG TABLET As Ordered ONE; +oxyCODONE 5MG TAB As Ordered ONE
== END ==
LOC: M PAIN 12:30
PROVIDERS: ATTEND Anesthesiology
DX: M47.816 Spondylosis without myelopathy or radiculopathy, lumbar region (principal); M47.817 Spondylosis without myelopathy or radiculopathy, lumbosacral region; G89.29 Other chronic pain; Z86.59 Personal history of other mental and behavioral disorders; Z87.891 Personal history of nicotine dependence; Z88.8 Allergy status to other drugs, medicaments and biological substances; Z91.018 Allergy to other foods; Z79.82 Long term (current) use of aspirin; Z79.899 Other long term (current) drug therapy
CPT/HCPCS: 64635; 64636; J1100

== ENCOUNTER → 2022-04-15 | Outpatient (CLI) | payer OTHER ==
[~2022-04-15] MED LIST changes: -BUPIVACAINE HCL 0.25% 30ML VIAL As Ordered ONE; -LIDOCAINE 1% SDV 30ML VIAL As Ordered ONE; -dexameTHASONE 10MG/1ML VIAL PRES.FREE (J1100 PER 1MG) As Ordered ONE; -diazePAM 5MG TABLET As Ordered ONE; -oxyCODONE 5MG TAB As Ordered ONE
== END ==
LOC: M WHC 08:16
PROVIDERS: ATTEND Student in an Organized Health Care Education/Training Program
DX: Z12.31 Encounter for screening mammogram for malignant neoplasm of breast (principal)

== ENCOUNTER → 2022-04-28 | Outpatient (CLI) | payer OTHER | LOC: M PAIN 09:30 | PROVIDERS: ATTEND Nurse Practitioner Family | DX: M47.816 Spondylosis without myelopathy or radiculopathy, lumbar region (principal); G89.29 Other chronic pain; M47.817 Spondylosis without myelopathy or radiculopathy, lumbosacral region; Z86.59 Personal history of other mental and behavioral disorders; Z87.891 Personal history of nicotine dependence; Z88.8 Allergy status to other drugs, medicaments and biological substances; Z91.018 Allergy to other foods; Z79.82 Long term (current) use of aspirin; Z79.899 Other long term (current) drug therapy ==

== ENCOUNTER → 2022-05-05 | Outpatient (REF) | payer OTHER ==
[2022-05-05 18:32] LABS: APPEARANCE, URINE MANUAL CLEAR (CLEAR); COLOR, URINE MANUAL LT YELLOW (YELLOW)
[2022-05-05 18:33] LABS: BILIRUBIN, URINE MANUAL NEGATIVE (NEGATIVE); BLOOD URINE MANUAL NEGATIVE (NEGATIVE); GLUCOSE, URINE (UA) MANUAL NEGATIVE (NEGATIVE); KETONE, URINE MANUAL NEGATIVE (NEGATIVE); LEUKOCYTE ESTERASE, URINE MAN NEGATIVE (NEGATIVE); NITRITE, URINE MANUAL NEGATIVE (NEGATIVE); PROTEIN, URINE MANUAL NEGATIVE (NEGATIVE); SPECIFIC GRAVITY,URINE MANUAL 1.015 (1.002-1.035); UROBILINOGEN, URINE MANUAL NORMAL (NORMAL)
[2022-05-05 19:13] LABS: C REACTIVE PROTEIN QUANTITATIV < 0.30 MG/DL (0.00-0.30); FREE THYROXINE INDEX 2.1 % (1.3-4.8); RHEUMATOID FACTOR QUANT < 10.0 IU/ML (<15.0); T UPTAKE 36 % (30-39); THYROXINE (T4) 5.9 UG/DL (4.5-12.0)
[2022-05-05 19:53] LABS: HEMOGLOBIN A1c 4.8 %
[2022-05-05 20:04] LABS: TOTAL 25(OH) VITAMIN D 40.2 NG/ML (30.0-100.0)
[2022-05-05 20:06] LABS: FOLATE > 24.0 NG/ML; VITAMIN B12 LEVEL 1417 PG/ML
[2022-05-06 12:28] LABS: HIV 1&2 SCREEN CENTAUR NEGATIVE (NEGATIVE)
[2022-05-06 12:30] LABS: HEPATITIS C VIRUS ABY INDEX 0.1 INDEX (<0.8)
== END ==
LOC: M SFHCCLAY 10:57
PROVIDERS: ATTEND Physician Assistant
DX: R59.0 Localized enlarged lymph nodes (principal); F32.A Depression, unspecified; R53.83 Other fatigue; R94.6 Abnormal results of thyroid function studies; R73.09 Other abnormal glucose

== ENCOUNTER → 2022-05-09 | Outpatient (CLI) | payer OTHER | LOC: M PAIN 15:15 | PROVIDERS: ATTEND Nurse Practitioner Family | DX: M50.10 Cervical disc disorder with radiculopathy, unspecified cervical region (principal); G89.29 Other chronic pain; Z86.59 Personal history of other mental and behavioral disorders; Z87.891 Personal history of nicotine dependence; Z88.8 Allergy status to other drugs, medicaments and biological substances; Z91.018 Allergy to other foods; Z79.82 Long term (current) use of aspirin; Z79.899 Other long term (current) drug therapy ==

== ENCOUNTER → 2022-07-20 | Outpatient (CLI) | payer OTHER | LOC: M PAIN 15:30 | PROVIDERS: ATTEND Anesthesiology | DX: M50.90 Cervical disc disorder, unspecified, unspecified cervical region (principal); G89.29 Other chronic pain; Z86.59 Personal history of other mental and behavioral disorders; Z87.891 Personal history of nicotine dependence; Z88.8 Allergy status to other drugs, medicaments and biological substances; Z91.018 Allergy to other foods; Z79.82 Long term (current) use of aspirin; Z79.899 Other long term (current) drug therapy ==

== ENCOUNTER → 2022-10-13 | Outpatient (CLI) | payer OTHER | LOC: M RAD 10:13 | PROVIDERS: ATTEND Physician Assistant | DX: R07.81 Pleurodynia (principal) ==

== ENCOUNTER → 2022-10-19 | Outpatient (CLI) | payer OTHER | LOC: M PAIN 10:45 | PROVIDERS: ATTEND Anesthesiology | DX: M48.02 Spinal stenosis, cervical region (principal); M50.10 Cervical disc disorder with radiculopathy, unspecified cervical region; Z86.59 Personal history of other mental and behavioral disorders; Z87.891 Personal history of nicotine dependence; Z88.8 Allergy status to other drugs, medicaments and biological substances; Z91.018 Allergy to other foods; Z79.82 Long term (current) use of aspirin; Z79.899 Other long term (current) drug therapy ==

== ENCOUNTER → 2022-10-19 | Outpatient (CLI) | payer OTHER | LOC: M RAD 12:19 → M LAB 12:19 | PROVIDERS: ATTEND Anesthesiology | DX: M51.34 Other intervertebral disc degeneration, thoracic region (principal); M41.84 Other forms of scoliosis, thoracic region; M41.86 Other forms of scoliosis, lumbar region ==

== ENCOUNTER → 2022-12-07 | Outpatient (CLI) | payer OTHER ==
[~2022-12-07] MED LIST changes: -HYDR200T3 PO; +HYDR200T46 PO
== END ==
LOC: M PAIN 08:00
PROVIDERS: ATTEND Anesthesiology
DX: M47.816 Spondylosis without myelopathy or radiculopathy, lumbar region (principal); M48.02 Spinal stenosis, cervical region; M50.10 Cervical disc disorder with radiculopathy, unspecified cervical region; M54.6 Pain in thoracic spine; Z86.59 Personal history of other mental and behavioral disorders; Z87.891 Personal history of nicotine dependence; Z88.8 Allergy status to other drugs, medicaments and biological substances; Z91.018 Allergy to other foods; Z79.82 Long term (current) use of aspirin; Z79.899 Other long term (current) drug therapy

== ENCOUNTER → 2023-01-05 | Outpatient (REF) | payer OTHER ==
[2023-01-05 12:16] LABS: BLOOD UREA NITROGEN 17 MG/DL (9-23); CREATININE FOR GFR 0.73 MG/DL (0.55-1.30); GLOMERULAR FILTRATION RATE > 60.0 (>45)
== END ==
LOC: M SFHCCLAY 09:43
PROVIDERS: ATTEND Anesthesiology
DX: Z01.812 Encounter for preprocedural laboratory examination (principal)

== ENCOUNTER → 2023-01-10 | Outpatient (CLI) | payer OTHER ==
[~2023-01-10] MED LIST changes: +PROHANCE 279.3MG/ML 15ML VIAL As Ordered ONE
== END ==
LOC: M RAD 08:52
PROVIDERS: ATTEND Anesthesiology
DX: M51.26 Other intervertebral disc displacement, lumbar region (principal)
CPT/HCPCS: 72157; A9576

== ENCOUNTER → 2023-01-17 | Outpatient (CLI) | payer OTHER ==
[~2023-01-17] MED LIST changes: +ISOVUE-M 300 61% 15ML VIAL As Ordered ONE; +LIDOCAINE 1% SDV 30ML VIAL As Ordered ONE; -PROHANCE 279.3MG/ML 15ML VIAL As Ordered ONE; +diazePAM 2 MG TAB As Ordered ONE; +methylPREDNISolone SUSP 40MG/ML 1ML VIAL (DEPO MEDROL) As Ordered ONE; +oxyCODONE 5MG TAB As Ordered ONE
== END ==
LOC: M PAIN 14:00
PROVIDERS: ATTEND Anesthesiology
DX: M50.10 Cervical disc disorder with radiculopathy, unspecified cervical region (principal); I25.10 Atherosclerotic heart disease of native coronary artery without angina pectoris; Z95.5 Presence of coronary angioplasty implant and graft; M54.50 Low back pain, unspecified; G89.29 Other chronic pain; F41.9 Anxiety disorder, unspecified; Z87.891 Personal history of nicotine dependence; Z79.82 Long term (current) use of aspirin; Z79.891 Long term (current) use of opiate analgesic; Z79.899 Other long term (current) drug therapy; Z88.8 Allergy status to other drugs, medicaments and biological substances
CPT/HCPCS: 62321; J1030; Q9967

== ENCOUNTER → 2023-02-08 | Outpatient (CLI) | payer OTHER ==
[~2023-02-08] MED LIST changes: -AMIT25TA17 PO; +AMIT25TA19 PO; -ISOVUE-M 300 61% 15ML VIAL As Ordered ONE; -LIDOCAINE 1% SDV 30ML VIAL As Ordered ONE; -diazePAM 2 MG TAB As Ordered ONE; -methylPREDNISolone SUSP 40MG/ML 1ML VIAL (DEPO MEDROL) As Ordered ONE; -oxyCODONE 5MG TAB As Ordered ONE
== END ==
LOC: M PAIN 08:45
PROVIDERS: ATTEND Anesthesiology
DX: M50.10 Cervical disc disorder with radiculopathy, unspecified cervical region (principal); M48.04 Spinal stenosis, thoracic region; M79.10 Myalgia, unspecified site; Z86.59 Personal history of other mental and behavioral disorders; Z87.891 Personal history of nicotine dependence; Z88.8 Allergy status to other drugs, medicaments and biological substances; Z91.018 Allergy to other foods; Z79.82 Long term (current) use of aspirin; Z79.899 Other long term (current) drug therapy

== ENCOUNTER → 2023-03-06 | Outpatient (REF) | payer OTHER ==
[2023-03-06 12:57] LABS: APPEARANCE, URINE HAZY (CLEAR); BACTERIA, URINE AUTO NEGATIVE (NEGATIVE); BILIRUBIN, URINE AUTO NEGATIVE (NEGATIVE); BLOOD, URINE BLOOD NEGATIVE (NEGATIVE); COLOR, URINE AMBER (YELLOW); GLUCOSE, URINE (UA) AUTO NEGATIVE (NEGATIVE); KETONE, URINE AUTO TRACE mg/dL (NEGATIVE); LEUKOCYTE ESTERASE, URINE AUTO 1+ (NEGATIVE); MUCUS, URINE SMALL (NEGATIVE); NITRITE, URINE AUTO NEGATIVE (NEGATIVE); PROTEIN, URINE AUTO NEGATIVE (NEGATIVE); RBC, URINE AUTO 1 /HPF (0-3); SPECIFIC GRAVITY URINE AUTO 1.021 (1.002-1.035); SQUAMOUS EPITHELIAL CELL UR AU 3 /HPF (0-6); UROBILINOGEN, URINE AUTO 0.2 mg/dL (0.0-2.0); WBC, URINE AUTO 6 /HPF (0-3)
[2023-03-06 12:59] LABS: BASO % 0.6 % (0.0-1.0); EOS # 0.1 10^3/uL (0.0-0.5); EOS % 2.9 % (0.0-3.0); HEMATOCRIT 41.2 % (36.0-47.0); HEMOGLOBIN 13.5 g/dl (12.0-15.5); LYMPH # 0.9 10^3/uL (1.5-5.0); LYMPH % 27.4 % (24.0-44.0); MEAN CORPUSCULAR HEMOGLOBIN 30.3 pg (27.0-33.0); MEAN CORPUSCULAR HGB CONC 32.8 g/dl (32.0-36.5); MEAN CORPUSCULAR VOLUME 92.4 fl (80.0-96.0); MONO # 0.3 10^3/uL (0.0-0.8); NEUTROPHILS % 58.8 % (36.0-66.0); PLATELET COUNT, AUTOMATED 246 10^3/uL (150-450); RED BLOOD COUNT 4.46 10^6/uL (4.00-5.40); WHITE BLOOD COUNT 3.4 10^3/uL (4.0-10.0)
[2023-03-06 13:29] LABS: FOLATE > 24.0 NG/ML (>5.4); THYROID STIMULATING HORMONE 2.587 uIU/ML (0.55-4.78)
[2023-03-06 13:30] LABS: TOTAL 25(OH) VITAMIN D 46.9 NG/ML (20.0-100.0); VITAMIN B12 LEVEL 768 PG/ML (211-911)
[2023-03-06 13:49] LABS: ALBUMIN 3.9 G/DL (3.2-5.2); ALKALINE PHOSPHATASE 67 U/L (46-116); ALT/SGPT 24 U/L (7.0-40); AST/SGOT 21 U/L (<34); BILIRUBIN,TOTAL 0.4 MG/DL (0.3-1.2); BLOOD UREA NITROGEN 18 MG/DL (9-23); CALCIUM LEVEL 8.6 MG/DL (8.3-10.6); CARBON DIOXIDE LEVEL 25 MMOL/L (20-31); CHLORIDE LEVEL 107 MMOL/L (98-107); CHOLESTEROL LEVEL 136 MG/DL (<200); CHOLESTEROL RISK RATIO 1.85 (<5); GLOMERULAR FILTRATION RATE > 60.0 (>45); GLUCOSE, FASTING 93 MG/DL (74-106); HDL CHOLESTEROL 73.3 MG/DL (>40); LDL CHOLESTEROL 46.5 MG/DL (<100); MAGNESIUM LEVEL 2.1 MG/DL (1.8-2.4); NON-HDL-C 62.7 MG/DL; SODIUM LEVEL 141 MMOL/L (136-145); TOTAL PROTEIN 6.6 G/DL (5.7-8.2); TRIGLYCERIDES LEVEL 81 MG/DL (<150)
== END ==
LOC: M SFHCCLAY 08:32
PROVIDERS: ATTEND Physician Assistant
DX: Z00.00 Encounter for general adult medical examination without abnormal findings (principal); R53.83 Other fatigue

== ENCOUNTER → 2023-04-06 | Outpatient (CLI) | payer OTHER | LOC: M WHC 07:56 | PROVIDERS: ATTEND Surgery | DX: R92.8 Other abnormal and inconclusive findings on diagnostic imaging of breast (principal); N64.89 Other specified disorders of breast; N63.21 Unspecified lump in the left breast, upper outer quadrant ==

== ENCOUNTER → 2023-05-10 | Outpatient (CLI) | payer OTHER | LOC: M PAIN 08:45 | PROVIDERS: ATTEND Anesthesiology | DX: M79.10 Myalgia, unspecified site (principal); M54.2 Cervicalgia; M48.02 Spinal stenosis, cervical region; Z80.0 Family history of malignant neoplasm of digestive organs; Z87.891 Personal history of nicotine dependence; Z88.8 Allergy status to other drugs, medicaments and biological substances; Z91.018 Allergy to other foods; Z79.82 Long term (current) use of aspirin; Z79.899 Other long term (current) drug therapy ==

== ENCOUNTER → 2023-05-17 | Outpatient (CLI) | payer OTHER | LOC: M WHC 14:24 | PROVIDERS: ATTEND Physician Assistant | DX: N60.11 Diffuse cystic mastopathy of right breast (principal); N60.12 Diffuse cystic mastopathy of left breast ==

== ENCOUNTER → 2023-05-31 | Outpatient (REF) | payer OTHER ==
[2023-05-31 13:03] LABS: HEMATOCRIT 41.9 % (36.0-47.0); HEMOGLOBIN 14.2 g/dl (12.0-15.5); MEAN CORPUSCULAR HEMOGLOBIN 31.1 pg (27.0-33.0); MEAN CORPUSCULAR HGB CONC 33.9 g/dl (32.0-36.5); MEAN CORPUSCULAR VOLUME 91.9 fl (80.0-96.0); PLATELET COUNT, AUTOMATED 283 10^3/uL (150-450); RED BLOOD COUNT 4.56 10^6/uL (4.00-5.40); WHITE BLOOD COUNT 4.8 10^3/uL (4.0-10.0)
[2023-05-31 13:06] LABS: ALBUMIN 3.8 G/DL (3.2-5.2); ALKALINE PHOSPHATASE 59 U/L (46-116); ALT/SGPT 23 U/L (7.0-40); AST/SGOT 22 U/L (<34); BILIRUBIN,TOTAL 0.5 MG/DL (0.3-1.2); BLOOD UREA NITROGEN 21 MG/DL (9-23); CALCIUM LEVEL 8.8 MG/DL (8.3-10.6); CARBON DIOXIDE LEVEL 28 MMOL/L (20-31); CHLORIDE LEVEL 105 MMOL/L (98-107); CREATININE FOR GFR 0.76 MG/DL (0.55-1.30); GLOMERULAR FILTRATION RATE > 60.0 (>45); GLUCOSE, FASTING 77 MG/DL (74-106); POTASSIUM SERUM 4.6 MMOL/L (3.5-5.1); SODIUM LEVEL 140 MMOL/L (136-145); TOTAL PROTEIN 6.6 G/DL (5.7-8.2)
== END ==
LOC: M LABDRAWC 12:27
PROVIDERS: ATTEND Internal Medicine Rheumatology
DX: M35.9 Systemic involvement of connective tissue, unspecified (principal)

== ENCOUNTER → 2023-05-31 | Outpatient (REF) | payer OTHER ==
[2023-05-31 12:05] LABS: BASO % 0.9 % (0.0-1.0); EOS # 0.1 10^3/uL (0.0-0.5); EOS % 2.8 % (0.0-3.0); HEMATOCRIT 42.4 % (36.0-47.0); HEMOGLOBIN 14.5 g/dl (12.0-15.5); LYMPH # 1.4 10^3/uL (1.5-5.0); LYMPH % 31.5 % (24.0-44.0); MEAN CORPUSCULAR HEMOGLOBIN 31.4 pg (27.0-33.0); MEAN CORPUSCULAR HGB CONC 34.2 g/dl (32.0-36.5); MEAN CORPUSCULAR VOLUME 91.8 fl (80.0-96.0); MONO # 0.4 10^3/uL (0.0-0.8); MONO % 8.8 % (2.0-8.0); NEUTROPHILS # 2.6 10^3/uL (1.5-8.5); NEUTROPHILS % 55.8 % (36.0-66.0); PLATELET COUNT, AUTOMATED 283 10^3/uL (150-450); RED BLOOD COUNT 4.62 10^6/uL (4.00-5.40); WHITE BLOOD COUNT 4.6 10^3/uL (4.0-10.0)
[2023-05-31 12:29] LABS: INR 0.94; PROTHROMBIN TIME 12.3 SECONDS (12.5-14.5)
[2023-05-31 12:37] LABS: BLOOD UREA NITROGEN 21 MG/DL (9-23); CALCIUM LEVEL 8.7 MG/DL (8.3-10.6); CARBON DIOXIDE LEVEL 28 MMOL/L (20-31); CHLORIDE LEVEL 103 MMOL/L (98-107); CREATININE FOR GFR 0.77 MG/DL (0.55-1.30); GLOMERULAR FILTRATION RATE > 60.0 (>45); GLUCOSE, FASTING 74 MG/DL (74-106); POTASSIUM SERUM 4.6 MMOL/L (3.5-5.1); SODIUM LEVEL 138 MMOL/L (136-145)
== END ==
LOC: M SFHCLERA 08:09
PROVIDERS: ATTEND Family Medicine
DX: Z01.818 Encounter for other preprocedural examination (principal)

== ENCOUNTER → 2023-07-18 | Outpatient (CLI) | payer OTHER | LOC: M WHC 11:08 | PROVIDERS: ATTEND Internal Medicine Hematology | DX: R59.0 Localized enlarged lymph nodes (principal) ==

== ENCOUNTER → 2023-09-06 | Outpatient (CLI) | payer OTHER | LOC: M PAIN 15:45 | PROVIDERS: ATTEND Anesthesiology | DX: M47.812 Spondylosis without myelopathy or radiculopathy, cervical region (principal); Z79.891 Long term (current) use of opiate analgesic; Z79.82 Long term (current) use of aspirin; Z79.899 Other long term (current) drug therapy; Z88.8 Allergy status to other drugs, medicaments and biological substances; Z91.018 Allergy to other foods; Z87.891 Personal history of nicotine dependence | CPT/HCPCS: 76000; G0463 ==

== ENCOUNTER → 2023-09-11 | Outpatient (CLI) | payer OTHER ==
[2023-09-11 13:28] LABS: ALBUMIN 3.9 G/DL (3.2-5.2); ALKALINE PHOSPHATASE 60 U/L (46-116); ALT/SGPT 22 U/L (7.0-40); AST/SGOT 18 U/L (<34); BILIRUBIN,TOTAL 0.5 MG/DL (0.3-1.2); BLOOD UREA NITROGEN 16 MG/DL (9-23); CALCIUM LEVEL 9.3 MG/DL (8.3-10.6); CARBON DIOXIDE LEVEL 30 MMOL/L (20-31); CHLORIDE LEVEL 108 MMOL/L (98-107); CREATININE FOR GFR 0.71 MG/DL (0.55-1.30); GLOMERULAR FILTRATION RATE > 60.0 (>45); GLUCOSE, FASTING 76 MG/DL (74-106); POTASSIUM SERUM 4.4 MMOL/L (3.5-5.1); SODIUM LEVEL 143 MMOL/L (136-145); TOTAL PROTEIN 6.6 G/DL (5.7-8.2)
[2023-09-11 13:30] LABS: RHEUMATOID FACTOR QUANT 7.4 IU/ML (<14); VITAMIN B12 LEVEL 997 PG/ML (211-911)
[2023-09-11 13:31] LABS: FOLATE > 24.0 NG/ML (>5.4); THYROID STIMULATING HORMONE 2.334 uIU/ML (0.55-4.78)
[2023-09-11 13:35] LABS: BASO # 0.1 10^3/uL (0.0-0.2); BASO % 1.1 % (0.0-1.0); EOS # 0.2 10^3/uL (0.0-0.5); EOS % 4.6 % (0.0-3.0); HEMATOCRIT 41.5 % (36.0-47.0); HEMOGLOBIN 13.7 g/dl (12.0-15.5); LYMPH % 21.9 % (24.0-44.0); MEAN CORPUSCULAR HEMOGLOBIN 30.8 pg (27.0-33.0); MEAN CORPUSCULAR VOLUME 93.3 fl (80.0-96.0); MONO # 0.3 10^3/uL (0.0-0.8); MONO % 6.9 % (2.0-8.0); NEUTROPHILS # 3.1 10^3/uL (1.5-8.5); NEUTROPHILS % 65.3 % (36.0-66.0); PLATELET COUNT, AUTOMATED 316 10^3/uL (150-450); RED BLOOD COUNT 4.45 10^6/uL (4.00-5.40); WHITE BLOOD COUNT 4.8 10^3/uL (4.0-10.0)
[2023-09-11 13:44] LABS: HEMOGLOBIN A1c 4.8 % (4.0-6.0)
[2023-09-11 13:49] LABS: ERYTHROCYTE SEDIMENTATION RATE 9 mm/hr (0-30)
== END ==
LOC: M PLALAB 09:59
PROVIDERS: ATTEND Psychiatry & Neurology Neurology
DX: G60.9 Hereditary and idiopathic neuropathy, unspecified (principal)

== ENCOUNTER → 2023-12-11 | Outpatient (CLI) | payer MEDICAID, OTHER | LOC: M PAIN 09:00 | PROVIDERS: ATTEND Nurse Practitioner Family | DX: M47.812 Spondylosis without myelopathy or radiculopathy, cervical region (principal); Z87.891 Personal history of nicotine dependence; Z95.5 Presence of coronary angioplasty implant and graft; G89.29 Other chronic pain; Z79.82 Long term (current) use of aspirin; Z79.899 Other long term (current) drug therapy; Z88.5 Allergy status to narcotic agent; Z88.6 Allergy status to analgesic agent; Z88.8 Allergy status to other drugs, medicaments and biological substances; Z91.018 Allergy to other foods ==

== ENCOUNTER → 2024-03-11 | Outpatient (CLI) | payer MEDICAID, OTHER | LOC: M PAIN 16:00 | PROVIDERS: ATTEND Nurse Practitioner Family | DX: M47.812 Spondylosis without myelopathy or radiculopathy, cervical region (principal); G89.29 Other chronic pain; M54.2 Cervicalgia; I25.10 Atherosclerotic heart disease of native coronary artery without angina pectoris; Z95.5 Presence of coronary angioplasty implant and graft; F41.9 Anxiety disorder, unspecified; Z87.891 Personal history of nicotine dependence; Z79.891 Long term (current) use of opiate analgesic; Z79.82 Long term (current) use of aspirin; Z79.899 Other long term (current) drug therapy; Z88.8 Allergy status to other drugs, medicaments and biological substances; Z91.02 Food additives allergy status ==

== ENCOUNTER → 2024-05-14 | Outpatient (CLI) | payer OTHER | LOC: M PAIN 17:30 | PROVIDERS: ATTEND Nurse Practitioner Family | DX: M47.816 Spondylosis without myelopathy or radiculopathy, lumbar region (principal); G89.29 Other chronic pain; Z79.891 Long term (current) use of opiate analgesic; Z79.82 Long term (current) use of aspirin; Z79.899 Other long term (current) drug therapy; Z87.891 Personal history of nicotine dependence ==

== ENCOUNTER → 2024-07-17 | Outpatient (CLI) | payer OTHER | LOC: M PAIN 11:15 | PROVIDERS: ATTEND Anesthesiology | DX: M47.816 Spondylosis without myelopathy or radiculopathy, lumbar region (principal); M47.812 Spondylosis without myelopathy or radiculopathy, cervical region; M54.6 Pain in thoracic spine; Z79.82 Long term (current) use of aspirin; Z79.891 Long term (current) use of opiate analgesic; Z79.899 Other long term (current) drug therapy; Z88.8 Allergy status to other drugs, medicaments and biological substances; Z91.02 Food additives allergy status ==